=== PATIENT | male | born 1940 | race Caucasian/White ===

== ENCOUNTER 2018-04-28 15:06 | Inpatient (IN) | payer OTHER ==
--- OUTSIDE RECORDS SUMMARY | 2018-04-28 16:06 | XMS REPORT ---
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 Active knee Problem Pain, joint, knee, right M25.561 Active Assessment Primary osteoarthritis of right M17.11 Active knee Assessment Primary osteoarthritis of left knee M17.12 Active Assessment Pain, joint, knee, right M25.561 Active Medications Medication Code System Code Instructions Start End Date Status Dosage Date Carafate [facility] 96296842420 1 GM Orally Active 1 tablet on Twice a day an empty stomach losartan [facility] 45474420146 20 mg Active one tab daily Jardiance [facility] 41903710645 25 MG Oral Active TAKE 1 TABLET BY MOUTH EVERY DAY IN THE MORNING Carvedilol [facility] 14281593163 12.5 MG Oral Active TAKE 1/2 TABLET BY MOUTH TWICE DAILY Omeprazole [facility] 53902879129 40 MG Oral Active TAKE 1 CAPSULE BY MOUTH TWICE A DAY Crestor [facility] 63693333863 40 MG Orally Active 1 tablet Once a day Lasix [facility] 84466331213 20 MG Orally Active 1 tablet Once a day Results No Known Results Summary Purpose eClinicalWorks Submission
[2018-04-28] MEDS ORDERED: D50W 25 GM/50 ML SYRINGE IV PRN (16:47)
[2018-04-28] MEDS ORDERED: GLUCAGON 1 MG/VIAL IM PRN (16:47)
[2018-04-28] MEDS ORDERED: FUROSEMIDE 40 MG/4 ML VIAL IV ONE (17:10)
[2018-04-28 17:11] LABS: Absolute Lymphocytes (CBC) 0.8 K/uL (0.7-4.9); Absolute Monocytes 1.3 K/uL (0.1-1.3); Absolute Neutrophil 5.4 K/uL (1.8-8.0); Basophils % 0.4 % (0-1.3); Eosinophils % 1.2 % (0-4.4); Hematocrit 37.1 % (39.6-49.0); Lymphocytes % 10.3 % (15.3-44.8); MCH 34.5 pg (27.0-35.0); MCV 99.3 fL (80-100); Monocytes % 16.8 % (3.3-12.3); RBC Red Blood Cell Count 3.74 M/uL (4.33-5.43)
[2018-04-28 17:38] LABS: Albumin 2.4 g/dL (3.4-5.0); Bilirubin Total 2.9 mg/dL (0.2-1.0); Magnesium 2.2 mg/dL (1.8-2.4); Phosphorus 2.5 mg/dL (2.5-4.9); Potassium 3.3 mmol/L (3.5-5.1); Protein, Total 7.2 g/dL (6.4-8.2); Thyroid Stimulating Hormone 1.59 uIU/mL (0.360-3.740)
--- NOTE | 2018-04-28 18:00 | RAD REPORT ---
EXAM DESCRIPTION: Markus Caruso (2 Views)04/28/2018 5:42 pm CLINICAL HISTORY: Cough COMPARISON: November 2017 FINDINGS: A small to moderate left pleural effusion is present with left basilar atelectasis. The right lung appears clear The heart is normal size IMPRESSION: Small to moderate left pleural effusion
[2018-04-28 18:37] LABS: Anisocytosis 1+; Blood Morphology Comment NOTED (NOT SEEN); Platelet Estimate DECR; Urine White Blood Cell Casts OK
[2018-04-28] MEDS ORDERED: POTASSIUM CL SA 10 MEQ TAB PO ONE (18:50)
[2018-04-28 19:01] LABS: Urine Appearance CLOUDY; Urine Blood NEGATIVE (NEG); Urine Color ORANGE; Urine Glucose NEGATIVE (NEG); Urine Protein NEGATIVE (NEG); Urine Specific Gravity 1.025 (1.005-1.030)
[2018-04-28 19:13] LABS: Urine Bilirubin 1+ (NEG); Urine Microscopic Reflex ORDER UMIC
[2018-04-28 19:29] LABS: Urine Bacteria 20-50 /HPF (NONE SEEN); Urine Culture Reflex Order REFLEXED; Urine Mucus 3+ /HPF (NONE SEEN); Urine RBC <5 /HPF (NONE SEEN)
[2018-04-28] MEDS: INSULIN -REGULAR HUMAN 50 UNIT/0.5 ML ML SQ SCH (21:00)
[2018-04-28] MEDS ORDERED: POTASS/SODIUM PHOSPHATE 1 PKT POWD.PACK PO ONE (21:00)
[2018-04-28] MEDS ORDERED: CEFTRIAXONE 1 GM/NS 50 ML 1 GM/50 ML BAG IV SCH (21:00)
[2018-04-28] MEDS: CEFTRIAXONE/SWI 1gm 1 GM/10 ML SYR IVP SCH (21:24)
[2018-04-28] MEDS: SPIRONOLACTONE 25 MG TABLET PO SCH (21:26)
--- NOTE | 2018-04-29 04:25 | HP ---
Date of Admission: 04/28/2018 Chief Complaint: Cough, congestion and swelling. History Of Present Illness: Mr. Vega is a 77-year-old pleasant male patient who has history of cirrhosis of liver, has seen Dr. Powers for that in the past, recently went out of country to [facility] on a vacation. The patient got sick 3 days ago with cough, congestion and redness of his eyes w ith some discharge from eyes and matting of his eyelids in the morning time. He is coughing up some yellowish-colored mucus with this problem. He has had some bloating type of feeling lately. He came home last night and came to see me today with his complaints. When I saw him, I noted that his abdo men appeared to be distended and had bilateral leg swelling. Upon further review of office record, i t was noted that the patient has gained 20 pounds since his last visit at office which was on 2017. He denies any shortness of breath. He takes his medications regularly as he reports. After he was evaluated he was admitted to the hospital for further evaluation and management of these problems. Review of Systems: Respiratory: As mentioned above. Eyes: As mentioned above. GI: As mentioned above. All other systems reviewed and negative. Social History: Negative for smoking. Use of alcohol in the past. Now, he rarely drinks alcohol. Past Medical History: Type 2 diabetes mellitus, mixed hyperlipidemia, hypertension, thrombocytopenia , cirrhosis of liver, pancreatic cyst, benign prostatic hypertrophy. Past Surgical History: Cholecystectomy and removal of lipoma and basal cell carcinoma from back. Allergies: TO MUCINEX DM, VICODIN, BACTRIM, AND LISINOPRIL. LISINOPRIL CAUSING FLUSHING, BACTRIM CA USING HYPERACTIVITY, VICODIN MADE HIM FEEL WEIRD AND WIRED UP AND NAUSEA, MUCINEX CAUSED SWELLING OF HIS TONGUE. Family History: Significant for abdominal aortic aneurysm. Medications: Aspirin 81 mg p.o. daily, carvedilol 12.5 mg 2 times a day, Crestor 10 mg p.o. daily, f luticasone nasal spray 1 spray 2 times a day in each nostril, furosemide 20 mg takes 2 tablets in the morning and 1 tablet at noon time, Jardiance 25 mg p.o. daily, losartan 50 mg p.o. 2 times a day, Ne xium 40 mg p.o. daily, omeprazole 40 mg p.o. 2 times a day, spironolactone 25 mg p.o. 2 times a day. Physical Examination: Vital Signs: Vital signs today at office, height 72 inches, weight 234 pounds, blood pressure 138/69 , pulse 84, respiratory rate 15, temperature 98.7. General: Awake, alert, oriented, not in distress. HEENT: Head atraumatic, normocephalic. Both eyes show erythematous conjunctivae worse in the right eye than the left eye. Mouth, no thrush or edema noted. Ears/Nose, no mass, lesion, discharge noted . Neck: Supple. No JVD, lymph nodes, bruit, thyromegaly noted. Lungs: Bilateral good equal air entry. Clear to auscultation. No rhonchi. No rales. Heart: Normal heart sounds, no murmur or gallop. Abdomen: Appears distended. No guarding, rigidity, tenderness. No hepatosplenomegaly or bruit, and the patient has large amount of ascites present. Extremities: Bilateral leg edema grade 3 involving both thighs and both lower legs. Skin: No rash, ulcer, cellulitis. Lymphatics: No lymph node enlargement in neck, supraclavicular, infraclavicular region. Neuro: No focal neurological deficit. Chest: Unremarkable. External Genitalia: Deferred. Rectal: Deferred. Laboratory Data: Labs pending. Impression: 1.Cirrhosis of liver. 2.Rule out pneumonia. 3.Type 2 diabetes mellitus. 4.Mixed hyperlipidemia. 5.Hypertension. 6.Thrombocytopenia. 7.Acute conjunctivitis, bilateral. Plan: Admit the patient to hospital for further evaluation and management of this problem. The [facility] is appropriate for inpatient and is expected to spend 2 midnights in hospital. We will go ahead and continue home medications per order. We will get routine blood work done. We will follow up on those results. We will also consult Dr. Powers from [facility]. The patient will need paracentesis. He never had paracentesis done before. We will go ahead and get echocardiogram done to evaluate le ft ventricular ejection fraction and continue spironolactone 25 mg 2 times a day and start him on Las ix 40 mg IV daily. Electrolytes will be monitored. We will start him on IV antibiotics ceftriaxone. Follow up on chest x-ray results. Details and plan of treatment discussed with him. We will go ah ead and start him on antibiotic eyedrops, Vigamox. I will see him tomorrow for followup. TOMMY/HAM Voice ID: [id number]
[2018-04-29 06:10] LABS: Magnesium 2.1 mg/dL (1.8-2.4); Phosphorus 2.8 mg/dL (2.5-4.9); Potassium 3.8 mmol/L (3.5-5.1)
[2018-04-29] MEDS ORDERED: POTASSIUM 25 MEQ EFFERV TAB PO ONE (06:13)
[2018-04-29] MEDS: INSULIN -REGULAR HUMAN 50 UNIT/0.5 ML ML SQ SCH ×4 (07:30→21:00)
[2018-04-29] MEDS: MOXIFLOXACIN HCL 0.5% 3ML OPTH OPTH SCH ×4 (09:00→21:26)
[2018-04-29] MEDS ORDERED: HOME MED 1 EA UNK (Omeprazole [Prilosec] 40 MG) PO SCH (09:00)
[2018-04-29] MEDS ORDERED: CARVEDILOL 6.25 MG PO SCH (09:00)
[2018-04-29] MEDS ORDERED: FUROSEMIDE 40 MG/4 ML VIAL IV SCH (09:00)
[2018-04-29] MEDS: ENOXAPARIN 40 MG/0.4 ML SQ SCH (09:58)
[2018-04-29] MEDS: CEFTRIAXONE/SWI 1gm 1 GM/10 ML SYR IVP SCH ×2 (09:58→21:26)
[2018-04-29] MEDS: SPIRONOLACTONE 25 MG TABLET PO SCH ×2 (09:59→21:25)
[2018-04-29] MEDS: FUROSEMIDE 40 MG TABLET PO SCH ×2 (10:00→17:36)
--- NOTE | 2018-04-29 10:17 | RAD REPORT ---
EXAM DESCRIPTION: CT - Thorax Wo Con - 04/29/2018 8:51 am CLINICAL HISTORY: Pleural effusion, cough and congestion, bilateral leg swelling COMPARISON: Chest exam April 28, CT abdomen December 16 TECHNIQUE: Axial 5 mm thick images of the chest were obtained without IV contrast. All CT scans are performed using dose optimization technique as appropriate and may include automated exposure control or mA/KV adjustment according to patient size. FINDINGS: No suspicious mass of the lung parenchyma and no infiltrate seen. A few small granulomas a re present. Moderate left pleural effusion is present with partial atelectasis of the left lower lobe . No left lower lobe endobronchial lesion and no evidence for an obstructive mass at the hilum. No ri ght-sided pleural effusion. No pleural based mass. No pneumothorax. No abnormal mediastinal or hilar masses or lymphadenopathy seen. No gross aortic or pulmonary artery finding suspected. Assessment is limited in the absence of IV contrast. No cardiomegaly or pericardi al effusion. No chest wall mass or abnormal axillary lymphadenopathy. Bilateral gynecomastia changes are present. Limited upper abdomen imaging shows advanced cirrhotic liver changes. Patient has a large volume of a scites. The ascites and remainder the abdomen are not fully assessed on the CT chest study. IMPRESSION: Moderate size left pleural effusion with partial atelectasis left lower lobe. No focal infiltrate seen. No perihilar mass, lymphadenopathy or endobronchial lesion. Limited upper abdomen imaging again notes advanced liver cirrhosis with large volume of ascites. Abdo men is incompletely assessed.
--- NOTE | 2018-04-29 10:20 | RAD REPORT ---
EXAM DESCRIPTION: US - Abdomen Exam Complete - 04/29/2018 9:29 am CLINICAL HISTORY: Ascites, abdominal pain COMPARISON: CT chest same date, abdomen CT December 16 FINDINGS: Gallbladder is absent. Common bile duct is normal with no common duct stone identified. Li abbey is grossly abnormal with diffusely coarsened and increased echogenicity as well as pronounced cap sular nodularity. A focal liver lesion is not identifiable. Doppler evaluation shows no reversal of p ortal flow. Spleen is 13 cm in maximum dimension. No focal splenic abnormality. The pancreas is too o bscured for assessment. No hydronephrosis or suspicious mass in either kidney. Aorta and IVC show no suspicious findings. Moderately large volume of ascites present. When comparing the ultrasound and current CT chest study with November imaging, ascites has increased. IMPRESSION: Advanced cirrhosis of the liver without a focal liver lesion identifiable. Moderately large volume of ascites. Volume has increased since the November CT imaging. Pancreas is too obscured for assessment.
--- NOTE | 2018-04-29 10:21 | RAD REPORT ---
EXAM DESCRIPTION: US - Extrem Venous W Compress Isaias - 04/29/2018 9:29 am CLINICAL HISTORY: Bilateral lower extremity edema, leg pain COMPARISON: None. TECHNIQUE: Real-time sonographic evaluation of the bilateral lower extremity common femoral, superfi cial femoral, popliteal and posterior tibial veins was performed. FINDINGS: Normal compressibility, flow augmentation, phasic flow and spontaneous flow are identified in the left and right lower extremity common femoral, superficial femoral, popliteal and posterior t ibial veins. No intraluminal filling defects seen. IMPRESSION: No DVT in either lower extremity.
--- NOTE | 2018-04-29 13:31 | PN ---
Date of Progress Note: 04/29/2018 Subjective: The patient was seen this morning for followup. He was sitting at bedside. No new comp laints or problems reported. His leg swelling is slightly better compared to yesterday. Objective: Vital signs: Reviewed. HEENT: Unremarkable. Lungs: Clear to auscultation. No rhonchi. No rales. Heart: Sounds normal. Abdomen: Soft. Presence of ascites. No guarding, rigidity, or tenderness. Extremities: Bilateral leg edema, slightly better today than yesterday. Laboratory Data: Sodium 139, potassium 3.8, chloride 106, bicarb 26, BUN 15, creatinine 1, glucose 1 33. Hemoglobin A1c 5.6 yesterday. Magnesium 2.1 and phosphorus 2.8 today. Chest x-ray shows pleura l effusion. Impression: 1.Cirrhosis of liver with ascites. 2.Pleural effusion. 3.Rule out pneumonia. 4.Acute conjunctivitis. 5.Type 2 diabetes mellitus. 6.Hypertension. Plan: We will go ahead and do venous Doppler of both lower extremities today to rule out DVT. Josi robson Lovenox for DVT prophylaxis. We will also go ahead and follow up on echocardiogram, which will b e done today. GI consultation is pending and we will get abdominal ultrasound done today. CAT scan of the chest was ordered without contrast today. Lasix will be continued at 40 mg IV every 12 hours per order, and we will go ahead and continue spironolactone. Home medications will be continue d per order. TOMMY/MODL Voice ID: [id number] Report ID: [id number]
[2018-04-29] MEDS ORDERED: ALBUMIN HUMAN 25% 300 ML IV SCH (18:00)
[2018-04-29] MEDS ORDERED: ROSUVASTATIN PO SCH (21:00)
[2018-04-30 07:11] LABS: Potassium 3.1 mmol/L (3.5-5.1)
[2018-04-30] MEDS ORDERED: POTASSIUM CL SA 10 MEQ TAB PO ONE ×2 (07:15→14:54)
[2018-04-30] MEDS: INSULIN -REGULAR HUMAN 50 UNIT/0.5 ML ML SQ SCH ×4 (07:30→20:25)
[2018-04-30] MEDS: FUROSEMIDE 40 MG TABLET PO SCH ×2 (09:50→16:39)
[2018-04-30] MEDS: SPIRONOLACTONE 25 MG TABLET PO SCH ×2 (09:50→20:25)
[2018-04-30] MEDS: MOXIFLOXACIN HCL 0.5% 3ML OPTH OPTH SCH ×3 (09:51→20:25)
[2018-04-30] MEDS: CEFTRIAXONE/SWI 1gm 1 GM/10 ML SYR IVP SCH ×2 (09:51→20:25)
[2018-04-30] MEDS: ENOXAPARIN 40 MG/0.4 ML SQ SCH (09:51)
--- NOTE | 2018-04-30 14:58 | P.PN ---
Subjective Date of Service: 04/30/18 Chief Complaint: Ascites, cirrhosis, left pleural effusion, LLE, volume overload Subjective: Improving (Slowly feeling better with ongoing diuresis on Lasix and Aldactone, after increased volume somewhat prior (as per ) and especially during recent trip to [place] where he reduced his diuretic [place] Review of Systems 10-point ROS is otherwise unremarkable General: Weakness (Slowly improving. ) Cardiovascular: Edema Physical Examination - Vital Signs Temperature: 97.3 F Blood Pressure: 130/72 Pulse: 88 Respirations: 18 Pulse Ox (%): 93 - Physical Exam General: Alert, In no apparent distress, Oriented x3, Cooperative HEENT: Atraumatic, Normocephalic, PERRLA, Other (right eye with conjunctivitis / red on therapy ), EOMI Neck: Supple Cardiovascular: Normal pulses Gastrointestinal: No tenderness, No rebound, No guarding, Ascites Neurological: Normal speech, Normal strength at 5/5 x4 extr - Studies Laboratory Data (last 24 hrs) 04/30/18 13:57: Potassium 3.6 04/30/18 06:41: Sodium 138, Potassium 3.1 L, BUN 16, Creatinine 1.00, Glucose 98 Microbiology Data (last 24 hrs): 04/29/18 06:50 Sputum Gram Stain - Final Assessment And Plan - Current Problems (Diagnosis) (1) Ascites Current Visit: Yes Status: Acute (2) Cirrhosis of liver Onset Date: 08/16/17 Current Visit: No Status: Acute (3) Diabetes mellitus, type II Onset Date: 08/16/17 Current Visit: No Status: Acute - Plan REC: 1) increase Aldactone from 25 to 50 mg po bid (K at 3.0 & 3.6, with Cr 1.0 ) 2) elevated LEs above heart level when lying down 3) check wt qd 4) consider 2 liter fluid restriction / day 5) U/S guided paracentesis for Wednesday (not available on weekend) 6) await ongoing cardiac evaluation for CHF contributing to increase LLE ( especially since h/o diabetes) -> echocardiogram done yesterday and pending
[2018-04-30] MEDS ORDERED: SPIRONOLACTONE 25 MG TABLET PO ONE (14:59)
--- NOTE | 2018-05-01 02:18 | PN ---
Date of Progress Note: 04/30/2018 Subjective: The patient was seen this evening for followup. No new complaints or problems reported by patient. No nausea or vomiting. Objective: Vital Signs: Reviewed. HEENT: Unremarkable except some redness of right eye, which is much better than before. Redness of the left eye is resolved. Lungs: Bilateral good equal air entry. Clear to auscultation. No rhonchi. No rales. Heart: Heart sounds normal. Abdomen: Soft. Bowel sounds normal. No guarding, rigidity. Presence of ascites with distended abd omen, unchanged. Extremities: Bilateral leg edema, unchanged from yesterday. Laboratory Data: Sodium 138, potassium 3.1, chloride 105, bicarb 27, BUN 16, creatinine 1, glucose 9 8. Repeat potassium after correction was 3.6 this afternoon. Impression: 1.Cirrhosis of liver with ascites. 2.Acute bronchitis. 3.Pleural effusion. 4.Hypokalemia. 5.Hypertension. 6.Diabetes mellitus, type 2. Plan: We will continue current medications. Continue current diuretic therapy with Lasix and spiron olactone. Continue antibiotic, ceftriaxone, and we will continue current DVT prophylaxis. Replace e lectrolyte per protocol. I will see him tomorrow for followup. We will continue to follow up with [facility] physician, Dr. Powers, who is planning to do paracentesis on Wednesday. We will repeat blood work tomorrow morning. TOMMY/MODL Voice ID: [id number] Report ID: [id number]
[2018-05-01 06:00] LABS: Absolute Lymphocytes (CBC) 0.6 K/uL (0.7-4.9); Absolute Monocytes 0.7 K/uL (0.1-1.3); Absolute Neutrophil 3.5 K/uL (1.8-8.0); Basophils % 0.6 % (0-1.3); Eosinophils % 4.1 % (0-4.4); Hematocrit 34.9 % (39.6-49.0); Lymphocytes % 11.4 % (15.3-44.8); MCH 35.7 pg (27.0-35.0); MCV 100.6 fL (80-100); MPV 9.3 fL (7.6-11.3); RBC Red Blood Cell Count 3.47 M/uL (4.33-5.43)
[2018-05-01 06:03] LABS: Protime INR 1.39
[2018-05-01 06:26] LABS: Potassium 3.3 mmol/L (3.5-5.1)
[2018-05-01] MEDS ORDERED: POTASSIUM CL SA 10 MEQ TAB PO ONE (06:30)
[2018-05-01] MEDS: INSULIN -REGULAR HUMAN 50 UNIT/0.5 ML ML SQ SCH ×4 (07:30→21:00)
[2018-05-01] MEDS: SPIRONOLACTONE 25 MG TABLET PO SCH (09:18)
[2018-05-01] MEDS: MOXIFLOXACIN HCL 0.5% 3ML OPTH OPTH SCH ×3 (09:18→20:42)
[2018-05-01] MEDS: ENOXAPARIN 40 MG/0.4 ML SQ SCH (09:18)
[2018-05-01] MEDS: FUROSEMIDE 40 MG TABLET PO SCH ×2 (09:18→16:43)
[2018-05-01] MEDS: CEFTRIAXONE/SWI 1gm 1 GM/10 ML SYR IVP SCH ×2 (10:21→20:41)
--- NOTE | 2018-05-01 12:20 | P.PN ---
Subjective Date of Service: 05/01/18 Chief Complaint: Ascites, cirrhosis, left pleural effusion, LLE, volume overload Subjective: Tolerating diet (Tolerating 2000 ADA diet, though with ice cream, chips, and breaded baked chicken for lunch. His weight has increased by 1 lbs overnight despite increase in Aldactone from 25 to 50 mg po bid. & his K is still low at 3.3 today, even with potassium given last night.) Review of Systems General: Weakness, Malaise Cardiovascular: Edema Gastrointestinal: Hematochezia (he states excessive wiping of hemorrhoids) Neurological: Weakness Physical Examination - Vital Signs Temperature: 97.3 F Blood Pressure: 164/77 Pulse: 82 Respirations: 18 Pulse Ox (%): 93 - Physical Exam General: Alert, In no apparent distress, Oriented x3, Cooperative HEENT: Atraumatic, Normocephalic, PERRLA, Other (right eye conjunctivitis slowly improving on therapy ), EOMI Neck: Supple Respiratory: Diminished (in bases) Cardiovascular: Normal pulses Gastrointestinal: No rebound, No guarding, Ascites Neurological: Normal speech, Normal strength at 5/5 x4 extr - Studies Laboratory Data (last 24 hrs) 05/01/18 04:52: PT 16.4 H, INR 1.39, APTT 32.2 05/01/18 04:52: WBC 5.0 D, Hgb 12.4 L, Hct 34.9 L, Plt Count 107 L 05/01/18 04:52: Sodium 139, Potassium 3.3 L, BUN 16, Creatinine 1.00, Glucose 153 H, Magnesium 2.0 04/30/18 13:57: Potassium 3.6 Microbiology Data (last 24 hrs): 04/29/18 06:50 Sputum Gram Stain - Final 04/29/18 06:50 Sputum Culture & Sensitivity - Final 04/27/18 18:30 Clean Catch Urine [place] Count - Final >100,000 CFU/ML. 04/27/18 18:30 Clean Catch Urine - Final Assessment And Plan - Current Problems (Diagnosis) (1) Ascites Current Visit: Yes Status: Acute (2) Cirrhosis of liver Onset Date: 08/16/17 Current Visit: No Status: Acute (3) Diabetes mellitus, type II Onset Date: 08/16/17 Current Visit: No Status: Acute - Plan REC: 1) increase Aldactone from 50 to 100 mg po bid (K at 3.3, with Cr 1.0) 2) elevated LEs above heart level when lying down 3) check wt qd 4) consider 2 liter fluid restriction / day 5) U/S guided paracentesis tomorrow with fluid studies and IV albumin (not available on weekend) 6) await ongoing cardiac evaluation for CHF contributing to increase LLE ( especially since h/o diabetes) -> echocardiogram done yesterday and pending
--- NOTE | 2018-05-01 12:57 | PN ---
Date of Progress Note: 05/01/2018 Subjective: The patient was seen this morning for followup . He was sitting in chair, not in distre ss. Denied any new complaints. No diarrhea. No nausea, vomiting. Continues to have significant le g swelling and ascites problem has some cough, which is dry. Objective: Vital Signs: Reviewed. HEENT: Unremarkable. Lungs: Clear to auscultation. No rhonchi. No rales. Heart: Sounds normal. Abdomen: Soft. Bowel sounds normal. No guarding, rigidity, tenderness noted. Presence of ascites with distended abdomen present, unchanged. Extremities: Leg edema bilateral legs, slightly worse today than yesterday. Laboratory Data: White count 5, hemoglobin 12.4, platelets 107. Sodium 139, potassium 3.3, chloride 104, bicarb 25, BUN 16, creatinine 1, glucose 153, magnesium 2. Impression: 1.Cirrhosis of liver with ascites. 2.Hypokalemia. 3.Thrombocytopenia. 4.Acute bronchitis. 5.Acute conjunctivitis. 6.Hypertension. Plan: We will go ahead and continue current diuretic therapy. Replace electrolytes per protocol. T he patient is on DVT prophylaxis with Lovenox. We will continue that. We will continue to follow wi th Dr. Powers. Continue current eyedrops for conjunctivitis, which seems to be improving well with e yedrops. Continue ceftriaxone for acute bronchitis problem as well. I did talk to patient about not to drink excessive amount of liquids, and as per my discussion with him, he is not drinking more colette n a 1000 cc per day and we did talk about keeping his fluid intake under 1000 cc per day. We will continue current diuretic therapy. Dr. Powers is pl anning to do paracentesis tomorrow. TOMMY/MODL Voice ID: [id number] Report ID: [id number]
[2018-05-01] MEDS: SPIRONOLACTONE 100 MG TAB PO SCH (20:41)
[2018-05-02 06:14] LABS: Potassium 3.8 mmol/L (3.5-5.1)
[2018-05-02] MEDS ORDERED: KCL 20 MEQ/100 mL IVPB 20 MEQ/100 ML BAG IV SCH (07:00)
[2018-05-02] MEDS: INSULIN -REGULAR HUMAN 50 UNIT/0.5 ML ML SQ SCH ×4 (07:30→21:00)
--- NOTE | 2018-05-02 07:33 | ECHO ---
HEIGHT: 6 ft 0 in WEIGHT: 231 lb 3.2 oz DATE OF STUDY: 04/29/[address]: Clark Barrera MD 2-DIMENSIONAL: YES M.MODE: YES DOPPLER: YES COLOR FLOW: YES TDS: YES PORTABLE: NO DEFINITY: NO BUBBLE STUDY: NO DIAGNOSIS: LEG EDEMA CARDIAC HISTORY: CATHERIZATION: NO SURGERY: NO PROSTHETIC VALVE: NO PACEMAKER: NO MEASUREMENTS (cm) DIASTOLIC (NORMALS) SYSTOLIC (NORMALS) IVSd 1.1 (0.6-1.2) LA Diam (1.9-4.0) LVEF 65% LVIDd 4.8 (3.5-5.7) LVIDs 3.1 (2.0-3.5) %FS 35% LVPWd 1.2 (0.6-1.2) Ao Diam 2.9 (2.0-3.7) 2 DIMENSIONAL ASSESSMENT: RIGHT ATRIUM: NORMAL LEFT ATRIUM: NORMAL RIGHT VENTRICLE: NORMAL LEFT VENTRICLE: NORMAL TRICUSPID VALVE: NORMAL MITRAL VALVE: NORMAL PULMONIC VALVE: NORMAL AORTIC VALVE: SCLEROSIS PERICARDIAL EFFUSION: NONE AORTIC ROOT: NORMAL LEFT VENTRICULAR WALL MOTION: NORMAL DOPPLER/COLOR FLOW: NORMAL COMMENTS: AORTIC SCLEROSIS. NORMAL LEFT VENTRICULAR SIZE AND FUNCTION. NO WALL MOTION ABNORMALITY. TECHNOLOGIST: Mike URENA
[2018-05-02] MEDS ORDERED: NA CHLORIDE 0.9% 50 ML ONE (07:59)
[2018-05-02] MEDS: FUROSEMIDE 40 MG TABLET PO SCH ×2 (09:00→17:05)
[2018-05-02] MEDS: SPIRONOLACTONE 100 MG TAB PO SCH ×2 (09:00→21:41)
[2018-05-02] MEDS: ENOXAPARIN 40 MG/0.4 ML SQ SCH (09:00)
[2018-05-02] MEDS: MOXIFLOXACIN HCL 0.5% 3ML OPTH OPTH SCH ×3 (09:33→21:42)
[2018-05-02] MEDS: CEFTRIAXONE/SWI 1gm 1 GM/10 ML SYR IVP SCH ×2 (09:33→21:41)
--- NOTE | 2018-05-02 11:17 | RAD REPORT ---
EXAM DESCRIPTION: US - Paracentesis Proc Guidance - 05/02/2018 11:05 am CLINICAL HISTORY: Ascites COMPARISON: None. TECHNIQUE: The patient presents for ultrasound-guided paracentesis. The procedure, risks and altern atives were discussed with the patient in detail. Oral and written consent were obtained. Time out p rocedure was performed. The patient had no contraindicated allergy or medication history. Patient wa s off Lovenox therapy greater than 12 hours. Preliminary sonographic evaluation identified right lower access site. The skin and deeper tissues w ere anesthetized with 1 percent lidocaine. Under direct sonographic visualization, a paracentesis ca theter was advanced into the peritoneal cavity. Approximately 20 milliliters of ascites retained for requested laboratory studies. Large volume drainage was initiated. Approximately 7.5 liters of ascite s removed. At the conclusion of the procedure, catheter was withdrawn and a bandage placed at the puncture site. Postprocedure care and precaution instructions were given to the patient. Patient was transferred [facility] the floor for continued care. Albumin therapy orders were provided by the referring physician. IMPRESSION: Ultrasound-guided paracentesis as detailed.
[2018-05-02 11:20] VITALS: O2SAT 95
[2018-05-02] MEDS ORDERED: ALBUMIN HUMAN 25% 100 ML IV SCH (12:00)
[2018-05-02] MEDS ORDERED: SPIRONOLACTONE 25 MG TABLET PO ONE (13:00)
--- NOTE | 2018-05-02 20:58 | PN ---
Date of Progress Note: 05/02/2018 Subjective: The patient was seen this morning for followup. No new complaints or problems reported by patient, lying in bed, not in distress. Objective: Vital Signs: Reviewed. HEENT: Examination unremarkable. Lungs: Clear to auscultation. Heart: Sounds normal. Abdomen: Soft. Bowel sounds normal. Presence of distention with ascites unchanged. Extremities: Leg edema unchanged from yesterday. Laboratory Data: Sodium 140, potassium 3.8, chloride 104, bicarb 29, BUN 15, creatinine 0.90, glucos e 92. Impression: 1.Cirrhosis of liver with ascites. 2.Acute bronchitis. 3.Pleural effusion. 4.Hypertension. 5.Type 2 diabetes mellitus. 6.Acute conjunctivitis. Plan: The patient's conjunctivitis problem is doing much better. We will continue current eyedrops. Continue current ceftriaxone for bronchitis problem. The patient will have paracentesis with Dr. Alka agrawal today and I will see him tomorrow for followup. We will continue current diuretic therapy. Po ssible discharge to go home in next day or two days depending on his condition. TOMMY/MODL Voice ID: [id number] Report ID: [id number]
[2018-05-02 21:34] LABS: Body Fluid Source PERITONEAL; Color of fluid Yellow (COLORLESS)
[2018-05-02 21:35] LABS: Appearance CLEAR (CLEAR); Body Fluid WBC 59 /mm^3
[2018-05-03 05:42] LABS: Absolute Lymphocytes (CBC) 0.6 K/uL (0.7-4.9); Absolute Monocytes 0.7 K/uL (0.1-1.3); Absolute Neutrophil 3.8 K/uL (1.8-8.0); Basophils % 0.4 % (0-1.3); Eosinophils % 3.2 % (0-4.4); Hematocrit 34.7 % (39.6-49.0); MCH 34.8 pg (27.0-35.0); MCV 100.8 fL (80-100); Monocytes % 13.8 % (3.3-12.3); RBC Red Blood Cell Count 3.45 M/uL (4.33-5.43)
[2018-05-03 05:56] VITALS: BMI 29.7
[2018-05-03 05:57] LABS: BUN Blood Urea Nitrogen 15 mg/dL (7-18); Bicarbonate 30 mmol/L (21-32); Glucose Level 86 mg/dL (74-106); Magnesium 1.9 mg/dL (1.8-2.4); Phosphorus 2.5 mg/dL (2.5-4.9); Potassium 3.6 mmol/L (3.5-5.1); Sodium Level 140 mmol/L (136-145)
[2018-05-03] MEDS ORDERED: POTASSIUM 25 MEQ EFFERV TAB PO ONE (06:11)
[2018-05-03 06:23] LABS: Blood Morphology Comment NOT SEEN (NOT SEEN); Platelet Estimate ADEQ; Urine White Blood Cell Casts OK
[2018-05-03] MEDS: INSULIN -REGULAR HUMAN 50 UNIT/0.5 ML ML SQ SCH (07:30)
[2018-05-03 09:49] VITALS: BP 133/59; TEMP 98.1
--- NOTE | 2018-05-03 12:35 | P.PN ---
Subjective Date of Service: 05/03/18 Chief Complaint: Ascites, cirrhosis, left pleural effusion, LLE, volume overload Subjective: Improving (Feels much better after 7.5 liters of fluid removed on paracentesis yesterday. His wt came down from 231 to 218 lbs.) Review of Systems 10-point ROS is otherwise unremarkable General: Malaise (improved) Physical Examination - Vital Signs Temperature: 98.1 F Blood Pressure: 133/59 Pulse: 71 Respirations: 20 Pulse Ox (%): 95 - Physical Exam General: Alert, In no apparent distress, Oriented x3, Cooperative HEENT: Atraumatic, Normocephalic, PERRLA Neck: Supple Respiratory: Normal air movement Cardiovascular: Normal pulses, Edema (in LEs 3+) Gastrointestinal: Normal bowel sounds, Soft and benign (ascites ), No tenderness , No rebound, No guarding Neurological: Normal speech, Normal strength at 5/5 x4 extr - Studies Laboratory Data (last 24 hrs) 05/03/18 05:25: WBC 5.4, Hgb 12.0 L, Hct 34.7 L, Plt Count 95 L 05/03/18 05:25: Sodium 140, Potassium 3.6, BUN 15, Creatinine 0.80, Glucose 86, Phosphorus 2.5, Magnesium 1.9 Microbiology Data (last 24 hrs): 05/02/18 10:20 Body Fluid - Ascites Fluid Gram Stain - Final Assessment And Plan - Current Problems (Diagnosis) (1) Ascites Status: Acute (2) Cirrhosis of liver Onset Date: 08/16/17 Status: Acute (3) Diabetes mellitus, type II Onset Date: 08/16/17 Status: Acute - Plan REC: 1) continue Aldactone 100 mg po bid (K at 3.6, with Cr 0.8) and Lasix 40 mg po bid 2) elevated LEs above heart level when lying down 3) check wt qd 4) consider 2 liter fluid restriction / day 5) await ongoing cardiac evaluation for CHF contributing to increase LLE ( especially since h/o diabetes) -> echocardiogram done yesterday and pending 6) GI clinic f/u next week
--- NOTE | 2018-05-04 05:12 | DS ---
Date of Discharge: 05/03/2018 Disposition: Discharged to go home. Physical Examination: HEENT: Unremarkable. Lungs: Clear to auscultation. Heart: Sounds normal. Abdomen: Soft. Bowel sounds normal. No guarding, rigidity, tenderness, or distention. Extremities: Bilateral grade-2 pedal edema in lower half of both legs. Overall, that is better than before. Discharge Medications And Instructions: 1.Continue all prior home medications except stop carvedilol and stop amlodipine. 2.Increase dose of spironolactone to 100 mg p.o. twice a day and increase dose of furosemide to 40 m g p.o. twice a day. 3.Follow up with Dr. Powers next week and follow up at my office a week after next. 4.The patient was instructed by me today when I saw him to limit his fluid intake to 1000 cc per day and to go ahead and eat low salt diet. Hospital Course: This is a 77-year-old male patient who was admitted to the hospital with cough, con gestion, and swelling. Please see dictated H and P for more information. After the patient was eval uated at office, he was admitted to the hospital with significant edema of both lower extremities and large amount of ascites with abdominal distention. After he was evaluated at the office, decision w as made to admit him to the hospital. Further evaluation revealed routine labs and abdominal ultraso und which showed large amount of ascites with advanced cirrhosis liver changes. Chest x-ray had show n pleural effusion. No definite evidence of pneumonia. The patient had symptoms of bronchitis. He was treated with IV antibiotic which was ceftriaxone. He also had conjunctivitis in both eyes. The right eye was worse than the left eye, and Vigamox eye drops were used for treatment, and he was impr chase significantly. His conjunctivitis changes have resolved. Dr. Powers from GI service was consul steven. The patient had a paracentesis done yesterday, and 7.5 L of fluid was removed. He feels a lot better. He has lost about 12 to 13 pounds with the paracentesis. This morning, he was feeling fine. His leg swelling has improved significantly. He still has leg swelling, but this is something we c an try to manage it on outpatient basis with oral diuretic therapy. On outpatient basis, he was taki ng spironolactone 25 mg twice a day; and over period of this hospitalization, Dr. Powers has increase d dose to 100 mg twice a day. He did receive IV Lasix 40 mg twice a day during this hospitalization. Electrolytes and blood count were monitored. Today, the patient was discharged to go home in sta e condition with above-mentioned medications and instructions. 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 2.Acute bronchitis. 3.Acute conjunctivitis, bilateral. 4.Type 2 diabetes mellitus. 5.Hyperlipidemia, mixed. 6.Hypertension. 7.Thrombocytopenia. 8.Anemia. 9.Hypokalemia. Laboratory Data: Labs done during this hospitalization; initial white count 7.6, hemoglobin 12.9, an d platelets 128. Last platelets 95 today with WBC 5.4 and hemoglobin 12. His last sodium today 140, potassium 3.6, chloride 104, bicarb 30, BUN 15, creatinine 0.80, glucose 86, and magnesium 1.9. TOMMY/MODL Voice ID: [id number] Report ID: [id number]
== END 2018-05-03 10:22 | disposition home or self-care (01) | DRG 433 ==
LOC: 2ND 16:03
PROVIDERS: ADMIT Internal Medicine; ATTEND Internal Medicine
PROC: 0W9G3ZZ Drainage of Peritoneal Cavity, Percutaneous Approach (ICD-10-PCS; principal; 2018-05-02)
DX: K70.31 Alcoholic cirrhosis of liver with ascites (principal); J90 Pleural effusion, not elsewhere classified; K92.1 Melena; J98.11 Atelectasis; F10.11 Alcohol abuse, in remission; E78.2 Mixed hyperlipidemia; N40.0 Benign prostatic hyperplasia without lower urinary tract symptoms; Z85.828 Personal history of other malignant neoplasm of skin; Z88.8 Allergy status to other drugs, medicaments and biological substances; H10.33 Unspecified acute conjunctivitis, bilateral; D69.6 Thrombocytopenia, unspecified; E11.9 Type 2 diabetes mellitus without complications; I10 Essential (primary) hypertension; J20.9 Acute bronchitis, unspecified; E87.6 Hypokalemia
CPT/HCPCS: 36415; 49083; 71046; 71250; 76700; 80048; 80053; 81003; 81015; 82962; 83036; 83735; 84100; 84132; 84145; 84443; 85025; 85610; 85730; 87070; 87086; 87088; 87205; 89050; 93306; 93970; J0696; J1650; J1940; P9047

== ENCOUNTER 2018-07-07 08:57 | Day surgery (SDC) | payer OTHER ==
--- OUTSIDE RECORDS SUMMARY | 2018-07-07 09:01 | XMS REPORT ---
[...] Start End Date Status Dosage Date Carafate [facility] 75771331025 1 GM Orally Active 1 tablet on Twice a day an empty stomach losartan [facility] 31814430772 20 mg Active one tab daily Jardiance [facility] 55671894086 25 MG Oral Active TAKE 1 TABLET BY MOUTH EVERY DAY IN THE MORNING Carvedilol [facility] 86378218324 12.5 MG Oral Active TAKE 1/2 TABLET BY MOUTH TWICE DAILY Omeprazole [facility] 86171778836 40 MG Oral Active TAKE 1 CAPSULE BY MOUTH TWICE A DAY Crestor [facility] 94587465190 40 MG Orally Active 1 tablet Once a day Lasix [facility] 46483129665 20 MG Orally Active 1 tablet Once a day Results No Known Results Summary Purpose eClinicalWorks Submission
[2018-07-07 09:58] LABS: MPV 9.3 fL (7.6-11.3)
[2018-07-07 10:05] LABS: Protime INR 1.28
[2018-07-07 10:10] VITALS: BMI 29.5
[2018-07-07 11:12] LABS: Platelet Estimate DECR
[2018-07-07] MEDS ORDERED: ALBUMIN HUMAN 25% 100 ML IV SCH (12:15)
--- NOTE | 2018-07-07 12:17 | RAD REPORT ---
EXAM DESCRIPTION: US - Paracentesis Proc Guidance - 07/07/2018 11:35 am CLINICAL HISTORY: Ascites COMPARISON: Paracentesis April 2018 TECHNIQUE: The patient presents for ultrasound-guided paracentesis. The procedure, risks and altern atives were discussed with the patient in detail. Oral and written consent were obtained. Time out p rocedure was performed. The patient had no contraindicated allergy or medication history. PT, INR va lues within acceptable limits. Preliminary sonographic evaluation identified access site. The skin and deeper tissues were anesthe tized with 1 percent lidocaine. Under direct sonographic visualization, a paracentesis catheter was advanced into the peritoneal cavity. Large volume drainage was initiated. Approximately 10 liters of ascites removed. At the conclusion of the procedure, catheter was withdrawn and a bandage placed at the puncture site. Postprocedure care and precaution instructions were given to the patient. Patient was transferred t o same-day surgery for post paracentesis monitoring and albumin infusion. IMPRESSION: Ultrasound-guided paracentesis as detailed.
[2018-07-07] MEDS ORDERED: ALBUMIN HUMAN 25% 100 ML IV ONE (12:30)
[2018-07-07 12:40] VITALS: TEMP 97.1
[2018-07-07 13:37] VITALS: BP 111/54; O2SAT 98
== END 2018-07-07 13:25 | disposition home or self-care (01) ==
LOC: DS 08:57
PROVIDERS: ATTEND Internal Medicine
DX: K70.31 Alcoholic cirrhosis of liver with ascites (principal)
CPT/HCPCS: 36415; 49083; 85049; 85610; 85730; 96365; P9047 ×2

== ENCOUNTER 2018-08-02 06:25 | Day surgery (SDC) | payer OTHER ==
--- OUTSIDE RECORDS SUMMARY | 2018-08-02 06:29 | XMS REPORT ---
[...] Status Dosage Date Carafate [facility] 27471573257 1 GM Orally Active 1 tablet on Twice a day an empty stomach losartan [facility] 27543473557 20 mg Active one tab daily Jardiance [facility] 16333071731 25 MG Oral Active TAKE 1 TABLET BY MOUTH EVERY DAY IN THE MORNING Carvedilol [facility] 59674536958 12.5 MG Oral Active TAKE 1/2 TABLET BY MOUTH TWICE DAILY Omeprazole [facility] 82722534965 40 MG Oral Active TAKE 1 CAPSULE BY MOUTH TWICE A DAY Crestor [facility] 16159027573 40 MG Orally Active 1 tablet Once a day Lasix [facility] 40858655068 20 MG Orally Active 1 tablet Once a day Results No Known Results Summary Purpose eClinicalWorks Submission
--- OUTSIDE RECORDS SUMMARY | 2018-08-02 06:29 | XMS REPORT | Clinical Summary ---
:1940 Author Organization [facility] Address [address] [place] [address] Care Team Providers Name Role Phone Unavailable Primary Care Provider Unavailable Allergies Not on File Medications Not on file Active Problems Not on file Social History Tobacco Use Types Packs/Day Years Used Date Never Assessed Sex Assigned at Date Recorded Not on file Job Start Date Occupation Industry Not on file Not on file Not on file Travel History Travel Start Travel End No recent travel history available. Last Filed Vital Signs Not on file Plan of Treatment Date Type Specialty Care Team Description 08/11/2018 Office Visit Hepatology Hoang Moreno MD [address] [facility] [address] [place], [place] [id number] Results Not on fileafter 08/01/2017 Insurance Payer Benefit Plan / Subscriber ID Type Phone Address Group [employer] - MEDICARE A[employer] MEDICARE O xxxxxxxx [phone] [address] [place] [place] [address]
[2018-08-02] MEDS ORDERED: NA CHLORIDE 0.9% 1,000 ML ONE (06:45)
[2018-08-02] MEDS ORDERED: SIMETHICONE 40 MG/ 0.6 ML ONE (07:05)
[2018-08-02] MEDS ORDERED: LIDOCAINE 1% MPF 5 ML VIAL ONE (07:51)
[2018-08-02] MEDS ORDERED: PROPOFOL 200 MG/20 ML VIAL IV ONE (07:51)
--- NOTE | 2018-08-02 08:15 | ENDO RPT ---
[address], [address] EGD PROCEDURE REPORT EXAM DATE: 08/02/2018 PATIENT NAME: Clifford Vega MR#: [id number] BIRTHDATE: 1940 ATTENDING: Tayo Powers Dr STATUS: outpatient DATA ENTRY REPRESENTATIVE: Monica Chauhan RN and Shyanne Deleon RN INDICATIONS: The patient is a 77 yr old Male here for an EGD due to surveillance of esophageal varices PROCEDURE PERFORMED: EGD with banding MEDICATIONS: Per Anesthesia. TOPICAL ANESTHETIC: none CONSENT: The patient understands the risks and benefits of the procedure and understands that these risks include, but are not limited to: sedation, allergic reaction, infection, perforation and/or bleeding. Alternative means of evaluation and treatment include, among others: physical exam, x-rays, and/or surgical intervention. The patient elects to proceed with this endoscopic procedure. DESCRIPTION OF PROCEDURE: During intra-op preparation period all mechanical medical equipment was checked for proper function. Hand hygiene and appropriate measures for infection prevention was taken. Procedure, possible complications, and alternatives including but not limited to the possibility of bleeding, perforation, tear, infection, sepsis, need for surgery, need for blood transfusion, and anesthesia related complications were explained to the patient. After the risks, benefits and alternatives of the procedure were thoroughly explained, Informed consent was verified, confirmed and timeout was successfully executed by the treatment team. The patient was placed in the left lateral position. The patient was anesthetized with topical anesthesia. Through the anesthetized oropharyngeal area, the scope was passed without any difficulty. The [id number] ([id number]) endoscope was introduced through the mouth and advanced to the second portion of the duodenum. Retroflexed views revealed a moderate sized hiatal hernia. The gastroscope was then slowly withdrawn and removed. Grade II varices were found in the lower esophagus. Esophageal banding was performed. A moderate sized hiatal hernia was found Mild gastritis was found in the body and the antrum of the stomach. Nodular mucosa was found in the bulb of the duodenum. ADVERSE EVENTS: There were no complications. IMPRESSIONS: 1. Two columns of grade II varices in the lower esophagus, s/p banding X2 2. Moderate sized hiatal hernia 3. Mild gastritis in the body and the antrum of the stomach 4. Nodular mucosa in the bulb of the duodenum RECOMMENDATIONS: acid suppression therapy REPEAT EXAM: Return in 1 month(s) for EGD. Tayo Powers Dr eSigned: Tayo Powers Dr 08/02/2018 8:14 AM cc: Clark Barrera CPT CODES: ICD9 CODES: PATIENT NAME: Silvia Clifford BautistaWojciech MR#: [id number]
[2018-08-02 12:57] VITALS: BP 99/51; TEMP 98.5; O2SAT 94
== END 2018-08-02 08:30 | disposition home or self-care (01) ==
LOC: OR 06:25
PROVIDERS: ATTEND Internal Medicine Gastroenterology
PROC: 06L38CZ Occlusion of Esophageal Vein with Extraluminal Device, Via Natural or Artificial Opening Endoscopic (ICD-10-PCS; principal; 2018-08-02 07:30)
DX: I85.10 Secondary esophageal varices without bleeding (principal); K75.81 Nonalcoholic steatohepatitis (NASH); K29.70 Gastritis, unspecified, without bleeding; K44.9 Diaphragmatic hernia without obstruction or gangrene; K76.6 Portal hypertension; K31.89 Other diseases of stomach and duodenum; K21.9 Gastro-esophageal reflux disease without esophagitis; I10 Essential (primary) hypertension; Z79.899 Other long term (current) drug therapy
CPT/HCPCS: 43244; 82962; J2704; J7030

== ENCOUNTER → 2018-08-05 | Day surgery (SDC) | payer OTHER ==
[~2018-08-05] MED LIST: ALBUMIN HUMAN 25% 100 ML IV SCH
--- OUTSIDE RECORDS SUMMARY | 2018-08-05 09:53 | XMS REPORT ---
[...] Start End Date Status Dosage Date Carafate [facility] 21083652389 1 GM Orally Active 1 tablet on Twice a day an empty stomach losartan [facility] 75851194887 20 mg Active one tab daily Jardiance [facility] 66294338692 25 MG Oral Active TAKE 1 TABLET BY MOUTH EVERY DAY IN THE MORNING Carvedilol [facility] 21033849755 12.5 MG Oral Active TAKE 1/2 TABLET BY MOUTH TWICE DAILY Omeprazole [facility] 01978603955 40 MG Oral Active TAKE 1 CAPSULE BY MOUTH TWICE A DAY Crestor [facility] 63499673800 40 MG Orally Active 1 tablet Once a day Lasix [facility] 15459105921 20 MG Orally Active 1 tablet Once a day Results No Known Results Summary Purpose eClinicalWorks Submission
--- OUTSIDE RECORDS SUMMARY | 2018-08-05 09:53 | XMS REPORT | Clinical Summary ---
:1940 Author Organization [facility] Address [address] [place] [address] Care Team Providers Name Role Phone Unavailable Primary Care Provider Unavailable Allergies Not on File Medications Not on file Active Problems Not on file Encounters Date Type Specialty Care Team Description 08/05/2018 Telephone Hepatology Amy Rebollar MA Rec Cd (1) after 08/04/2017 Social History Tobacco Use Types Packs/Day Years [...] Office Visit Hepatology Hoang Moreno MD [address] [address] Results Not on fileafter 08/04/2017 Insurance Payer Benefit Plan / Subscriber ID Type Phone Address Group [employer] - MEDICARE A[employer] MEDICARE O xxxxxxxx [phone] [address] [place] [address]
[2018-08-05 10:36] VITALS: BP 110/65; TEMP 98; O2SAT 98
[2018-08-05 10:40] LABS: Protime INR 1.4
--- NOTE | 2018-08-05 12:21 | RAD REPORT ---
EXAM DESCRIPTION: US - Paracentesis Proc Guidance - 08/05/2018 11:34 am CLINICAL HISTORY: Ascites COMPARISON: Multiple prior paracentesis procedures TECHNIQUE: The patient presents for ultrasound-guided paracentesis. The procedure, risks and altern atives were discussed with the patient in detail. Oral and written consent were obtained. Time out p rocedure was performed. The patient had no contraindicated allergy or medication history. PT, INR va lues within acceptable limits. Preliminary sonographic evaluation identified right lower quadrant access site. The skin and deeper tissues were anesthetized with 1 percent lidocaine. Under direct sonographic visualization, a parace ntesis catheter was advanced into the peritoneal cavity. Large volume drainage was initiated. Approx imately 8 liters of ascites removed. At the conclusion of the procedure, catheter was withdrawn and a bandage placed at the puncture site. Postprocedure care and precaution instructions were given to the patient. Patient was transferred [facility] to same-day surgery for post paracentesis monitoring and albumin infusion per the referring physi darrell's protocol. IMPRESSION: Ultrasound-guided paracentesis as detailed.
[2018-08-05 15:35] LABS: Appearance SLT. TURBID (CLEAR); Body Fluid Source PERITONEAL; Body Fluid WBC 93 /mm^3; Color of fluid Yellow (COLORLESS)
== END ==
LOC: DS 09:51
PROVIDERS: ATTEND Internal Medicine Gastroenterology
DX: R18.8 Other ascites (principal); R93.3 Abnormal findings on diagnostic imaging of other parts of digestive tract; K74.69 Other cirrhosis of liver
CPT/HCPCS: 36415; 49083; 85610; 85730; 87070; 88108; 88305; 89050; 96365; P9047

== ENCOUNTER 2018-08-09 17:27 | Inpatient (IN) | payer OTHER ==
--- OUTSIDE RECORDS SUMMARY | 2018-08-09 17:29 | XMS REPORT ---
[...] Start End Date Status Dosage Date Carafate [facility] 46918893323 1 GM Orally Active 1 tablet on Twice a day an empty stomach losartan [facility] 13071339897 20 mg Active one tab daily Jardiance [facility] 61091957579 25 MG Oral Active TAKE 1 TABLET BY MOUTH EVERY DAY IN THE MORNING Carvedilol [facility] 98341374294 12.5 MG Oral Active TAKE 1/2 TABLET BY MOUTH TWICE DAILY Omeprazole [facility] 58093661618 40 MG Oral Active TAKE 1 CAPSULE BY MOUTH TWICE A DAY Crestor [facility] 64347577448 40 MG Orally Active 1 tablet Once a day Lasix [facility] 73390775172 20 MG Orally Active 1 tablet Once a day Results No Known Results Summary Purpose eClinicalWorks Submission
--- OUTSIDE RECORDS SUMMARY | 2018-08-09 17:29 | XMS REPORT | Clinical Summary ---
:1940 Author Organization [facility] Address [address] [place] [address] Care Team Providers Name Role Phone Unavailable Primary Care Provider Unavailable Allergies Not on File Medications Not on file Active Problems Not on file Encounters Date Type Specialty Care Team Description 08/05/2018 Telephone Hepatology Amy Rebollar MA Rec Cd (1) after 08/08/2017 Social History Tobacco Use Types Packs/Day Years [...] Office Visit Hepatology Hoang Moreno MD [address] [address] Results Not on fileafter 08/08/2017 Insurance Payer Benefit Plan / Subscriber ID Type Phone Address Group [employer] - MEDICARE A[employer] MEDICARE O xxxxxxxx [phone] [address] [place] [address]
[2018-08-09 17:50] LABS: Absolute Lymphocytes (CBC) 0.5 K/uL (0.7-4.9); Absolute Neutrophil 5.9 K/uL (1.8-8.0); Eosinophils % 1.9 % (0-4.4); Hematocrit 36.3 % (39.6-49.0); Lymphocytes % 7.2 % (15.3-44.8); MPV 9.1 fL (7.6-11.3); Monocytes % 13.3 % (3.3-12.3); RBC Red Blood Cell Count 3.65 M/uL (4.33-5.43)
--- NOTE | 2018-08-09 17:54 | RAD REPORT ---
EXAM DESCRIPTION: CT - Ct Stroke Brain Wo Cont - 08/09/2018 5:45 pm CLINICAL HISTORY: Confusion/alteration of awareness COMPARISON: None. TECHNIQUE: Computed axial tomography of the head was obtained. IV contrast was not requested. All CT scans are performed using dose optimization technique as appropriate and may include automated exposure control or mA/KV adjustment according to patient size. FINDINGS: An intracranial bleed is not seen . The ventricles are normal in caliber. No extra-axial fluid collection is noted. Fluid within the sinuses/ mastoids is not seen. IMPRESSION: No acute intracranial abnormality is seen. If patient's symptoms persist MRI of the bra in would be recommended. Dr Denis of the emergency room was notified at 5:49 p.m. August 09, 2018
[2018-08-09] MEDS ORDERED: FOLIC ACID 1 MG in NA CHLORIDE 0.9% 50 ML IV ONE (18:00)
[2018-08-09] MEDS ORDERED: ONDANSETRON 4 MG/2 ML VIAL ONE (18:07)
[2018-08-09] MEDS ORDERED: NA CHLORIDE 0.9% 500 ML ONE (18:07)
[2018-08-09 18:11] LABS: ALT/SGPT 32 U/L (12-78); AST/SGOT 50 U/L (15-37); Alkaline Phosphatase 145 U/L (45-117); BUN Blood Urea Nitrogen 21 mg/dL (7-18); Bicarbonate 24 mmol/L (21-32); Bilirubin Direct 0.8 mg/dL (0-0.2); Bilirubin Total 2.1 mg/dL (0.2-1.0); Glucose Level 149 mg/dL (74-106); Lipase 314 U/L (73-393); Magnesium 2.2 mg/dL (1.8-2.4); NT PRO-BNP 184 pg/mL (<450); Potassium 4.1 mmol/L (3.5-5.1); Protein, Total 7.5 g/dL (6.4-8.2); Sodium Level 139 mmol/L (136-145); Troponin (Emerg Dept Use Only) < 0.02 ng/mL (0.0-0.045)
[2018-08-09 18:18] LABS: Protime INR 1.36
[2018-08-09 18:23] LABS: Blood Morphology Comment NOT SEEN (NOT SEEN); Platelet Estimate DECR; Urine White Blood Cell Casts OK
--- NOTE | 2018-08-09 18:39 | RAD REPORT ---
EXAM DESCRIPTION: USCarotid Artery Bilateral08/09/2018 6:25 pm CLINICAL HISTORY: Syncope COMPARISON: None FINDINGS: The velocity of the right internal carotid artery equals 116 cm/sec. The right ICA/CCA rat io 1.5 The velocity of the left internal carotid artery equals 138 cm/sec. The left ICA/CCA ratio 1.7 3 Mild plaque is present within the carotid arteries. The vertebral arteries demonstrate antegrade flow IMPRESSION: Mild plaque within the carotid arteries without evidence of a hemodynamically significan t stenosis NASCET criteria used. Mild 0-49% stenosis Moderate 50-69% stenosis Severe 70-99% stenosis
--- NOTE | 2018-08-09 18:49 | RAD REPORT ---
EXAM DESCRIPTION: Markus Single View08/09/2018 6:41 pm CLINICAL HISTORY: cough COMPARISON: April 2018 FINDINGS: The lungs appear clear of acute infiltrate. The heart is normal size IMPRESSION: No acute abnormalities displayed
--- NOTE | 2018-08-09 19:03 | EKG ---
Test Date: 2018-08-09 Test Time: 17:57:06 Block Machine Operator: JV MEASUREMENT RESULTS: Intervals: Rate: 91 RI: 158 QRSD: 82 QT: 376 QTc: 462 Dresser: P: 31 RI: 158 QRS: 1 T: 3 INTERPRETIVE STATEMENTS: Sinus rhythm with premature atrial complexes Cannot rule out Anterior infarct, age undetermined Abnormal ECG Compared to ECG 11/05/2016 09:13:03 Atrial premature complex(es) now present Myocardial infarct finding now present Sinus bradycardia no longer present Ventricular premature complex(es) no longer present Electronically Signed On 08-09-18 19:02:32 MANAGER COSTING by [employer]
--- NOTE | 2018-08-09 19:25 | EDPHYS ---
Physician Documentation [facility] Name: Clifford Vega Age: 77 yrs Sex: Male : 1940 Arrival Date: 08/09/2018 Time: 17:29 Bed 3 Private MD: ED Physician Julio C Rajan HPI: 08/09 17:40 This 77 yrs old Male presents to ER via Unassigned with complaints of Altered shahab Mental Status. 17:40 The patient presents with confusion, decreased mental status, trouble concentrating. shahab Onset: The symptoms/episode began/occurred this morning. Possible causes: unknown. Associated signs and symptoms: Pertinent positives: confusion, lightheadedness, nausea. Current symptoms: In the emergency department the patient's symptoms have improved, mildly. Patient's baseline: Neuro: alert and fully oriented. The patient has not experienced similar symptoms in the past. Historical: - Allergies: 17:53 Sulfa (Sulfonamide Antibiotics); ss 17:53 Codeine; ss 17:53 Aspirin; ss - PMHx: 18:05 Cirrhosis; ss - Immunization history:: Adult Immunizations up to date. - Family history:: not pertinent. - Social history:: Smoking status: Patient/guardian denies using tobacco. - Ebola Screening: : Patient denies exposure to infectious person Patient denies travel to an Ebola-affected area in the 21 days before illness onset. ROS: 17:40 Constitutional: Negative for fever, chills, and weight loss, Eyes: Negative for injury, shahab pain, redness, and discharge, ENT: Negative for injury, pain, and discharge, Neck: Negative for injury, pain, and swelling, Cardiovascular: Negative for chest pain, palpitations, and edema, Respiratory: Negative for shortness of breath, cough, wheezing, and pleuritic chest pain, Back: Negative for injury and pain, : Negative for injury, bleeding, discharge, and swelling, MS/Extremity: Negative for injury and deformity, Skin: Negative for injury, rash, and discoloration, Psych: Negative for depression, anxiety, suicide ideation, homicidal ideation, and hallucinations, Allergy/Immunology: Negative for hives, rash, and allergies, Endocrine: Negative for neck swelling, polydipsia, polyuria, polyphagia, and marked weight changes, Hematologic/Lymphatic: Negative for swollen nodes, abnormal bleeding, and unusual bruising. 17:40 Abdomen/GI: Positive for nausea. 17:40 Neuro: Positive for altered mental status, weakness. Exam: 17:40 Constitutional: This is a well developed, well nourished patient who is awake, alert, shahab and in no acute distress. Head/Face: Normocephalic, atraumatic. Eyes: Pupils equal round and reactive to light, extra-ocular motions intact. Lids and lashes normal. Conjunctiva and sclera are non-icteric and not injected. Cornea within normal limits. Periorbital areas with no swelling, redness, or edema. ENT: Nares patent. No nasal discharge, no septal abnormalities noted. Tympanic membranes are normal and external auditory canals are clear. Oropharynx with no redness, swelling, or masses, exudates, or evidence of obstruction, uvula midline. Mucous membranes moist. Neck: Trachea midline, no thyromegaly or masses palpated, and no cervical lymphadenopathy. Supple, full range of motion without nuchal rigidity, or vertebral point tenderness. No Meningismus. Chest/axilla: Normal chest wall appearance and motion. Nontender with no deformity. No lesions are appreciated. Cardiovascular: Regular rate and rhythm with a normal S1 and S2. No gallops, murmurs, or rubs. Normal PMI, no JVD. No pulse deficits. Respiratory: Lungs have equal breath sounds bilaterally, clear to auscultation and percussion. No rales, rhonchi or wheezes noted. No increased work of breathing, no retractions or nasal flaring. Abdomen/GI: Soft, non-tender, with normal bowel sounds. No distension or tympany. No guarding or rebound. No evidence of tenderness throughout. Back: No spinal tenderness. No costovertebral tenderness. Full range of motion. Male : Normal genitalia with no discharge or lesions. Skin: Warm, dry with normal turgor. Normal color with no rashes, no lesions, and no evidence of cellulitis. MS/ Extremity: Pulses equal, no cyanosis. Neurovascular intact. Full, normal range of motion. Psych: Awake, alert, with orientation to person, place and time. Behavior, mood, and affect are within normal limits. 17:40 Neuro: Orientation: to person, place, time, Not oriented to situation, Mentation: slow to respond, Memory: unable to test, Cranial nerves: grossly normal, is grossly normal based on the patient's age, no acute changes, Cerebellar function: unable to test, Motor: moves all fours, Gait: not tested. seizure activity, is not displayed by the patient. Vital Signs: 17:28 BP 159 / 83; Pulse 92; Resp 16; Temp 97.6(TE); Pulse Ox 98% on R/A; Pain 0/10; ss 21:28 BP 151 / 81; Pulse 84; Resp 15 S; Pulse Ox 95% on R/A; bb NIH Stroke Scale Scores: 17:30 NIHSS Score: 0 ss 20:08 NIHSS Score: 0 shahab MDM: 17:31 Patient medically screened. [facility] 17:43 Data reviewed: vital signs, nurses notes, lab test result(s), EKG, radiologic studies, [facility] CT scan, MRI, plain films. 08/09 17:39 Order name: Basic Metabolic Panel; Complete Time: 18:55 [facility] 08/09 17:39 Order name: CBC with Diff; Complete Time: 18:55 [facility] 08/09 17:39 Order name: LFT's; Complete Time: 18:55 [facility] 08/09 17:39 Order name: Magnesium; Complete Time: 18:55 [facility] 08/09 17:39 Order name: NT PRO-BNP; Complete Time: 18:55 [facility] 08/09 17:39 Order name: PT-INR; Complete Time: 18:55 [facility] 08/09 17:39 Order name: Troponin (emerg Dept Use Only); Complete Time: 18:55 [facility] 08/09 17:39 Order name: Lipase; Complete Time: 18:55 [facility] 08/09 17:39 Order name: AMMONIA; Complete Time: 18:55 [facility] 08/09 17:39 Order name: Blood Culture Adult (2) [facility] 08/09 17:39 Order name: Urine Culture [facility] 08/09 17:55 Order name: CBC Smear Scan; Complete Time: 18:55 [facility] 08/09 18:58 Order name: Glucose, Ancillary Testing; Complete Time: 19:02 [facility] 08/09 19:50 Order name: Basic Metabolic Panel [facility] 08/09 17:33 Order name: CT Stroke Brain w/o Contrast; Complete Time: 18:55 08/09 17:39 Order name: XRAY Chest (1 view); Complete Time: 18:55 [facility] 08/09 17:39 Order name: US Carotid Artery Bilateral; Complete Time: 18:55 [facility] 08/09 18:09 Order name: MRI - Brain Wo Cont bd 08/09 19:50 Order name: Basic Metabolic Panel [facility] 08/09 19:50 Order name: CBC with Automated Diff [facility] 08/09 19:50 Order name: CBC with Automated Diff [facility] 08/09 19:50 Order name: Troponin I [facility] 08/09 19:50 Order name: Troponin I [facility] 08/09 19:50 Order name: Troponin I [facility] 08/09 19:51 Order name: Chest Single View [facility] 08/09 19:51 Order name: Chest Single View [facility] 08/09 17:39 Order name: EKG; Complete Time: 17:41 [facility] 08/09 17:39 Order name: Cardiac monitoring; Complete Time: 18:07 [facility] 08/09 17:39 Order name: EKG - Nurse/Tech; Complete Time: 18:08 [facility] 08/09 17:39 Order name: IV Saline Lock; Complete Time: 18:08 [facility] 08/09 17:39 Order name: Labs collected and sent; Complete Time: 18:08 [facility] 08/09 17:39 Order name: O2 Per Protocol; Complete Time: 18:08 [facility] 08/09 17:39 Order name: O2 Sat Monitoring; Complete Time: 18:08 [facility] 08/09 18:08 Order name: Swallow Screen; Complete Time: 21:37 08/09 19:41 Order name: CONS Physician Consult [facility] 08/09 19:50 Order name: Consistent Carb (ADA) [address] [facility] 08/09 19:50 Order name: EKG Electrocardiogram [facility] 08/09 19:50 Order name: EKG Electrocardiogram [facility] 08/09 19:50 Order name: EKG Electrocardiogram [facility] 08/09 19:50 Order name: EKG Electrocardiogram [facility] Administered Medications: 17:53 CANCELLED (Duplicate Order): Rocephin - (cefTRIAXone) 1 grams IVPB once over 30 mins; dm5 (mix in 50 mL NS) 17:58 Drug: NS 0.9% 500 ml Route: IV; Rate: bolus; Site: right wrist; dm5 21:43 Follow up: IV Status: Completed infusion ak1 18:00 Drug: Zofran 4 mg Route: IVP; Site: right wrist; dm5 18:18 Drug: foLIC Acid 1 mg Route: IVPB; Site: right forearm; ss 19:00 Follow up: IV Status: Completed infusion aa1 19:55 Drug: Ativan 0.5 mg Route: IVP; Site: right hand; ak1 20:52 Follow up: Response: No adverse reaction; Marked relief of symptoms aa1 19:56 Drug: Ativan 0.5 mg Route: IVP; Site: right hand; ak1 20:53 Follow up: Response: No adverse reaction; Marked relief of symptoms aa1 20:52 Drug: NS 0.9% 1000 ml Route: IV; Rate: 125 ml/hr; Site: right forearm; bb 21:29 Follow up: IV Status: Infusion continued upon admission bb 20:53 Drug: Rocephin 1 grams Route: IV; Rate: 1 calculated rate; Site: right forearm; bb 21:00 Follow up: IV Status: Completed infusion; IV Intake: 10ml bb 21:43 Not Given (Patient Refused; pt refuses to drink anything): Lactulose 30 grams 45 ml PO ak1 once Point of Care Testing: Blood Glucose: 17:28 Blood Glucose: 150 mg/dL; ss Ranges: Critical Glucose Levels:Adult <50 mg/dl or >400 mg/dl <40 mg/dl or >180 mg/dl Disposition: 08/09/18 19:25 Hospitalization ordered by Clark Barrera for Inpatient Admission. Preliminary diagnosis are Altered mental status, unspecified, Nausea, Weakness, Encephalopathy, unspecified, Unspecified kidney failure - insufficency. - Bed requested for Telemetry/MedSurg (Inpatient). - Status is Inpatient Admission. ak1 - Condition is Fair. - Problem is new. - Symptoms have improved. UTI on Admission? No NIH Stroke Scale - NIH Stroke Score Date: 08/09/2018 Time: 17:30 Total Score = 0 1a. Level of Consciousness (LOC) - 0(Alert) 1b. Level of Consciousness (LOC) (Year \T\ Age) - 0(Both) 1c. LOC Commands (Open \T\ Closes Eyes/Counter Dish Carrier) - 0(Both) 2. Best Gaze (Lateral Gaze Paresis) - 0(Normal) 3. Visual Field Loss - 0(No visual loss) 4. Facial Palsy - 0(Normal) 5a. Left Arm: Motor (10-second hold) - 0(No drift) 5b. Right Arm: Motor (10-second hold) - 0(No drift) 6a. Left Leg: Motor (5-second hold - always test supine) - 0(No drift) 6b. Right Leg: Motor (5-second hold - always test supine) - 0(No drift) 7. Limb Ataxia (finger/nose \T\ heel/rios - test with eyes open) - 0(Absent) 8. Sensory Loss (pinprick arms/legs/face) - 0(Normal) 9. Best Language: Aphasia (description/naming/reading) - 0(No aphasia) 10. Dysarthria (speech clarity - read or repeat words) - 0(Normal) 11. Extinction and Inattention (visual/tactile/auditory/spatial/personal) - 0(No abnormality) Initials: NIH Stroke Scale - NIH Stroke Score Date: 08/09/2018 Time: 20:08 Total Score = 0 1a. Level of Consciousness (LOC) - 0(Alert) 1b. Level of Consciousness (LOC) (Year \T\ Age) - 0(Both) 1c. LOC Commands (Open \T\ Closes Eyes/Counter Dish Carrier) - 0(Both) 2. Best Gaze (Lateral Gaze Paresis) - 0(Normal) 3. Visual Field Loss - 0(No visual loss) 4. Facial Palsy - 0(Normal) 5a. Left Arm: Motor (10-second hold) - 0(No drift) 5b. Right Arm: Motor (10-second hold) - 0(No drift) 6a. Left Leg: Motor (5-second hold - always test supine) - 0(No drift) 6b. Right Leg: Motor (5-second hold - always test supine) - 0(No drift) 7. Limb Ataxia (finger/nose \T\ heel/rios - test with eyes open) - 0(Absent) 8. Sensory Loss (pinprick arms/legs/face) - 0(Normal) 9. Best Language: Aphasia (description/naming/reading) - 0(No aphasia) 10. Dysarthria (speech clarity - read or repeat words) - 0(Normal) 11. Extinction and Inattention (visual/tactile/auditory/spatial/personal) - 0(No abnormality) Initials: shahab Signatures: Dispatcher [employer] Gay Charlton RN RN dm5 Johnson, SEGUNDO Truong RN, Corey, MD MD cha Ballard, Brenda, RN RN Syeda Davis RN RN Nellie Perez RN RN ak1 Jewell Segura RN aa1 Corrections: (The following items were deleted from the chart) 17:53 17:39 Rocephin - (cefTRIAXone) 1 grams IVPB once over 30 mins; (mix in 50 mL dm5 NS) ordered. [facility] 19:31 19:25 Hospitalization Ordered by Clark Barrera MD for Inpatient Admission. Preliminary diagnosis is Altered mental status, unspecified; Nausea; Weakness; Encephalopathy, unspecified. Bed requested for Telemetry/MedSurg (Inpatient). Status is Inpatient Admission. Condition is Fair. Problem is new. Symptoms have improved. UTI on Admission? No. [facility] 19:43 19:31 08/09/2018 19:25 Hospitalization Ordered by Clark Barrera MD for Inpatient Admission. Preliminary diagnosis is Altered mental status, unspecified; Nausea; Weakness; Encephalopathy, unspecified. Bed requested for Telemetry/MedSurg (Inpatient). Status is Inpatient Admission. Condition is Fair. Problem is new. Symptoms have improved. UTI on Admission? No. 20:09 19:43 08/09/2018 19:25 Hospitalization Ordered by Clark Barrera MD for Inpatient [facility] Admission. Preliminary diagnosis is Altered mental status, unspecified; Nausea; Weakness; Encephalopathy, unspecified. Bed requested for Telemetry/MedSurg (Inpatient). Status is Inpatient Admission. Condition is Fair. Problem is new. Symptoms have improved. UTI on Admission? No. 21:57 20:09 08/09/2018 19:25 Hospitalization Ordered by Clark Barrera MD for Inpatient [facility] Admission. Preliminary diagnosis is Altered mental status, unspecified; Nausea; Weakness; Encephalopathy, unspecified; Unspecified kidney failure - insufficency. Bed requested for Telemetry/MedSurg (Inpatient). Status is Inpatient Admission. Condition is Fair. Problem is new. Symptoms have improved. UTI on Admission? No. shahab
--- NOTE | 2018-08-09 19:25 | ER ---
Nurse's Notes [facility] Name: Clifford Vega Age: 77 yrs Sex: Male : 1940 Arrival Date: 08/09/2018 Time: 17:29 Bed 3 Private MD: Diagnosis: Altered mental status, unspecified;Nausea;Weakness;Encephalopathy, unspecified;Unspecified kidney failure-insufficency Presentation: 08/09 17:28 Presenting complaint: states: Sudden onset of confusion that began 1 hour prior to ss arrival. Pt c/o nausea and generally not feeling well. reports that the nausea has been an ongoing issue since patient has been battling cirrhosis. Recent paracentesis was performed 5 days ago and 8 L was drained. 17:28 Note Skin tear noted to L hand. states, "He must have done that while he was ss getting in the truck.". 17:30 Transition of care: patient was not received from another setting of care. Onset of ss symptoms was August 09, 2018. Risk Assessment: Do you want to hurt yourself or someone else? Patient reports no desire to harm self or others. Initial Sepsis Screen: Does the patient meet any 2 criteria? No. Patient's initial sepsis screen is negative. Does the patient have a suspected source of infection? No. Patient's initial sepsis screen is negative. Care prior to arrival: None. 17:30 Method Of Arrival: Ambulatory ss 17:40 Acuity: VALE 2 ss Historical: - Allergies: 17:53 Sulfa (Sulfonamide Antibiotics); ss 17:53 Codeine; ss 17:53 Aspirin; ss - PMHx: 18:05 Cirrhosis; ss - Immunization history:: Adult Immunizations up to date. - Family history:: not pertinent. - Social history:: Smoking status: Patient/guardian denies using tobacco. - Ebola Screening: : Patient denies exposure to infectious person Patient denies travel to an Ebola-affected area in the 21 days before illness onset. Screenin:01 Abuse screen: Denies threats or abuse. Denies injuries from another. Nutritional ss screening: No deficits noted. Tuberculosis screening: Never had TB. Fall Risk No fall in past 12 months (0 pts). Secondary diagnosis (15 points) AMS. IV access (20 points). Ambulatory Aid- None/Bed Rest/Nurse Assist (0 pts). Gait- Normal/Bed Rest/Wheelchair (0 pts) Mental Status- Oriented to own ability (0 pts). 21:37 The patient has not been NPO before screening. The patient is not alert, or is unable bb to follow commands. The patient failed the bedside swallow screening. The patient will be kept NPO until cleared by Speech Therapy or Physician. Assessment: 17:30 General: Appears comfortable, Behavior is calm, cooperative, Denies fever, feeling ill, ss fatigue, chills. Pain: Denies pain. Neuro: Level of Consciousness is awake, alert, obeys commands, Oriented to person, situation. Neuro: Reports Pt reports general malaise. states that patient seemed to be feeling well this morning as they went together to get manicures and pedicures. Approximately 1 hour prior to arrival to ED. reports that patient was acting odd, asking for things he typically wouldn't ask for. . Cardiovascular: Capillary refill < 3 seconds is brisk in bilateral fingers. Respiratory: Airway is patent Respiratory effort is even, unlabored, Respiratory pattern is regular, symmetrical. GI: Abdomen is non-distended, Reports nausea. Derm: Skin is pink, warm \\T\\ dry. Injury Description: skin tear noted to L hand, no active bleeding noted at this time. reports that this may have occurred while they were getting patient into the vehicle for transportation to ED. 17:48 Reassessment: Back from CT VIA stretcher. PT c/o mild nausea. hearing aids and shoes ss given to at bedside. Labs have been sent. Awaiting results. 18:40 Reassessment: Patient appears in no apparent distress at this time. Patient and/or sg family updated on plan of care and expected duration. Pain level reassessed. Patient is alert, oriented x 3, equal unlabored respirations, skin warm/dry/pink. 19:50 Reassessment: pt refusing to lay for MRI. pt requesting medications to help with ak1 nausea. Dr. Rajan notified. Medications taken down to MRI. pt continues to be uncooperative in MRI even after medications, Dr. Rajan notified and stated to hold the MRI until tomorrow when pt may be more cooperative. 21:49 Reassessment: Patient appears in no apparent distress at this time. pt and family ak1 informed of admission status and wait for bed assignment. pt refused to drink lactulose and refused to drink water for swallow study. Vital Signs: 17:28 BP 159 / 83; Pulse 92; Resp 16; Temp 97.6(TE); Pulse Ox 98% on R/A; Pain 0/10; ss 21:28 BP 151 / 81; Pulse 84; Resp 15 S; Pulse Ox 95% on R/A; bb NIH Stroke Scale Scores: 17:30 NIHSS Score: 0 ss 20:08 NIHSS Score: 0 shahab ED Course: 17:28 Arm band placed on right wrist. ss 17:29 Patient arrived in ED. dm5 17:31 Julio C Rajan MD is Attending Physician. shahab 17:32 Inserted saline lock: 20 gauge in right forearm, using aseptic technique. Blood ss collected. Patient maintains SpO2 saturation greater than 95% on room air. 17:40 Triage completed. ss 17:47 CT Stroke Brain w/o Contrast In Process Unspecified. EDMS 18:01 Patient has correct armband on for positive identification. Bed in low position. Call ss light in reach. monitoring coordinator on. Pulse ox on. NIBP on. 18:02 EKG done, by robotic weld technician. reviewed by Julio C Rajan MD. sm3 18:28 US Carotid Artery Bilateral In Process Unspecified. EDMS 18:45 XRAY Chest (1 view) In Process Unspecified. EDMS 19:06 Patient moved to MRI via stretcher. ka 19:18 MRI - Brain Wo Cont In Process Unspecified. EDMS 19:23 Clark Barrera MD is Hospitalizing Provider. shahab 20:15 Patient moved back from MRI. ka 21:29 No provider procedures requiring assistance completed. Patient admitted, IV remains in bb place. Administered Medications: 17:53 CANCELLED (Duplicate Order): Rocephin - (cefTRIAXone) 1 grams IVPB once over 30 mins; dm5 (mix in 50 mL NS) 17:58 Drug: NS 0.9% 500 ml Route: IV; Rate: bolus; Site: right wrist; dm5 21:43 Follow up: IV Status: Completed infusion ak1 18:00 Drug: Zofran 4 mg Route: IVP; Site: right wrist; dm5 18:18 Drug: foLIC Acid 1 mg Route: IVPB; Site: right forearm; ss 19:00 Follow up: IV Status: Completed infusion aa1 19:55 Drug: Ativan 0.5 mg Route: IVP; Site: right hand; ak1 20:52 Follow up: Response: No adverse reaction; Marked relief of symptoms aa1 19:56 Drug: Ativan 0.5 mg Route: IVP; Site: right hand; ak1 20:53 Follow up: Response: No adverse reaction; Marked relief of symptoms aa1 20:52 Drug: NS 0.9% 1000 ml Route: IV; Rate: 125 ml/hr; Site: right forearm; bb 21:29 Follow up: IV Status: Infusion continued upon admission bb 20:53 Drug: Rocephin 1 grams Route: IV; Rate: 1 calculated rate; Site: right forearm; bb 21:00 Follow up: IV Status: Completed infusion; IV Intake: 10ml bb 21:43 Not Given (Patient Refused; pt refuses to drink anything): Lactulose 30 grams 45 ml PO ak1 once Point of Care Testing: Blood Glucose: 17:28 Blood Glucose: 150 mg/dL; ss Ranges: Intake: 21:00 IV: 10ml; Total: 10ml. bb Outcome: 19:25 Decision to Hospitalize by Provider. shahab 21:28 Admitted to Tele accompanied by tech, family with patient, via stretcher, room 209, bb with chart, Report called to Marisel RAYMOND 21:28 Condition: stable 21:28 Instructed on the need for admit. 21:57 Patient left the ED. ak1 NIH Stroke Scale - NIH Stroke Score Date: 08/09/2018 Time: 17:30 Total Score = 0 1a. Level of Consciousness (LOC) - 0(Alert) 1b. Level of Consciousness (LOC) (Year \\T\\ Age) - 0(Both) 1c. LOC Commands (Open \\T\\ Closes Eyes/Syrup Mixer) - 0(Both) 2. Best Gaze (Lateral Gaze Paresis) - 0(Normal) 3. Visual Field Loss - 0(No visual loss) 4. Facial Palsy - 0(Normal) 5a. Left Arm: Motor (10-second hold) - 0(No drift) 5b. Right Arm: Motor (10-second hold) - 0(No drift) 6a. Left Leg: Motor (5-second hold - always test supine) - 0(No drift) 6b. Right Leg: Motor (5-second hold - always test supine) - 0(No drift) 7. Limb Ataxia (finger/nose \\T\\ heel/rios - test with eyes open) - 0(Absent) 8. Sensory Loss (pinprick arms/legs/face) - 0(Normal) 9. Best Language: Aphasia (description/naming/reading) - 0(No aphasia) 10. Dysarthria (speech clarity - read or repeat words) - 0(Normal) 11. Extinction and Inattention (visual/tactile/auditory/spatial/personal) - 0(No abnormality) Initials: NIH Stroke Scale - NIH Stroke Score Date: 08/09/2018 Time: 20:08 Total Score = 0 1a. Level of Consciousness (LOC) - 0(Alert) 1b. Level of Consciousness (LOC) (Year \\T\\ Age) - 0(Both) 1c. LOC Commands (Open \\T\\ Closes Eyes/Syrup Mixer) - 0(Both) 2. Best Gaze (Lateral Gaze Paresis) - 0(Normal) 3. Visual Field Loss - 0(No visual loss) 4. Facial Palsy - 0(Normal) 5a. Left Arm: Motor (10-second hold) - 0(No drift) 5b. Right Arm: Motor (10-second hold) - 0(No drift) 6a. Left Leg: Motor (5-second hold - always test supine) - 0(No drift) 6b. Right Leg: Motor (5-second hold - always test supine) - 0(No drift) 7. Limb Ataxia (finger/nose \\T\\ heel/rios - test with eyes open) - 0(Absent) 8. Sensory Loss (pinprick arms/legs/face) - 0(Normal) 9. Best Language: Aphasia (description/naming/reading) - 0(No aphasia) 10. Dysarthria (speech clarity - read or repeat words) - 0(Normal) 11. Extinction and Inattention (visual/tactile/auditory/spatial/personal) - 0(No abnormality) Initials: shahab Signatures: Dispatcher [employer] Gay Charlton RN RN dm5 Bradley Fenton RN RN sg Kern, Alissa, RN RN aa1 Julio C Rajan MD MD cha Ballard, Brenda, RN RN bb Smirch, Shelby, RN RN ss Krenek, Amber RN RN ak1 Alyssa Bazan Shakira 3 Corrections: (The following items were deleted from the chart) 18:01 17:30 Presenting complaint: states: Sudden onset of confusion that began 1 ss hour prior to arrival. Pt c/o nausea and generally not feeling well. reports that the nausea has been an ongoing issue since patient has been battling cirrhosis. Recent paracentesis was performed 5 days ago and 8 L was drained. ss
[2018-08-09] MEDS ORDERED: ACETAMINOPHEN 500 MG TAB PO PRN (19:40)
[2018-08-09] MEDS ORDERED: LORazepam 2 MG/ML VIAL ONE (19:58)
[2018-08-09] MEDS ORDERED: CEFTRIAXONE/SWI 1gm 1 GM/10 ML SYR ONE (20:33)
[2018-08-09] MEDS ORDERED: NA CHLORIDE 0.9% 1,000 ML ONE (20:33)
[2018-08-09] MEDS ORDERED: LACTULOSE 20 GM/30 ML UCUP ONE (20:42)
[2018-08-09] MEDS: LACTULOSE 20 GM/30 ML UCUP PO SCH (23:01)
[2018-08-09] MEDS: NA CHLORIDE 0.9% 1,000 ML IV SCH (23:29)
[2018-08-09] MEDS: FAMOTIDINE 20 MG/2 ML VIAL IV SCH (23:29)
[2018-08-09] MEDS: ONDANSETRON 4 MG/2 ML VIAL IV PRN (23:30)
[2018-08-10 00:16] VITALS: BMI 25.7
[2018-08-10] MEDS: LACTULOSE 20 GM/30 ML UCUP PO SCH ×3 (06:02→17:42)
[2018-08-10] MEDS: NA CHLORIDE 0.9% 1,000 ML IV SCH (06:13)
[2018-08-10 06:27] LABS: Absolute Lymphocytes (CBC) 0.6 K/uL (0.7-4.9); Absolute Monocytes 0.7 K/uL (0.1-1.3); Absolute Neutrophil 4.2 K/uL (1.8-8.0); Eosinophils % 3.4 % (0-4.4); Hematocrit 32.8 % (39.6-49.0); MPV 9.1 fL (7.6-11.3); Monocytes % 12.7 % (3.3-12.3); RBC Red Blood Cell Count 3.27 M/uL (4.33-5.43)
[2018-08-10 06:38] LABS: Potassium 3.9 mmol/L (3.5-5.1)
[2018-08-10] MEDS ORDERED: GLUCAGON 1 MG/VIAL IM PRN (06:57)
[2018-08-10] MEDS ORDERED: D50W 25 GM/50 ML SYRINGE IV PRN (06:57)
[2018-08-10] MEDS: INSULIN -REGULAR HUMAN 50 UNIT/0.5 ML ML SQ SCH ×4 (07:30→21:00)
[2018-08-10] MEDS: FAMOTIDINE 20 MG/2 ML VIAL IV SCH ×2 (08:36→20:59)
--- NOTE | 2018-08-10 08:57 | RAD REPORT ---
EXAM DESCRIPTION: Markus Single View08/10/2018 6:45 am CLINICAL HISTORY: Chest pain COMPARISON: August 09 FINDINGS: Small left pleural effusion with left basilar atelectasis Right lung appears clear of acute infiltrate Heart is normal size IMPRESSION: Small left pleural effusion with left basilar atelectasis
[2018-08-10] MEDS: Rifaximin 550 MG Tab PO SCH ×2 (09:00→20:58)
--- NOTE | 2018-08-10 11:41 | EKG ---
Test Date: 2018-08-10 Test Time: 07:43:23 Special Delivery Worker: JUAN MEASUREMENT RESULTS: Intervals: Rate: 70 OR: 160 QRSD: 90 QT: 432 QTc: 466 [place]: P: 51 OR: 160 QRS: 12 T: 21 INTERPRETIVE STATEMENTS: Normal sinus rhythm Normal ECG Compared to ECG 08/09/2018 17:57:06 Atrial premature complex(es) no longer present Electronically Signed On 08-10-18 11:39:58 TYPE PHOTOGRAPHY SUPERVISOR by Pedro Pablo Alicea
[2018-08-10] MEDS ORDERED: Levofloxacin500mg IV 500 MG/100 ML BAG IV SCH (20:00)
[2018-08-10] MEDS: FUROSEMIDE 40 MG TABLET PO SCH (20:58)
[2018-08-10] MEDS: SPIRONOLACTONE 100 MG TAB PO SCH (20:58)
[2018-08-11] MEDS: LACTULOSE 20 GM/30 ML UCUP PO SCH ×6 (00:01→17:04)
[2018-08-11] MEDS: ONDANSETRON 4 MG/2 ML VIAL IV PRN ×3 (04:54→13:19)
--- NOTE | 2018-08-11 05:42 | HP ---
Date of Admission: 08/10/2018 Chief Complaint: Confusion. History Of Present Illness: A 77-year-old male patient with history of cirrhosis of liver, who is un erica care of Dr. Powers for this problem and Dr. Powers recently has referred him to see liver special ist in [place], Dr. Moreno. His initial appointment to see Dr. Moreno was today but yesterday his condition deteriorated. Since he woke up yesterday morning he had some nausea and some generaliz ed weakness but later on in the daytime around 4 to 5 p.m., he started to have some confusion problem . With that, he was brought into the emergency room and after he was evaluated in the ER, he was adm itted to the hospital with hepatic encephalopathy. His ammonia level was elevated and he was started on lactulose. CAT scan of the head done in the emergency room was negative for any stroke and he di d not have any focal neurological deficit. This morning when I saw him, his and daughter were p resent at bedside and his mental status is still altered but overall much better than yesterday. Allergies: TO HYDROCODONE CAUSING SIDE EFFECT OF NAUSEA AND FEELING WIRED UP. LISINOPRIL CAUSING FL USHING TYPE OF SIDE EFFECT AND SULFA CAUSING HYPERACTIVITY TYPE OF PROBLEM. Medications: Aspirin 81 mg daily, carvedilol 12.5 mg 2 times a day, Crestor 10 mg daily, furosemide 40 mg 2 times a day, Jardiance 25 mg p.o. daily, losartan 50 mg p.o. 2 times a day, Nexium 40 mg p.o. daily and spironolactone 100 mg p.o. 2 times a day. Review of Systems: VOLUNTEER COORDINATOR, as mentioned above. All other systems reviewed and negative. Past Medical History: Significant for hypertension, hyperlipidemia, type 2 diabetes mellitus, cirrho sis of liver with ascites and he had paracentesis done 3 times in last 3 months. Past medical histor y also significant for pancreatic cyst, benign prostatic hypertrophy, and thrombocytopenia. Past Surgical History: Cholecystectomy and removal of lipoma and basal cell carcinoma from the back. Family History: Significant for abdominal aortic aneurysm. Social History: Negative for smoking. Prior history of alcohol use, not lately. Physical Examination: Vital Signs: When he first came in temperature 97.6, pulse 92, respiratory rate 16, blood pressure 1 59/83, oxygen saturation 98%, height 6 feet, weight 190 pounds. General: Awake, alert, oriented, not in distress. HEENT: Head atraumatic, normocephalic. Conjunctivae nonerythematous. Sclerae white. Mouth, no thr ush or edema noted. Ears/Nose, no mass, lesion, discharge noted. Neck: Supple. No JVD, lymph nodes, bruit, thyromegaly noted. Lungs: Bilateral good equal air entry. Clear to auscultation. No rhonchi. No rales. Heart: Normal heart sounds, no murmur or gallop. Abdomen: Soft, bowel sounds normal. No guarding, rigidity, tenderness, mass, hepatosplenomegaly, dis tention, or bruit noted. Extremities: Trace edema both lower extremities. Skin: No rash, ulcer, cellulitis. Lymphatics: No lymph node enlargement in neck, supraclavicular, infraclavicular region. Neuro: The patient is awake and alert but not completely oriented. Follows simple commands and ther e are no focal neurological deficits. Chest: Unremarkable. External Genitalia: Deferred. Rectal: Deferred. Labs: CAT scan of the brain: No acute intracranial changes noted. Chest x-ray: No acute intrathor acic changes. Electrocardiogram: Normal sinus rhythm. No acute ST-T changes. Carotid Doppler show s mild plaquing of carotid arteries without evidence of any hemodynamically significant stenotic lesi on. Yesterday white count 7.6, hemoglobin 12.5, platelets 149, INR 1.36. This morning white count 5 .8, hemoglobin 11.3, platelets 113. This morning sodium 141, potassium 3.9, chloride 110, bicarb 23, BUN 21, creatinine 1.37, glucose 86. Ammonia level this morning was 72. Yesterday, ammonia level w as 139 when he came into emergency room with BUN 21, creatinine 1.53, glucose 149, total bilirubin 2. 1, direct bilirubin 0.8, SGOT 50, SGPT 32, alkaline phosphatase 145, lipase 314. Impression: 1.Hepatic encephalopathy. 2.Altered mental status secondary to above. 3.Thrombocytopenia. 4.Renal insufficiency, acute. 5.Cirrhosis of liver. 6.Hypertension. 7.Hyperlipidemia. 8.Type 2 diabetes mellitus. 9.Benign prostatic hypertrophy. Plan: Admit the patient to hospital for further evaluation and management of this problem. The patie nt is appropriate for inpatient and is expected to spend 2 midnights in hospital. We will go ahead a nd have Physical Therapy help ambulate the patient. Fall precaution was ordered. Home medications w ill be continued per order. Diabetes will be managed with sliding scale. We will consult Dr. Powers from [facility]. Lactulose was started. We will continue that and we will start him on rifaximin 5 50 mg 2 times a day. The patient's family will reschedule his appointment with Dr. Moreno. His o ne of the blood cultures was reported as positive for gram-positive cocci in cluster. We hope that t his is false positive skin contaminant but until we get the final report back, we will start him on e mpiric antibiotic ceftriaxone per order. We will repeat blood work tomorrow. I will see him tomorro w morning for followup. I have advised the patient's that from now on, he should be on lactulos e on a regular basis and he should have at least 2 loose bowel movements every day and depending on h is bowel movement, the decisions would be made on a day-to-day basis about how to titrate the dose of lactulose and this was discussed with family this morning. TOMMY/MODL Voice ID: [id number]
[2018-08-11 06:17] LABS: Magnesium 2.1 mg/dL (1.8-2.4); Potassium 3.7 mmol/L (3.5-5.1)
[2018-08-11 06:19] LABS: Absolute Lymphocytes (CBC) 0.6 K/uL (0.7-4.9); Absolute Monocytes 0.9 K/uL (0.1-1.3); Absolute Neutrophil 5.2 K/uL (1.8-8.0); Basophils % 0.4 % (0-1.3); Eosinophils % 2.3 % (0-4.4); Lymphocytes % 8.3 % (15.3-44.8); MPV 9.5 fL (7.6-11.3); Monocytes % 12.8 % (3.3-12.3); RBC Red Blood Cell Count 3.68 M/uL (4.33-5.43)
[2018-08-11] MEDS: INSULIN -REGULAR HUMAN 50 UNIT/0.5 ML ML SQ SCH ×4 (07:30→21:00)
[2018-08-11] MEDS: Rifaximin 550 MG Tab PO SCH ×2 (08:30→17:03)
[2018-08-11] MEDS: SPIRONOLACTONE 100 MG TAB PO SCH ×2 (09:00→21:26)
[2018-08-11] MEDS: FUROSEMIDE 40 MG TABLET PO SCH ×2 (09:00→21:27)
[2018-08-11] MEDS ORDERED: CEFTRIAXONE 1 GM/NS 50 ML 1 GM/50 ML BAG IV SCH (09:00)
[2018-08-11] MEDS ORDERED: ONDANSETRON 4 MG/2 ML VIAL IV ONE (10:30)
[2018-08-11] MEDS: CEFTRIAXONE/SWI 1gm 1 GM/10 ML SYR IV SCH ×2 (10:42→21:27)
[2018-08-11] MEDS: FAMOTIDINE 20 MG/2 ML VIAL IV SCH ×2 (10:42→21:27)
--- NOTE | 2018-08-12 00:54 | PN ---
Date of Progress Note: 08/11/2018 Subjective: The patient was seen this morning for followup. His mental status has improved signific antly compared to yesterday. He reported one episode of nausea and vomiting during nighttime and upo n further questioning to the patient and nursing staff, it appears that he got lactulose and rifaximi n on empty stomach and there is a very good possibility that these medications resulted in nausea and vomiting episode last night. No new complaints or problems reported by him this morning. Objective: Vital Signs: Reviewed. HEENT: Unremarkable. Lungs: Clear to auscultation. Heart: Sounds normal. Abdomen: Soft. Bowel sounds normal. No guarding, rigidity, tenderness, or distention. Extremities: Trace leg edema. Laboratory Data: White count 6.8, hemoglobin 12.7, platelets 141. Sodium 140, potassium 3.7, chlori de 108, bicarb 22, BUN 20, creatinine 1.53, glucose 116, magnesium 2.1. Ammonia level 52. Impression: 1.Hepatic encephalopathy. 2.Cirrhosis of liver. 3.Chronic kidney disease, stage 3. 4.Hypertension. 5.Diabetes mellitus. 6.Generalized weakness. 7.Anemia. 8.Thrombocytopenia. Plan: We will go ahead and continue lactulose, but reduce dose to 3 times a day with meal. Continue rifaximin twice a day with meal. Continue ceftriaxone which was prescribed yesterday evening when b lood culture was reported positive. We will continue this empiric antibiotic until we get final repo rt on the blood culture. This could be skin contaminant, but we will not know until we get the final report. Details were discussed with the patient and the patient's . Physical Therapy to help a mbulate the patient. I will see him tomorrow for followup. Depending on his condition, we will deci de if he is steady for discharge next day or in 2 days. TOMMY/MODL Voice ID: [id number] Report ID: [id number]
[2018-08-12 05:16] LABS: Absolute Lymphocytes (CBC) 0.7 K/uL (0.7-4.9); Absolute Monocytes 1.2 K/uL (0.1-1.3); Basophils % 0.6 % (0-1.3); Eosinophils % 1.8 % (0-4.4); Hematocrit 33.8 % (39.6-49.0); Lymphocytes % 8.8 % (15.3-44.8); MPV 9.2 fL (7.6-11.3); Monocytes % 14.8 % (3.3-12.3)
[2018-08-12 05:39] LABS: Albumin 2.5 g/dL (3.4-5.0); Bilirubin Total 1.9 mg/dL (0.2-1.0); Potassium 3.8 mmol/L (3.5-5.1); Protein, Total 6.6 g/dL (6.4-8.2)
[2018-08-12] MEDS: INSULIN -REGULAR HUMAN 50 UNIT/0.5 ML ML SQ SCH ×4 (07:30→21:00)
[2018-08-12] MEDS: LACTULOSE 20 GM/30 ML UCUP PO SCH ×3 (09:07→17:10)
[2018-08-12] MEDS: Rifaximin 550 MG Tab PO SCH ×2 (09:07→17:07)
[2018-08-12] MEDS: SPIRONOLACTONE 100 MG TAB PO SCH ×2 (09:07→21:01)
[2018-08-12] MEDS: FUROSEMIDE 40 MG TABLET PO SCH ×2 (09:08→21:00)
[2018-08-12] MEDS: FAMOTIDINE 20 MG/2 ML VIAL IV SCH ×2 (10:06→21:00)
--- NOTE | 2018-08-12 22:02 | PN ---
Date of Progress Note: 08/12/2018 Subjective: The patient was seen this morning for followup, lying in bed, not in any distress. He w as awake, alert, oriented. His mental status is back to his normal self, and he appears to be back t o his normal self. and daughter were present at bedside. Yesterday, he did not ambulate at all . Physical Therapy did work with him, but only thing he did with Physical Therapy was to get out of bed to stand, but no ambulation. I have encouraged him to try to ambulate today. An order was writt en for Physical Therapy to try to ambulate him 2 to 3 times today if possible. The patient reports t hat every time he tried to take lactulose, he unfortunately had really bad nausea, vomiting. He is a ble to tolerate rifaximin very well, but lactulose, he is not able to take it at all because it is ve ry sweet as he describes. No abdominal pain. Yesterday, he did not eat anything for breakfast or michelle nch because of this nausea and vomiting related to lactulose, but he did have a little bit of food in take at dinnertime. Objective: Vital Signs: Reviewed. HEENT: Unremarkable. Lungs: Clear to auscultation. Heart: Sounds normal. Abdomen: Soft. Bowel sounds normal. No guarding, rigidity, tenderness, or distention. Extremities: No leg edema. Laboratory Data: White count 8, hemoglobin 11.8, platelets 135. Sodium 141, potassium 3.8, chloride 108, bicarb 24, BUN 25, creatinine 1.49, glucose 108. Impression: 1.Hepatic encephalopathy. 2.Generalized weakness. 3.Cirrhosis of liver with ascites. 4.Type 2 diabetes mellitus. 5.Hypertension. Plan: We will continue current medications. Continue current diuretic therapy. Continue rifaximin. I have also discussed with him about trying lower dose of lactulose and try to dilute it with water if possible and see if he can tolerate that, and instead of 30 g 3 times a day, I have changed order to 10 g 3 times a day, and nursing staff to dilute this lactulose if okay with the pharmacist and se e if the patient can tolerate that. Ambulation was encouraged, and I will see him tomorrow for apple ariza. His blood culture came back skin contaminant, so antibiotic was discontinued this morning. TOMMY/MODL Voice ID: [id number] Report ID: [id number]
[2018-08-13 04:28] VITALS: TEMP 97.9
[2018-08-13] MEDS: INSULIN -REGULAR HUMAN 50 UNIT/0.5 ML ML SQ SCH (07:30)
--- NOTE | 2018-08-13 08:58 | P.PN ---
Subjective Date of Service: 08/13/18 Subjective: Improving (Feels much better and is oriented X3 this morning. is concerned about the fall risk with compromised strength and would like him considered for rehab with extended physical therapy before return home.) Review of Systems 10-point ROS is otherwise unremarkable General: Weakness (in extremities ) Physical Examination - Vital Signs Temperature: 97.9 F Blood Pressure: 142/66 Pulse: 83 Respirations: 18 Pulse Ox (%): 96 - Physical Exam General: Alert, In no apparent distress, Oriented x3, Cooperative HEENT: Atraumatic, Normocephalic, PERRLA, EOMI Neck: Supple Respiratory: Diminished (in bases) Cardiovascular: Normal pulses Gastrointestinal: Soft and benign, No tenderness, No rebound, No guarding, Ascites Neurological: Normal speech Assessment And Plan - Current Problems (Diagnosis) (1) Hepatic encephalopathy Current Visit: Yes Status: Acute Comment: Improved. A, OX3. (2) Altered mental status Current Visit: Yes Status: Acute (3) Ascites Current Visit: No Status: Acute (4) Cirrhosis of liver Onset Date: 08/16/17 Current Visit: No Status: Acute (5) Esophageal varices Onset Date: 08/16/17 Current Visit: No Status: Acute (6) Hyperlipidemia, mixed Onset Date: 08/16/17 Current Visit: No Status: Acute (7) Hypertension Onset Date: 08/16/17 Current Visit: No Status: Acute (8) Thrombocytopenia Onset Date: 08/16/17 Current Visit: No Status: Acute - Plan REC: 1) continue Lactulose and Xifaxan 2) continue Lasix and Aldactone 3) discontinue soda (states helps him to belch) e.g. Gingerale 4) consider rehab for needed continue physical therapy to decrease fall risk at home
[2018-08-13] MEDS: LACTULOSE 20 GM/30 ML UCUP PO SCH (09:06)
[2018-08-13] MEDS: Rifaximin 550 MG Tab PO SCH (09:06)
[2018-08-13] MEDS: FUROSEMIDE 40 MG TABLET PO SCH (09:07)
[2018-08-13] MEDS: FAMOTIDINE 20 MG/2 ML VIAL IV SCH (09:07)
[2018-08-13] MEDS: SPIRONOLACTONE 100 MG TAB PO SCH (09:07)
[2018-08-13 09:15] VITALS: BP 129/62
[2018-08-13 09:49] VITALS: O2SAT 94
--- NOTE | 2018-08-13 15:23 | DS ---
Date of Discharge: 08/13/2018 Disposition: Discharged to go home. Instructions/medication: 1. Continue all prior home medication except stop Jardiance. 2. Start lactulose 10 g by mouth 4 times a day and rifaximin 550 mg twice a day. 3. Follow up at my office during week of August 22, 2018. Physical Examination: HEENT: Unremarkable. Lungs: Clear to auscultation. Heart: Sounds normal. Abdomen: Soft. Bowel sounds normal. No guarding, rigidity, tenderness, or distention. Extremities: No leg edema. Laboratory Data: Labs done during this hospitalization, upon admission, white count 7.6, hemoglobin 12.5, platelets 149. Today, white count 8, hemoglobin 11.8, platelets 135. Today, sodium 141, potassium 3.8, chloride 108, bicarb 24 , BUN 25, creatinine 1.49, glucose 108, magnesium 2. SGOT 47, SGPT 28, alkaline phosphatase 115. Ammonia level when he came in was 139, and last ammonia level yesterday was 52. Hospital Course: This is a 77-year-old white pleasant male patient with history of cirrhosis of liver, came into emergency room with complaints of confusion. Please see dictated H and P for more information. After the patient was evaluated in the emergency room, he was admitted to the hospital with hepatic encephalopathy. His CAT scan of the brain was negative for any acute changes. Chest x-ray, negative for any acute changes. After he came into the ER, he was started on lactulose and rifaximin. Home medications were continued. GI consultation was obtained from Dr. Powers. Overall, his condition improved, ammonia level came down, and his mental status improved and he is back to his normal self. Physical Therapy was consulted yesterday. He started ambulating very well and ambulated several times. Overall, his condition has improved significantly. Medically, he is stable for discharge. He has an appointment to see Dr. Moreno on August 22, 2018, and he will come see me for followup that particular week. He had trouble taking lactulose and he found it extremely sweet to the extent that he was having nausea, vomiting after taking lactulose 30 g 3-4 times a day as ordered, so as of yesterday, we reduced the dose to 10 g and decided to dilute lactulose, and he is able to tolerate that very well, so we will continue 10 g 4 times a day. I did advise the patient and his that our goal is to have at least 2-3 loose to watery stools every day and they were advised how to titrate the dose of lactulose accordingly. Final Diagnoses: 1. Hepatic encephalopathy. 2. Altered mental status secondary to above. 3. Thrombocytopenia. 4. Acute renal insufficiency. 5. Cirrhosis of liver with ascites. 6. Hypertension. 7. Hyperlipidemia. 8. Type 2 diabetes mellitus. 9. Benign prostatic hypertrophy. 10. Generalized weakness, improving. TOMMY/MODL Voice ID: [id number] Report ID: [id number] MTDD
== END 2018-08-13 11:26 | disposition home or self-care (01) | DRG 442 ==
LOC: ER 17:27 → ERHOLD 19:48 → 2ND 21:28
PROVIDERS: ADMIT Internal Medicine; ATTEND Internal Medicine
DX: K72.90 Hepatic failure, unspecified without coma (principal); R18.8 Other ascites; I85.10 Secondary esophageal varices without bleeding; K74.60 Unspecified cirrhosis of liver; D69.6 Thrombocytopenia, unspecified; E78.2 Mixed hyperlipidemia; E11.22 Type 2 diabetes mellitus with diabetic chronic kidney disease; I12.9 Hypertensive chronic kidney disease with stage 1 through stage 4 chronic kidney disease, or unspecified chronic kidney disease; N18.3 Chronic kidney disease, stage 3 (moderate); D64.9 Anemia, unspecified; I65.23 Occlusion and stenosis of bilateral carotid arteries; N40.0 Benign prostatic hyperplasia without lower urinary tract symptoms; R11.2 Nausea with vomiting, unspecified; R53.1 Weakness; Z79.82 Long term (current) use of aspirin; Z79.84 Long term (current) use of oral hypoglycemic drugs; Z79.899 Other long term (current) drug therapy; N28.9 Disorder of kidney and ureter, unspecified
CPT/HCPCS: 36415; 70450; 71045; 80048; 80053; 80076; 82140; 82962; 83690; 83735; 83880; 84484; 85025; 85610; 87040; 87205; 93005; 93880; 97116; 97162; 99285; J0696; J2405; J7030

== ENCOUNTER 2018-08-29 13:30 | Emergency (ER) | payer OTHER ==
--- OUTSIDE RECORDS SUMMARY | 2018-08-29 13:33 | XMS REPORT ---
[...] Dosage Date Carafate [facility] [id number] 1 GM Orally Active 1 tablet on Twice a day an empty stomach losartan [facility] [id number] 20 mg Active one tab daily Jardiance [facility] [id number] 25 MG Oral Active TAKE 1 TABLET BY MOUTH EVERY DAY IN THE MORNING Carvedilol [facility] [id number] 12.5 MG Oral Active TAKE 1/2 TABLET BY MOUTH TWICE DAILY Omeprazole [facility] [id number] 40 MG Oral Active TAKE 1 CAPSULE BY MOUTH TWICE A DAY Crestor [facility] 47426307411 40 MG Orally Active 1 tablet Once a day Lasix [facility] [id number] 20 MG Orally Active 1 tablet Once a day Results No Known Results Summary Purpose eClinicalWorks Submission
--- OUTSIDE RECORDS SUMMARY | 2018-08-29 13:33 | XMS REPORT ---
:1940 [facility] Address [address] [place] [address] Care Team Providers Name Role Phone TEODORO DAVENPORT Unavailable Unavailable Problems This patient has no known problems. Allergies, Adverse Reactions, Alerts This patient has no known allergies or adverse reactions. Medications This patient has no known medications. Results Test Description Test Time Test Comments Text Results Atomic Results Result Comments MR, ABDOMEN, 2018-08-29 Referring: FINAL REPORT PATIENT ID: WITH 09:28:00 Tayo Mckenzie [id number] TECHNIQUE: MRI of the T 3 liver and abdomen WITHOUT and WITH pancreas intravenous contrast. INDICATION: protocolNeed T 3 cirrhosis and pancreas mass, liver and pancreas liver and pancreas protocol. protocol, to COMPARISON: Outside facility CT follow US from 04/29/2018. Outside facility paracentesis MRI from 08/16/2017. FINDINGS: LOWER THORAX: Small to moderate left-sided pleural effusion. LIVER: The liver is shrunken and nodular. An arterial enhancing focus in segment VIII measures 0.5 cm on arterial phase image 76. No washout or pseudocapsule formation.BILIARY: Prior cholecystectomy. No biliary ductal dilatation or filling defect.SPLEEN: 13.8 cm splenomegaly.PANCREAS: No focal masses or ductal dilatation. A cystic lesion in the pancreatic head measures 0.9 cm on series 201 image 18, previously 1.7 cm. A cystic lesion in the uncinate process measures 1.1 cm on series 1 image 13. This is likely unchanged from the prior MRI 08/16/2017. ADRENALS: No adrenal nodules.KIDNEYS/URETERS: No hydronephrosis or solid mass lesions. PERITONEUM/RETROPERITONEUM: Large volume ascites.LYMPH NODES: No lymphadenopathy.VESSELS: A periumbilical vein is recanalized. GI TRACT: No distention or wall thickening. Mild diverticulosis of the left colon. BONES AND SOFT TISSUES: Bilateral gynecomastia. IMPRESSION: Evaluation was suboptimal due to the large amount of ascites. Consider future evaluation with CT since the patient has a limit on the amount of ascites which can be removed during paracentesis. 1.No suspicious focal hepatic lesions. A single arterial enhancing focus measured 0.5 cm in segment VIII without washout or pseudocapsule formation. A follow-up CT is recommended in six months. 2.Cirrhosis with sequelae of portal hypertension including large volume ascites, splenomegaly, and a recanalized periumbilical vein. 3.The cystic lesion in the pancreatic head has decreased in size. This makes a pseudocyst the most likely diagnosis. 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 Close attention on follow-up imaging is recommended. Signed: Roberto Morin MDReport Verified Date/Time: 08/29/2018 09:28:45 Reading Location: [address] Radiology Reading Room FLUID CELL COUNT WITH DIFFERENTIAL 2018-08-26 19:43:00 Test Item Value Reference Range Comments APPEARANCE FLUID (BEAKER) (test divm=220) Clear Clear COLOR FLUID (BEAKER) (test hlmb=131) Yellow Colorless, Straw RBC FLUID (BEAKER) (test fcin=083) 110 /cu mm <=1 ADJUSTED WBC FLUID (BEAKER) (test hyno=7332) 53 /cu mm <=5 LINING CELLS (BEAKER) (test ufbg=0160) 0 /cu mm <=1 NEUTROPHILS FLUID (BEAKER) (test rsvc=2014) 3 % LYMPHS FLUID (BEAKER) (test hltw=886) 28 % MONO/MACROPHAGE FLUID (BEAKER) (test oymk=556) 69 % EOSINOPHILS FLUID (BEAKER) (test duad=720) 0 % BASO FLUID (BEAKER) (test affg=773) 0 % CONTAINER BODY FLUID (BEAKER) (test jjlq=6218) EDTA Tube PROTEIN, BODY [id number] 16:56:00 Test Item Value Reference Range Comments PROTEIN FLUID (BEAKER) (test zriv=607) 0.9 g/dL Absence of reference range indicates that normals have not been defined.Assay performance has not been validated for this type of specimen.ALBUMIN, BODY [id number] 16:56:00 Test Item Value Reference Range Comments ALBUMIN FLUID (BEAKER) (test ayan=999) 0.4 gm/dL Reference Range: No Normals Assay performance has not been validated for this type of specimen.U/S, [id number] 16:30:00Referring: Dr. Tayo Mak paracentesis prior to MRI T 3 imagingSend ascitic fluid for cell count and differential If Cr > 1.5, do not remove more than 3.5L of ascitic fluid. If > 3L removed, please administer 200 mL of albumin 25% (50 grams) IV x 1US paracentesis prior to MRI T 3 imagingSend ascitic fluid for cell count and differential If Cr > 1.5, do not remove more than 3.5L of ascitic fluid. If & gt; 3L removed, please administer 200 mL of albumin 25% (50 grams) IV x 1Reason for Exam:->ascites, send fluid for total protein, albumin, cytology large volume, cell count and diff.FINAL REPORT PROCEDURE: Ultrasound-guided paracentesis. INDICATION: 77-year-old man with ascites. DESCRIPTION: After obtaining informed written consent, ultrasound scan of the abdomen identified ascites in the right lower quadrant. The overlying skin was prepped and draped in the usual, sterile fashion and local 1% lidocaine anesthesia was administered. A 5 German catheter was advanced into the peritoneal cavity and 3500 cc of serous fluid was removed. The catheter was removedwithout immediate complication. Samples were sent for analysis. IMPRESSION:Uncomplicated ultrasound-guided paracentesis with 3500 cc fluid removed. Signed: Mercedez Licona MDReport Verified Date/Time:08/26/2018 16:30: 44 Reading Location: [address] Ultrasound Reading Room [id number] 15:10:00 Test Item Value Reference Range Comments POC-CREATININE (BEAKER) 1.9 mg/dL 0.6-1.3 TESTED [address] (test tcjh=2925) [facility] [id number] POC-EGFR (BEAKER) (test 35 mL/min/1.73M2 etuk=7647) HEPATITIS B SURFACE [id number] 18:59:00 Test Item Value Reference Range Comments HEPATITIS B SURFACE ANTIBODY (BEAKER) (test < mIU/mL <8.0 bsws=124) HEPATITIS A ANTIBODY, [id number] 18:59:00 Test Item Value Reference Range Comments HEPATITIS A IGG ANTIBODY (BEAKER) (test yhil=3628) Reactive Nonreactive ALPHA FETOPROTEIN (AFP), TUMOR [id number] 18:59:00 Test Item Value Reference Range Comments ALPHA-FETOPROTEIN (BEAKER) (test ppnx=3392) < ng/mL <10.0 HEPATITIS B CORE ANTIBODY, [id number] 18:56:00 Test Item Value Reference Range Comments HEPATITIS B CORE TOTAL ANTIBODY (BEAKER) (test Nonreactive Nonreactive bxox=218) HEPATITIS B SURFACE [id number] 18:55:00 Test Item Value Reference Range Comments HEPATITIS B SURFACE ANTIGEN (2) (BEAKER) (test Nonreactive Nonreactive skxv=3403) HEPATITIS C [id number] 18:44:00 Test Item Value Reference Range Comments HEPATITIS C ANTIBODY (BEAKER) (test uaks=615) Nonreactive Nonreactive BASIC METABOLIC [id number] 17:09:00 Test Item Value Reference Range Comments SODIUM (BEAKER) (test 133 meq/L 136-145 xsrb=402) POTASSIUM (BEAKER) (test 4.3 meq/L 3.5-5.1 gluj=321) CHLORIDE (BEAKER) (test 101 meq/L 98-107 ftsk=949) CO2 (BEAKER) (test 21 meq/L 22-29 lobs=881) BLOOD UREA NITROGEN 41 mg/dL 7-21 (BEAKER) (test vito=047) CREATININE (BEAKER) (test 2.18 mg/dL 0.57-1.25 pzzj=316) GLUCOSE RANDOM (BEAKER) 101 mg/dL 70-105 (test ndix=622) CALCIUM (BEAKER) (test 9.0 mg/dL 8.4-10.2 cxvb=027) EGFR (BEAKER) (test 29 mL/min/1.73 sq m ESTIMATED GFR IS NOT ytyy=9212) ACCURATE CREATININE CLEARANCE IN PREDICTING GLOMERULAR FILTRATION RATE. ESTIMATED GFR IS NOT APPLICABLE FOR DIALYSIS PATIENTS. Specimen slightly ictericHEPATIC FUNCTION [id number] 17:07:00 Test Item Value Reference Range Comments TOTAL PROTEIN (BEAKER) (test lvwx=273) 7.3 gm/dL 6.0-8.3 ALBUMIN (BEAKER) (test wvws=2075) 2.7 g/dL 3.5-5.0 BILIRUBIN TOTAL (BEAKER) (test lyvx=788) 2.5 mg/dL 0.2-1.2 BILIRUBIN DIRECT (BEAKER) (test kywa=812) 1.2 mg/dL 0.1-0.5 ALKALINE PHOSPHATASE (BEAKER) (test dckv=059) 120 U/L 40-150 AST (SGOT) (BEAKER) (test wwef=959) 53 U/L 5-34 ALT (SGPT) (BEAKER) (test vjvq=942) 29 U/L 6-55 Specimen slightly [id number] 16:52:00 Test Item Value Reference Range Comments PARTIAL THROMBOPLASTIN TIME (BEAKER) (test 37.9 seconds 22.5-36.0 wmop=051) PROTHROMBIN [id number] 16:51:00 Test Item Value Reference Range Comments PROTIME (BEAKER) (test coer=880) 16.5 seconds 11.7-14.7 INR (BEAKER) (test blfi=934) 1.3 <=5.9 RECOMMENDED COUMADIN/WARFARIN INR THERAPY RANGESSTANDARD DOSE: 2.0 - 3.0 Includes: PROPHYLAXIS forvenous thrombosis, systemic embolization; TREATMENT for venous thrombosis and/or pulmonary embolus.HIGH RISK: Target INR is 2.5-3.5 for patients with mechanical heart valves.CBC W/PLT COUNT & AUTO [id number] 16:43:00 Test Item Value Reference Range Comments WHITE BLOOD CELL COUNT (BEAKER) (test dvaw=353) 5.9 K/ L 3.5-10.5 RED BLOOD CELL COUNT (BEAKER) (test caii=194) 3.48 M/ L 4.63-6.08 HEMOGLOBIN (BEAKER) (test rmit=959) 11.9 GM/DL 13.7-17.5 HEMATOCRIT (BEAKER) (test nsju=075) 35.4 % 40.1-51.0 MEAN CORPUSCULAR VOLUME (BEAKER) (test kwyo=935) 101.7 fL 79.0-92.2 MEAN CORPUSCULAR HEMOGLOBIN (BEAKER) (test 34.2 pg 25.7-32.2 ovkc=804) MEAN CORPUSCULAR HEMOGLOBIN CONC (BEAKER) (test 33.6 GM/DL 32.3-36.5 qubk=268) RED CELL DISTRIBUTION WIDTH (BEAKER) (test 15.4 % 11.6-14.4 jcdi=894) PLATELET COUNT (BEAKER) (test vger=060) 138 K/CU MM 150-450 MEAN PLATELET VOLUME (BEAKER) (test iaih=768) 11.6 fL 9.4-12.4 NUCLEATED RED BLOOD CELLS (BEAKER) (test 0 /100 WBC 0-0 sswe=561) NEUTROPHILS RELATIVE PERCENT (BEAKER) (test 71 % megp=384) LYMPHOCYTES RELATIVE PERCENT (BEAKER) (test 11 % nswd=703) MONOCYTES RELATIVE PERCENT (BEAKER) (test 16 % xksj=825) EOSINOPHILS RELATIVE PERCENT (BEAKER) (test 2 % yzjv=968) BASOPHILS RELATIVE PERCENT (BEAKER) (test 0 % icqv=710) NEUTROPHILS ABSOLUTE COUNT (BEAKER) (test 4.18 K/ L 1.78-5.38 fdkp=904) LYMPHOCYTES ABSOLUTE COUNT (BEAKER) (test 0.62 K/ L 1.32-3.57 uxhm=921) MONOCYTES ABSOLUTE COUNT (BEAKER) (test 0.95 K/ L 0.30-0.82 eqjn=099) EOSINOPHILS ABSOLUTE COUNT (BEAKER) (test 0.10 K/ L 0.04-0.54 ktkc=201) BASOPHILS ABSOLUTE COUNT (BEAKER) (test 0.02 K/ L 0.01-0.08 khjk=706) IMMATURE GRANULOCYTES-RELATIVE PERCENT (BEAKER) 0 % 0-1 (test lmzi=6912)
--- OUTSIDE RECORDS SUMMARY | 2018-08-29 13:33 | XMS REPORT | Clinical Summary ---
:1940 Author Organization [facility] Address [address] [place] [address] Care Team Providers Name Role Phone Clark Barrera MD Primary Care Provider Allergies Active Allergy Reactions Severity Noted Date Comments Aspirin Anaphylaxis, Other High 08/12/2017 (See Comments) Hydrocodone Rash Low 08/13/2017 Sulfa (Sulfonamide 08/22/2018 Anxiousness,nervousn Antibiotics) ess Sulfamethoxazole-Trimeth Anxiety Low 04/04/2018 oprim Medications Medication Sig Dispensed Refills Start Date End Date Status empagliflozin TAKE 1 TABLET 0 08/12/2017 Suspended (JARDIANCE) 25 mg BY MOUTH EVERY tablet DAY IN THE MORNING furosemide (LASIX) 20 1 tablet twice 0 Suspended MG tablet daily losartan (COZAAR) 50 Take 50 mg by 3 06/05/2018 Suspended MG tablet mouth 2 (two) times daily. sucralfate (CARAFATE) 10 ml as needed 0 Suspended 100 mg/mL suspension omeprazole (PRILOSEC) TWICE DAILY 0 08/17/2017 Suspended 40 MG capsule spironolactone Take 25 mg by 0 Suspended (ALDACTONE) 25 MG mouth 2 (two) tablet times daily. rosuvastatin (CRESTOR) Take 10 mg by 3 06/08/2018 Suspended 10 MG tablet mouth daily. lactulose (CHRONULAC) TAKE 15 ML BY 6 08/13/2018 Suspended 10 gram/15 mL solution BY MOUTH 4 TIMES EVERY DAY XIFAXAN 550 mg Tab Take 1 tablet 3 08/13/2018 Suspended by mouth 2 (two) times daily. Active Problems Problem Noted Date Other cirrhosis of liver 08/22/2018 Last Assessment & Plan: Cirrhosis is diagnosed based on clinical complications and lab findings. Risk factors for fatty liver disease including DM and hyperlipidemia. A comprehensive work was not found and will be completed today. Cirrhosis education was completed. Cirrhosis is decompensated with development of ascites and varices. High risk for progression of cirrhosis and portal hypertension.. Cirrhosis education was completed today with literature provided. Na MELD score is 16 which carries a high risk of life threatening complications related to cirrhosis over the next 2 years. Screening for malignant neoplasm 08/22/2018 Last Assessment & Plan: Cirrhosis, regardless of etiology, is a risk factor for development of hepatocellular carcinoma. The annual incidence of HCC varies from 1.5-7%. Thus, we recommend surveillance for HCC be performed usin g contrast MRI or CT imaging and alphafetoprotein every 6 months. Immunity status testing 08/22/2018 Last Assessment & Plan: Serological tests will be completed to determine the presence of immunity to hepatitis A and B. If the patient does not have adequate immunity, we would recommend administration of appropriate vaccinati on as per CDC guidelines by the primary care provider. Portal hypertension 08/22/2018 Last Assessment & Plan: Portal hypertension is evidenced by esophageal varices and ascites. High risk for progression of the portal hypertension over time. Other ascites 08/22/2018 Last Assessment & Plan: Ascites requiring paracentesis. Currently on diuretic therapy but continues to require US guided paracentesis. 2000 mg sodium restriction discussed. We will update labs to determine if the diuretics could be adjusted. We need a full assessment of the fluid with cell count with diff, total protein, albumin sent with the next paracentesis. Renal function and electrolytes appear to be preserved by last testing but warrants updated labs today. Hepatic encephalopathy 08/22/2018 Last Assessment & Plan: Counseling done today on the adjustment of the lactulose to achieve 3-4 bowel movements per day. No driving or operating machinery is deemed safe once treatment for encephalopathy is initiated. Metabolic syndrome 08/22/2018 Last Assessment & Plan: Risk factors for metabolic syndrome include hyperlipidemia, DM and hypertension. Metabolic syndrome raises the risk for fatty liver disease. Control of the risk factors is critical to improving fatty liver disease. Type 2 diabetes mellitus without complication, without long-term current 08/22 use of insulin Last Assessment & Plan: DM which is poorly controlled is a risk factor for fatty liver. Recent HGA1C shows good control of the DM with diet and oral medications. There are no contraindications at this time to continuing the current therapy. Other hyperlipidemia 08/22/2018 Last Assessment & Plan: Hyperlipidemia is a risk factor for metabolic syndrome and fatty liver disease. There are no contraindications to the use of statin therapy if deemed appropriate. Diet modification and exercise recommended at this time. Pancreatic mass 08/22/2018 Pre-procedure lab exam 08/22/2018 Encounters Date Type Specialty Care Team Description 08/26/2018 Hospital Encounter Radiology Hoang Moreno Other cirrhosis of liver MD Enzo 08/22/2018 Office Visit Hepatology Hoang Moreno Other cirrhosis of liver (Primary Dx); MD Enzo Screening for malignant neoplasm; Immunity status testing; Portal hypertension ; Other ascites; Hepatic encephalopathy ; Metabolic syndrome; Type 2 diabetes mellitus without complication, without long-term current use of insulin ; Other hyperlipidemia; Pancreatic mass; Pre-procedure lab exam 08/05/2018 Telephone Hepatology Ottoniel Rebollar Cd (1) MADELINE Reyes after 08/28/2017 Family History Medical History Relation Name Comments Aneurysm Brother Heart disease Father No Known Problem Sister Relation Name Status Comments Brother Father Mother Sister Social History Tobacco Use Types Packs/Day Years Used Date Never Smoker Smokeless Tobacco: Never Used Alcohol Use Drinks/Week oz/Week Comments No quit Alcohol Habits Answer Date Recorded How often do you have a drink containing alcohol? Never 08/22/2018 How many drinks containing alcohol do you have on a typical Not asked day when you are drinking? How often do you have six or more drinks on one occasion? Not asked Sex Assigned at Date Recorded Not on file Job Start Date Occupation Industry Not on file Not on file Not on file Travel History Travel Start Travel End No recent travel history available. Last Filed Vital Signs Vital Sign Reading Time Taken Blood Pressure 120/53 08/26/2018 4:53 PM [facility] Pulse 72 08/26/2018 4:53 PM [facility] Temperature 36.4 C (97.6 F) 08/26/2018 4:53 PM [facility] Respiratory Rate 18 08/26/2018 4:53 PM [facility] Oxygen Saturation 100% 08/26/2018 4:53 PM [facility] Inhaled Oxygen Concentration - - Weight 92.3 kg (203 lb 6.4 oz) 08/22/2018 12:45 PM [facility] Height 180.3 cm (5' 11") 08/22/2018 12:45 PM [facility] Body Mass Index 28.37 08/22/2018 12:45 PM [facility] Plan of Treatment Date Type Specialty Care Team Description 09/27/2018 Office Visit Hepatology Hoang Moreno MD [address] [facility] [address] [place] [address] Procedures The patient is currently admitted. The information in this section might not be complete until the patient is discharged. Procedure Name Priority Date/Time Associated Comments Diagnosis MR ABDOMEN Routine 08/26/2018 8:23 Other cirrhosis of Results for this WITH/WITHOUT IV PM [facility] liver procedure are in CONTRAST the results section. US PARACENTESIS Routine 08/26/2018 4:04 Other ascites Results for this PM [facility] procedure are in the results section. ALBUMIN, BODY FLUID Routine 08/26/2018 3:49 Results for this PM [facility] procedure are in the results section. PROTEIN, BODY FLUID Routine 08/26/2018 3:49 Results for this PM [facility] procedure are in the results section. BODY FLUID CELL COUNT Routine 08/26/2018 3:49 Results for this WITH DIFFERENTIAL PM [facility] procedure are in the results section. POCT-CREATININE Routine 08/26/2018 2:56 Results for this PM [facility] procedure are in the results section. CBC W/PLT COUNT & Routine 08/22/2018 3:27 Other cirrhosis of Results for this AUTO DIFFERENTIAL PM [facility] liver procedure are in the results section. HEPATITIS C ANTIBODY Routine 08/22/2018 3:27 Other cirrhosis of Results for this PM [facility] liver procedure are in the results section. CBC W/PLT COUNT & Routine 08/22/2018 3:27 Other cirrhosis of Results for this AUTO DIFFERENTIAL PM [facility] liver procedure are in the results section. HEPATIC FUNCTION Routine 08/22/2018 3:27 Other cirrhosis of Results for this PANEL PM [facility] liver procedure are in the results section. BASIC METABOLIC PANEL Routine 08/22/2018 3:27 Other cirrhosis of Results for this (7) PM [facility] liver procedure are in the results section. APTT Routine 08/22/2018 3:26 Pre-procedure lab Results for this PM [facility] exam procedure are in the results section. HEPATITIS B SURFACE Routine 08/22/2018 3:26 Other cirrhosis of Results for this ANTIGEN PM [facility] liver procedure are in the results section. HEPATITIS B SURFACE Routine 08/22/2018 3:26 Other cirrhosis of Results for this ANTIBODY PM [facility] liver procedure are in the results section. HEPATITIS B CORE Routine 08/22/2018 3:26 Other cirrhosis of Results for this ANTIBODY, TOTAL PM [facility] liver procedure are in the results section. HEPATITIS A ANTIBODY, Routine 08/22/2018 3:26 Other cirrhosis of Results for this IGG PM [facility] liver procedure are in the results section. ALPHA FETOPROTEIN Routine 08/22/2018 3:26 Other cirrhosis of Results for this (AFP), TUMOR MARKER PM [facility] liver procedure are in the results section. PROTHROMBIN TIME/INR Routine 08/22/2018 3:26 Other cirrhosis of Results for this PM [facility] liver procedure are in the results section. after 08/28/2017 Results MR abdomen with/without IV contrast (08/26/2018 8:23 PM [facility]) Narrative Performed At FINAL REPORT [facility] TECHNIQUE: MRI of the abdomen WITHOUT and WITH intravenous contrast. INDICATION: cirrhosis and pancreas mass, liver and pancreas protocol. COMPARISON: Outside facility CT from 04/29/2018. Outside facility MRI from 08/16/2017. FINDINGS: LOWER THORAX: Small to moderate left-sided pleural effusion. LIVER: The liver is shrunken and nodular. An arterial enhancing focus in segment VIII measures 0.5 cm on arterial phase image 76. No washout or pseudocapsule formation. BILIARY: Prior cholecystectomy. No biliary ductal dilatation or filling defect. SPLEEN: 13.8 cm splenomegaly. PANCREAS: No focal masses or ductal dilatation. A cystic lesion in the pancreatic head measures 0.9 cm on series 201 image 18, previously 1.7 cm. A cystic lesion in the uncinate process measures 1.1 cm on series 1 image 13. This is likely unchanged from the prior MRI 08/16/2017. ADRENALS: No adrenal nodules. KIDNEYS/URETERS: No hydronephrosis or solid mass lesions. PERITONEUM/RETROPERITONEUM: Large volume ascites. LYMPH NODES: No lymphadenopathy. VESSELS: A periumbilical vein is recanalized. GI TRACT: [...] follow-up imaging is recommended. Signed: Roberto Morin MD Report Verified Date/Time:08/29/2018 09:28:45 Reading Location: [address] Radiology Reading Room Procedure Note Interface, External Ris In - 08/29/2018 9:30 AM CDT FINAL REPORT TECHNIQUE: MRI of the abdomen WITHOUT and WITH intravenous contrast. INDICATION: cirrhosis and pancreas mass, liver and pancreas protocol. COMPARISON: Outside facility CT from 04/29/2018. Outside facility MRI from 08/16/2017. FINDINGS: LOWER THORAX: Small to moderate left-sided pleural effusion. LIVER: The liver is shrunken and nodular. An arterial enhancing focus in segment VIII measures 0.5 cm on arterial phase image 76. No washout or pseudocapsule formation. BILIARY: Prior cholecystectomy. No biliary ductal dilatation or filling defect. SPLEEN: 13.8 cm splenomegaly. PANCREAS: No focal masses or ductal dilatation. A cystic lesion in the pancreatic head measures 0.9 cm on series 201 image 18, previously 1.7 cm. A cystic lesion in the uncinate process measures 1.1 cm on series 1 image 13. This is likely unchanged from the prior MRI 08/16/2017. ADRENALS: No adrenal nodules. KIDNEYS/URETERS: No hydronephrosis or solid mass lesions. PERITONEUM/RETROPERITONEUM: Large volume ascites. LYMPH NODES: No lymphadenopathy. VESSELS: A periumbilical vein is recanalized. GI TRACT: [...] follow-up imaging is recommended. Signed: Roberto Morin MD Report Verified Date/Time: 08/29/2018 09:28:45 Reading Location: [address] Radiology Reading Room Performing Organization Address City/State/Zipcode Phone Number [facility] US paracentesis (08/26/2018 4:04 PM [facility]) Narrative Performed At FINAL REPORT [facility] PROCEDURE: Ultrasound-guided paracentesis. INDICATION: 77-year-old man with ascites. DESCRIPTION: After obtaining informed written consent, ultrasound scan of the abdomen identified ascites in the right lower quadrant. The overlying skin was prepped and draped in the usual, sterile fashion and local 1% lidocaine anesthesia was administered. A 5 Citizen Of [place] catheter was advanced into the peritoneal cavity and 3500 cc of serous fluid was removed. The catheter was removed without immediate complication. Samples were sent for analysis. IMPRESSION: Uncomplicated ultrasound-guided paracentesis with 3500 cc fluid removed. Signed: Mercedez Licona MD Report Verified Date/Time:08/26/2018 16:30:44 Reading Location: [facility] [id number] Ultrasound Reading Room Procedure Note Interface, External Ris In - 08/26/2018 4:33 PM [facility] FINAL REPORT PROCEDURE: Ultrasound-guided paracentesis. INDICATION: 77-year-old man with ascites. DESCRIPTION: After obtaining informed written consent, ultrasound scan of the abdomen identified ascites in the right lower quadrant. The overlying skin was prepped and draped in the usual, sterile fashion and local 1% lidocaine anesthesia was administered. A 5 Citizen Of [place] catheter was advanced into the peritoneal cavity and 3500 cc of serous fluid was removed. The catheter was removed without immediate complication. Samples were sent for analysis. IMPRESSION: Uncomplicated ultrasound-guided paracentesis with 3500 cc fluid removed. Signed: Mercedez Licona MD Report Verified Date/Time: 08/26/2018 16:30:44 Reading Location: [facility] [id number] Ultrasound Reading Room Performing Organization Address [facility] Phone Number GE RIS Body fluid cell count with differential (08/26/2018 3:49 PM [facility]) Appearance Clear Clear [facility] Color Yellow (A) Colorless, Straw [facility] RBCs 110 (H) <=1 /cu mm [facility] Adjusted WBC Count 53 (H) <=5 /cu mm [facility] Lining Cells 0 <=1 /cu mm [facility] % Segs 3 % [facility] % Lymphs 28 % [facility] % Monos 69 % [facility] % Eos 0 % [facility] % Baso 0 % [facility] Container Body Fluid EDTA Tube [facility] Specimen Body Fluid - Ascites Performing Organization Address [facility] Phone Number [address] [address] [phone] CENTER Protein, body fluid (08/26/2018 3:49 PM [facility]) Protein, Fluid 0.9 g/dL [facility] Specimen Body Fluid - Ascites Narrative Performed At Absence of reference range indicates that [facility] normals have not been defined. Assay performance has not been validated for this type of specimen. Performing Organization Address [facility] Phone Number [address] [address] C[place] Albumin, body fluid (08/26/2018 3:49 PM [facility]) Albumin, Fluid 0.4 gm/dL [facility] Specimen Body Fluid - Ascites Narrative Performed At Reference Range:No Normals [facility] Assay performance has not been validated for this type of specimen. Performing Organization Address [facility] Phone Number [address] [address] [place] POC-Creatinine (08/26/2018 2:56 PM [facility]) POC-Creatinine 1.9 (H)Comment: TESTED AT 0.6 - 1.3 mg/dL [address] [place] [address] POC-EGFR 35 mL/min/1.73M2 [facility] Specimen Blood Performing Organization Address [facility] [place] [address] [place] CBC with platelet count + automated diff (08/22/2018 3:27 PM [facility]) WBC 5.9 3.5 - 10.5 K/L [facility] RBC 3.48 (L) 4.63 - 6.08 M/L [facility] Hemoglobin 11.9 (L) 13.7 - 17.5 GM/DL [facility] Hematocrit 35.4 (L) 40.1 - 51.0 % [facility] MCV 101.7 (H) 79.0 - 92.2 fL [facility] MCH 34.2 (H) 25.7 - 32.2 pg [facility] MCHC 33.6 32.3 - 36.5 GM/DL [facility] RDW 15.4 (H) 11.6 - 14.4 % [facility] Platelets 138 (L) 150 - 450 K/CU MM [facility] MPV 11.6 9.4 - 12.4 fL [facility] nRBC 0 0 - 0 /100 WBC [facility] % Neutros 71 % [facility] % Lymphs 11 % [facility] % Monos 16 % [facility] % Eos 2 % [facility] % Baso 0 % [facility] # Neutros 4.18 1.78 - 5.38 K/L [facility] # Lymphs 0.62 (L) 1.32 - 3.57 K/L [facility] # Monos 0.95 (H) 0.30 - 0.82 K/L [facility] # Eos 0.10 0.04 - 0.54 K/L [facility] # Baso 0.02 0.01 - 0.08 K/L [facility] Immature 0 0 - 1 % [facility] Specimen Blood Performing Organization Address City/[facility]/Zipcode Phone Number [address] [address] [place] Hepatitis C antibody (08/22/2018 3:27 PM [facility]) Hepatitis C Ab NON-REACTIVE Nonreactive [facility] Specimen Blood Performing Organization Address City/[facility]/Zipcode Phone Number [address] [address] [place] Hepatic function panel (08/22/2018 3:27 PM [facility]) Protein, Total 7.3 6.0 - 8.3 gm/dL [facility] Albumin 2.7 (L) 3.5 - 5.0 g/dL [facility] Total Bilirubin 2.5 (H) 0.2 - 1.2 mg/dL [facility] Bilirubin, Direct 1.2 (H) 0.1 - 0.5 mg/dL [facility] Alkaline Phosphatase 120 40 - 150 U/L [facility] AST 53 (H) 5 - 34 U/L [facility] ALT 29 6 - 55 U/L [facility] Specimen Blood Narrative Performed At Specimen slightly icteric [facility] Performing Organization Address City/[facility]/Zipcode Phone Number [facility] [address] [place] [address] CENTER Basic Metabolic Panel (08/22/2018 3:27 PM [facility]) Sodium 133 (L) 136 - 145 meq/L [facility] Potassium 4.3 3.5 - 5.1 meq/L [facility] Chloride 101 98 - 107 meq/L [facility] CO2 21 (L) 22 - 29 meq/L [facility] BUN 41 (H) 7 - 21 mg/dL [facility] Creatinine 2.18 (H) 0.57 - 1.25 mg/dL [facility] Glucose 101 70 - 105 mg/dL [facility] Calcium 9.0 8.4 - 10.2 mg/dL [facility] EGFR 29Comment: ESTIMATED GFR IS mL/min/1.73 sq m [facility] NOT ACCURATE CREATININE [facility] CLEARANCE IN PREDICTING GLOMERULAR FILTRATION RATE. ESTIMATED GFR IS NOT APPLICABLE FOR DIALYSIS PATIENTS. Specimen Blood Narrative Performed At Specimen slightly icteric [facility] Performing Organization Address City/[facility]/Zipcode Phone Number [facility] [address] [place] [address] [place] Hepatitis A Antibody, IgG ([facility] Only) (08/22/2018 3:26 PM [facility]) Hep A IgG Reactive (A) Nonreactive [facility] Specimen Blood Performing Organization Address [facility] Phone Number [address] [address] [place] Alpha fetoprotein (AFP), tumor marker (08/22/2018 3:26 PM [facility]) Alpha-Fetoprotein <2.0 <10.0 ng/mL [facility] Specimen Blood Performing Organization Address City/[facility] Phone Number [address] [address] [place] Hepatitis B core antibody, total (08/22/2018 3:26 PM [facility]) Hep B Core Total Ab NON-REACTIVE Nonreactive [facility] Specimen Blood Performing Organization Address [facility] Phone Number [address] [address] [phone] [place] Hepatitis B surface antibody (08/22/2018 3:26 PM [facility]) Hep B S Ab <8.0 <8.0 mIU/mL [facility] Specimen Blood Performing Organization Address [facility] Phone Number [address] [address] [place] Hepatitis B surface antigen (08/22/2018 3:26 PM [facility]) hepatitis B Surface Ag NON-REACTIVE Nonreactive [facility] Specimen Blood Performing Organization Address [facility] Phone Number [address] [address] C[place] aPTT (08/22/2018 3:26 PM [facility]) PTT 37.9 (H) 22.5 - 36.0 seconds [facility] Specimen Blood Performing Organization Address [facility] Phone Number [address] [address] [place] Pro-time/INR (08/22/2018 3:26 PM [facility]) Protime 16.5 (H) 11.7 - 14.7 seconds [facility] INR 1.3 <=5.9 [facility] Specimen Blood Narrative Performed At RECOMMENDED COUMADIN/WARFARIN INR THERAPY [facility] RANGES STANDARD DOSE: 2.0 - 3.0 Includes: PROPHYLAXIS for venous thrombosis, systemic embolization; TREATMENT for venous thrombosis and/or pulmonary embolus. HIGH RISK: Target INR is 2.5-3.5 for patients with mechanical heart valves. Performing Organization Address City/State/Zipcode Phone Number [facility] [address] [place] [address] CENTER after 08/28/2017 Insurance Payer Benefit Plan / Subscriber ID Type Phone Address Group [employer] - MEDICARE A[employer] MEDICARE O xxxxxxxx [phone] [address] [place] [address]
[2018-08-29 15:57] LABS: Absolute Lymphocytes (CBC) 0.7 K/uL (0.7-4.9); Absolute Monocytes 0.8 K/uL (0.1-1.3); Absolute Neutrophil 4.4 K/uL (1.8-8.0); Basophils % 0.5 % (0-1.3); Eosinophils % 1.7 % (0-4.4); Hematocrit 34.8 % (39.6-49.0); Lymphocytes % 10.9 % (15.3-44.8); MPV 9.4 fL (7.6-11.3); Monocytes % 13.8 % (3.3-12.3); RBC Red Blood Cell Count 3.38 M/uL (4.33-5.43)
--- NOTE | 2018-08-29 16:05 | ER ---
Nurse's Notes [facility] Name: Clifford Vega Age: 77 yrs Sex: Male : 1940 Arrival Date: 08/29/2018 Time: 13:32 Bed 14 Private MD: Ce Barrera C Diagnosis: Unspecified cirrhosis of liver;Ascites;Edema, unspecified;Unspecified kidney failure Presentation: 08/29 13:49 Presenting complaint: Patient states: Pt reports noticing weeping from his R lower ss extremity, that has been intermittent for unknown time period, but getting worse. Pt has a history of lymphedema. Transition of care: patient was not received from another setting of care. Onset of symptoms is unknown. Risk Assessment: Do you want to hurt yourself or someone else? Patient reports no desire to harm self or others. Initial Sepsis Screen: Does the patient meet any 2 criteria? No. Patient's initial sepsis screen is negative. Does the patient have a suspected source of infection? No. Patient's initial sepsis screen is negative. Care prior to arrival: None. 13:49 Method Of Arrival: Wheelchair ss 13:49 Acuity: VALE 3 ss Triage Assessment: 14:58 General: Appears in no apparent distress. uncomfortable, Behavior is calm, cooperative, hj appropriate for age. Pain: Complains of pain in right leg. 14:58 EENT: No signs and/or symptoms were reported regarding the EENT system. Neuro: Level of hj Consciousness is awake, alert, obeys commands, Oriented to person, place, time, situation, Appropriate for age. Cardiovascular: Capillary refill < 3 seconds Patient's skin is warm and dry. Respiratory: Airway is patent Respiratory effort is even, unlabored, Respiratory pattern is regular, symmetrical. GI: Abdomen is noted to have ascites. : No signs and/or symptoms were reported regarding the genitourinary system. Derm: No signs and/or symptoms reported regarding the dermatologic system. Musculoskeletal: No signs and/or symptoms reported regarding the musculoskeletal system. Historical: - Allergies: 13:49 Aspirin; ss 13:49 Codeine; ss 13:49 Sulfa (Sulfonamide Antibiotics); ss - PMHx: 13:49 Cirrhosis; Diabetes - NIDDM; ss - Immunization history:: Adult Immunizations up to date. - Social history:: Smoking status: Patient/guardian denies using tobacco. - Ebola Screening: : Patient denies exposure to infectious person Patient denies travel to an Ebola-affected area in the 21 days before illness onset. - Family history:: not pertinent. Screenin:57 Abuse screen: Denies threats or abuse. Denies injuries from another. Nutritional hj screening: No deficits noted. Tuberculosis screening: No symptoms or risk factors identified. Fall Risk None identified. Assessment: 15:07 Reassessment: Patient and/or family updated on plan of care and expected duration. Pain pc1 level reassessed. Patient is alert, oriented x 3, equal unlabored respirations, skin warm/dry/pink. Patient denies pain at this time. General: Appears uncomfortable, Behavior is calm, cooperative. Derm: weeping edema to the right lower extremity. Presented with 2+ pitting edema bilaterally, Pedal pulses not located. Capillary refill <4 seconds. 15:28 Reassessment: Patient and/or family updated on plan of care and expected duration. Pain hj level reassessed. Patient is alert, oriented x 3, equal unlabored respirations, skin warm/dry/pink. 17:45 Reassessment: Dr. Rajan to talk to patient to answer questions regarding POC;. hj Vital Signs: 13:47 BP 99 / 51; Pulse 71; Resp 16; Temp 97.6(TE); Pulse Ox 99% on R/A; Weight 92.08 kg; ss Height 5 ft. 11 in. (180.34 cm); Pain 1/10; 15:41 BP 112 / 61; Pulse 71; Resp 18; Pulse Ox 100% on R/A; Pain 1/10; pc1 18:12 BP 120 / 72; Pulse 72; Resp 18; Pulse Ox 100% on R/A; hj 13:47 Body Mass Index 28.31 (92.08 kg, 180.34 cm) ED Course: 13:32 Patient arrived in ED. mr 13:33 Ce Barrera MD is Private Physician. mr 13:47 Arm band placed on right wrist. ss 13:50 Triage completed. ss 14:47 Dudley Gordillo, SEGUNDO is Primary Nurse. hj 14:48 Julio C Rajan MD is Attending Physician. [facility] 14:58 Patient has correct armband on for positive identification. Placed in gown. Bed in low hj position. Call light in reach. Side rails up X 1. Adult w/ patient. 15:40 Inserted saline lock: 20 gauge in right forearm, using aseptic technique. pc1 15:45 EKG done, by fuel cell technician. dt2 16:01 XRAY Chest (1 view) In Process Unspecified. EDMS 17:14 Ce Barrera MD is Referral Physician. shahab 18:13 No provider procedures requiring assistance completed. IV discontinued, intact, hj bleeding controlled, No redness/swelling at site. Pressure dressing applied. Administered Medications: 15:53 Drug: NS 0.9% 1000 ml Route: IV; Rate: 75 ml/hr; Site: right forearm; hj 17:46 Follow up: IV Status: Order to discontinue infusion hj 17:22 Drug: Lasix 40 mg Route: IVP; Site: right forearm; ag2 17:46 Follow up: Response: No adverse reaction hj Outcome: 16:05 ER care complete, transfer ordered by MD. shahab 17:15 Discharge ordered by MD. shahab 18:13 Discharged to home via wheelchair, with family. hj 18:13 Condition: stable 18:13 Discharge instructions given to patient, family, Instructed on discharge instructions, follow up and referral plans. Demonstrated understanding of instructions, follow-up care. 18:13 Patient left the ED. hj Signatures: Dispatcher [employer] EDPA Julio C Rajan MD MD cha Rivera, Mary mr Syeda Davis, RN Dudley Augustine RN RN hj Garcia, Athena ag2 Melvina Denise dt2 Conor Gray pc1 Corrections: (The following items were deleted from the chart) 15:48 15:28 Reassessment: Patient and/or family updated on plan of care and expected hj duration. Pain level reassessed. Patient is alert, oriented x 3, equal unlabored respirations, skin warm/dry/pink. hj
--- NOTE | 2018-08-29 16:05 | EDPHYS ---
Physician Documentation [facility] Name: Clifford Vega Age: 77 yrs Sex: Male : 1940 Arrival Date: 08/29/2018 Time: 13:32 Bed 14 Private MD: Ce Barrera C ED Physician Julio C Rajan HPI: 08/29 15:54 This 77 yrs old Male presents to ER via Wheelchair with complaints of Leg shahab Swelling. 15:54 The patient presents with pain, swelling, tenderness. The complaints affect the lateral shahab aspect of right calf, right calf, medial aspect of right calf and right rios. Context: The problem was sustained at home, ascites. Onset: The symptoms/episode began/occurred 3 day(s) ago. Modifying factors: The symptoms are alleviated by elevating leg. Associated signs and symptoms: Pertinent positives: weakness. The patient presents with abdominal distention in the upper abdomen, in the lower abdomen. Historical: - Allergies: 13:49 Aspirin; ss 13:49 Codeine; ss 13:49 Sulfa (Sulfonamide Antibiotics); ss - PMHx: 13:49 Cirrhosis; Diabetes - NIDDM; ss - Immunization history:: Adult Immunizations up to date. - Social history:: Smoking status: Patient/guardian denies using tobacco. - Ebola Screening: : Patient denies exposure to infectious person Patient denies travel to an Ebola-affected area in the 21 days before illness onset. - Family history:: not pertinent. ROS: 15:54 Constitutional: Negative for fever, chills, and weight loss, Eyes: Negative for injury, shahab pain, redness, and discharge, ENT: Negative for injury, pain, and discharge, Neck: Negative for injury, pain, and swelling, Cardiovascular: Negative for chest pain, palpitations, and edema, Respiratory: Negative for shortness of breath, cough, wheezing, and pleuritic chest pain, Back: Negative for injury and pain, : Negative for injury, bleeding, discharge, and swelling, Skin: Negative for injury, rash, and discoloration, Neuro: Negative for headache, weakness, numbness, tingling, and seizure, Psych: Negative for depression, anxiety, suicide ideation, homicidal ideation, and hallucinations, Allergy/Immunology: Negative for hives, rash, and allergies, Endocrine: Negative for neck swelling, polydipsia, polyuria, polyphagia, and marked weight changes, Hematologic/Lymphatic: Negative for swollen nodes, abnormal bleeding, and unusual bruising. 15:54 Abdomen/GI: Positive for abdominal distension. 15:54 MS/extremity: Positive for decreased range of motion, pain, swelling, tenderness, of the left leg. Exam: 15:54 Constitutional: This is a well developed, well nourished patient who is awake, alert, shahab and in no acute distress. Head/Face: Normocephalic, atraumatic. Eyes: Pupils equal round and reactive to light, extra-ocular motions intact. Lids and lashes normal. Conjunctiva and sclera are non-icteric and not injected. Cornea within normal limits. Periorbital areas with no swelling, redness, or edema. ENT: Nares patent. No nasal discharge, no septal abnormalities noted. Tympanic membranes are normal and external auditory canals are clear. Oropharynx with no redness, swelling, or masses, exudates, or evidence of obstruction, uvula midline. Mucous membranes moist. Neck: Trachea midline, no thyromegaly or masses palpated, and no cervical lymphadenopathy. Supple, full range of motion without nuchal rigidity, or vertebral point tenderness. No Meningismus. Chest/axilla: Normal chest wall appearance and motion. Nontender with no deformity. No lesions are appreciated. Cardiovascular: Regular rate and rhythm with a normal S1 and S2. No gallops, murmurs, or rubs. Normal PMI, no JVD. No pulse deficits. Respiratory: Lungs have equal breath sounds bilaterally, clear to auscultation and percussion. No rales, rhonchi or wheezes noted. No increased work of breathing, no retractions or nasal flaring. Back: No spinal tenderness. No costovertebral tenderness. Full range of motion. Male : Normal genitalia with no discharge or lesions. Neuro: Awake and alert, GCS 15, oriented to person, place, time, and situation. Cranial nerves II-XII grossly intact. Motor strength 5/5 in all extremities. Sensory grossly intact. Cerebellar exam normal. Normal gait. Psych: Awake, alert, with orientation to person, place and time. Behavior, mood, and affect are within normal limits. 15:54 Abdomen/GI: Inspection: distension, Bowel sounds: normal, Palpation: abdomen is soft and non-tender, Liver: is firm, Hernia: not appreciated. 15:54 Musculoskeletal/extremity: Extremities: noted in the right leg and left leg: swelling, ROM: full active range of motion, full passive range of motion, Pulses: Sensation intact. Compartment Syndrome exam of affected extremity: is normal. DVT Exam: no pain, no tenderness, negative Homans' sign noted on exam, no appreciated bluish discoloration, no erythema, no increased warmth, swelling. Vital Signs: 13:47 BP 99 / 51; Pulse 71; Resp 16; Temp 97.6(TE); Pulse Ox 99% on R/A; Weight 92.08 kg; ss Height 5 ft. 11 in. (180.34 cm); Pain 1/10; 15:41 BP 112 / 61; Pulse 71; Resp 18; Pulse Ox 100% on R/A; Pain 1/10; pc1 18:12 BP 120 / 72; Pulse 72; Resp 18; Pulse Ox 100% on R/A; hj 13:47 Body Mass Index 28.31 (92.08 kg, 180.34 cm) MDM: 14:48 Patient medically screened. [facility] 15:54 Data reviewed: vital signs, nurses notes, lab test result(s), EKG, radiologic studies, [facility] plain films. 08/29 15:14 Order name: Basic Metabolic Panel; Complete Time: 16:36 08/29 15:14 Order name: CBC with Diff; Complete Time: 16:36 08/29 15:14 Order name: LFT's; Complete Time: 16:36 08/29 15:14 Order name: Magnesium; Complete Time: 16:36 08/29 15:14 Order name: NT PRO-BNP; Complete Time: 16:36 08/29 15:14 Order name: PT-INR; Complete Time: 16:36 08/29 15:14 Order name: Troponin (emerg Dept Use Only); Complete Time: 16:36 08/29 15:14 Order name: XRAY Chest (1 view); Complete Time: 16:36 08/29 15:14 Order name: EKG; Complete Time: 15:16 08/29 15:53 Order name: AMMONIA; Complete Time: 16:36 [facility] 08/29 15:14 Order name: Cardiac monitoring; Complete Time: 15:14 08/29 15:14 Order name: EKG - Nurse/Tech; Complete Time: 15:34 08/29 15:14 Order name: IV Saline Lock; Complete Time: 15:44 08/29 15:14 Order name: Labs collected and sent; Complete Time: 15:44 08/29 15:14 Order name: O2 Per Protocol; Complete Time: 15:14 08/29 15:14 Order name: O2 Sat Monitoring; Complete Time: 15:15 Administered Medications: 15:53 Drug: NS 0.9% 1000 ml Route: IV; Rate: 75 ml/hr; Site: right forearm; hj 17:46 Follow up: IV Status: Order to discontinue infusion 17:22 Drug: Lasix 40 mg Route: IVP; Site: right forearm; ag2 17:46 Follow up: Response: No adverse reaction Disposition: 08/29/18 17:15 Discharged to Home. Impression: Unspecified cirrhosis of liver, Ascites, Edema, unspecified, Unspecified kidney failure. - Condition is Fair. - Discharge Instructions: Ascites, Type 2 Diabetes Mellitus, Diagnosis, Adult, Edema, Edema, [id number], Chronic Kidney Disease, Adult, Hwgw-dg-Jomd, Type 2 Diabetes Mellitus, Diagnosis, Adult, Ayzp-fj-Gxaf. - Medication Reconciliation Form, Thank You Letter, Antibiotic Education, Prescription Opioid Use form. - Follow up: Ce Barrera MD; When: 1 - 2 days; Reason: Recheck today's complaints, Continuance of care, Re-evaluation by your physician. - Problem is new. - Symptoms have improved. Signatures: Dispatcher [employer] EDJulio C Maldonado MD MD cha Smirch, Shelby, RN RN Dudley Gordillo RN RN Desire Gentile ag2 Corrections: (The following items were deleted from the chart) 17:09 16:05 08/29/2018 16:[address] [facility]. Diagnosis is shahab Abdominal tenderness; Unspecified cirrhosis of liver; Edema, unspecified. Reason for transfer: Higher level of care. Accepting physician is to [facility]. Condition is Fair. Problem is new. Symptoms have improved. [facility] 18:13 17:15 08/29/2018 17:15 Discharged to Home. Impression: Unspecified cirrhosis of liver; Ascites; Edema, unspecified; Unspecified kidney failure. Condition is Fair. Forms are Medication Reconciliation Form, Thank You Letter, Antibiotic Education, Prescription Opioid Use. Follow up: A Barrera; When: 1 - 2 days; Reason: Recheck today's complaints, Continuance of care, Re-evaluation by your physician. Problem is new. Symptoms have improved. shahab
[2018-08-29] MEDS ORDERED: NA CHLORIDE 0.9% 1,000 ML ONE (16:06)
[2018-08-29 16:07] LABS: Protime INR 1.34
--- NOTE | 2018-08-29 16:09 | RAD REPORT ---
EXAM DESCRIPTION: RAD - Chest Single View - 08/29/2018 4:01 pm CLINICAL HISTORY: Leg pain, cough, preop examination COMPARISON: August 10, 2018 TECHNIQUE: AP portable chest image was obtained 1550 hours . FINDINGS: Lung volumes are low but similar to the comparison. No focal right lung field finding. Haz y opacification is present at the left lung base partially obscuring the left hemidiaphragm. Trachea is midline. Heart and vasculature are normal. No measurable pleural effusion and no pneumothorax. No acute bony abnormality seen. No acute aortic findings suspected. IMPRESSION: Atelectasis and/ or infiltrate left lung base.
[2018-08-29 16:12] LABS: ALT/SGPT 35 U/L (12-78); AST/SGOT 54 U/L (15-37); Albumin 2.7 g/dL (3.4-5.0); Alkaline Phosphatase 136 U/L (45-117); BUN Blood Urea Nitrogen 33 mg/dL (7-18); Bicarbonate 23 mmol/L (21-32); Bilirubin Direct 0.7 mg/dL (0-0.2); Bilirubin Total 1.8 mg/dL (0.2-1.0); Glucose Level 101 mg/dL (74-106); Magnesium 2.1 mg/dL (1.8-2.4); NT PRO-BNP 158 pg/mL (<450); Potassium 4.4 mmol/L (3.5-5.1); Protein, Total 7.3 g/dL (6.4-8.2); Sodium Level 136 mmol/L (136-145); Troponin (Emerg Dept Use Only) < 0.02 ng/mL (0.0-0.045)
[2018-08-29] MEDS ORDERED: FUROSEMIDE 20 MG/ 2ML VIAL ONE (17:26)
[2018-08-29 19:03] VITALS: TEMP 97.6
[2018-08-29 19:05] VITALS: O2SAT 100
[2018-08-29 19:06] VITALS: BP 120/72
--- NOTE | 2018-09-01 10:24 | EKG ---
Test Date: 2018-08-29 Test Time: 15:32:04 Mathematical Physicist: LISA MEASUREMENT RESULTS: Intervals: Rate: 72 MI: 162 QRSD: 82 QT: 404 QTc: 442 [place]: P: 72 MI: 162 QRS: 41 T: 42 INTERPRETIVE STATEMENTS: Sinus rhythm with occasional premature ventricular complexes Otherwise normal ECG Compared to ECG 08/10/2018 07:43:23 Ventricular premature complex(es) now present Electronically Signed On 08-29-18 16:20:25 CDT by Pedro Pablo Alicea
== END 2018-08-29 18:13 | disposition home or self-care (01) ==
LOC: ER 13:30
DX: K74.60 Unspecified cirrhosis of liver (principal); R18.8 Other ascites; R60.9 Edema, unspecified; N19 Unspecified kidney failure; E11.9 Type 2 diabetes mellitus without complications; Z88.6 Allergy status to analgesic agent; Z88.5 Allergy status to narcotic agent; Z88.2 Allergy status to sulfonamides
CPT/HCPCS: 96361; 93005; 85025; 80048; 36415; 82140; 83735; 85610; 80076; 84484; 83880; 71045; 96374; 99284; J1940; J7030

== ENCOUNTER → 2018-09-08 | Day surgery (SDC) | payer OTHER ==
[~2018-09-08] MED LIST changes: +ALBUMIN HUMAN 25% 100 ML IV ONE; -ALBUMIN HUMAN 25% 100 ML IV SCH; +ALBUMIN HUMAN 25% 200 ML IV ONE
--- OUTSIDE RECORDS SUMMARY | 2018-09-08 09:32 | XMS REPORT ---
:1940 [facility] Address [address] [place] [address] Dr. Murguia [address] [place] [address] Care Team Providers Name Role Phone TEODORO DAVENPORT Unavailable Unavailable Problems This patient has no known problems. Allergies, Adverse Reactions, Alerts This patient has no known allergies or adverse reactions. Medications This patient has no known medications. Results Test Description Test Time Test Comments Text Results Atomic Results Result Comments CYTOLOGY 2018-08-30 Medical Cytology Report 19:01:00 Case: [id number] Authorizing Provider: Teodoro Davenport MD Collected: 08/26/2018 1513 Ordering Location: [facility] Radiology Main Received: 08/29/2018 0917 Pathologist: Shena Valencia MD Specimen: Peritoneal Fluid PERITONEAL FLUID (CYTOSPINS AND CELL BLOCK): - RARE ATYPICAL CELLS PRESENT Signing Pathologist Direct Phone Line: [phone] signed by Shena Valencia MD on 08/30/2018 at 7:01 [id number], [id number], cirrhosis PERITONEAL FLUIDPrepared 4 cytospins from 1100 ml yellow fluidCollected: [id number]: [id number] [facility], Department of Pathology, [address] [place] [address], [facility], [facility], [address] [place] [address], [facility], [facility] of [facility]ology, [address] [place] [address], MR, ABDOMEN, 2018-08-29 Referring: FINAL REPORT PATIENT ID: WITH 09:28:00 Tayo Mckenzie [id number] TECHNIQUE: MRI of the T 3 liver and abdomen WITHOUT and WITH pancreas intravenous contrast. protocolNeed T 3 INDICATION: cirrhosis and liver and pancreas pancreas mass, liver and protocol, to follow pancreas protocol. COMPARISON: US paracentesis Outside facility CT from 04/29/2018. Outside facility [...] MDReport Verified Date/Time: 08/29/2018 09:28:45 Reading Location: [address] Radiology Reading Room FLUID CELL COUNT WITH DIFFERENTIAL 2018-08-26 19:43:00 Test Item Value Reference Range Comments APPEARANCE FLUID (BEAKER) (test hrct=792) Clear Clear COLOR FLUID (BEAKER) (test myqw=703) Yellow Colorless, Straw RBC FLUID (BEAKER) (test jbag=487) 110 /cu mm <=1 ADJUSTED WBC FLUID (BEAKER) (test haen=0990) 53 /cu mm <=5 LINING CELLS (BEAKER) (test fcqy=9038) 0 /cu mm <=1 NEUTROPHILS FLUID (BEAKER) (test opmv=4219) 3 % LYMPHS FLUID (BEAKER) (test ifnx=894) 28 % MONO/MACROPHAGE FLUID (BEAKER) (test fnga=230) 69 % EOSINOPHILS FLUID (BEAKER) (test wxoc=995) 0 % BASO FLUID (BEAKER) (test igno=036) 0 % CONTAINER BODY FLUID (BEAKER) (test zuax=1489) EDTA Tube PROTEIN, BODY [id number] 16:56:00 Test Item Value Reference Range Comments PROTEIN FLUID (BEAKER) (test avuj=605) 0.9 g/dL Absence of reference range indicates that normals have not been defined.Assay performance has not been validated for this type of specimen.ALBUMIN, BODY [id number] 16:56:00 Test Item Value Reference Range Comments ALBUMIN FLUID (BEAKER) (test pycl=674) 0.4 gm/dL Reference Range: No Normals Assay performance has not been validated for this type of specimen.U/S, [id number] 16:30:00Referring: Dr. Tayo Mak paracentesis prior to [...] 1% lidocaine anesthesia was administered. A 5 Urdu catheter was advanced into the peritoneal cavity and 3500 cc of serous fluid was removed. The catheter was removedwithout immediate complication. Samples were sent for analysis. IMPRESSION:Uncomplicated ultrasound-guided paracentesis with 3500 cc fluid removed. Signed: Mercedez Liconaeport Verified Date/Time:08/26/2018 16:30: 44 Reading Location: [address] Ultrasound Reading Room [id number] 15:10:00 Test Item Value Reference Range Comments POC-CREATININE (BEAKER) 1.9 mg/dL 0.6-1.3 TESTED [address] (test eppt=4977) [facility] [id number] POC-EGFR (BEAKER) (test 35 mL/min/1.73M2 vmjy=0094) HEPATITIS B SURFACE [id number] 18:59:00 Test Item Value Reference Range Comments HEPATITIS B SURFACE ANTIBODY (BEAKER) (test < mIU/mL <8.0 dctj=323) HEPATITIS A ANTIBODY, [id number] 18:59:00 Test Item Value Reference Range Comments HEPATITIS A IGG ANTIBODY (BEAKER) (test zjou=1295) Reactive Nonreactive ALPHA FETOPROTEIN (AFP), TUMOR [id number] 18:59:00 Test Item Value Reference Range Comments ALPHA-FETOPROTEIN (BEAKER) (test mgla=4066) < ng/mL <10.0 HEPATITIS B CORE ANTIBODY, [id number] 18:56:00 Test Item Value Reference Range Comments HEPATITIS B CORE TOTAL ANTIBODY (BEAKER) (test Nonreactive Nonreactive oaee=480) HEPATITIS B SURFACE [id number] 18:55:00 Test Item Value Reference Range Comments HEPATITIS B SURFACE ANTIGEN (2) (BEAKER) (test Nonreactive Nonreactive tlwo=2455) HEPATITIS C [id number] 18:44:00 Test Item Value Reference Range Comments HEPATITIS C ANTIBODY (BEAKER) (test shib=707) Nonreactive Nonreactive BASIC METABOLIC [id number] 17:09:00 Test Item Value Reference Range Comments SODIUM (BEAKER) (test 133 meq/L 136-145 sodx=262) POTASSIUM (BEAKER) (test 4.3 meq/L 3.5-5.1 tspr=486) CHLORIDE (BEAKER) (test 101 meq/L 98-107 anxl=610) CO2 (BEAKER) (test 21 meq/L 22-29 xbdg=832) BLOOD UREA NITROGEN 41 mg/dL 7-21 (BEAKER) (test zulv=659) CREATININE (BEAKER) (test 2.18 mg/dL 0.57-1.25 dahb=828) GLUCOSE RANDOM (BEAKER) 101 mg/dL 70-105 (test zfok=212) CALCIUM (BEAKER) (test 9.0 mg/dL 8.4-10.2 twoc=569) EGFR (BEAKER) (test 29 mL/min/1.73 sq m ESTIMATED GFR IS NOT xtuv=1470) ACCURATE CREATININE CLEARANCE IN PREDICTING GLOMERULAR FILTRATION RATE. ESTIMATED GFR IS NOT APPLICABLE FOR DIALYSIS PATIENTS. Specimen slightly ictericHEPATIC FUNCTION [id number] 17:07:00 Test Item Value Reference Range Comments TOTAL PROTEIN (BEAKER) (test utcf=217) 7.3 gm/dL 6.0-8.3 ALBUMIN (BEAKER) (test vbon=8771) 2.7 g/dL 3.5-5.0 BILIRUBIN TOTAL (BEAKER) (test gkjo=912) 2.5 mg/dL 0.2-1.2 BILIRUBIN DIRECT (BEAKER) (test yorc=810) 1.2 mg/dL 0.1-0.5 ALKALINE PHOSPHATASE (BEAKER) (test zizr=722) 120 U/L 40-150 AST (SGOT) (BEAKER) (test ppyd=111) 53 U/L 5-34 ALT (SGPT) (BEAKER) (test ayze=990) 29 U/L 6-55 Specimen slightly [id number] 16:52:00 Test Item Value Reference Range Comments PARTIAL THROMBOPLASTIN TIME (BEAKER) (test 37.9 seconds 22.5-36.0 ssyq=477) PROTHROMBIN [id number] 16:51:00 Test Item Value Reference Range Comments PROTIME (BEAKER) (test iigg=596) 16.5 seconds 11.7-14.7 INR (BEAKER) (test nzxg=040) 1.3 <=5.9 RECOMMENDED COUMADIN/WARFARIN INR THERAPY RANGESSTANDARD DOSE: 2.0 - 3.0 Includes: PROPHYLAXIS forvenous thrombosis, systemic embolization; TREATMENT for venous thrombosis and/or pulmonary embolus.HIGH RISK: Target INR is 2.5-3.5 for patients with mechanical heart valves.CBC W/PLT COUNT & AUTO [id number] 16:43:00 Test Item Value Reference Range Comments WHITE BLOOD CELL COUNT (BEAKER) (test etxe=393) 5.9 K/ L 3.5-10.5 RED BLOOD CELL COUNT (BEAKER) (test byvz=513) 3.48 M/ L 4.63-6.08 HEMOGLOBIN (BEAKER) (test boxg=186) 11.9 GM/DL 13.7-17.5 HEMATOCRIT (BEAKER) (test apjd=942) 35.4 % 40.1-51.0 MEAN CORPUSCULAR VOLUME (BEAKER) (test awga=358) 101.7 fL 79.0-92.2 MEAN CORPUSCULAR HEMOGLOBIN (BEAKER) (test 34.2 pg 25.7-32.2 paze=031) MEAN CORPUSCULAR HEMOGLOBIN CONC (BEAKER) (test 33.6 GM/DL 32.3-36.5 gcyj=072) RED CELL DISTRIBUTION WIDTH (BEAKER) (test 15.4 % 11.6-14.4 gwoa=902) PLATELET COUNT (BEAKER) (test fdkj=428) 138 K/CU MM 150-450 MEAN PLATELET VOLUME (BEAKER) (test hnve=966) 11.6 fL 9.4-12.4 NUCLEATED RED BLOOD CELLS (BEAKER) (test 0 /100 WBC 0-0 wwpk=568) NEUTROPHILS RELATIVE PERCENT (BEAKER) (test 71 % bryb=345) LYMPHOCYTES RELATIVE PERCENT (BEAKER) (test 11 % chxk=462) MONOCYTES RELATIVE PERCENT (BEAKER) (test 16 % sver=130) EOSINOPHILS RELATIVE PERCENT (BEAKER) (test 2 % ijio=854) BASOPHILS RELATIVE PERCENT (BEAKER) (test 0 % bpil=037) NEUTROPHILS ABSOLUTE COUNT (BEAKER) (test 4.18 K/ L 1.78-5.38 stqi=652) LYMPHOCYTES ABSOLUTE COUNT (BEAKER) (test 0.62 K/ L 1.32-3.57 kcwb=399) MONOCYTES ABSOLUTE COUNT (BEAKER) (test 0.95 K/ L 0.30-0.82 aupc=448) EOSINOPHILS ABSOLUTE COUNT (BEAKER) (test 0.10 K/ L 0.04-0.54 esmx=418) BASOPHILS ABSOLUTE COUNT (BEAKER) (test 0.02 K/ L 0.01-0.08 qoxv=120) IMMATURE GRANULOCYTES-RELATIVE PERCENT (BEAKER) 0 % 0-1 (test odpc=7939)
--- OUTSIDE RECORDS SUMMARY | 2018-09-08 09:32 | XMS REPORT | Clinical Summary ---
:1940 Author Organization [facility] Address [address] [place] [address] Care Team Providers Name Role Phone Clark Barrera MD Primary Care Provider Allergies Active Allergy Reactions Severity Noted Date Comments Aspirin Anaphylaxis, Other High 08/12/2017 (See Comments) Hydrocodone Rash Low 08/13/2017 Sulfa (Sulfonamide 08/22/2018 Anxiousness,nervousn Antibiotics) ess Sulfamethoxazole-Trimeth Anxiety Low 04/04/2018 oprim Medications Medication Sig Dispensed Refills Start Date End Date Status empagliflozin TAKE 1 TABLET BY 0 08/12/2017 Active (JARDIANCE) 25 mg tablet MOUTH EVERY DAY IN THE MORNING furosemide (LASIX) 20 MG 1 tablet twice 0 Active tablet daily losartan (COZAAR) 50 MG Take 50 mg by 3 06/05/2018 Active tablet mouth 2 (two) times daily. sucralfate (CARAFATE) 10 ml as needed 0 Active 100 mg/mL suspension omeprazole (PRILOSEC) 40 TWICE DAILY 0 08/17/2017 Active MG capsule spironolactone Take 25 mg by 0 Active (ALDACTONE) 25 MG tablet mouth 2 (two) times daily. rosuvastatin (CRESTOR) Take 10 mg by 3 06/08/2018 Active 10 MG tablet mouth daily. lactulose (CHRONULAC) 10 TAKE 15 ML BY BY 6 08/13/2018 Active gram/15 mL solution MOUTH 4 TIMES EVERY DAY XIFAXAN 550 mg Tab Take 1 tablet by 3 08/13/2018 Active mouth 2 (two) times daily. Active Problems [...] Ottoniel Rebollar Cd (1) MADELINE Reyes after 09/07/2017 Family History Medical History Relation Name Comments [...] Taken Blood Pressure 120/53 08/26/2018 4:53 PM DOOR CLAMP OPERATOR Pulse 72 08/26/2018 4:53 PM DOOR CLAMP OPERATOR Temperature 36.4 C (97.6 F) 08/26/2018 4:53 PM DOOR CLAMP OPERATOR Respiratory Rate 18 08/26/2018 4:53 PM DOOR CLAMP OPERATOR Oxygen Saturation 100% 08/26/2018 4:53 PM DOOR CLAMP OPERATOR Inhaled Oxygen Concentration - - Weight 92.3 kg (203 lb 6.4 oz) 08/22/2018 12:45 PM DOOR CLAMP OPERATOR Height 180.3 cm (5' 11") 08/22/2018 12:45 PM DOOR CLAMP OPERATOR Body Mass Index 28.37 08/22/2018 12:45 PM DOOR CLAMP OPERATOR Plan of Treatment Date Type Specialty Care Team Description 09/27/2018 Office Visit Hepatology Hoang Moreno MD [address] [facility] [address] [place] [address] Procedures Procedure Name Priority Date/Time Associated Comments Diagnosis MR ABDOMEN Routine 08/26/2018 8:23 Other cirrhosis of Results for this WITH/WITHOUT IV PM DOOR CLAMP OPERATOR liver procedure are in CONTRAST the results section. US PARACENTESIS Routine 08/26/2018 4:04 Other ascites Results for this PM DOOR CLAMP OPERATOR procedure are in the results section. ALBUMIN, BODY FLUID Routine 08/26/2018 3:49 Results for this PM DOOR CLAMP OPERATOR procedure are in the results section. PROTEIN, BODY FLUID Routine 08/26/2018 3:49 Results for this PM DOOR CLAMP OPERATOR procedure are in the results section. BODY FLUID CELL COUNT Routine 08/26/2018 3:49 Results for this WITH DIFFERENTIAL PM DOOR CLAMP OPERATOR procedure are in the results section. CYTOLOGY AP Routine 08/26/2018 3:13 Results for this PM DOOR CLAMP OPERATOR procedure are in the results section. POCT-CREATININE Routine 08/26/2018 2:56 Results for this PM DOOR CLAMP OPERATOR procedure are in the results section. CBC W/PLT COUNT & Routine 08/22/2018 3:27 Other cirrhosis of Results for this AUTO DIFFERENTIAL PM DOOR CLAMP OPERATOR liver procedure are in the results section. HEPATITIS C ANTIBODY Routine 08/22/2018 3:27 Other cirrhosis of Results for this PM DOOR CLAMP OPERATOR liver procedure are in the results section. CBC W/PLT COUNT & Routine 08/22/2018 3:27 Other cirrhosis of Results for this AUTO DIFFERENTIAL PM DOOR CLAMP OPERATOR liver procedure are in the results section. HEPATIC FUNCTION Routine 08/22/2018 3:27 Other cirrhosis of Results for this PANEL PM DOOR CLAMP OPERATOR liver procedure are in the results section. BASIC METABOLIC PANEL Routine 08/22/2018 3:27 Other cirrhosis of Results for this (7) PM DOOR CLAMP OPERATOR liver procedure are in the results section. APTT Routine 08/22/2018 3:26 Pre-procedure lab Results for this PM DOOR CLAMP OPERATOR exam procedure are in the results section. HEPATITIS B SURFACE Routine 08/22/2018 3:26 Other cirrhosis of Results for this ANTIGEN PM DOOR CLAMP OPERATOR liver procedure are in the results section. HEPATITIS B SURFACE Routine 08/22/2018 3:26 Other cirrhosis of Results for this ANTIBODY PM DOOR CLAMP OPERATOR liver procedure are in the results section. HEPATITIS B CORE Routine 08/22/2018 3:26 Other cirrhosis of Results for this ANTIBODY, TOTAL PM DOOR CLAMP OPERATOR liver procedure are in the results section. HEPATITIS A ANTIBODY, Routine 08/22/2018 3:26 Other cirrhosis of Results for this IGG PM DOOR CLAMP OPERATOR liver procedure are in the results section. ALPHA FETOPROTEIN Routine 08/22/2018 3:26 Other cirrhosis of Results for this (AFP), TUMOR MARKER PM DOOR CLAMP OPERATOR liver procedure are in the results section. PROTHROMBIN TIME/INR Routine 08/22/2018 3:26 Other cirrhosis of Results for this PM DOOR CLAMP OPERATOR liver procedure are in the results section. after 09/07/2017 Results MR abdomen with/without IV contrast (08/26/2018 8:23 PM DOOR CLAMP OPERATOR) Narrative Performed At FINAL REPORT [employer] ([employer]) [facility] TECHNIQUE: MRI of the abdomen WITHOUT and [...] MD Report Verified Date/Time:08/29/2018 09:28:45 Reading Location: [address] Radiology Reading Room Procedure Note Interface, [...] Report Verified Date/Time: 08/29/2018 09:28:45 Reading Location: [address] Radiology Reading Room Performing Organization Address City/State/Zipcode Phone Number [employer] US paracentesis (08/26/2018 4:04 PM DOOR CLAMP OPERATOR) Narrative Performed At FINAL REPORT [employer] PROCEDURE: Ultrasound-guided paracentesis. INDICATION: 77-year-old man with ascites. DESCRIPTION: After obtaining informed written consent, ultrasound scan of the abdomen identified ascites in the right lower quadrant. The overlying skin was prepped and draped in the usual, sterile fashion and local 1% lidocaine anesthesia was administered. A 5 Ivorian catheter was advanced into the peritoneal cavity and 3500 cc of serous fluid was removed. The catheter was removed without immediate complication. Samples were sent for analysis. IMPRESSION: Uncomplicated ultrasound-guided paracentesis with 3500 cc fluid removed. Signed: Mercedez Licona MD Report Verified Date/Time:08/26/2018 16:30:44 Reading Location: [facility] [id number] Ultrasound Reading Room Procedure Note Interface, External Ris In - 08/26/2018 4:33 PM DOOR CLAMP OPERATOR FINAL REPORT PROCEDURE: Ultrasound-guided paracentesis. INDICATION: 77-year-old man with ascites. DESCRIPTION: After obtaining informed written consent, ultrasound scan of the abdomen identified ascites in the right lower quadrant. The overlying skin was prepped and draped in the usual, sterile fashion and local 1% lidocaine anesthesia was administered. A 5 Ivorian catheter was advanced into the peritoneal cavity and 3500 cc of serous fluid was removed. The catheter was removed without immediate complication. Samples were sent for analysis. IMPRESSION: Uncomplicated ultrasound-guided paracentesis with 3500 cc fluid removed. Signed: Mercedez Licona MD Report Verified Date/Time: 08/26/2018 16:30:44 Reading Location: [facility] [id number] Ultrasound Reading Room Performing Organization Address City/[facility] Phone Number [employer] Body fluid cell count with differential (08/26/2018 3:49 PM DOOR CLAMP OPERATOR) Appearance Clear Clear [facility] Color Yellow (A) Colorless, Straw [facility] RBCs 110 (H) <=1 /cu mm [facility] Adjusted WBC Count 53 (H) <=5 /cu mm [facility] Lining Cells 0 <=1 /cu mm [facility] % Segs 3 % [facility] % Lymphs 28 % [facility] % Monos 69 % [facility] % Eos 0 % [facility] % Baso 0 % [facility] Container Body Fluid EDTA Tube [facility] Specimen Body Fluid - Ascites Performing Organization Address [facility] Phone Number [address] [address] C[place] Protein, body fluid (08/26/2018 3:49 PM DOOR CLAMP OPERATOR) Protein, Fluid 0.9 g/dL [facility] Specimen Body Fluid - Ascites Narrative Performed At Absence of reference range indicates that [facility] normals have not been defined. Assay performance has not been validated for this type of specimen. Performing Organization Address [facility] Phone Number [address] [address] [phone] CENTER Albumin, body fluid (08/26/2018 3:49 PM DOOR CLAMP OPERATOR) Albumin, Fluid 0.4 gm/dL [facility] Specimen Body Fluid - Ascites Narrative Performed At Reference Range:No Normals [facility] Assay performance has not been validated for this type of specimen. Performing Organization Address City/State/Zipcode Phone Number [address] [phone] CENTER Cytology (08/26/2018 3:13 PM DOOR CLAMP OPERATOR) Case Report Medical Cytology Report Case: [id number] [facility] Authorizing Provider:Hoang Moreno MDCollected: 08/26/2018 [facility] Ordering Location: [facility] Radiology Main Received: 08/29/2018 0917 Pathologist: Shena Valencia MD Specimen:Peritoneal Fluid DIAGNOSIS PERITONEAL FLUID (CYTOSPINS AND CELL BLOCK): [facility] - RARE ATYPICAL CELLS PRESENT [facility] Signing Pathologist Direct Phone Line: [phone] CPT Code(s) 27576, 60492 [facility] CLINICAL DATA Ascites, cirrhosis [facility] SPECIMEN SOURCE PERITONEAL FLUID [facility] GROSS DESCRIPTION Prepared 4 cytospins from 1100 ml yellow fluid [facility] Collected: [id number] [facility] Received: [id number] STATEMENT OF ADEQUACY Satisfactory [facility] Gross assessment was [facility] performed at [place], Department [facility], [address] [place] [address], Technical component was [facility] performed at [place], Department [facility], [address] [place] [phone], Professional component was [facility] performed at [place], Department of [facility] Pathology, [address] [place] [address], Specimen Body Fluid - Peritoneal Fluid Narrative Performed At Performing Organization Address City/State/Zipcode Phone Number [address] [address] [place] POC-Creatinine (08/26/2018 2:56 PM DOOR CLAMP OPERATOR) POC-Creatinine 1.9 (H)Comment: TESTED AT 0.6 - 1.3 mg/dL [facility] [address] [place] [address] [place] [address] POC-EGFR 35 mL/min/1.73M2 [facility] Specimen Blood Performing Organization Address City/[facility]/Zipcode Phone Number [address] [address] [place] CBC with platelet count + automated diff (08/22/2018 3:27 PM DOOR CLAMP OPERATOR) WBC 5.9 3.5 - 10.5 K/L [facility] RBC 3.48 (L) 4.63 - 6.08 M/L [facility] Hemoglobin 11.9 (L) 13.7 - 17.5 GM/DL [facility] Hematocrit 35.4 (L) 40.1 - 51.0 % [facility] MCV 101.7 (H) 79.0 - 92.2 fL [facility] MCH 34.2 (H) 25.7 - 32.2 pg [facility] MCHC 33.6 32.3 - 36.5 GM/DL [facility] RDW 15.4 (H) 11.6 - 14.4 % [facility] Platelets 138 (L) 150 - 450 K/CU MM [facility] MPV 11.6 9.4 - 12.4 fL [facility] nRBC 0 0 - 0 /100 WBC [facility] % Neutros 71 % [facility] % Lymphs 11 % [facility] % Monos 16 % [facility] % Eos 2 % [facility] % Baso 0 % [facility] # Neutros 4.18 1.78 - 5.38 K/L [facility] # Lymphs 0.62 (L) 1.32 - 3.57 K/L [facility] # Monos 0.95 (H) 0.30 - 0.82 K/L [facility] # Eos 0.10 0.04 - 0.54 K/L [facility] # Baso 0.02 0.01 - 0.08 K/L [facility] Immature 0 0 - 1 % [facility] Specimen Blood Performing Organization Address City/State/Zipcode Phone Number [address] [address] [place] Hepatitis C antibody (08/22/2018 3:27 PM DOOR CLAMP OPERATOR) Hepatitis C Ab NON-REACTIVE Nonreactive [facility] Specimen Blood Performing Organization Address City/[facility]/Zipcode Phone Number [address] [address] [place] Hepatic function panel (08/22/2018 3:27 PM DOOR CLAMP OPERATOR) Protein, Total 7.3 6.0 - 8.3 gm/dL [facility] Albumin 2.7 (L) 3.5 - 5.0 g/dL [facility] Total Bilirubin 2.5 (H) 0.2 - 1.2 mg/dL [facility] Bilirubin, Direct 1.2 (H) 0.1 - 0.5 mg/dL [facility] Alkaline Phosphatase 120 40 - 150 U/L [facility] AST 53 (H) 5 - 34 U/L [facility] ALT 29 6 - 55 U/L [facility] Specimen Blood Narrative Performed At Specimen slightly icteric [facility] Performing Organization Address City/State/Zipcode Phone Number [facility] [address] [place] [address] CENTER Basic Metabolic Panel (08/22/2018 3:27 PM DOOR CLAMP OPERATOR) Sodium 133 (L) 136 - 145 meq/L [facility] Potassium 4.3 3.5 - 5.1 meq/L [facility] Chloride 101 98 - 107 meq/L [facility] CO2 21 (L) 22 - 29 meq/L [facility] BUN 41 (H) 7 - 21 mg/dL [facility] Creatinine 2.18 (H) 0.57 - 1.25 mg/dL [facility] Glucose 101 70 - 105 mg/dL [facility] Calcium 9.0 8.4 - 10.2 mg/dL [facility] EGFR 29Comment: ESTIMATED GFR IS mL/min/1.73 sq m [facility] NOT ACCURATE CREATININE [facility] CLEARANCE IN PREDICTING GLOMERULAR FILTRATION RATE. ESTIMATED GFR IS NOT APPLICABLE FOR DIALYSIS PATIENTS. Specimen Blood Narrative Performed At Specimen slightly icteric [facility] Performing Organization Address City/[facility]/Zipcode Phone Number [place] [phone] [place] [address] [phone] [place] Hepatitis A Antibody, IgG ([facility] Only) (08/22/2018 3:26 PM DOOR CLAMP OPERATOR) Hep A IgG Reactive (A) Nonreactive [facility] Specimen Blood Performing Organization Address City/State/Zipcode Phone Number [facility] [address] [place] [address] [phone] [place] Alpha fetoprotein (AFP), tumor marker (08/22/2018 3:26 PM DOOR CLAMP OPERATOR) Alpha-Fetoprotein <2.0 <10.0 ng/mL [facility] Specimen Blood Performing Organization Address City/[facility] Phone Number [address] [address] [phone] [place] Hepatitis B core antibody, total (08/22/2018 3:26 PM DOOR CLAMP OPERATOR) Hep B Core Total Ab NON-REACTIVE Nonreactive [facility] Specimen Blood Performing Organization Address [facility] Phone Number [address] [address] [phone] [place] Hepatitis B surface antibody (08/22/2018 3:26 PM DOOR CLAMP OPERATOR) Hep B S Ab <8.0 <8.0 mIU/mL [facility] Specimen Blood Performing Organization Address City/[facility] Phone Number [address] [address] [phone] [place] Hepatitis B surface antigen (08/22/2018 3:26 PM DOOR CLAMP OPERATOR) hepatitis B Surface Ag NON-REACTIVE Nonreactive [facility] Specimen Blood Performing Organization Address City/[facility] Phone Number [address] [address] [phone] [place] aPTT (08/22/2018 3:26 PM DOOR CLAMP OPERATOR) PTT 37.9 (H) 22.5 - 36.0 seconds [facility] Specimen Blood Performing Organization Address City/[facility] Phone Number [address] [address] [place] Pro-time/INR (08/22/2018 3:26 PM DOOR CLAMP OPERATOR) Protime 16.5 (H) 11.7 - 14.7 seconds [facility] INR 1.3 <=5.9 [facility] Specimen Blood Narrative Performed At RECOMMENDED COUMADIN/WARFARIN INR THERAPY [facility] RANGES STANDARD DOSE: 2.0 - 3.0 Includes: PROPHYLAXIS for venous thrombosis, systemic embolization; TREATMENT for venous thrombosis and/or pulmonary embolus. HIGH RISK: Target INR is 2.5-3.5 for patients with mechanical heart valves. Performing Organization Address City/State/Zipcode Phone Number [facility] [address] [place] [address] CENTER after 09/07/2017 Insurance Payer Benefit Plan / Subscriber ID Type Phone Address Group [employer] - MEDICARE [employer] MEDICARE O xxxxxxxx [phone] [address] [place] [address]
--- OUTSIDE RECORDS SUMMARY | 2018-09-08 09:33 | XMS REPORT ---
[...] Start End Date Status Dosage Date Carafate [facility] 02396120570 1 GM Orally Active 1 tablet on Twice a day an empty stomach losartan [facility] 86302519103 20 mg Active one tab daily Jardiance [facility] 15380371553 25 MG Oral Active TAKE 1 TABLET BY MOUTH EVERY DAY IN THE MORNING Carvedilol [facility] 51301366150 12.5 MG Oral Active TAKE 1/2 TABLET BY MOUTH TWICE DAILY Omeprazole [facility] 98905285449 40 MG Oral Active TAKE 1 CAPSULE BY MOUTH TWICE A DAY Crestor [facility] 70096323294 40 MG Orally Active 1 tablet Once a day Lasix [facility] 36429208206 20 MG Orally Active 1 tablet Once a day Results No Known Results Summary Purpose [employer]ClinicalWorks Submission
[2018-09-08 10:02] VITALS: BMI 27.8
--- NOTE | 2018-09-08 10:36 | RAD REPORT ---
EXAM DESCRIPTION: US - Paracentesis Proc Guidance - 09/08/2018 10:17 am CLINICAL HISTORY: ASCITES Ascites COMPARISON: Paracentesis Proc Guidance dated 08/05/2018 FINDINGS: Informed consent was obtained and time-out was performed. Patient's abdomen was prepped and draped in the usual sterile fashion. 1% lidocaine was used for loca l anesthetic purposes. A small skin incision was made in the RLQ. A paracentesis catheter was guided into the peroneal cavit y under sonographic guidance. A small amount of fluid was sent for requested lab studies. A large volume paracentesis was performed . The patient tolerated the procedure well. Patient was administered IV albumin per protocol following the procedure. IMPRESSION: Successful ultrasound-guided paracentesis.
[2018-09-08 11:46] VITALS: O2SAT 100
[2018-09-08 12:33] VITALS: BP 109/68; TEMP 97.3
== END ==
LOC: DS 09:28
PROVIDERS: ATTEND Internal Medicine
DX: K74.69 Other cirrhosis of liver (principal); R18.8 Other ascites; R93.3 Abnormal findings on diagnostic imaging of other parts of digestive tract
CPT/HCPCS: 96365; 49083; P9047 ×2

== ENCOUNTER → 2018-10-18 | Day surgery (SDC) | payer OTHER ==
[~2018-10-18] MED LIST changes: -ALBUMIN HUMAN 25% 100 ML IV ONE
--- OUTSIDE RECORDS SUMMARY | 2018-10-18 09:26 | XMS REPORT | Clinical Summary ---
:1940 Author Organization [facility] Address [address] [place] [address] Care Team Providers Name Role Phone Clark [...] Active 100 mg/mL suspension omeprazole (PRILOSEC) 40 DAILY 0 08/17/2017 Active MG capsule spironolactone Take 25 mg by 0 Active (ALDACTONE) 25 MG tablet mouth 2 (two) times daily. rosuvastatin (CRESTOR) Take 50 mg by 3 06/08/2018 Active 10 MG tablet mouth daily . lactulose (CHRONULAC) 10 TAKE 15 ML BY [...] Encounters Date Type Specialty Care Team Description 10/05/2018 Abstract Hepatology Jocelyne Boone 09/28/2018 Abstract Hepatology Sana Harrington MA 09/27/2018 Office Visit Hepatology Hoang Moreno, Other cirrhosis of liver (Primary Dx); Portal hypertension ; Hepatic encephalopathy ; Type 2 diabetes mellitus without complication, without long-term current use of insulin ; Screening for malignant neoplasm; Immunity status testing; Other ascites; Metabolic syndrome; Pancreatic mass 08/26/2018 Hospital Encounter Radiology Hoang Moreno, Other cirrhosis of liver 08/22/2018 Office Visit Hepatology Hoang Moreno, Other cirrhosis of liver (Primary Dx); Screening for malignant neoplasm; Immunity status testing; Portal hypertension ; Other ascites; Hepatic encephalopathy ; Metabolic syndrome; Type 2 diabetes mellitus without complication, without long-term current use of insulin ; Other hyperlipidemia; Pancreatic mass; Pre-procedure lab exam 08/05/2018 Telephone Hepatology Ottoniel Rebollar Cd (1) MADELINE Reyes after 10/17/2017 Family History Medical History Relation Name Comments [...] Vital Sign Reading Time Taken Blood Pressure 113/66 09/27/2018 2:53 PM CDT Pulse 83 09/27/2018 2:53 PM CDT Temperature 36.9 C (98.4 F) 09/27/2018 2:53 PM CDT Respiratory Rate 18 09/27/2018 2:53 PM CDT Oxygen Saturation 99% 09/27/2018 2:53 PM CDT Inhaled Oxygen Concentration - - Weight 86.2 kg (190 lb) 09/27/2018 2:53 PM CDT Height 175.3 cm (5' 9") 09/27/2018 2:53 PM CDT Body Mass Index 28.06 09/27/2018 2:53 PM CDT Plan of Treatment Date Type Specialty Care Team Description 01/18/2019 Office Visit Hepatology Resource, [facility] 01/18/2019 Orders Only Transplant Hepatology Procedures Procedure Name Priority Date/Time Associated Comments Diagnosis CBC W/PLT COUNT & Routine 09/27/2018 5:05 Other cirrhosis of Results for this AUTO DIFFERENTIAL PM CDT liver procedure are in the results section. PROTHROMBIN TIME/INR Routine 09/27/2018 5:05 Other cirrhosis of Results for this PM CDT liver procedure are in the results section. CBC W/PLT COUNT & Routine 09/27/2018 5:05 Other cirrhosis of Results for this AUTO DIFFERENTIAL PM CDT liver procedure are in the results section. HEPATIC FUNCTION Routine 09/27/2018 5:05 Other cirrhosis of Results for this PANEL PM CDT liver procedure are in the results section. BASIC METABOLIC PANEL Routine 09/27/2018 5:05 Other cirrhosis of Results for this (7) PM CDT liver procedure are in the results section. MR ABDOMEN Routine 08/26/2018 8:23 Other cirrhosis of Results for this WITH/WITHOUT IV PM JALOUSIE INSTALLER liver procedure are in CONTRAST the results section. US PARACENTESIS Routine 08/26/2018 4:04 Other ascites Results for this PM [employer]E [employer] procedure are in the results section. ALBUMIN, BODY FLUID Routine 08/26/2018 3:49 Results for this PM [employer] procedure are in the results section. PROTEIN, BODY FLUID Routine 08/26/2018 3:49 Results for this PM [employer] procedure are in the results section. BODY FLUID CELL COUNT Routine 08/26/2018 3:49 Results for this WITH DIFFERENTIAL PM [employer]E INST[employer]ER procedure are in the results section. CYTOLOGY AP Routine 08/26/2018 3:13 Results for this PM [employer] procedure are in the results section. POCT-CREATININE Routine 08/26/2018 2:56 Results for this PM [employer] procedure are in the results section. CBC W/PLT COUNT & Routine 08/22/2018 3:27 Other cirrhosis of Results for this AUTO DIFFERENTIAL PM [employer] liver procedure are in the results section. HEPATITIS C ANTIBODY Routine 08/22/2018 3:27 Other cirrhosis of Results for this PM [employer] liver procedure are in the results section. CBC W/PLT COUNT & Routine 08/22/2018 3:27 Other cirrhosis of Results for this AUTO DIFFERENTIAL PM [employer] liver procedure are in the results section. HEPATIC FUNCTION Routine 08/22/2018 3:27 Other cirrhosis of Results for this PANEL PM [employer] liver procedure are in the results section. BASIC METABOLIC PANEL Routine 08/22/2018 3:27 Other cirrhosis of Results for this (7) PM [employer] liver procedure are in the results section. APTT Routine 08/22/2018 3:26 Pre-procedure lab Results for this PM [employer]E INSTALLER exam procedure are in the results section. HEPATITIS B SURFACE Routine 08/22/2018 3:26 Other cirrhosis of Results for this ANTIGEN PM [employer] liver procedure are in the results section. HEPATITIS B SURFACE Routine 08/22/2018 3:26 Other cirrhosis of Results for this ANTIBODY PM [employer] liver procedure are in the results section. HEPATITIS B CORE Routine 08/22/2018 3:26 Other cirrhosis of Results for this ANTIBODY, TOTAL PM [employer] liver procedure are in the results section. HEPATITIS A ANTIBODY, Routine 08/22/2018 3:26 Other cirrhosis of Results for this IGG PM [employer]ER liver procedure are in the results section. ALPHA FETOPROTEIN Routine 08/22/2018 3:26 Other cirrhosis of Results for this (AFP), TUMOR MARKER PM [employer]E IN[employer]ALLER liver procedure are in the results section. PROTHROMBIN TIME/INR Routine 08/22/2018 3:26 Other cirrhosis of Results for this PM [employer] liver procedure are in the results section. after 10/17/2017 Results CBC with platelet count + automated diff (09/27/2018 5:05 PM CDT)Only the most recent of2 resultswithin the time period is included. WBC 6.5 3.5 - 10.5 K/L [facility] RBC 3.08 (L) 4.63 - 6.08 M/L [facility] Hemoglobin 10.5 (L) 13.7 - 17.5 GM/DL [facility] Hematocrit 30.9 (L) 40.1 - 51.0 % [facility] MCV 100.3 (H) 79.0 - 92.2 fL [facility] MCH 34.1 (H) 25.7 - 32.2 pg [facility] MCHC 34.0 32.3 - 36.5 GM/DL [facility] RDW 14.6 (H) 11.6 - 14.4 % [facility] Platelets 127 (L) 150 - 450 K/CU MM [facility] MPV 11.4 9.4 - 12.4 fL [facility] nRBC 0 0 - 0 /100 WBC [facility] % Neutros 73 % [facility] % Lymphs 9 % [facility] % Monos 14 % [facility] % Eos 4 % [facility] % Baso 0 % [facility] # Neutros 4.71 1.78 - 5.38 K/L [facility] # Lymphs 0.57 (L) 1.32 - 3.57 K/L [facility] # Monos 0.88 (H) 0.30 - 0.82 K/L [facility] # Eos 0.23 0.04 - 0.54 K/L [facility] # Baso 0.02 0.01 - 0.08 K/L [facility] Immature 1 0 - 1 % [facility] Specimen Blood Performing Organization Address City/State/Zipcode Phone Number [facility] [address] [place] [address] CENTER Pro-time/INR (09/27/2018 5:05 PM CDT)Only the most recent of2 resultswithin the time period is included. Protime 17.8 (H) 11.7 - 14.7 seconds [facility] INR 1.5 <=5.9 [facility] Specimen Blood Narrative Performed At RECOMMENDED COUMADIN/WARFARIN INR THERAPY [facility] RANGES STANDARD DOSE: 2.0 - 3.0 Includes: PROPHYLAXIS for venous thrombosis, systemic embolization; TREATMENT for venous thrombosis and/or pulmonary embolus. HIGH RISK: Target INR is 2.5-3.5 for patients with mechanical heart valves. Performing Organization Address [facility]/[employer] Phone Number [address] [address] [place] Hepatic function panel (09/27/2018 5:05 PM CDT)Only the most recent of2 resultswithin the time period is included. Protein, Total 7.3 6.0 - 8.3 gm/dL [facility] Albumin 2.8 (L) 3.5 - 5.0 g/dL [facility] Total Bilirubin 1.8 (H) 0.2 - 1.2 mg/dL [facility] Bilirubin, Direct 1.0 (H) 0.1 - 0.5 mg/dL [facility] Alkaline Phosphatase 147 40 - 150 U/L [facility] AST 39 (H) 5 - 34 U/L [facility] ALT 28 6 - 55 U/L [facility] Specimen Blood Narrative Performed At Specimen slightly icteric [facility] Performing Organization Address City/[facility]/Zipcode Phone Number [address] [address] CENTER Basic Metabolic Panel (09/27/2018 5:05 PM CDT)Only the most recent of2 resultswithin the time period is included. Sodium 135 (L) 136 - 145 meq/L [facility] Potassium 5.3 (H) 3.5 - 5.1 meq/L [facility] Chloride 107 98 - 107 meq/L [facility] CO2 20 (L) 22 - 29 meq/L [facility] BUN 21 7 - 21 mg/dL [facility] Creatinine 1.48 (H) 0.57 - 1.25 mg/dL [facility] Glucose 107 (H) 70 - 105 mg/dL [facility] Calcium 9.3 8.4 - 10.2 mg/dL [facility] EGFR 46Comment: ESTIMATED GFR IS mL/min/1.73 sq m [facility] NOT ACCURATE CREATININE [facility] CLEARANCE IN PREDICTING GLOMERULAR FILTRATION RATE. ESTIMATED GFR IS NOT APPLICABLE FOR DIALYSIS PATIENTS. Specimen Blood Narrative Performed At Specimen slightly icteric [facility] Performing Organization Address City/State/Zipcode Phone Number [facility] [address] [place] [address] CENTER MR abdomen with/without IV contrast (08/26/2018 8:23 PM [employer]E INSTALLER) Specimen Narrative Performed At FINAL REPORT [employer] TECHNIQUE: MRI of the abdomen WITHOUT and [...] MD Report Verified Date/Time:08/29/2018 09:28:45 Reading Location: [address] Radiology Reading Room Procedure Note Interface, [...] Report Verified Date/Time: 08/29/2018 09:28:45 Reading Location: [address] Radiology Reading Room Performing Organization Address City/State/Zipcode Phone Number [employer] US paracentesis (08/26/2018 4:04 PM J[employer]OUSIE INSTALLER) Specimen Narrative Performed At FINAL REPORT [employer] PROCEDURE: Ultrasound-guided paracentesis. INDICATION: 77-year-old man with ascites. DESCRIPTION: After obtaining informed written consent, ultrasound scan of the abdomen identified ascites in the right lower quadrant. The overlying skin was prepped and draped in the usual, sterile fashion and local 1% lidocaine anesthesia was administered. A 5 Israeli catheter was advanced into the peritoneal cavity and 3500 cc of serous fluid was removed. The catheter was removed without immediate complication. Samples were sent for analysis. IMPRESSION: Uncomplicated ultrasound-guided paracentesis with 3500 cc fluid removed. Signed: Mercedez Licona MD Report Verified Date/Time:08/26/2018 16:30:44 Reading Location: [address] Ultrasound Reading Room Procedure Note Interface, External Ris In - 08/26/2018 4:33 PM [employer]SIE INSTALLER FINAL REPORT PROCEDURE: Ultrasound-guided paracentesis. INDICATION: 77-year-old man with ascites. DESCRIPTION: After obtaining informed written consent, ultrasound scan of the abdomen identified ascites in the right lower quadrant. The overlying skin was prepped and draped in the usual, sterile fashion and local 1% lidocaine anesthesia was administered. A 5 Israeli catheter was advanced into the peritoneal cavity and 3500 cc of serous fluid was removed. The catheter was removed without immediate complication. Samples were sent for analysis. IMPRESSION: Uncomplicated ultrasound-guided paracentesis with 3500 cc fluid removed. Signed: Mercedez Licona MD Report Verified Date/Time: 08/26/2018 16:30:44 Reading Location: [facility] [id number] Ultrasound Reading Room Performing Organization Address City/State/Zipcode Phone Number [facility] Body fluid cell count with differential (08/26/2018 3:49 PM J[employer]E INSTALLER) Appearance Clear Clear [facility] Color Yellow (A) Colorless, Straw [facility] RBCs 110 (H) <=1 /cu mm [facility] Adjusted WBC Count 53 (H) <=5 /cu mm [facility] Lining Cells 0 <=1 /cu mm [facility] % Segs 3 % [facility] % Lymphs 28 % [facility] % Monos 69 % [facility] % Eos 0 % [facility] % Baso 0 % [facility] Container Body Fluid EDTA Tube [facility] Specimen Body Fluid Performing Organization Address City/State/Zipcode Phone Number [facility] [address] [place] [address] [phone] CENTER Protein, body fluid (08/26/2018 3:49 PM J[employer]OUSIE INSTALLER) Protein, Fluid 0.9 g/dL [facility] Specimen Body Fluid Narrative Performed At Absence of reference range indicates that [facility] normals have not been defined. Assay performance has not been validated for this type of specimen. Performing Organization Address [facility]/[employer] Phone Number [address] [address] [phone] [place] Albumin, body fluid (08/26/2018 3:49 PM J[employer]OUSIE INSTALLER) Albumin, Fluid 0.4 gm/dL [facility] Specimen Body Fluid Narrative Performed At Reference Range:No Normals [facility] Assay performance has not been validated for this type of specimen. Performing Organization Address [facility] Phone Number [address] [address] [place] Cytology (08/26/2018 3:13 PM J[employer]OUSIE INSTALLER) Case Report Medical Cytology Report Case: [id number] [facility] Authorizing Provider:Hoang Moreno MDCollected: 08/26/[address] [place] [address] Ordering Location: [facility] Radiology Main Received: 08/29/2018 0917 Pathologist: Shena Valencia MD Specimen:Peritoneal Fluid DIAGNOSIS PERITONEAL FLUID (CYTOSPINS AND CELL BLOCK): [facility] Signing Pathologist Direct Phone Line: [phone] CPT Code(s) 00584, 84392 [facility] CLINICAL DATA Ascites, cirrhosis [facility] SPECIMEN SOURCE PERITONEAL FLUID [facility] GROSS DESCRIPTION Prepared 4 cytospins from 1100 ml yellow fluid [facility] Collected: [id number] [facility] Received: [id number] STATEMENT OF ADEQUACY Satisfactory [facility] Gross assessment was [facility] performed at [facility] [place], Department of [facility] Pathology, [address] [place] [id number], Technical component was [facility] performed at [facility] [place], Department [facility] Pathology, [address] [place] [address], Professional component was [facility] performed at [facility] [place], [facility] Pathology, [address] [place] [address], Specimen Body Fluid Narrative Performed At Performing Organization Address [facility]/[employer] Phone Number [address] [address] [phone] [place] POC-Creatinine (08/26/2018 2:56 PM JALOUSIE INSTALLER) POC-Creatinine 1.9 (H)Comment: TESTED AT 0.6 - 1.3 mg/dL [facility] [address] [place] [address] [place] [address] POC-EGFR 35 mL/min/1.73M2 [facility] Specimen Blood Performing Organization Address [facility]/[employer] Phone Number [address] [address] [place] Hepatitis C antibody (08/22/2018 3:27 PM J[employer]E INSTALLER) Hepatitis C Ab NON-REACTIVE Nonreactive [facility] Specimen Blood Performing Organization Address [facility]/Zipcode Phone Number [address] [address] [phone] [place] Hepatitis A Antibody, IgG ([facility] Only) (08/22/2018 3:26 PM J[employer]OUSIE INSTALLER) Hep A IgG Reactive (A) Nonreactive [facility] Specimen Blood Performing Organization Address [facility]/[employer] Phone Number [address] [address] [phone] [place] Alpha fetoprotein (AFP), tumor marker (08/22/2018 3:26 PM J[employer]E INSTALLER) Alpha-Fetoprotein <2.0 <10.0 ng/mL [facility] Specimen Blood Performing Organization Address City/[facility]/[employer] Phone Number [address] [address] [phone] [place] Hepatitis B core antibody, total (08/22/2018 3:26 PM JALOUSIE INSTALLER) Hep B Core Total Ab NON-REACTIVE Nonreactive [facility] Specimen Blood Performing Organization Address City/[facility]/[employer] Phone Number [address] [address] [place] Hepatitis B surface antibody (08/22/2018 3:26 PM JALOUSIE INSTALLER) Hep B S Ab <8.0 <8.0 mIU/mL [facility] Specimen Blood Performing Organization Address City/[facility]/[employer] Phone Number [address] [address] [place] Hepatitis B surface antigen (08/22/2018 3:26 PM JALOUSIE INSTALLER) hepatitis B Surface Ag NON-REACTIVE Nonreactive [facility] Specimen Blood Performing Organization Address City/[facility]/[employer] Phone Number [address] [address] CENTER aPTT (08/22/2018 3:26 PM JALOUSIE INSTALLER) PTT 37.9 (H) 22.5 - 36.0 seconds [facility] Specimen Blood Performing Organization Address City/[facility]/Zipcode Phone Number [address] [address] [phone] CENTER after 10/17/2017 Insurance Payer Benefit Plan / Subscriber ID Type Phone Address Group [employer] - MEDICARE [employer] MEDICARE HMO xxxxxxxx [phone] [address] [employer] POS PPO JAMIN LOFTON [phone]
--- OUTSIDE RECORDS SUMMARY | 2018-10-18 09:26 | XMS REPORT ---
[...] End Date Status Dosage Date Carafate [facility] 78045086896 1 GM Orally Active 1 tablet on Twice a day an empty stomach losartan [facility] 85180282108 20 mg Active one tab daily Jardiance [facility] 93650169337 25 MG Oral Active TAKE 1 TABLET BY MOUTH EVERY DAY IN THE MORNING Carvedilol [facility] 81721895025 12.5 MG Oral Active TAKE 1/2 TABLET BY MOUTH TWICE DAILY Omeprazole [facility] 43961905111 40 MG Oral Active TAKE 1 CAPSULE BY MOUTH TWICE A DAY Crestor [facility] 99424346494 40 MG Orally Active 1 tablet Once a day Lasix [facility] 73011684068 20 MG Orally Active 1 tablet Once a day Results No Known Results Summary Purpose eClinicalWorks Submission
--- OUTSIDE RECORDS SUMMARY | 2018-10-18 09:26 | XMS REPORT ---
:1940 [facility] Organization [facility] Address [address] [place] [address] [address] [place] [address] Care Team Providers Name Role Phone TEODORO DAVENPORT Unavailable Unavailable Problems This patient has no known problems. Allergies, Adverse Reactions, Alerts This patient has no known allergies or adverse reactions. Medications This patient has no known medications. Results Test Description Test Time Test Comments Text Results Atomic Results Result Comments BASIC METABOLIC PANEL 2018-09-27 18:29:00 Test Item Value Reference Range Comments SODIUM (BEAKER) (test 135 meq/L 136-145 mtoq=068) POTASSIUM (BEAKER) (test 5.3 meq/L 3.5-5.1 enaq=136) CHLORIDE (BEAKER) (test 107 meq/L 98-107 vzhh=370) CO2 (BEAKER) (test brzo=603) 20 meq/L 22-29 BLOOD UREA NITROGEN (BEAKER) 21 mg/dL 7-21 (test fzsz=349) CREATININE (BEAKER) (test 1.48 mg/dL 0.57-1.25 issm=294) GLUCOSE RANDOM (BEAKER) 107 mg/dL 70-105 (test qicm=819) CALCIUM (BEAKER) (test 9.3 mg/dL 8.4-10.2 alen=437) EGFR (BEAKER) (test 46 mL/min/1.73 sq m ESTIMATED GFR IS NOT idcv=3815) ACCURATE CREATININE CLEARANCE IN PREDICTING GLOMERULAR FILTRATION RATE. ESTIMATED GFR IS NOT APPLICABLE FOR DIALYSIS PATIENTS. Specimen slightly ictericHEPATIC FUNCTION [id number] 18:29:00 Test Item Value Reference Range Comments TOTAL PROTEIN (BEAKER) (test dlds=440) 7.3 gm/dL 6.0-8.3 ALBUMIN (BEAKER) (test eelg=1467) 2.8 g/dL 3.5-5.0 BILIRUBIN TOTAL (BEAKER) (test qatl=147) 1.8 mg/dL 0.2-1.2 BILIRUBIN DIRECT (BEAKER) (test zuqj=259) 1.0 mg/dL 0.1-0.5 ALKALINE PHOSPHATASE (BEAKER) (test aqaw=988) 147 U/L 40-150 AST (SGOT) (BEAKER) (test ozoa=909) 39 U/L 5-34 ALT (SGPT) (BEAKER) (test hbry=389) 28 U/L 6-55 Specimen slightly ictericPROTHROMBIN [id number] 18:06:00 Test Item Value Reference Range Comments PROTIME (BEAKER) (test csry=070) 17.8 seconds 11.7-14.7 INR (BEAKER) (test yrlx=142) 1.5 <=5.9 RECOMMENDED COUMADIN/WARFARIN INR THERAPY RANGESSTANDARD DOSE: 2.0 - 3.0 Includes: PROPHYLAXIS forvenous thrombosis, systemic embolization; TREATMENT for venous thrombosis and/or pulmonary embolus.HIGH RISK: Target INR is 2.5-3.5 for patients with mechanical heart valves.CBC W/PLT COUNT & AUTO [id number] 18:00:00 Test Item Value Reference Range Comments WHITE BLOOD CELL COUNT (BEAKER) (test zskl=404) 6.5 K/ L 3.5-10.5 RED BLOOD CELL COUNT (BEAKER) (test uwwv=540) 3.08 M/ L 4.63-6.08 HEMOGLOBIN (BEAKER) (test vupr=993) 10.5 GM/DL 13.7-17.5 HEMATOCRIT (BEAKER) (test ohll=298) 30.9 % 40.1-51.0 MEAN CORPUSCULAR VOLUME (BEAKER) (test fjlf=627) 100.3 fL 79.0-92.2 MEAN CORPUSCULAR HEMOGLOBIN (BEAKER) (test 34.1 pg 25.7-32.2 qeni=506) MEAN CORPUSCULAR HEMOGLOBIN CONC (BEAKER) (test 34.0 GM/DL 32.3-36.5 blbx=136) RED CELL DISTRIBUTION WIDTH (BEAKER) (test 14.6 % 11.6-14.4 zvun=771) PLATELET COUNT (BEAKER) (test hpfn=550) 127 K/CU MM 150-450 MEAN PLATELET VOLUME (BEAKER) (test blke=352) 11.4 fL 9.4-12.4 NUCLEATED RED BLOOD CELLS (BEAKER) (test 0 /100 WBC 0-0 iffq=604) NEUTROPHILS RELATIVE PERCENT (BEAKER) (test 73 % ysgr=685) LYMPHOCYTES RELATIVE PERCENT (BEAKER) (test 9 % ybez=747) MONOCYTES RELATIVE PERCENT (BEAKER) (test 14 % njmi=173) EOSINOPHILS RELATIVE PERCENT (BEAKER) (test 4 % udtz=784) BASOPHILS RELATIVE PERCENT (BEAKER) (test 0 % eovy=138) NEUTROPHILS ABSOLUTE COUNT (BEAKER) (test 4.71 K/ L 1.78-5.38 hwgk=503) LYMPHOCYTES ABSOLUTE COUNT (BEAKER) (test 0.57 K/ L 1.32-3.57 vjla=380) MONOCYTES ABSOLUTE COUNT (BEAKER) (test 0.88 K/ L 0.30-0.82 djbi=664) EOSINOPHILS ABSOLUTE COUNT (BEAKER) (test 0.23 K/ L 0.04-0.54 dejr=346) BASOPHILS ABSOLUTE COUNT (BEAKER) (test 0.02 K/ L 0.01-0.08 fyqa=806) IMMATURE GRANULOCYTES-RELATIVE PERCENT (BEAKER) 1 % 0-1 (test zhyj=3623) [id number] 19:01:00Medical Cytology Report Case: [id number] Authorizing Provider: Teodoro Davenport MD Collected: 08/26/2018 1513 Ordering Location: [facility] Radiology Main Received: 08/29/2018 0917 Pathologist: Shena Valencia MD Specimen: Peritoneal Fluid PERITONEAL FLUID (CYTOSPINS AND CELL BLOCK): - RARE ATYPICAL CELLS PRESENT Signing Pathologist Direct Phone Line: [phone] signed by Shena Valencia MD on 08/30/2018 at 7:01 [id number], [id number], cirrhosis PERITONEAL FLUIDPrepared 4 cytospins from 1100 ml yellow fluidCollected: [id number]: [id number] [facility], Department of Pathology, [address] [place] [id number] , [facility], Department of [facility], [address] [place] [address], [facility], Departmentof Pathology, [address] [place] [address], BL, ABDOMEN, [id number] 09:28:00Referring: Dr. Tayo wolfeNeed T 3 liver and pancreas protocolNeed T 3 liver and pancreas protocol, to follow US paracentesisFINAL REPORT TECHNIQUE: MRI of the abdomen WITHOUT and WITH intravenous contrast. INDICATION: cirrhosis and pancreas mass, liver and pancreas protocol. COMPARISON: Outside facility CT from 04/29/2018. Outside facility MRI from 08/16/2017. FINDINGS: LOWER THORAX: Small to moderateleft-sided pleural effusion. LIVER: The liver is shrunken [...] nodules.KIDNEYS/URETERS: No hydronephrosis or solid mass lesions. PERITONEUM/ RETROPERITONEUM: Large volume ascites.LYMPH NODES: No lymphadenopathy.VESSELS: A periumbilical vein is recanalized. GI TRACT:No distention or wall thickening. 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 Closeattention on follow-up imaging is recommended. Signed: Roberto Morin MDReport Verified Date/Time: 08/29/2018 09:28:45 Reading Location: [address] Radiology Reading Room BODY FLUID CELL COUNT WITH [id number] 19:43:00 Test Item Value Reference Range Comments APPEARANCE FLUID (BEAKER) (test cnjj=247) Clear Clear COLOR FLUID (BEAKER) (test vyif=673) Yellow Colorless, Straw RBC FLUID (BEAKER) (test skvc=809) 110 /cu mm <=1 ADJUSTED WBC FLUID (BEAKER) (test mcbt=1395) 53 /cu mm <=5 LINING CELLS (BEAKER) (test hqno=1898) 0 /cu mm <=1 NEUTROPHILS FLUID (BEAKER) (test spml=8154) 3 % LYMPHS FLUID (BEAKER) (test wngy=146) 28 % MONO/MACROPHAGE FLUID (BEAKER) (test yfhr=412) 69 % EOSINOPHILS FLUID (BEAKER) (test amze=388) 0 % BASO FLUID (BEAKER) (test twwb=840) 0 % CONTAINER BODY FLUID (BEAKER) (test xvpw=6507) EDTA Tube PROTEIN, BODY [id number] 16:56:00 Test Item Value Reference Range Comments PROTEIN FLUID (BEAKER) (test ebyi=213) 0.9 g/dL Absence of reference range indicates that normals have not been defined.Assay performance has not been validated for this type of specimen.ALBUMIN, BODY [id number] 16:56:00 Test Item Value Reference Range Comments ALBUMIN FLUID (BEAKER) (test vdkx=076) 0.4 gm/dL Reference Range: No Normals Assay performance has not been validated for this type of specimen.U/S, [id number] 16:30:00Referring: Dr. Tayo Mak paracentesis prior to [...] 1% lidocaine anesthesia was administered. A 5 Romanian catheter was advanced into the peritoneal cavity and 3500 cc of serous fluid was removed. The catheter was removedwithout immediate complication. Samples were sent for analysis. IMPRESSION:Uncomplicated ultrasound-guided paracentesis with 3500 cc fluid removed. Signed: Mercedez Licona MDReport Verified Date/Time:08/26/2018 16:30: 44 Reading Location: [address] Ultrasound Reading Room [id number] 15:10:00 Test Item Value Reference Range Comments POC-CREATININE (BEAKER) 1.9 mg/dL 0.6-1.3 TESTED [address] (test grmu=3822) [facility] [address] POC-EGFR (BEAKER) (test 35 mL/min/1.73M2 jzby=5786) HEPATITIS B SURFACE [id number] 18:59:00 Test Item Value Reference Range Comments HEPATITIS B SURFACE ANTIBODY (BEAKER) (test < mIU/mL <8.0 vhmf=569) HEPATITIS A ANTIBODY, [id number] 18:59:00 Test Item Value Reference Range Comments HEPATITIS A IGG ANTIBODY (BEAKER) (test qiqv=5231) Reactive Nonreactive ALPHA FETOPROTEIN (AFP), TUMOR [id number] 18:59:00 Test Item Value Reference Range Comments ALPHA-FETOPROTEIN (BEAKER) (test rjco=6604) < ng/mL <10.0 HEPATITIS B CORE ANTIBODY, [id number] 18:56:00 Test Item Value Reference Range Comments HEPATITIS B CORE TOTAL ANTIBODY (BEAKER) (test Nonreactive Nonreactive vfhc=997) HEPATITIS B SURFACE [id number] 18:55:00 Test Item Value Reference Range Comments HEPATITIS B SURFACE ANTIGEN (2) (BEAKER) (test Nonreactive Nonreactive dpyk=6055) HEPATITIS C [id number] 18:44:00 Test Item Value Reference Range Comments HEPATITIS C ANTIBODY (BEAKER) (test czmg=201) Nonreactive Nonreactive BASIC METABOLIC [id number] 17:09:00 Test Item Value Reference Range Comments SODIUM (BEAKER) (test 133 meq/L 136-145 bekq=471) POTASSIUM (BEAKER) (test 4.3 meq/L 3.5-5.1 gnlx=312) CHLORIDE (BEAKER) (test 101 meq/L 98-107 dhbw=109) CO2 (BEAKER) (test 21 meq/L 22-29 ssud=657) BLOOD UREA NITROGEN 41 mg/dL 7-21 (BEAKER) (test btsw=550) CREATININE (BEAKER) (test 2.18 mg/dL 0.57-1.25 edgq=835) GLUCOSE RANDOM (BEAKER) 101 mg/dL 70-105 (test xisf=972) CALCIUM (BEAKER) (test 9.0 mg/dL 8.4-10.2 ntdb=799) EGFR (BEAKER) (test 29 mL/min/1.73 sq m ESTIMATED GFR IS NOT lvcm=6860) ACCURATE CREATININE CLEARANCE IN PREDICTING GLOMERULAR FILTRATION RATE. ESTIMATED GFR IS NOT APPLICABLE FOR DIALYSIS PATIENTS. Specimen slightly ictericHEPATIC FUNCTION [id number] 17:07:00 Test Item Value Reference Range Comments TOTAL PROTEIN (BEAKER) (test vgso=063) 7.3 gm/dL 6.0-8.3 ALBUMIN (BEAKER) (test xyns=5442) 2.7 g/dL 3.5-5.0 BILIRUBIN TOTAL (BEAKER) (test klgx=097) 2.5 mg/dL 0.2-1.2 BILIRUBIN DIRECT (BEAKER) (test ydcr=087) 1.2 mg/dL 0.1-0.5 ALKALINE PHOSPHATASE (BEAKER) (test ihsa=630) 120 U/L 40-150 AST (SGOT) (BEAKER) (test csge=991) 53 U/L 5-34 ALT (SGPT) (BEAKER) (test avic=633) 29 U/L 6-55 Specimen slightly [id number] 16:52:00 Test Item Value Reference Range Comments PARTIAL THROMBOPLASTIN TIME (BEAKER) (test 37.9 seconds 22.5-36.0 rrym=385) PROTHROMBIN [id number] 16:51:00 Test Item Value Reference Range Comments PROTIME (BEAKER) (test rsso=595) 16.5 seconds 11.7-14.7 INR (BEAKER) (test mhyr=743) 1.3 <=5.9 RECOMMENDED COUMADIN/WARFARIN INR THERAPY RANGESSTANDARD DOSE: 2.0 - 3.0 Includes: PROPHYLAXIS forvenous thrombosis, systemic embolization; TREATMENT for venous thrombosis and/or pulmonary embolus.HIGH RISK: Target INR is 2.5-3.5 for patients with mechanical heart valves.CBC W/PLT COUNT & AUTO [id number] 16:43:00 Test Item Value Reference Range Comments WHITE BLOOD CELL COUNT (BEAKER) (test vqnr=814) 5.9 K/ L 3.5-10.5 RED BLOOD CELL COUNT (BEAKER) (test zepi=298) 3.48 M/ L 4.63-6.08 HEMOGLOBIN (BEAKER) (test ayox=528) 11.9 GM/DL 13.7-17.5 HEMATOCRIT (BEAKER) (test tfgk=505) 35.4 % 40.1-51.0 MEAN CORPUSCULAR VOLUME (BEAKER) (test hwln=714) 101.7 fL 79.0-92.2 MEAN CORPUSCULAR HEMOGLOBIN (BEAKER) (test 34.2 pg 25.7-32.2 gvgt=599) MEAN CORPUSCULAR HEMOGLOBIN CONC (BEAKER) (test 33.6 GM/DL 32.3-36.5 kklh=423) RED CELL DISTRIBUTION WIDTH (BEAKER) (test 15.4 % 11.6-14.4 mqkm=411) PLATELET COUNT (BEAKER) (test uxrf=548) 138 K/CU MM 150-450 MEAN PLATELET VOLUME (BEAKER) (test cypv=763) 11.6 fL 9.4-12.4 NUCLEATED RED BLOOD CELLS (BEAKER) (test 0 /100 WBC 0-0 jxze=208) NEUTROPHILS RELATIVE PERCENT (BEAKER) (test 71 % tzlf=989) LYMPHOCYTES RELATIVE PERCENT (BEAKER) (test 11 % bbrv=335) MONOCYTES RELATIVE PERCENT (BEAKER) (test 16 % snpk=406) EOSINOPHILS RELATIVE PERCENT (BEAKER) (test 2 % lhve=537) BASOPHILS RELATIVE PERCENT (BEAKER) (test 0 % xcwz=059) NEUTROPHILS ABSOLUTE COUNT (BEAKER) (test 4.18 K/ L 1.78-5.38 xtbw=000) LYMPHOCYTES ABSOLUTE COUNT (BEAKER) (test 0.62 K/ L 1.32-3.57 whzj=905) MONOCYTES ABSOLUTE COUNT (BEAKER) (test 0.95 K/ L 0.30-0.82 tcjm=821) EOSINOPHILS ABSOLUTE COUNT (BEAKER) (test 0.10 K/ L 0.04-0.54 uhlu=329) BASOPHILS ABSOLUTE COUNT (BEAKER) (test 0.02 K/ L 0.01-0.08 rsro=700) IMMATURE GRANULOCYTES-RELATIVE PERCENT (BEAKER) 0 % 0-1 (test ecdg=9923)
[2018-10-18 09:58] VITALS: BMI 26.6
--- NOTE | 2018-10-18 12:14 | RAD REPORT ---
EXAM DESCRIPTION: US - Paracentesis Proc Guidance - 10/18/2018 11:23 am CLINICAL HISTORY: Ascites COMPARISON: Multiple prior paracentesis procedures TECHNIQUE: The patient presents for ultrasound-guided paracentesis. The procedure, risks and altern atives were discussed with the patient in detail. Oral and written consent were obtained. Time out p rocedure was performed. The patient had no contraindicated allergy or medication history. PT, INR va lues within acceptable limits. Preliminary sonographic evaluation identified right lower access site. The skin and deeper tissues w ere anesthetized with 1 percent lidocaine. Under direct sonographic visualization, a paracentesis ca theter was advanced into the peritoneal cavity. Large volume drainage was initiated. Approximately 1 1 liters of ascites removed. At the conclusion of the procedure, catheter was withdrawn and a bandage placed at the puncture site. Patient was transferred back to same-day surgery for post paracentesis monitoring and albumin infusi on. IMPRESSION: Ultrasound-guided paracentesis as detailed. Approximately 11 liters of ascites removed.
[2018-10-18 15:37] VITALS: BP 93/46
[2018-10-18 15:39] VITALS: TEMP 97.1; O2SAT 99
== END ==
LOC: DS 09:22
PROVIDERS: ATTEND Internal Medicine
DX: K70.31 Alcoholic cirrhosis of liver with ascites (principal)
CPT/HCPCS: 96365; 49083; P9047

== ENCOUNTER → 2018-11-08 | Day surgery (SDC) | payer OTHER ==
--- OUTSIDE RECORDS SUMMARY | 2018-11-08 07:36 | XMS REPORT | Clinical Summary ---
:1940 Author Organization [facility] Address [address] [place] [address] Care Team Providers Name Role Phone Clark [...] Ottoniel Rebollar Cd (1) MADELINE Reyes after 11/07/2017 Family History Medical History Relation Name Comments [...] Team Description 01/18/2019 Office Visit Hepatology Resource, [facility] Hep[facility]ology [facility] B 01/18/2019 Orders Only Transplant [...] of Results for this WITH/WITHOUT IV PM MEDICAL SALES REPRESENTATIVE liver procedure are in CONTRAST the results section. US PARACENTESIS Routine 08/26/2018 4:04 Other ascites Results for this PM MEDICAL SALES REPRESENTATIVE procedure are in the results section. ALBUMIN, BODY FLUID Routine 08/26/2018 3:49 Results for this PM MEDICAL SALES REPRESENTATIVE procedure are in the results section. PROTEIN, BODY FLUID Routine 08/26/2018 3:49 Results for this PM MEDICAL SALES REPRESENTATIVE procedure are in the results section. BODY FLUID CELL COUNT Routine 08/26/2018 3:49 Results for this WITH DIFFERENTIAL PM MEDICAL SALES REPRESENTATIVE procedure are in the results section. CYTOLOGY AP Routine 08/26/2018 3:13 Results for this PM MEDICAL SALES REPRESENTATIVE procedure are in the results section. POCT-CREATININE Routine 08/26/2018 2:56 Results for this PM MEDICAL SALES REPRESENTATIVE procedure are in the results section. CBC W/PLT COUNT & Routine 08/22/2018 3:27 Other cirrhosis of Results for this AUTO DIFFERENTIAL PM MEDICAL SALES REPRESENTATIVE liver procedure are in the results section. HEPATITIS C ANTIBODY Routine 08/22/2018 3:27 Other cirrhosis of Results for this PM MEDICAL SALES REPRESENTATIVE liver procedure are in the results section. CBC W/PLT COUNT & Routine 08/22/2018 3:27 Other cirrhosis of Results for this AUTO DIFFERENTIAL PM MEDICAL SALES REPRESENTATIVE liver procedure are in the results section. HEPATIC FUNCTION Routine 08/22/2018 3:27 Other cirrhosis of Results for this PANEL PM MEDICAL SALES REPRESENTATIVE liver procedure are in the results section. BASIC METABOLIC PANEL Routine 08/22/2018 3:27 Other cirrhosis of Results for this (7) PM MEDICAL SALES REPRESENTATIVE liver procedure are in the results section. APTT Routine 08/22/2018 3:26 Pre-procedure lab Results for this PM MEDICAL SALES REPRESENTATIVE exam procedure are in the results section. HEPATITIS B SURFACE Routine 08/22/2018 3:26 Other cirrhosis of Results for this ANTIGEN PM MEDICAL SALES REPRESENTATIVE liver procedure are in the results section. HEPATITIS B SURFACE Routine 08/22/2018 3:26 Other cirrhosis of Results for this ANTIBODY PM MEDICAL SALES REPRESENTATIVE liver procedure are in the results section. HEPATITIS B CORE Routine 08/22/2018 3:26 Other cirrhosis of Results for this ANTIBODY, TOTAL PM MEDICAL SALES REPRESENTATIVE liver procedure are in the results section. HEPATITIS A ANTIBODY, Routine 08/22/2018 3:26 Other cirrhosis of Results for this IGG PM MEDICAL SALES REPRESENTATIVE liver procedure are in the results section. ALPHA FETOPROTEIN Routine 08/22/2018 3:26 Other cirrhosis of Results for this (AFP), TUMOR MARKER PM MEDICAL SALES REPRESENTATIVE liver procedure are in the results section. PROTHROMBIN TIME/INR Routine 08/22/2018 3:26 Other cirrhosis of Results for this PM MEDICAL SALES REPRESENTATIVE liver procedure are in the results section. after 11/07/2017 Results CBC with platelet count + automated diff (09/27/2018 5:05 PM CDT)Only the most recent of2 resultswithin the time period is included. WBC 6.5 3.5 - 10.5 K/L [facility] RBC 3.08 (L) 4.63 - 6.08 M/L [facility] Hemoglobin 10.5 (L) 13.7 - 17.5 GM/DL [facility] Hematocrit 30.9 (L) 40.1 - 51.0 % [facility] MCV 100.3 (H) 79.0 - 92.2 fL [facility] MCH 34.1 (H) 25.7 - 32.2 pg [facility] MCHC 34.0 32.3 - 36.5 GM/DL [facility] RDW 14.6 (H) 11.6 - 14.4 % [facility] Platelets 127 (L) 150 - 450 K/CU MM [facility] MPV 11.4 9.4 - 12.4 fL [facility] nRBC 0 0 - 0 /100 WBC [facility] % Neutros 73 % [facility] % Lymphs 9 % [facility] % Monos 14 % [facility] % Eos 4 % [facility] % Baso 0 % [facility] # Neutros 4.71 1.78 - 5.38 K/L [facility] # Lymphs 0.57 (L) 1.32 - 3.57 K/L [facility] # Monos 0.88 (H) 0.30 - 0.82 K/L [facility] # Eos 0.23 0.04 - 0.54 K/L [facility] # Baso 0.02 0.01 - 0.08 K/L [facility] Immature 1 0 - 1 % [facility] Specimen Blood Performing Organization Address City/State/Zipcode Phone Number [facility] [address] [place] [address] CENTER Pro-time/INR (09/27/2018 5:05 PM CDT)Only the most recent of2 resultswithin the time period is included. Protime 17.8 (H) 11.7 - 14.7 seconds [facility] INR 1.5 <=5.9 [facility] Specimen Blood Narrative Performed At RECOMMENDED COUMADIN/WARFARIN INR THERAPY [facility] RANGES STANDARD DOSE: 2.0 - 3.0 Includes: PROPHYLAXIS for venous thrombosis, systemic embolization; TREATMENT for venous thrombosis and/or pulmonary embolus. HIGH RISK: Target INR is 2.5-3.5 for patients with mechanical heart valves. Performing Organization Address [facility] Phone Number [address] [address] [place] Hepatic function panel (09/27/2018 5:05 PM CDT)Only the most recent of2 resultswithin the time period is included. Protein, Total 7.3 6.0 - 8.3 gm/dL [facility] Albumin 2.8 (L) 3.5 - 5.0 g/dL [facility] Total Bilirubin 1.8 (H) 0.2 - 1.2 mg/dL [facility] Bilirubin, Direct 1.0 (H) 0.1 - 0.5 mg/dL [facility] Alkaline Phosphatase 147 40 - 150 U/L [facility] AST 39 (H) 5 - 34 U/L [facility] ALT 28 6 - 55 U/L [facility] Specimen Blood Narrative Performed At Specimen slightly icteric [facility] Performing Organization Address City/[facility]/Zipcode Phone Number [address] [address] CENTER Basic Metabolic Panel (09/27/2018 5:05 PM CDT)Only the most recent of2 resultswithin the time period is included. Sodium 135 (L) 136 - 145 meq/L [facility] Potassium 5.3 (H) 3.5 - 5.1 meq/L [facility] Chloride 107 98 - 107 meq/L [facility] CO2 20 (L) 22 - 29 meq/L [facility] BUN 21 7 - 21 mg/dL [facility] Creatinine 1.48 (H) 0.57 - 1.25 mg/dL [facility] Glucose 107 (H) 70 - 105 mg/dL [facility] Calcium 9.3 8.4 - 10.2 mg/dL [facility] EGFR 46Comment: ESTIMATED GFR IS mL/min/1.73 sq m [facility] NOT ACCURATE CREATININE [facility] CLEARANCE IN PREDICTING GLOMERULAR FILTRATION RATE. ESTIMATED GFR IS NOT APPLICABLE FOR DIALYSIS PATIENTS. Specimen Blood Narrative Performed At Specimen slightly icteric [facility] Performing Organization Address City/State/Zipcode Phone Number [facility] [address] [place] [address] [phone] CENTER MR abdomen with/without IV contrast (08/26/2018 8:23 PM MEDICAL SALES REPRESENTATIVE) Specimen Narrative Performed At FINAL REPORT [email or web address] TECHNIQUE: MRI of the abdomen WITHOUT and [...] MD Report Verified Date/Time:08/29/2018 09:28:45 Reading Location: [address] Radiology Reading Room Procedure Note Interface, [...] Report Verified Date/Time: 08/29/2018 09:28:45 Reading Location: [address] Radiology Reading Room Performing Organization Address City/State/Zipcode Phone Number [employer] US paracentesis (08/26/2018 4:04 PM MEDICAL SALES REPRESENTATIVE) Specimen Narrative Performed At FINAL REPORT [employer] PROCEDURE: Ultrasound-guided paracentesis. INDICATION: 77-year-old man with ascites. DESCRIPTION: After obtaining informed written consent, ultrasound scan of the abdomen identified ascites in the right lower quadrant. The overlying skin was prepped and draped in the usual, sterile fashion and local 1% lidocaine anesthesia was administered. A 5 Slovenian catheter was advanced into the peritoneal cavity and 3500 cc of serous fluid was removed. The catheter was removed without immediate complication. Samples were sent for analysis. IMPRESSION: Uncomplicated ultrasound-guided paracentesis with 3500 cc fluid removed. Signed: Mercedez Licona MD Report Verified Date/Time:08/26/2018 16:30:44 Reading Location: [address] Ultrasound Reading Room Procedure Note Interface, External Ris In - 08/26/2018 4:33 PM MEDICAL SALES REPRESENTATIVE FINAL REPORT PROCEDURE: Ultrasound-guided paracentesis. INDICATION: 77-year-old man with ascites. DESCRIPTION: After obtaining informed written consent, ultrasound scan of the abdomen identified ascites in the right lower quadrant. The overlying skin was prepped and draped in the usual, sterile fashion and local 1% lidocaine anesthesia was administered. A 5 Slovenian catheter was advanced into the peritoneal cavity and 3500 cc of serous fluid was removed. The catheter was removed without immediate complication. Samples were sent for analysis. IMPRESSION: Uncomplicated ultrasound-guided paracentesis with 3500 cc fluid removed. Signed: Mercedez Licona MD Report Verified Date/Time: 08/26/2018 16:30:44 Reading Location: [facility] [id number] Ultrasound Reading Room Performing Organization Address City/State/Zipcode Phone Number [facility] Body fluid cell count with differential (08/26/2018 3:49 PM MEDICAL SALES REPRESENTATIVE) Appearance Clear Clear [facility] Color Yellow (A) Colorless, Straw [facility] RBCs 110 (H) <=1 /cu mm [facility] Adjusted WBC Count 53 (H) <=5 /cu mm [facility] Lining Cells 0 <=1 /cu mm [facility] % Segs 3 % [facility] % Lymphs 28 % [facility] % Monos 69 % [facility] % Eos 0 % [facility] % Baso 0 % [facility] Container Body Fluid EDTA Tube [facility] Specimen Body Fluid Performing Organization Address City/State/Zipcode Phone Number [facility] [address] [place] [address] CENTER Protein, body fluid (08/26/2018 3:49 PM MEDICAL SALES REPRESENTATIVE) Protein, Fluid 0.9 g/dL [facility] Specimen Body Fluid Narrative Performed At Absence of reference range indicates that [facility] normals have not been defined. Assay performance has not been validated for this type of specimen. Performing Organization Address [facility] Phone Number [address] [address] [place] Albumin, body fluid (08/26/2018 3:49 PM MEDICAL SALES REPRESENTATIVE) Albumin, Fluid 0.4 gm/dL [facility] Specimen Body Fluid Narrative Performed At Reference Range:No Normals [facility] Assay performance has not been validated for this type of specimen. Performing Organization Address [facility] Phone Number [address] [address] [phone] [place] Cytology (08/26/2018 3:13 PM MEDICAL SALES REPRESENTATIVE) Case Report Medical Cytology Report Case: [id number] [facility] Authorizing Provider:Hoang Moreno MDCollected: 08/26/[address] [place] [address] Ordering Location: [facility] Radiology Main Received: 08/29/2018 0917 Pathologist: Shena Valencia MD Specimen:Peritoneal Fluid DIAGNOSIS PERITONEAL FLUID (CYTOSPINS AND CELL BLOCK): [facility] - RARE ATYPICAL CELLS PRESENT [facility] Signing Pathologist Direct Phone Line: [phone] CPT Code(s) 86230, 05513 [facility] CLINICAL DATA Ascites, cirrhosis [facility] SPECIMEN SOURCE PERITONEAL FLUID [facility] GROSS DESCRIPTION Prepared 4 cytospins from 1100 ml yellow fluid [facility] Collected: [id number] [facility] Received: [id number] STATEMENT OF ADEQUACY Satisfactory [facility] Gross assessment was [facility] performed at [place], Department of [facility] Pathology, [address] [place] [phone], Technical component was [facility] performed at [place], Department of [facility] Pathology, [address] [place] [id number], Professional component was [facility] performed at [place], Department of [facility] Pathology, [address] [place] [phone], Specimen Body Fluid Narrative Performed At Performing Organization Address [facility] Phone Number [address] [address] [place] POC-Creatinine (08/26/2018 2:56 PM MEDICAL SALES REPRESENTATIVE) POC-Creatinine 1.9 (H)Comment: TESTED AT 0.6 - 1.3 mg/dL [facility] [address] [place] [address] [place] [address] POC-EGFR 35 mL/min/1.73M2 [facility] Specimen Blood Performing Organization Address [facility] Phone Number [address] [address] [place] Hepatitis C antibody (08/22/2018 3:27 PM MEDICAL SALES REPRESENTATIVE) Hepatitis C Ab NON-REACTIVE Nonreactive [facility] Specimen Blood Performing Organization Address [facility]/Zipcode Phone Number [address] [address] [phone] [place] Hepatitis A Antibody, IgG ([facility] Only) (08/22/2018 3:26 PM MEDICAL SALES REPRESENTATIVE) Hep A IgG Reactive (A) Nonreactive [facility] Specimen Blood Performing Organization Address [facility] Phone Number [address] [address] [phone] [place] Alpha fetoprotein (AFP), tumor marker (08/22/2018 3:26 PM MEDICAL SALES REPRESENTATIVE) Alpha-Fetoprotein <2.0 <10.0 ng/mL [facility] Specimen Blood Performing Organization Address City/[facility] Phone Number [address] [address] [phone] [place] Hepatitis B core antibody, total (08/22/2018 3:26 PM MEDICAL SALES REPRESENTATIVE) Hep B Core Total Ab NON-REACTIVE Nonreactive [facility] Specimen Blood Performing Organization Address City/[facility] Phone Number [address] [address] [phone] [place] Hepatitis B surface antibody (08/22/2018 3:26 PM MEDICAL SALES REPRESENTATIVE) Hep B S Ab <8.0 <8.0 mIU/mL [facility] Specimen Blood Performing Organization Address City/[facility] Phone Number [address] [address] [place] Hepatitis B surface antigen (08/22/2018 3:26 PM MEDICAL SALES REPRESENTATIVE) hepatitis B Surface Ag NON-REACTIVE Nonreactive [facility] Specimen Blood Performing Organization Address City/[facility] Phone Number [address] [address] CENTER aPTT (08/22/2018 3:26 PM MEDICAL SALES REPRESENTATIVE) PTT 37.9 (H) 22.5 - 36.0 seconds [facility] Specimen Blood Performing Organization Address City/[facility]/Zipcode Phone Number [address] [address] CENTER after 11/07/2017 Insurance Payer Benefit Plan / Subscriber ID Type Phone Address Group [employer] - MEDICARE AET[employer] MEDICARE HMO xxxxxxxx [phone] [address] [employer] POS PPO [place]AMIN [place] [id number]
--- OUTSIDE RECORDS SUMMARY | 2018-11-08 07:37 | XMS REPORT ---
[...] Start End Date Status Dosage Date Carafate [facility] 34472778523 1 GM Orally Active 1 tablet on Twice a day an empty stomach losartan [facility] 07272995539 20 mg Active one tab daily Jardiance [facility] 44369865517 25 MG Oral Active TAKE 1 TABLET BY MOUTH EVERY DAY IN THE MORNING Carvedilol [facility] 69596063815 12.5 MG Oral Active TAKE 1/2 TABLET BY MOUTH TWICE DAILY Omeprazole [facility] 56123878425 40 MG Oral Active TAKE 1 CAPSULE BY MOUTH TWICE A DAY Crestor [facility] 46516026039 40 MG Orally Active 1 tablet Once a day Lasix [facility] 62401012201 20 MG Orally Active 1 tablet Once a day Results No Known Results Summary Purpose [employer]ClinicalWorks Submission
--- OUTSIDE RECORDS SUMMARY | 2018-11-08 07:37 | XMS REPORT ---
:1940 [facility] Address [address] [place] [address] [address] [place] [address] Care Team Providers Name Role Phone TEODORO [...] Comments SODIUM (BEAKER) (test 135 meq/L 136-145 mpje=193) POTASSIUM (BEAKER) (test 5.3 meq/L 3.5-5.1 ghgf=837) CHLORIDE (BEAKER) (test 107 meq/L 98-107 icba=081) CO2 (BEAKER) (test drhz=643) 20 meq/L 22-29 BLOOD UREA NITROGEN (BEAKER) 21 mg/dL 7-21 (test asmn=140) CREATININE (BEAKER) (test 1.48 mg/dL 0.57-1.25 reyu=096) GLUCOSE RANDOM (BEAKER) 107 mg/dL 70-105 (test wvpl=057) CALCIUM (BEAKER) (test 9.3 mg/dL 8.4-10.2 kgyq=066) EGFR (BEAKER) (test 46 mL/min/1.73 sq m ESTIMATED GFR IS NOT oyqb=4940) ACCURATE CREATININE CLEARANCE IN PREDICTING GLOMERULAR FILTRATION RATE. ESTIMATED GFR IS NOT APPLICABLE FOR DIALYSIS PATIENTS. Specimen slightly ictericHEPATIC FUNCTION [id number] 18:29:00 Test Item Value Reference Range Comments TOTAL PROTEIN (BEAKER) (test tmdz=627) 7.3 gm/dL 6.0-8.3 ALBUMIN (BEAKER) (test xzzb=6460) 2.8 g/dL 3.5-5.0 BILIRUBIN TOTAL (BEAKER) (test wukp=657) 1.8 mg/dL 0.2-1.2 BILIRUBIN DIRECT (BEAKER) (test qnrd=389) 1.0 mg/dL 0.1-0.5 ALKALINE PHOSPHATASE (BEAKER) (test znrf=215) 147 U/L 40-150 AST (SGOT) (BEAKER) (test zqlz=257) 39 U/L 5-34 ALT (SGPT) (BEAKER) (test pwzo=300) 28 U/L 6-55 Specimen slightly ictericPROTHROMBIN [id number] 18:06:00 Test Item Value Reference Range Comments PROTIME (BEAKER) (test dntw=641) 17.8 seconds 11.7-14.7 INR (BEAKER) (test oxvg=075) 1.5 <=5.9 RECOMMENDED COUMADIN/WARFARIN INR THERAPY RANGESSTANDARD DOSE: 2.0 - 3.0 Includes: PROPHYLAXIS forvenous thrombosis, systemic embolization; TREATMENT for venous thrombosis and/or pulmonary embolus.HIGH RISK: Target INR is 2.5-3.5 for patients with mechanical heart valves.CBC W/PLT COUNT & AUTO [id number] 18:00:00 Test Item Value Reference Range Comments WHITE BLOOD CELL COUNT (BEAKER) (test qzgw=727) 6.5 K/ L 3.5-10.5 RED BLOOD CELL COUNT (BEAKER) (test bxcs=662) 3.08 M/ L 4.63-6.08 HEMOGLOBIN (BEAKER) (test bjkc=324) 10.5 GM/DL 13.7-17.5 HEMATOCRIT (BEAKER) (test dscn=537) 30.9 % 40.1-51.0 MEAN CORPUSCULAR VOLUME (BEAKER) (test vqbl=211) 100.3 fL 79.0-92.2 MEAN CORPUSCULAR HEMOGLOBIN (BEAKER) (test 34.1 pg 25.7-32.2 atmy=793) MEAN CORPUSCULAR HEMOGLOBIN CONC (BEAKER) (test 34.0 GM/DL 32.3-36.5 hetk=788) RED CELL DISTRIBUTION WIDTH (BEAKER) (test 14.6 % 11.6-14.4 qkio=447) PLATELET COUNT (BEAKER) (test aypl=277) 127 K/CU MM 150-450 MEAN PLATELET VOLUME (BEAKER) (test iuul=445) 11.4 fL 9.4-12.4 NUCLEATED RED BLOOD CELLS (BEAKER) (test 0 /100 WBC 0-0 jrdr=895) NEUTROPHILS RELATIVE PERCENT (BEAKER) (test 73 % hqrm=176) LYMPHOCYTES RELATIVE PERCENT (BEAKER) (test 9 % uksx=275) MONOCYTES RELATIVE PERCENT (BEAKER) (test 14 % snoq=538) EOSINOPHILS RELATIVE PERCENT (BEAKER) (test 4 % kytv=289) BASOPHILS RELATIVE PERCENT (BEAKER) (test 0 % sctj=983) NEUTROPHILS ABSOLUTE COUNT (BEAKER) (test 4.71 K/ L 1.78-5.38 yybq=055) LYMPHOCYTES ABSOLUTE COUNT (BEAKER) (test 0.57 K/ L 1.32-3.57 vyvt=497) MONOCYTES ABSOLUTE COUNT (BEAKER) (test 0.88 K/ L 0.30-0.82 qrfw=404) EOSINOPHILS ABSOLUTE COUNT (BEAKER) (test 0.23 K/ L 0.04-0.54 fklq=639) BASOPHILS ABSOLUTE COUNT (BEAKER) (test 0.02 K/ L 0.01-0.08 tiwk=445) IMMATURE GRANULOCYTES-RELATIVE PERCENT (BEAKER) 1 % 0-1 (test lrgh=4735) [id number] 19:01:00Medical Cytology Report Case: [id number] Authorizing Provider: Teodoro Davenport MD Collected: 08/26/2018 1513 Ordering Location: [facility] Radiology Main Received: 08/29/2018 0917 Pathologist: Shena Valencia MD Specimen: Peritoneal Fluid PERITONEAL FLUID (CYTOSPINS AND CELL BLOCK): - RARE ATYPICAL CELLS PRESENT Signing Pathologist Direct Phone Line: [phone] signed by Shena Valencia MD on 08/30/2018 at 7:01 [id number], [id number], cirrhosis PERITONEAL FLUIDPrepared 4 cytospins from 1100 ml yellow fluidCollected: [id number]: [id number] [facility], [facility] of [facility], [address] [place] [id number] , [facility], [address] [place] [address], [facility], [facility], [address] [place] [address], LY, ABDOMEN, [id number] 09:28:00Referring: Dr. Tayo wolfeNeed T 3 liver [...] MDReport Verified Date/Time: 08/29/2018 09:28:45 Reading Location: [address] Radiology Reading Room BODY FLUID CELL COUNT WITH [id number] 19:43:00 Test Item Value Reference Range Comments APPEARANCE FLUID (BEAKER) (test xwqr=510) Clear Clear COLOR FLUID (BEAKER) (test kjml=181) Yellow Colorless, Straw RBC FLUID (BEAKER) (test uubw=959) 110 /cu mm <=1 ADJUSTED WBC FLUID (BEAKER) (test jnzj=5093) 53 /cu mm <=5 LINING CELLS (BEAKER) (test yntg=0219) 0 /cu mm <=1 NEUTROPHILS FLUID (BEAKER) (test vrdc=1940) 3 % LYMPHS FLUID (BEAKER) (test sfga=614) 28 % MONO/MACROPHAGE FLUID (BEAKER) (test krjo=346) 69 % EOSINOPHILS FLUID (BEAKER) (test bgwu=381) 0 % BASO FLUID (BEAKER) (test hzpc=288) 0 % CONTAINER BODY FLUID (BEAKER) (test elqo=7561) EDTA Tube PROTEIN, BODY [id number] 16:56:00 Test Item Value Reference Range Comments PROTEIN FLUID (BEAKER) (test ssvp=464) 0.9 g/dL Absence of reference range indicates that normals have not been defined.Assay performance has not been validated for this type of specimen.ALBUMIN, BODY [id number] 16:56:00 Test Item Value Reference Range Comments ALBUMIN FLUID (BEAKER) (test zelx=278) 0.4 gm/dL Reference Range: No Normals Assay performance has not been validated for this type of specimen.U/S, [id number] 16:30:00Referring: Dr. Tayo Mak paracentesis prior to [...] 1% lidocaine anesthesia was administered. A 5 [place] catheter was advanced into the peritoneal cavity and 3500 cc of serous fluid was removed. The catheter was removedwithout immediate complication. Samples were sent for analysis. IMPRESSION:Uncomplicated ultrasound-guided paracentesis with 3500 cc fluid removed. Signed: Mercedez Licona MDReport Verified Date/Time:08/26/2018 16:30: 44 Reading Location: [address] Ultrasound Reading Room [id number] 15:10:00 Test Item Value Reference Range Comments POC-CREATININE (BEAKER) 1.9 mg/dL 0.6-1.3 [address]ED [address] (test unyk=4372) [facility] [address] POC-EGFR (BEAKER) (test 35 mL/min/1.73M2 fpte=1901) HEPATITIS B SURFACE [id number] 18:59:00 Test Item Value Reference Range Comments HEPATITIS B SURFACE ANTIBODY (BEAKER) (test < mIU/mL <8.0 lksg=736) HEPATITIS A ANTIBODY, [id number] 18:59:00 Test Item Value Reference Range Comments HEPATITIS A IGG ANTIBODY (BEAKER) (test wujr=0088) Reactive Nonreactive ALPHA FETOPROTEIN (AFP), TUMOR [id number] 18:59:00 Test Item Value Reference Range Comments ALPHA-FETOPROTEIN (BEAKER) (test iiwe=7888) < ng/mL <10.0 HEPATITIS B CORE ANTIBODY, [id number] 18:56:00 Test Item Value Reference Range Comments HEPATITIS B CORE TOTAL ANTIBODY (BEAKER) (test Nonreactive Nonreactive heya=180) HEPATITIS B SURFACE [id number] 18:55:00 Test Item Value Reference Range Comments HEPATITIS B SURFACE ANTIGEN (2) (BEAKER) (test Nonreactive Nonreactive zjix=4381) HEPATITIS C [id number] 18:44:00 Test Item Value Reference Range Comments HEPATITIS C ANTIBODY (BEAKER) (test lqvw=156) Nonreactive Nonreactive BASIC METABOLIC [id number] 17:09:00 Test Item Value Reference Range Comments SODIUM (BEAKER) (test 133 meq/L 136-145 bllj=380) POTASSIUM (BEAKER) (test 4.3 meq/L 3.5-5.1 tbwv=858) CHLORIDE (BEAKER) (test 101 meq/L 98-107 cdqm=745) CO2 (BEAKER) (test 21 meq/L 22-29 tstv=558) BLOOD UREA NITROGEN 41 mg/dL 7-21 (BEAKER) (test cnji=503) CREATININE (BEAKER) (test 2.18 mg/dL 0.57-1.25 gdhr=808) GLUCOSE RANDOM (BEAKER) 101 mg/dL 70-105 (test ekax=716) CALCIUM (BEAKER) (test 9.0 mg/dL 8.4-10.2 ahzz=559) EGFR (BEAKER) (test 29 mL/min/1.73 sq m ESTIMATED GFR IS NOT xntc=6036) ACCURATE CREATININE CLEARANCE IN PREDICTING GLOMERULAR FILTRATION RATE. ESTIMATED GFR IS NOT APPLICABLE FOR DIALYSIS PATIENTS. Specimen slightly ictericHEPATIC FUNCTION [id number] 17:07:00 Test Item Value Reference Range Comments TOTAL PROTEIN (BEAKER) (test ndnf=569) 7.3 gm/dL 6.0-8.3 ALBUMIN (BEAKER) (test kjll=9283) 2.7 g/dL 3.5-5.0 BILIRUBIN TOTAL (BEAKER) (test usrw=769) 2.5 mg/dL 0.2-1.2 BILIRUBIN DIRECT (BEAKER) (test dmcc=566) 1.2 mg/dL 0.1-0.5 ALKALINE PHOSPHATASE (BEAKER) (test fnmt=288) 120 U/L 40-150 AST (SGOT) (BEAKER) (test bisa=915) 53 U/L 5-34 ALT (SGPT) (BEAKER) (test sqzn=953) 29 U/L 6-55 Specimen slightly [id number] 16:52:00 Test Item Value Reference Range Comments PARTIAL THROMBOPLASTIN TIME (BEAKER) (test 37.9 seconds 22.5-36.0 ptri=437) PROTHROMBIN [id number] 16:51:00 Test Item Value Reference Range Comments PROTIME (BEAKER) (test hdgb=267) 16.5 seconds 11.7-14.7 INR (BEAKER) (test mwjz=043) 1.3 <=5.9 RECOMMENDED COUMADIN/WARFARIN INR THERAPY RANGESSTANDARD DOSE: 2.0 - 3.0 Includes: PROPHYLAXIS forvenous thrombosis, systemic embolization; TREATMENT for venous thrombosis and/or pulmonary embolus.HIGH RISK: Target INR is 2.5-3.5 for patients with mechanical heart valves.CBC W/PLT COUNT & AUTO [id number] 16:43:00 Test Item Value Reference Range Comments WHITE BLOOD CELL COUNT (BEAKER) (test spip=362) 5.9 K/ L 3.5-10.5 RED BLOOD CELL COUNT (BEAKER) (test fhuv=112) 3.48 M/ L 4.63-6.08 HEMOGLOBIN (BEAKER) (test dcbk=209) 11.9 GM/DL 13.7-17.5 HEMATOCRIT (BEAKER) (test aetv=001) 35.4 % 40.1-51.0 MEAN CORPUSCULAR VOLUME (BEAKER) (test iqvp=920) 101.7 fL 79.0-92.2 MEAN CORPUSCULAR HEMOGLOBIN (BEAKER) (test 34.2 pg 25.7-32.2 vlkn=794) MEAN CORPUSCULAR HEMOGLOBIN CONC (BEAKER) (test 33.6 GM/DL 32.3-36.5 xdux=812) RED CELL DISTRIBUTION WIDTH (BEAKER) (test 15.4 % 11.6-14.4 vrhg=666) PLATELET COUNT (BEAKER) (test yuoo=400) 138 K/CU MM 150-450 MEAN PLATELET VOLUME (BEAKER) (test vigd=192) 11.6 fL 9.4-12.4 NUCLEATED RED BLOOD CELLS (BEAKER) (test 0 /100 WBC 0-0 ylfi=731) NEUTROPHILS RELATIVE PERCENT (BEAKER) (test 71 % fcfg=095) LYMPHOCYTES RELATIVE PERCENT (BEAKER) (test 11 % fnxh=759) MONOCYTES RELATIVE PERCENT (BEAKER) (test 16 % fuji=017) EOSINOPHILS RELATIVE PERCENT (BEAKER) (test 2 % lxlf=155) BASOPHILS RELATIVE PERCENT (BEAKER) (test 0 % ykvz=788) NEUTROPHILS ABSOLUTE COUNT (BEAKER) (test 4.18 K/ L 1.78-5.38 kxja=114) LYMPHOCYTES ABSOLUTE COUNT (BEAKER) (test 0.62 K/ L 1.32-3.57 fitu=726) MONOCYTES ABSOLUTE COUNT (BEAKER) (test 0.95 K/ L 0.30-0.82 jejb=591) EOSINOPHILS ABSOLUTE COUNT (BEAKER) (test 0.10 K/ L 0.04-0.54 zied=223) BASOPHILS ABSOLUTE COUNT (BEAKER) (test 0.02 K/ L 0.01-0.08 vwum=982) IMMATURE GRANULOCYTES-RELATIVE PERCENT (BEAKER) 0 % 0-1 (test hikc=3176)
[2018-11-08 08:07] VITALS: TEMP 97.8
[2018-11-08 08:09] VITALS: BMI 25.9
[2018-11-08 08:09] LABS: Protime INR 1.24
--- NOTE | 2018-11-08 10:21 | RAD REPORT ---
EXAM DESCRIPTION: US - Paracentesis Proc Guidance - 11/08/2018 9:52 am CLINICAL HISTORY: ASCITES Ascites COMPARISON: Paracentesis Proc Guidance dated 10/18/2018 FINDINGS: Informed consent was obtained and time-out was performed. Patient's abdomen was prepped and draped in the usual sterile fashion. 1% lidocaine was used for loca l anesthetic purposes. A small skin incision was made. A paracentesis catheter was guided into the peroneal cavity under son ographic guidance. A large volume paracentesis was performed. The patient tolerated the procedure well. Patient was administered IV albumin per protocol following the procedure. IMPRESSION: Successful ultrasound-guided paracentesis.
[2018-11-08 11:10] VITALS: O2SAT 99
[2018-11-08 11:11] VITALS: BP 100/51
== END ==
LOC: DS 07:32
PROVIDERS: ATTEND Internal Medicine
DX: R18.8 Other ascites (principal)
CPT/HCPCS: 36415; 49083; 85610; 85730; 96365; P9047

== ENCOUNTER 2018-11-10 09:42 | Inpatient (IN) | payer OTHER ==
--- OUTSIDE RECORDS SUMMARY | 2018-11-10 09:46 | XMS REPORT | Clinical Summary ---
:1940 Author Organization [facility] Address [address] [place] [address] Care Team Providers Name Role Phone Clark [...] Ottoniel Rebollar Cd (1) MADELINE Reyes after 11/09/2017 Family History Medical History Relation Name Comments [...] Team Description 01/18/2019 Office Visit Hepatology Resource, [facility] Hep[facility] B 01/18/2019 Orders Only [...] of Results for this WITH/WITHOUT IV PM [employer] liver procedure are in CONTRAST the results section. US PARACENTESIS Routine 08/26/2018 4:04 Other ascites Results for this PM [employer] procedure are in the results section. ALBUMIN, BODY FLUID Routine 08/26/2018 3:49 Results for this PM [employer] procedure are in the results section. PROTEIN, BODY FLUID Routine 08/26/2018 3:49 Results for this PM [employer] procedure are in the results section. BODY FLUID CELL COUNT Routine 08/26/2018 3:49 Results for this WITH DIFFERENTIAL PM [employer] procedure are in the results section. CYTOLOGY AP Routine 08/26/2018 3:13 Results for this PM [employer] procedure are in the results section. POCT-CREATININE Routine 08/26/2018 2:56 Results for this PM [employer] procedure are in the results section. CBC W/PLT COUNT & Routine 08/22/2018 3:27 Other cirrhosis of Results for this AUTO DIFFERENTIAL PM [employer] liver procedure are in the results section. HEPATITIS C ANTIBODY Routine 08/22/2018 3:27 Other cirrhosis of Results for this PM [employer] liver procedure are in the results section. CBC W/PLT COUNT & Routine 08/22/2018 3:27 Other cirrhosis of Results for this AUTO DIFFERENTIAL PM [employer] liver procedure are in the results section. HEPATIC FUNCTION Routine 08/22/2018 3:27 Other cirrhosis of Results for this PANEL PM [employer] liver procedure are in the results section. BASIC METABOLIC PANEL Routine 08/22/2018 3:27 Other cirrhosis of Results for this (7) PM [employer] liver procedure are in the results section. APTT Routine 08/22/2018 3:26 Pre-procedure lab Results for this PM [employer] exam procedure are in the results section. HEPATITIS B SURFACE Routine 08/22/2018 3:26 Other cirrhosis of Results for this ANTIGEN PM [employer] liver procedure are in the results section. HEPATITIS B SURFACE Routine 08/22/2018 3:26 Other cirrhosis of Results for this ANTIBODY PM [employer] liver procedure are in the results section. HEPATITIS B CORE Routine 08/22/2018 3:26 Other cirrhosis of Results for this ANTIBODY, TOTAL PM [employer] liver procedure are in the results section. HEPATITIS A ANTIBODY, Routine 08/22/2018 3:26 Other cirrhosis of Results for this IGG PM [employer] liver procedure are in the results section. ALPHA FETOPROTEIN Routine 08/22/2018 3:26 Other cirrhosis of Results for this (AFP), TUMOR MARKER PM [employer] liver procedure are in the results section. PROTHROMBIN TIME/INR Routine 08/22/2018 3:26 Other cirrhosis of Results for this PM [employer] liver procedure are in the results section. after 11/09/2017 Results CBC with platelet count + automated diff (09/27/2018 5:05 PM CDT)Only the most recent of2 resultswithin the time period is included. WBC 6.5 3.5 - 10.5 K/L [facility] RBC 3.08 (L) 4.63 - 6.08 M/L [facility] Hemoglobin 10.5 (L) 13.7 - 17.5 GM/DL [facility] Hematocrit 30.9 (L) 40.1 - 51.0 % [facility] MCV 100.3 (H) 79.0 - 92.2 fL [facility] MCH 34.1 (H) 25.7 - 32.2 pg [facility] MCHC 34.0 32.3 - 36.5 GM/DL [facility] RDW 14.6 (H) 11.6 - 14.4 % [facility] Platelets 127 (L) 150 - 450 K/CU MM [facility] MPV 11.4 9.4 - 12.4 fL [facility] nRBC 0 0 - 0 /100 WBC [facility] % Neutros 73 % [facility] % Lymphs 9 % [facility] % Monos 14 % [facility] % Eos 4 % [facility] % Baso 0 % [facility] # Neutros 4.71 1.78 - 5.38 K/L [facility] # Lymphs 0.57 (L) 1.32 - 3.57 K/L [facility] # Monos 0.88 (H) 0.30 - 0.82 K/L [facility] # Eos 0.23 0.04 - 0.54 K/L [facility] # Baso 0.02 0.01 - 0.08 K/L [facility] Immature 1 0 - 1 % [facility] Specimen Blood Performing Organization Address City/State/Zipcode Phone Number [facility] [address] [place] [address] [phone] CENTER Pro-time/INR (09/27/2018 5:05 PM CDT)Only the most recent of2 resultswithin the time period is included. Protime 17.8 (H) 11.7 - 14.7 seconds [facility] INR 1.5 <=5.9 [facility] Specimen Blood Narrative Performed At RECOMMENDED COUMADIN/WARFARIN INR THERAPY [facility] RANGES STANDARD DOSE: 2.0 - 3.0 Includes: PROPHYLAXIS for venous thrombosis, systemic embolization; TREATMENT for venous thrombosis and/or pulmonary embolus. HIGH RISK: Target INR is 2.5-3.5 for patients with mechanical heart valves. Performing Organization Address [facility] Cent[facility]ode Phone Number [address] [address] [place] Hepatic function panel (09/27/2018 5:05 PM CDT)Only the most recent of2 resultswithin the time period is included. Protein, Total 7.3 6.0 - 8.3 gm/dL [facility] Albumin 2.8 (L) 3.5 - 5.0 g/dL [facility] Total Bilirubin 1.8 (H) 0.2 - 1.2 mg/dL [facility] Bilirubin, Direct 1.0 (H) 0.1 - 0.5 mg/dL [facility] Alkaline Phosphatase 147 40 - 150 U/L [facility] AST 39 (H) 5 - 34 U/L [facility] ALT 28 6 - 55 U/L [facility] Specimen Blood Narrative Performed At Specimen slightly icteric [facility] Performing Organization Address City/[facility]/Zipcode Phone Number [address] [address] CENTER Basic Metabolic Panel (09/27/2018 5:05 PM CDT)Only the most recent of2 resultswithin the time period is included. Sodium 135 (L) 136 - 145 meq/L [facility] Potassium 5.3 (H) 3.5 - 5.1 meq/L [facility] Chloride 107 98 - 107 meq/L [facility] CO2 20 (L) 22 - 29 meq/L [facility] BUN 21 7 - 21 mg/dL [facility] Creatinine 1.48 (H) 0.57 - 1.25 mg/dL [facility] Glucose 107 (H) 70 - 105 mg/dL [facility] Calcium 9.3 8.4 - 10.2 mg/dL [facility] EGFR 46Comment: ESTIMATED GFR IS mL/min/1.73 sq m [facility] NOT ACCURATE CREATININE [facility] CLEARANCE IN PREDICTING GLOMERULAR FILTRATION RATE. ESTIMATED GFR IS NOT APPLICABLE FOR DIALYSIS PATIENTS. Specimen Blood Narrative Performed At Specimen slightly icteric [facility] Performing Organization Address City/State/Zipcode Phone Number [facility] [address] [place] [address] CENTER MR abdomen with/without IV contrast (08/26/2018 8:23 PM [employer]) Specimen Narrative Performed At FINAL REPORT [employer] TECHNIQUE: MRI of the abdomen WITHOUT and [...] MD Report Verified Date/Time:08/29/2018 09:28:45 Reading Location: [address] Radiology Reading Room Procedure Note Interface, [...] Report Verified Date/Time: 08/29/2018 09:28:45 Reading Location: [address] Radiology Reading Room Performing Organization Address City/State/Zipcode Phone Number [facility] US paracentesis (08/26/2018 4:04 PM [employer]) Specimen Narrative Performed At FINAL REPORT [employer] PROCEDURE: Ultrasound-guided paracentesis. INDICATION: 77-year-old man with ascites. DESCRIPTION: After obtaining informed written consent, ultrasound scan of the abdomen identified ascites in the right lower quadrant. The overlying skin was prepped and draped in the usual, sterile fashion and local 1% lidocaine anesthesia was administered. A 5 Singaporean catheter was advanced into the peritoneal cavity and 3500 cc of serous fluid was removed. The catheter was removed without immediate complication. Samples were sent for analysis. IMPRESSION: Uncomplicated ultrasound-guided paracentesis with 3500 cc fluid removed. Signed: Mercedez Licona MD Report Verified Date/Time:08/26/2018 16:30:44 Reading Location: [address] Ultrasound Reading Room Procedure Note Interface, External Ris In - 08/26/2018 4:33 PM [employer] FINAL REPORT PROCEDURE: Ultrasound-guided paracentesis. INDICATION: 77-year-old man with ascites. DESCRIPTION: After obtaining informed written consent, ultrasound scan of the abdomen identified ascites in the right lower quadrant. The overlying skin was prepped and draped in the usual, sterile fashion and local 1% lidocaine anesthesia was administered. A 5 Singaporean catheter was advanced into the peritoneal cavity and 3500 cc of serous fluid was removed. The catheter was removed without immediate complication. Samples were sent for analysis. IMPRESSION: Uncomplicated ultrasound-guided paracentesis with 3500 cc fluid removed. Signed: Mercedez Licona MD Report Verified Date/Time: 08/26/2018 16:30:44 Reading Location: [facility] [id number] Ultrasound Reading Room Performing Organization Address City/State/Zipcode Phone Number [facility] Body fluid cell count with differential (08/26/2018 3:49 PM [employer]) Appearance Clear Clear [facility] Color Yellow (A) Colorless, Straw [facility] RBCs 110 (H) <=1 /cu mm [facility] Adjusted WBC Count 53 (H) <=5 /cu mm [facility] Lining Cells 0 <=1 /cu mm [facility] % Segs 3 % [facility] % Lymphs 28 % [facility] % Monos 69 % [facility] % Eos 0 % [facility] % Baso 0 % [facility] Container Body Fluid EDTA Tube [facility] Specimen Body Fluid Performing Organization Address City/State/Zipcode Phone Number [facility] [address] [place] [address] [phone] CENTER Protein, body fluid (08/26/2018 3:49 PM [employer]ACH[employer]) Protein, Fluid 0.9 g/dL [facility] Specimen Body Fluid Narrative Performed At Absence of reference range indicates that [facility] normals have not been defined. Assay performance has not been validated for this type of specimen. Performing Organization Address [facility] Centercoms Phone Number [address] [address] [place] Albumin, body fluid (08/26/2018 3:49 PM [employer]ACH[employer]) Albumin, Fluid 0.4 gm/dL [facility] Specimen Body Fluid Narrative Performed At Reference Range:No Normals [facility] Assay performance has not been validated for this type of specimen. Performing Organization Address [facility] Phone Number [address] [address] [phone] [place] Cytology (08/26/2018 3:13 PM [employer]) Case Report Medical Cytology Report Case: [id number] [facility] Authorizing Provider:Hoang Moreno MDCollected: 08/26/[address] [place] [address] Ordering Location: [facility] Radiology Main Received: 08/29/2018 0917 Pathologist: Shena Valencia MD Specimen:Peritoneal Fluid DIAGNOSIS PERITONEAL FLUID (CYTOSPINS AND CELL BLOCK): [facility] - RARE ATYPICAL CELLS PRESENT [facility] Signing Pathologist Direct Phone Line: [phone] CPT Code(s) 75616, 9[address]33 [facility] CLINICAL DATA Ascites, cirrhosis [facility] SPECIMEN SOURCE PERITONEAL FLUID [facility] GROSS DESCRIPTION Prepared 4 cytospins from 1100 ml yellow fluid [facility] Collected: [id number] [facility] Received: [id number] STATEMENT OF ADEQUACY Satisfactory [facility] Gross assessment was [facility] performed at [place], Department of [facility] Pathology, [address] [place] [address], Technical component was [facility] performed at [place], Department of [facility] Pathology, [address] [place] [phone], Professional component was [facility] performed at [place], Department of [facility] Pathology, [address] [place] [address], Specimen Body Fluid Narrative Performed At Performing Organization Address [facility] Centercode Phone Number [address] [address] [place] POC-Creatinine (08/26/2018 2:56 PM [employer]) POC-Creatinine 1.9 (H)Comment: TESTED AT 0.6 - 1.3 mg/dL [facility] [address] [place] [address] [place] [address] POC-EGFR 35 mL/min/1.73M2 [facility] Specimen Blood Performing Organization Address [facility] Centercode Phone Number [address] [address] [place] Hepatitis C antibody (08/22/2018 3:27 PM [employer]) Hepatitis C Ab NON-REACTIVE Nonreactive [facility] Specimen Blood Performing Organization Address [facility]/Zipcode Phone Number [address] [address] [place] Hepatitis A Antibody, IgG ([facility] Only) (08/22/2018 3:26 PM [employer]) Hep A IgG Reactive (A) Nonreactive [facility] Specimen Blood Performing Organization Address [facility] Centercode Phone Number [address] [address] [place] Alpha fetoprotein (AFP), tumor marker (08/22/2018 3:26 PM [employer]) Alpha-Fetoprotein <2.0 <10.0 ng/mL [facility] Specimen Blood Performing Organization Address City/[facility] Centercode Phone Number [address] [address] [place] Hepatitis B core antibody, total (08/22/2018 3:26 PM [employer]) Hep B Core Total Ab NON-REACTIVE Nonreactive [facility] Specimen Blood Performing Organization Address City/[facility] Centercode Phone Number [address] [address] [place] Hepatitis B surface antibody (08/22/2018 3:26 PM [employer]) Hep B S Ab <8.0 <8.0 mIU/mL [facility] Specimen Blood Performing Organization Address City/[facility] Centercode Phone Number [address] [address] [place] Hepatitis B surface antigen (08/22/2018 3:26 PM [employer]) hepatitis B Surface Ag NON-REACTIVE Nonreactive [facility] Specimen Blood Performing Organization Address City/[facility] Centercode Phone Number [address] [address] CENTER aPTT (08/22/2018 3:26 PM [employer]) PTT 37.9 (H) 22.5 - 36.0 seconds [facility] Specimen Blood Performing Organization Address City/[facility]/Zipcode Phone Number [address] [address] CENTER after 11/09/2017 Insurance Payer Benefit Plan / Subscriber ID Type Phone Address Group [employer] - MEDICARE AET[employer] MEDICARE HMO xxxxxxxx [phone] [address] [employer] POS PPO [place]AM[place] [id number]
--- OUTSIDE RECORDS SUMMARY | 2018-11-10 09:46 | XMS REPORT ---
[...] Start End Date Status Dosage Date Carafate [facility] [id number] 1 GM Orally Active 1 tablet on Twice a day an empty stomach losartan [facility] 67972905338 20 mg Active one tab daily Jardiance [facility] 71339387591 25 MG Oral Active TAKE 1 TABLET BY MOUTH EVERY DAY IN THE MORNING Carvedilol [facility] 99725949807 12.5 MG Oral Active TAKE 1/2 TABLET BY MOUTH TWICE DAILY Omeprazole [facility] 99224404573 40 MG Oral Active TAKE 1 CAPSULE BY MOUTH TWICE A DAY Crestor [facility] 12540050593 40 MG Orally Active 1 tablet Once a day Lasix [facility] 04991297194 20 MG Orally Active 1 tablet Once a day Results No Known Results Summary Purpose eClinicalWorks Submission
--- OUTSIDE RECORDS SUMMARY | 2018-11-10 09:46 | XMS REPORT ---
:1940 [facility] Address [address] [place] [address] Care Team Providers Name Role Phone TEODORO [...] Comments SODIUM (BEAKER) (test 135 meq/L 136-145 wpgs=991) POTASSIUM (BEAKER) (test 5.3 meq/L 3.5-5.1 xnkg=783) CHLORIDE (BEAKER) (test 107 meq/L 98-107 bpqa=719) CO2 (BEAKER) (test noas=071) 20 meq/L 22-29 BLOOD UREA NITROGEN (BEAKER) 21 mg/dL 7-21 (test ryev=184) CREATININE (BEAKER) (test 1.48 mg/dL 0.57-1.25 nrzy=775) GLUCOSE RANDOM (BEAKER) 107 mg/dL 70-105 (test wnkg=682) CALCIUM (BEAKER) (test 9.3 mg/dL 8.4-10.2 yaql=379) EGFR (BEAKER) (test 46 mL/min/1.73 sq m ESTIMATED GFR IS NOT vajp=2161) ACCURATE CREATININE CLEARANCE IN PREDICTING GLOMERULAR FILTRATION RATE. ESTIMATED GFR IS NOT APPLICABLE FOR DIALYSIS PATIENTS. Specimen slightly ictericHEPATIC FUNCTION [id number] 18:29:00 Test Item Value Reference Range Comments TOTAL PROTEIN (BEAKER) (test eriw=306) 7.3 gm/dL 6.0-8.3 ALBUMIN (BEAKER) (test qstq=9272) 2.8 g/dL 3.5-5.0 BILIRUBIN TOTAL (BEAKER) (test ikyq=650) 1.8 mg/dL 0.2-1.2 BILIRUBIN DIRECT (BEAKER) (test qjeh=452) 1.0 mg/dL 0.1-0.5 ALKALINE PHOSPHATASE (BEAKER) (test yewb=665) 147 U/L 40-150 AST (SGOT) (BEAKER) (test ldfe=383) 39 U/L 5-34 ALT (SGPT) (BEAKER) (test tjtk=168) 28 U/L 6-55 Specimen slightly ictericPROTHROMBIN [id number] 18:06:00 Test Item Value Reference Range Comments PROTIME (BEAKER) (test jquh=410) 17.8 seconds 11.7-14.7 INR (BEAKER) (test plab=587) 1.5 <=5.9 RECOMMENDED COUMADIN/WARFARIN INR THERAPY RANGESSTANDARD DOSE: 2.0 - 3.0 Includes: PROPHYLAXIS forvenous thrombosis, systemic embolization; TREATMENT for venous thrombosis and/or pulmonary embolus.HIGH RISK: Target INR is 2.5-3.5 for patients with mechanical heart valves.CBC W/PLT COUNT & AUTO [id number] 18:00:00 Test Item Value Reference Range Comments WHITE BLOOD CELL COUNT (BEAKER) (test tyye=289) 6.5 K/ L 3.5-10.5 RED BLOOD CELL COUNT (BEAKER) (test halv=779) 3.08 M/ L 4.63-6.08 HEMOGLOBIN (BEAKER) (test vdsl=175) 10.5 GM/DL 13.7-17.5 HEMATOCRIT (BEAKER) (test igcp=648) 30.9 % 40.1-51.0 MEAN CORPUSCULAR VOLUME (BEAKER) (test yigk=680) 100.3 fL 79.0-92.2 MEAN CORPUSCULAR HEMOGLOBIN (BEAKER) (test 34.1 pg 25.7-32.2 jpop=569) MEAN CORPUSCULAR HEMOGLOBIN CONC (BEAKER) (test 34.0 GM/DL 32.3-36.5 ymcy=956) RED CELL DISTRIBUTION WIDTH (BEAKER) (test 14.6 % 11.6-14.4 fdci=734) PLATELET COUNT (BEAKER) (test szwg=436) 127 K/CU MM 150-450 MEAN PLATELET VOLUME (BEAKER) (test zptv=478) 11.4 fL 9.4-12.4 NUCLEATED RED BLOOD CELLS (BEAKER) (test 0 /100 WBC 0-0 cxkq=659) NEUTROPHILS RELATIVE PERCENT (BEAKER) (test 73 % wtwt=299) LYMPHOCYTES RELATIVE PERCENT (BEAKER) (test 9 % yiwr=604) MONOCYTES RELATIVE PERCENT (BEAKER) (test 14 % kpou=028) EOSINOPHILS RELATIVE PERCENT (BEAKER) (test 4 % pacw=238) BASOPHILS RELATIVE PERCENT (BEAKER) (test 0 % lncr=542) NEUTROPHILS ABSOLUTE COUNT (BEAKER) (test 4.71 K/ L 1.78-5.38 tleu=476) LYMPHOCYTES ABSOLUTE COUNT (BEAKER) (test 0.57 K/ L 1.32-3.57 oitc=017) MONOCYTES ABSOLUTE COUNT (BEAKER) (test 0.88 K/ L 0.30-0.82 ijfr=963) EOSINOPHILS ABSOLUTE COUNT (BEAKER) (test 0.23 K/ L 0.04-0.54 nubi=151) BASOPHILS ABSOLUTE COUNT (BEAKER) (test 0.02 K/ L 0.01-0.08 expk=670) IMMATURE GRANULOCYTES-RELATIVE PERCENT (BEAKER) 1 % 0-1 (test khbw=8698) [id number] 19:01:00Medical Cytology Report Case: [id number] Authorizing Provider: Teodoro Davenport MD Collected: 08/26/2018 1513 Ordering Location: [facility] Radiology Main Received: 08/29/2018 0917 Pathologist: Shena Valencia MD Specimen: Peritoneal Fluid PERITONEAL FLUID (CYTOSPINS AND CELL BLOCK): - RARE ATYPICAL CELLS PRESENT Signing Pathologist Direct Phone Line: [phone] signed by Shena Valencia MD on 08/30/2018 at 7:01 [id number], [id number], cirrhosis PERITONEAL FLUIDPrepared 4 cytospins from 1100 ml yellow fluidCollected: [id number]: [id number] [facility], Department of Pathology, [address] [place] [address], [place] [address] , [facility], [facility] of [facility]ology, [address] [place] [address], [facility]dc[facility], Departmentof Pathology, [address] [place] [address], QP, ABDOMEN, [id number] 09:28:00Referring: Dr. Tayo wolfeNeed T 3 liver [...] MDReport Verified Date/Time: 08/29/2018 09:28:45 Reading Location: [address] Radiology Reading Room BODY FLUID CELL COUNT WITH [id number] 19:43:00 Test Item Value Reference Range Comments APPEARANCE FLUID (BEAKER) (test jzup=372) Clear Clear COLOR FLUID (BEAKER) (test bedg=643) Yellow Colorless, Straw RBC FLUID (BEAKER) (test jsew=462) 110 /cu mm <=1 ADJUSTED WBC FLUID (BEAKER) (test vfgp=4028) 53 /cu mm <=5 LINING CELLS (BEAKER) (test bjen=4465) 0 /cu mm <=1 NEUTROPHILS FLUID (BEAKER) (test fxhi=4163) 3 % LYMPHS FLUID (BEAKER) (test odwm=643) 28 % MONO/MACROPHAGE FLUID (BEAKER) (test mhid=203) 69 % EOSINOPHILS FLUID (BEAKER) (test hesk=303) 0 % BASO FLUID (BEAKER) (test lkcz=034) 0 % CONTAINER BODY FLUID (BEAKER) (test xvnj=7912) EDTA Tube PROTEIN, BODY [id number] 16:56:00 Test Item Value Reference Range Comments PROTEIN FLUID (BEAKER) (test gxfb=289) 0.9 g/dL Absence of reference range indicates that normals have not been defined.Assay performance has not been validated for this type of specimen.ALBUMIN, BODY [id number] 16:56:00 Test Item Value Reference Range Comments ALBUMIN FLUID (BEAKER) (test leer=797) 0.4 gm/dL Reference Range: No Normals Assay performance has not been validated for this type of specimen.U/S, [id number] 16:30:00Referring: Dr. Tayo Mak paracentesis prior to [...] 1% lidocaine anesthesia was administered. A 5 Nepali catheter was advanced into the peritoneal cavity and 3500 cc of serous fluid was removed. The catheter was removedwithout immediate complication. Samples were sent for analysis. IMPRESSION:Uncomplicated ultrasound-guided paracentesis with 3500 cc fluid removed. Signed: Mercedez Licona MDReport Verified Date/Time:08/26/2018 16:30: 44 Reading Location: [address] Ultrasound Reading Room [id number] 15:10:00 Test Item Value Reference Range Comments POC-CREATININE (InstaJobAKER) 1.9 mg/dL 0.6-1.[address] (test pnxm=8418) [facility] [address] POC-EGFR (BEAKER) (test 35 mL/min/1.73M2 mrfp=6937) HEPATITIS B SURFACE [id number] 18:59:00 Test Item Value Reference Range Comments HEPATITIS B SURFACE ANTIBODY (BEAKER) (test < mIU/mL <8.0 doxh=447) HEPATITIS A ANTIBODY, [id number] 18:59:00 Test Item Value Reference Range Comments HEPATITIS A IGG ANTIBODY (BEAKER) (test cieq=1205) Reactive Nonreactive ALPHA FETOPROTEIN (AFP), TUMOR [id number] 18:59:00 Test Item Value Reference Range Comments ALPHA-FETOPROTEIN (BEAKER) (test hmbr=6996) < ng/mL <10.0 HEPATITIS B CORE ANTIBODY, [id number] 18:56:00 Test Item Value Reference Range Comments HEPATITIS B CORE TOTAL ANTIBODY (BEAKER) (test Nonreactive Nonreactive vigs=261) HEPATITIS B SURFACE [id number] 18:55:00 Test Item Value Reference Range Comments HEPATITIS B SURFACE ANTIGEN (2) (BEAKER) (test Nonreactive Nonreactive hbwo=9568) HEPATITIS C [id number] 18:44:00 Test Item Value Reference Range Comments HEPATITIS C ANTIBODY (BEAKER) (test wwqo=242) Nonreactive Nonreactive BASIC METABOLIC [id number] 17:09:00 Test Item Value Reference Range Comments SODIUM (BEAKER) (test 133 meq/L 136-145 vsjy=918) POTASSIUM (BEAKER) (test 4.3 meq/L 3.5-5.1 xbju=671) CHLORIDE (BEAKER) (test 101 meq/L 98-107 gets=688) CO2 (BEAKER) (test 21 meq/L 22-29 kxsu=192) BLOOD UREA NITROGEN 41 mg/dL 7-21 (BEAKER) (test eisz=363) CREATININE (BEAKER) (test 2.18 mg/dL 0.57-1.25 htec=366) GLUCOSE RANDOM (BEAKER) 101 mg/dL 70-105 (test qhgf=849) CALCIUM (BEAKER) (test 9.0 mg/dL 8.4-10.2 prug=405) EGFR (BEAKER) (test 29 mL/min/1.73 sq m ESTIMATED GFR IS NOT agrt=8162) ACCURATE CREATININE CLEARANCE IN PREDICTING GLOMERULAR FILTRATION RATE. ESTIMATED GFR IS NOT APPLICABLE FOR DIALYSIS PATIENTS. Specimen slightly ictericHEPATIC FUNCTION [id number] 17:07:00 Test Item Value Reference Range Comments TOTAL PROTEIN (BEAKER) (test qjwo=162) 7.3 gm/dL 6.0-8.3 ALBUMIN (BEAKER) (test demq=7541) 2.7 g/dL 3.5-5.0 BILIRUBIN TOTAL (BEAKER) (test yoyn=995) 2.5 mg/dL 0.2-1.2 BILIRUBIN DIRECT (BEAKER) (test pslm=141) 1.2 mg/dL 0.1-0.5 ALKALINE PHOSPHATASE (BEAKER) (test zidj=511) 120 U/L 40-150 AST (SGOT) (BEAKER) (test ytfx=708) 53 U/L 5-34 ALT (SGPT) (BEAKER) (test ubuj=538) 29 U/L 6-55 Specimen slightly [id number] 16:52:00 Test Item Value Reference Range Comments PARTIAL THROMBOPLASTIN TIME (BEAKER) (test 37.9 seconds 22.5-36.0 xfrt=981) PROTHROMBIN [id number] 16:51:00 Test Item Value Reference Range Comments PROTIME (BEAKER) (test lzup=343) 16.5 seconds 11.7-14.7 INR (BEAKER) (test tyir=437) 1.3 <=5.9 RECOMMENDED COUMADIN/WARFARIN INR THERAPY RANGESSTANDARD DOSE: 2.0 - 3.0 Includes: PROPHYLAXIS forvenous thrombosis, systemic embolization; TREATMENT for venous thrombosis and/or pulmonary embolus.HIGH RISK: Target INR is 2.5-3.5 for patients with mechanical heart valves.CBC W/PLT COUNT & AUTO [id number] 16:43:00 Test Item Value Reference Range Comments WHITE BLOOD CELL COUNT (BEAKER) (test qznj=393) 5.9 K/ L 3.5-10.5 RED BLOOD CELL COUNT (BEAKER) (test cvdz=083) 3.48 M/ L 4.63-6.08 HEMOGLOBIN (BEAKER) (test aaxv=052) 11.9 GM/DL 13.7-17.5 HEMATOCRIT (BEAKER) (test jiib=393) 35.4 % 40.1-51.0 MEAN CORPUSCULAR VOLUME (BEAKER) (test txnp=825) 101.7 fL 79.0-92.2 MEAN CORPUSCULAR HEMOGLOBIN (BEAKER) (test 34.2 pg 25.7-32.2 ehgh=317) MEAN CORPUSCULAR HEMOGLOBIN CONC (BEAKER) (test 33.6 GM/DL 32.3-36.5 udrv=657) RED CELL DISTRIBUTION WIDTH (BEAKER) (test 15.4 % 11.6-14.4 prbj=952) PLATELET COUNT (BEAKER) (test suqo=649) 138 K/CU MM 150-450 MEAN PLATELET VOLUME (BEAKER) (test qlwv=066) 11.6 fL 9.4-12.4 NUCLEATED RED BLOOD CELLS (BEAKER) (test 0 /100 WBC 0-0 qquu=952) NEUTROPHILS RELATIVE PERCENT (BEAKER) (test 71 % hepq=223) LYMPHOCYTES RELATIVE PERCENT (BEAKER) (test 11 % hlna=899) MONOCYTES RELATIVE PERCENT (BEAKER) (test 16 % nqgv=898) EOSINOPHILS RELATIVE PERCENT (BEAKER) (test 2 % wgyb=713) BASOPHILS RELATIVE PERCENT (BEAKER) (test 0 % wzfb=311) NEUTROPHILS ABSOLUTE COUNT (BEAKER) (test 4.18 K/ L 1.78-5.38 vsth=817) LYMPHOCYTES ABSOLUTE COUNT (BEAKER) (test 0.62 K/ L 1.32-3.57 besi=568) MONOCYTES ABSOLUTE COUNT (BEAKER) (test 0.95 K/ L 0.30-0.82 kndk=263) EOSINOPHILS ABSOLUTE COUNT (BEAKER) (test 0.10 K/ L 0.04-0.54 hhih=987) BASOPHILS ABSOLUTE COUNT (BEAKER) (test 0.02 K/ L 0.01-0.08 xpkt=394) IMMATURE GRANULOCYTES-RELATIVE PERCENT (BEAKER) 0 % 0-1 (test wsqr=0590)
--- NOTE | 2018-11-10 10:22 | RAD REPORT ---
EXAM DESCRIPTION: CT - Head C Spine Cap Wo Con - 11/10/2018 10:03 am CLINICAL HISTORY: Fall, head, neck, chest and abdomen pain COMPARISON: CT head July 2018 TECHNIQUE: Axial [address] head images were obtained. Axial [address] cervical spine images were obtain ed with sagittal and coronal reconstruction images reviewed. Axial 5 mm images of the chest, abdomen and pelvis were obtained. All CT scans are performed using dose optimization technique as appropriate and may include automated exposure control or mA/KV adjustment according to patient size. FINDINGS: No intracranial hemorrhage, mass or edema. No midline shift or abnormal fluid collection. Mastoid air cells and paranasal sinuses are clear. No skull fracture. Mild to moderate atrophy and c hronic ischemic changes are present. Ventricles are in proportion. Intracranial findings are similar to comparison. Arterial tree calcifications are present. Cervical bodies are normal in height. There is a very slight retrolisthesis of C5 relative to C6. No fracture or acute bone finding.Significant C5-6 and C6-7 disc space narrowing present. Mild C4-5 disc space narrowing is present. Prominent facet joint degenerative changes are present at multiple level s. Bilateral bony foraminal encroachment present at C5-6 and C6-7.No prevertebral soft tissue thicken ing or paraspinal mass.Central canal detail is inherently limited on CT imaging. No acute lung parenchymal process seen. No pulmonary contusion or pneumothorax. A small left pleural effusion is present. No mediastinal hematoma and the aorta and pulmonary arteries are unremarkable. No chest will mass or abnormal axillary finding. No displaced rib fracture or other significant bony finding. Degenerative bony changes are present. No pericardial thickening or effusion. Small nodular liver is present with no focal parenchymal lesions seen on noncontrast imaging. No sple nomegaly or focal splenic abnormality. No acute pancreatic process seen. Cholecystectomy clips are pr esent. No biliary tree dilatation. Prominent sigmoid diverticulosis is present without diverticulitis seen. Moderate stool volume presen t throughout the colon. Mobile cecum is seen. Acute bowel injury is doubtful. No free air or pneumato sis. Large volume of ascites is present. Ascites extends into the left side of the scrotum through inguina l hernia. No bulky lymphadenopathy. There is congested appearance throughout the peritoneal fat. This is more prominent along the right-side of the colon. No specific findings for a colitis. A few small lymph nodes are seen in the mesenteric fat. No urinary bladder abnormality. Disc and bony degenerative changes are present in the abdomen and pelvis. IMPRESSION: Atrophy and chronic ischemic changes similar to comparison. No acute intracranial findin g. Cervical spine degenerative changes are present as detailed. No fracture or acute finding seen. Small left pleural effusion with no pulmonary contusion, pneumothorax or other finding to indicate ac [place] traumatic source for the pleural fluid. Advanced cirrhotic liver changes with large volume of ascites. No free air in the peritoneal cavity. No acute traumatic injury to the bowel or solid abdominal visce ra is seen. There is congestion or edema in the peritoneal fat in addition to the large volume ascites. This is m ore pronounced along the right side of the colon. A specific: Injury or colitis not confirmed. Low-le renetta inflammatory change or typhlitis would be possible if there are any matching clinical findings. Patient has scattered degenerative changes of the skeleton but no acute or pathologic bone process co nfirmed. No significant CT Abdomen and Pelvis finding.
[2018-11-10 10:23] LABS: Absolute Lymphocytes (CBC) 0.5 K/uL (0.7-4.9); Basophils % 0.2 % (0-1.3); Eosinophils % 1.4 % (0-4.4); Hematocrit 38.9 % (39.6-49.0); Lymphocytes % 5.9 % (15.3-44.8); MPV 9.6 fL (7.6-11.3); Monocytes % 10.6 % (3.3-12.3); RBC Red Blood Cell Count 3.74 M/uL (4.33-5.43)
[2018-11-10 10:35] LABS: Potassium 4.9 mmol/L (3.5-5.1)
[2018-11-10] MEDS ORDERED: ONDANSETRON 4 MG/2 ML VIAL ONE (10:38)
[2018-11-10] MEDS ORDERED: METOCLOPRAMIDE 10 MG/2mL INJ ONE (11:39)
[2018-11-10 11:40] LABS: Protime INR 1.31
[2018-11-10] MEDS ORDERED: LACTULOSE 20 GM/30 ML UCUP ONE (12:54)
--- NOTE | 2018-11-10 13:01 | ER ---
Nurse's Notes [facility] Name: Clifford Vega Age: 78 yrs Sex: Male : 1940 Arrival Date: 11/10/2018 Time: 09:50 Bed 6 Private MD: Diagnosis: Encephalopathy, unspecified-Hepatic Presentation: 11/10 09:37 Acuity: VALE 2 sv 09:37 Method Of Arrival: EMS: [facility] sv 09:37 Presenting complaint: EMS states: fall injury with unknown LOC, generalized weakness, sv abrasions to bilateral elbows, n/v. BP 90/50 on arrival, NS bolus given, BP 146/67 HR-60. Paracentesis done 2 days ago and normally feels better after but did not feel better this time. Care prior to arrival: IV initiated. 20 GA, in the left wrist. Mechanism of Injury: Fall from standing position. Trauma event details: Injury occurred in the [facility] [place], Injury occurred: at home. Injury occurred: November 10, 2018. 09:40 Transition of care: patient was not received from another setting of care. Onset of sv symptoms was November 10, 2018. Risk Assessment: Do you want to hurt yourself or someone else? Patient reports no desire to harm self or others. Initial Sepsis Screen: Does the patient meet any 2 criteria? Altered Mental Status. No. Patient's initial sepsis screen is negative. Does the patient have a suspected source of infection? No. Patient's initial sepsis screen is negative. Trauma Activation: Alert Physician: ED Physician; Name: Dr Negro; Notified At: 09:43; Arrived At: 09:50 Physician: General Surgeon; Name: ; Notified At: 09:43; Arrived At: Physician: Radiology; Name: Aparna; Notified At: 09:43; Arrived At: 09:44 Physician: Respiratory; Name: ; Notified At: 09:43; Arrived At: Physician: Lab; Name: ; Notified At: 09:43; Arrived At: 09:43 Primary:Marisel, Secondary RN: Pamela, valve technician: Josette, sales clerk supervisor: Destiny sv Historical: - Allergies: 10:30 Aspirin; sv 10:30 Codeine; sv 10:30 Sulfa (Sulfonamide Antibiotics); sv 10:30 Bactrim; sv - PMHx: 10:30 Cirrhosis; Diabetes - NIDDM; Dementia; sv - Immunization history:: Adult Immunizations up to date. - Social history:: Smoking status: Patient/guardian denies using tobacco. - Ebola Screening: : No symptoms or risks identified at this time. Screenin:51 Abuse screen: Denies threats or abuse. Nutritional screening: No deficits noted. tw2 Tuberculosis screening: No symptoms or risk factors identified. Fall Risk Secondary diagnosis (15 points) impaired mobility. Primary Survey: 09:40 NO uncontrolled hemorrhage observed. A: The patient is alert. Airway: patent, No sv supplemental oxygen in use on arrival. Oral cavity: clear, Trachea midline. Breathing/Chest: Respiratory pattern: regular, Respiratory effort: spontaneous, unlabored, Chest inspection: symmetrical rise and fall of the chest. Circulation: Heart tones present. Pulses: palpable right radial artery and left radial artery. Skin color: pink, Skin temperature: warm, dry. Disability Alert. Exposure/Environment: All clothing and personal items were removed. Forensic evidence collection is not deemed to be indicated at this time. Items placed in patient belonging bag. There is no evidence of uncontrolled external bleeding. Obvious injury(ies) are noted at this time: Abrasions to bilateral elbows and bilateral knees A warming method has been applied: A warm blanket has been provided to the patient. 10:16 Reassessment Airway Airway Patent Oxygen No O2 Oral cavity Clear Trachea Midline sv Breathing/Chest Respiratory pattern Regular Respiratory effort Spontaneous Unlabored Chest inspection Symmetrical Circulation Heart rhythm Sinus tyler Heart tones Present Pulses Palpable Color [place] Temperature Warm Dry Disability Alert. Secondary Survey: 09:40 HEENT: No deficits noted. Gastrointestinal: Abdomen is noted to have ascites, sv distended, Palpation Other round, ascites noted Patient reports Nausea. : No deficits noted. No signs and/or symptoms were reported regarding the genitourinary system. Musculoskeletal: No deficits noted. No signs and/or symptoms reported regarding the musculoskeletal system. Assessment: 10:14 Reassessment: Spouse stated that she heard the pt get up around 0730 and then she found sv him laying on the ground on his side around 0830 today c/o nausea. 10:30 Reassessment: Patient appears in no apparent distress at this time. No changes from sv previously documented assessment. Patient and/or family updated on plan of care and expected duration. Pain level reassessed. 12:53 Reassessment: Patient appears in no apparent distress at this time. No changes from sv previously documented assessment. Patient and/or family updated on plan of care and expected duration. Pain level reassessed. Family remains at the bedside. 13:55 Reassessment: Patient appears in no apparent distress at this time. No changes from sv previously documented assessment. Patient and/or family updated on plan of care and expected duration. Pain level reassessed. Vital Signs: 09:42 BP 134 / 66; Pulse 53; Resp 16; Temp 96.1; Pulse Ox 99% ; Pain 0/10; sv 10:16 BP 126 / 65; Pulse 53; Resp 16; Temp 96.5(A); Pulse Ox 100% on R/A; Pain 0/10; sv 10:56 BP 119 / 71; Pulse 56; Resp 18; Pulse Ox 100% ; sv 10:58 Weight 92 kg; Height 5 ft. 11 in. (180.34 cm); sv 11:42 BP 121 / 68; Pulse 55 MON; Resp 16; Pulse Ox 100% on R/A; sv 12:30 BP 103 / 64; Pulse 71; Resp 16; Pulse Ox 99% ; sv 13:32 BP 120 / 70; Pulse 73; Resp 16; Temp 97; Pulse Ox 98% ; sv 10:58 Body Mass Index 28.29 (92.00 kg, 180.34 cm) sv 11:42 Sinus bradycardia sv [place] Coma Score: 09:40 Eye Response: spontaneous(4). Verbal Response: confused(4). Motor Response: obeys sv commands(6). Total: 14. 10:16 Eye Response: spontaneous(4). Verbal Response: confused(4). Motor Response: obeys sv commands(6). Total: 14. 13:33 Eye Response: spontaneous(4). Verbal Response: confused(4). Motor Response: obeys sv commands(6). Total: 14. Trauma Score (Adult): 09:40 Eye Response: spontaneous(1); Verbal Response: confused(1); Motor Response: obeys sv commands(2); Systolic BP: > 89 mm Hg(4); Respiratory Rate: 10 to 29 per min(4); [place] Score: 14; Trauma Score: 12 10:16 Eye Response: spontaneous(1); Verbal Response: confused(1); Motor Response: obeys sv commands(2); Systolic BP: > 89 mm Hg(4); Respiratory Rate: 10 to 29 per min(4); [place] Score: 14; Trauma Score: 12 13:33 Eye Response: spontaneous(1); Verbal Response: confused(1); Motor Response: obeys sv commands(2); Systolic BP: > 89 mm Hg(4); Respiratory Rate: 10 to 29 per min(4); [place] Score: 14; Trauma Score: 12 ED Course: 09:37 Maintain EMS IV. Dressing intact. Site clean \T\ dry. Gauge \T\ site: 20G left wrist. sv 09:40 Patient maintains SpO2 saturation greater than 95% on room air. sv 09:45 Arm band placed on. sv 09:50 Patient arrived in ED. ss 09:50 Initial lab(s) drawn, by me, sent to lab. First set of blood cultures drawn by me. sv Inserted saline lock: 20 gauge in right forearm, using aseptic technique. Blood collected. Flushed right forearm with 5 ml normal saline. 09:50 Thermoregulation: warm blanket given to patient. sv 09:50 Placed in gown. Bed in low position. Side rails up X2. shelter monitor on. Pulse ox on. tw2 NIBP on. 09:56 Milton Negro MD is Attending Physician. kdr 09:57 Marisel Banerjee, SEGUNDO is Primary Nurse. sv 10:03 CT Traumagram (Head C Spine CAP wo con) In Process Unspecified. EDMS 10:13 EKG done, by geodetic technician. reviewed by Milton Negro MD. at1 10:14 Patient moved back from CT. sv 10:18 Triage completed. sv 10:29 LAB Add On Sent. sv 10:29 Basic Metabolic Panel Sent. sv 10:30 Second set of blood cultures drawn by me, T\T\S collected, blood band applied to patient. dh3 by venipuncture 23G to right hand. 11:52 Awaiting disposition, Awaiting re-evaluation by ER provider. sv 13:00 Clark Barrera MD is Hospitalizing Provider. kdr 13:33 Awaiting bed assignment. sv 14:18 No provider procedures requiring assistance completed. Patient admitted, IV remains in sv place. intact. Administered Medications: 10:29 Drug: Zofran 4 mg Route: IVP; Site: left wrist; sv 11:20 Follow up: Response: No adverse reaction; No change in condition sv 11:28 Drug: Reglan 10 mg Route: IVP; Infused Over: 3 mins; Site: right forearm; sv 14:19 Follow up: Response: No adverse reaction; Nausea is decreased sv 12:53 Drug: Lactulose 20 grams Volume: 30 ml; Route: PO; sv 13:45 Follow up: Response: No adverse reaction; No change in condition sv Intake: 09:40 PO: 0ml; Total: 0ml. sv 10:16 PO: 0ml; Total: 0ml. sv 13:33 PO: 200ml (Water); Total: 200ml. sv Output: 09:40 Urine: 0ml; Total: 0ml. sv 10:16 Urine: 0ml; Total: 0ml. sv 13:33 Urine: 0ml; Total: 0ml. sv Outcome: 11:49 Patient's length of stay in the Emergency Department was greater than 2 hours. waiting sv for MD to review labs and radiology resultsPatient's length of stay extended due to 13:00 Decision to Hospitalize by Provider. kdr 13:54 Admitted to Tele accompanied by brittany, family with patient, via stretcher, room 431, sv with chart, Report called to Yulia RAYMOND 13:54 Condition: stable 13:54 Instructed on the need for admit. 14:18 Patient left the ED. sv Signatures: Dispatcher [employer] Marisel Case RN SEGUNDO Milton Negro MD MD kdr Smirch, Shelby, RN RN Dorothy Last, topper press operator automatic EKG Tat1 Lila Pro RN RN tw2 Josette Rodrigez 3 Corrections: (The following items were deleted from the chart) 13:54 13:32 BP 120 / 70; Pulse 73bpm; Resp 16bpm; Pulse Ox 98%; sv sv 14:19 12:00 Response: No adverse reaction sv sv
--- NOTE | 2018-11-10 13:01 | EDPHYS ---
Physician Documentation [facility] Name: Clifford Vega Age: 78 yrs Sex: Male : 1940 Arrival Date: 11/10/2018 Time: 09:50 Bed 6 Private MD: ED Physician Milton Negro HPI: 11/10 09:59 This 78 yrs old Male presents to ER via Unassigned with complaints of Fall kdr Injury. 09:59 Details of fall: The patient fell from an upright position, while standing. kdr 10:07 Onset: The symptoms/episode began/occurred suddenly, just prior to arrival. kdr 18:51 Severity of symptoms: At their worst the symptoms were mild, in the emergency kdr department the symptoms. The patient has experienced similar episodes in the past, a few times. The patient has been recently seen by a physician: On Wednesday, the patient had 11 liters drained via paracentesis. Historical: - Allergies: 10:30 Aspirin; sv 10:30 Codeine; sv 10:30 Sulfa (Sulfonamide Antibiotics); sv 10:30 Bactrim; sv - PMHx: 10:30 Cirrhosis; Diabetes - NIDDM; Dementia; sv - Immunization history:: Adult Immunizations up to date. - Social history:: Smoking status: Patient/guardian denies using tobacco. - Ebola Screening: : No symptoms or risks identified at this time. ROS: 18:51 Constitutional: Negative for fever, chills, and weight loss, Eyes: Negative for injury, kdr pain, redness, and discharge, Neck: Negative for injury, pain, and swelling, Cardiovascular: Negative for chest pain, palpitations, and edema, Respiratory: Negative for shortness of breath, cough, wheezing, and pleuritic chest pain, Back: Negative for injury and pain, : Negative for injury, bleeding, discharge, and swelling, MS/Extremity: Negative for injury and deformity, Skin: Negative for injury, rash, and discoloration, Psych: Negative for depression, anxiety, suicide ideation, homicidal ideation, and hallucinations, Allergy/Immunology: Negative for hives, rash, and allergies, Endocrine: Negative for neck swelling, polydipsia, polyuria, polyphagia, and marked weight changes, Hematologic/Lymphatic: Negative for swollen nodes, abnormal bleeding, and unusual bruising. 18:51 Abdomen/GI: Positive for nausea and vomiting. 18:51 Neuro: Positive for altered mental status, weakness, Possible LOC. Exam: 18:51 Constitutional: This is a well developed, well nourished patient who is awake, alert, kdr and in no acute distress. Head/Face: Normocephalic, atraumatic. There is apparent emesis on the right side of his face Eyes: Pupils equal round and reactive to light, extra-ocular motions intact. Lids and lashes normal. Conjunctiva and sclera are non-icteric and not injected. Cornea within normal limits. Periorbital areas with no swelling, redness, or edema. Neck: Trachea midline, no thyromegaly or masses palpated, and no cervical lymphadenopathy. Supple, full range of motion without nuchal rigidity, or vertebral point tenderness. No Meningismus. Chest/axilla: Normal chest wall appearance and motion. Nontender with no deformity. No lesions are appreciated. Cardiovascular: Regular rate and rhythm with a normal S1 and S2. No gallops, murmurs, or rubs. Normal PMI, no JVD. No pulse deficits. Respiratory: Lungs have equal breath sounds bilaterally, clear to auscultation and percussion. No rales, rhonchi or wheezes noted. No increased work of breathing, no retractions or nasal flaring. Back: No spinal tenderness. No costovertebral tenderness. Full range of motion. Skin: Warm, dry with normal turgor. Normal color with no rashes, no lesions, and no evidence of cellulitis. There are multiple skin tears to both elbows MS/ Extremity: Pulses equal, no cyanosis. Neurovascular intact. Full, normal range of motion. Neuro: Awake and alert, GCS 15, oriented to person, place, time, and situation. Cranial nerves II-XII grossly intact. Motor strength 5/5 in all extremities. Sensory grossly intact. Cerebellar exam normal. Normal gait. Psych: Awake, alert, with orientation to person, place and time. Behavior, mood, and affect are within normal limits. 18:51 Abdomen/GI: Inspection: distension, that is mild, Bowel sounds: diminished, Palpation: soft, mild abdominal tenderness, mass, is not appreciated, rebound tenderness, is not appreciated, voluntary guarding, is not appreciated, involuntary guarding, is not appreciated. Vital Signs: 09:42 BP 134 / 66; Pulse 53; Resp 16; Temp 96.1; Pulse Ox 99% ; Pain 0/10; sv 10:16 BP 126 / 65; Pulse 53; Resp 16; Temp 96.5(A); Pulse Ox 100% on R/A; Pain 0/10; sv 10:56 BP 119 / 71; Pulse 56; Resp 18; Pulse Ox 100% ; sv 10:58 Weight 92 kg; Height 5 ft. 11 in. (180.34 cm); sv 11:42 BP 121 / 68; Pulse 55 MON; Resp 16; Pulse Ox 100% on R/A; sv 12:30 BP 103 / 64; Pulse 71; Resp 16; Pulse Ox 99% ; sv 13:32 BP 120 / 70; Pulse 73; Resp 16; Temp 97; Pulse Ox 98% ; sv 10:58 Body Mass Index 28.29 (92.00 kg, 180.34 cm) sv 11:42 Sinus bradycardia sv [place] Coma Score: 09:40 Eye Response: spontaneous(4). Verbal Response: confused(4). Motor Response: obeys sv commands(6). Total: 14. 10:16 Eye Response: spontaneous(4). Verbal Response: confused(4). Motor Response: obeys sv commands(6). Total: 14. 13:33 Eye Response: spontaneous(4). Verbal Response: confused(4). Motor Response: obeys sv commands(6). Total: 14. Trauma Score (Adult): 09:40 Eye Response: spontaneous(1); Verbal Response: confused(1); Motor Response: obeys sv commands(2); Systolic BP: > 89 mm Hg(4); Respiratory Rate: 10 to 29 per min(4); [place] Score: 14; Trauma Score: 12 10:16 Eye Response: spontaneous(1); Verbal Response: confused(1); Motor Response: obeys sv commands(2); Systolic BP: > 89 mm Hg(4); Respiratory Rate: 10 to 29 per min(4); Korey Score: 14; Trauma Score: 12 13:33 Eye Response: spontaneous(1); Verbal Response: confused(1); Motor Response: obeys sv commands(2); Systolic BP: > 89 mm Hg(4); Respiratory Rate: 10 to 29 per min(4); [place] Score: 14; Trauma Score: 12 MDM: 13:00 Patient medically screened. kdr 18:51 Data reviewed: vital signs, nurses notes, lab test result(s), radiologic studies. kdr Counseling: I had a detailed discussion with the patient and/or guardian regarding: the historical points, exam findings, and any diagnostic results supporting the discharge/admit diagnosis, lab results, radiology results, the need for further work-up and treatment in the hospital. 11/10 09:50 Order name: Glucose, Ancillary Testing; Complete Time: 09:58 EDNM 11/10 09:57 Order name: Basic Metabolic Panel [facility] 11/10 09:57 Order name: CBC with Diff; Complete Time: 11:24 [facility] 11/10 09:57 Order name: Creatinine for Radiology; Complete Time: 11:24 [facility] 11/10 09:57 Order name: Type And Screen; Complete Time: 12:18 [facility] 11/10 09:57 Order name: Basic Metabolic Panel; Complete Time: 11:24 EDNM 11/10 09:57 Order name: CT Traumagram (Head C Spine CAP wo con); Complete Time: 11:24 [facility] 11/10 10:03 Order name: AMMONIA; Complete Time: 11:24 [facility] 11/10 10:03 Order name: Blood Culture Adult (2) [facility] 11/10 10:03 Order name: Procalcitonin; Complete Time: 11:24 [facility] 11/10 10:03 Order name: Lactate; Complete Time: 11:24 [facility] 11/10 10:19 Order name: LAB Add On sv 11/10 11:34 Order name: Protime (+INR); Complete Time: 12:18 [facility] 11/10 09:57 Order name: Labs collected and sent; Complete Time: 10:19 [facility] 11/10 12:55 Order name: EKG Electrocardiogram; Complete Time: 14:19 [facility] 11/10 14:16 Order name: Diet Ada 1800 [address] Antonio; Complete Time: 14:17 eb Administered Medications: 10:29 Drug: Zofran 4 mg Route: IVP; Site: left wrist; sv 11:20 Follow up: Response: No adverse reaction; No change in condition sv 11:28 Drug: Reglan 10 mg Route: IVP; Infused Over: 3 mins; Site: right forearm; sv 14:19 Follow up: Response: No adverse reaction; Nausea is decreased sv 12:53 Drug: Lactulose 20 grams Volume: 30 ml; Route: PO; sv 13:45 Follow up: Response: No adverse reaction; No change in condition sv Disposition: 11/10/18 13:00 Hospitalization ordered by Clark Barrera for Inpatient Admission. Preliminary diagnosis is Encephalopathy, unspecified - Hepatic. - Bed requested for Telemetry/MedSurg (Inpatient). - Status is Inpatient Admission. sv - Condition is Fair. - Problem is an acute exacerbation. - Symptoms have improved. UTI on Admission? No Signatures: Dispatcher [employer] EDMS Marisel Banerjee, RN RN sv Kenzie Storm RN RN dw Milton Negro MD MD [facility] Syeda Davis RN RN ss Corrections: (The following items were deleted from the chart) 13:39 13:00 Hospitalization Ordered by Clark Barrera MD for Inpatient Admission. Preliminary dw diagnosis is Encephalopathy, unspecified - Hepatic. Bed requested for Telemetry/MedSurg (Inpatient). Status is Inpatient Admission. Condition is Fair. Problem is an acute exacerbation. Symptoms have improved. UTI on Admission? No. kdr 14:18 13:39 11/10/2018 13:00 Hospitalization Ordered by Clark Barrera MD for Inpatient sv Admission. Preliminary diagnosis is Encephalopathy, unspecified - Hepatic. Bed requested for Telemetry/MedSurg (Inpatient). Status is Inpatient Admission. Condition is Fair. Problem is an acute exacerbation. Symptoms have improved. UTI on Admission? No. dw
[2018-11-10] MEDS ORDERED: ACETAMINOPHEN 500 MG TAB PO PRN (14:47)
[2018-11-10] MEDS ORDERED: D50W 25 GM/50 ML SYRINGE IV PRN (14:47)
[2018-11-10] MEDS ORDERED: GLUCAGON 1 MG/VIAL IM PRN (14:47)
[2018-11-10] MEDS: NA CHLORIDE 0.9% 1,000 ML IV SCH (15:43)
[2018-11-10] MEDS: INSULIN -REGULAR HUMAN 50 UNIT/0.5 ML ML SQ SCH ×2 (16:30→20:22)
--- NOTE | 2018-11-10 16:30 | EKG ---
Test Date: 2018-11-10 Test Time: 10:11:29 [employer] Installer Helper: JUAN MEASUREMENT RESULTS: Intervals: Rate: 52 UT: 156 QRSD: 84 QT: 498 QTc: 463 [place]: P: 90 UT: 156 QRS: 51 T: 54 INTERPRETIVE STATEMENTS: Sinus bradycardia Otherwise normal ECG Compared to ECG 08/29/2018 15:32:04 Sinus rhythm no longer present Ventricular premature complex(es) no longer present Electronically Signed On 11-10-18 16:29:32 CDT by Pedro Pablo Alicea
[2018-11-10] MEDS: LACTULOSE 20 GM/30 ML UCUP PO SCH ×2 (17:47→23:31)
[2018-11-10 17:56] LABS: Urine Appearance CLEAR; Urine Blood NEGATIVE (NEG); Urine Color ORANGE; Urine Glucose NEGATIVE (NEG); Urine Protein NEGATIVE (NEG); Urine Specific Gravity 1.025 (1.005-1.030); Urine pH 5.5 (5.0-7.0)
[2018-11-10 18:03] LABS: Urine Bilirubin NEGATIVE (NEG); Urine Microscopic Reflex ORDER UMIC
[2018-11-10 18:54] LABS: Urine Amorphous Sediment TRACE /HPF (NONE SEEN); Urine Bacteria 20-50 /HPF (NONE SEEN); Urine Culture Reflex Order REFLEXED; Urine Mucus 3+ /HPF (NONE SEEN); Urine RBC <5 /HPF (NONE SEEN)
[2018-11-11] MEDS: NA CHLORIDE 0.9% 1,000 ML IV SCH ×4 (05:12→21:03)
[2018-11-11] MEDS: LACTULOSE 20 GM/30 ML UCUP PO SCH ×3 (05:12→17:11)
--- NOTE | 2018-11-11 05:35 | HP ---
Date of Admission: 11/10/2018 Chief Complaint: Altered mental status and fall. History Of Present Illness: This is a 78-year-old male patient with cirrhosis of liver, takes his medications regularly as he says, gets paracentesis done about every 3 weeks. Last paracentesis was done 2 days ago at our hospital and 11 L of peritoneal fluid was removed. The patient was doing fine in his normal usual state of health until this morning. The patient's found him on the floor and he had altered mental status. He was brought into the emergency room , ER physician evaluated him and contacted me requesting admission to the hospital with hepatic encephalopathy and multiple skin tear involving both upper extremity and right lower extremity. It was reported from the ER physician that the patient somehow lost his balance, fell down on the floor in one part of the house some time yesterday evening, and found him this morning. This evening when I saw him, the patient is not able to provide exact details because of his altered mental status and the is not available at bedside. Review of Systems: Constitutional: Generalized weakness. 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 Dermatology: Multiple skin tear. All other systems reviewed and negative. Medications: Lactulose 30 cc which is 20 g by mouth 2 times a day, furosemide 20 mg p.o. 2 times a day, omeprazole 40 mg p.o. daily, propranolol 10 mg p.o. twice a day, spironolactone 100 mg p.o. 2 times a day, and Xifaxan 550 mg p.o. 2 times a day. 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 Past Surgical History: Cholecystectomy, removal of basal cell carcinoma and lipoma from back. Allergies: HYDROCODONE MAKES HIM FEEL WEIRD AND NAUSEATED, LISINOPRIL CAUSES FLUSHING TYPE OF SENSATION, SULFA CAUSES HYPERACTIVITY, AND MUCINEX DM CAUSES TONGUE SWELLING. Family History: Brother with abdominal aortic aneurysm. Social History: Prior history of alcohol use, not at present time. Negative for smoking. Physical Examination: Vital Signs: Temperature 96.8, pulse 69, respiratory rate 16, blood pressure 110/54, height 5 feet 11 inches, weight 170 pounds. General: The patient appears weaker than normal, somewhat confused, not in any respiratory distress. HEENT: Head atraumatic, normocephalic. Conjunctivae nonerythematous. Sclerae white. Mouth, no thrush or edema noted. Ears/Nose, no mass, lesion, discharge noted. Neck: Supple. No JVD, lymph nodes, bruit, thyromegaly noted. Lungs: Bilateral good equal air entry. Clear to auscultation. No rhonchi. No rales. Heart: Normal heart sounds, no murmur or gallop. Abdomen: Abdomen is slightly distended with presence of ascites. No guarding, rigidity, tenderness. Extremities: No leg edema. No calf tenderness. Skin: Presence of skin tear, right lateral leg and both upper extremities. Dressing present over all this skin tear area. Lymphatics: No lymph node enlargement in neck, supraclavicular, infraclavicular region. Neuro: No focal neurological deficit. Chest: Unremarkable. External Genitalia: Deferred. Rectal: Deferred. Laboratory Data: White count 8.9, hemoglobin 13.3, platelets 157. Sodium 136, potassium 4.9, chloride 106, lactic acid 3.1, procalcitonin 0.17, ammonia level 107. Per trauma protocol evidence of cerebral atrophy and ischemic changes. No acute intracranial changes, cervical spine degenerative changes, small left pleural effusion. No acute intraabdominal findings. Impression: 1. Hepatic encephalopathy. 2. 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 3. Chronic back pain. 4. Mixed hyperlipidemia. 5. Type 2 diabetes mellitus. 6. Multiple skin tears. 7. Benign prostatic hypertrophy. 8. Gastroesophageal reflux disease. Plan: We will admit the patient to hospital for further evaluation and management of this problem. The patient is appropriate for inpatient and is expected to spend 2 midnights in hospital. We will go ahead and continue home medications per order, fall precautions. Med check is in place and we will give lactulose per order. I will see him tomorrow for followup. We will consult Physical Therapy to help ambulate the patient and our plan is once the ammonia level comes down and he is medically stable, then plan to discharge him to go home with higher dose of lactulose. I will discuss with him regarding home health physical therapy, which I believe will be beneficial to him if he is willing to accept such recommendation. I will see him tomorrow for followup. TOMMY/HAM Voice ID: [id number] [id number]
[2018-11-11 06:07] LABS: Albumin 2.2 g/dL (3.4-5.0); Bilirubin Total 3.2 mg/dL (0.2-1.0); Potassium 4.6 mmol/L (3.5-5.1); Protein, Total 6.1 g/dL (6.4-8.2)
[2018-11-11 06:11] LABS: Absolute Lymphocytes (CBC) 0.7 K/uL (0.7-4.9); Basophils % 0.6 % (0-1.3); Eosinophils % 2.2 % (0-4.4); Hematocrit 33.3 % (39.6-49.0); Lymphocytes % 9.8 % (15.3-44.8); MPV 9.8 fL (7.6-11.3); Monocytes % 13.9 % (3.3-12.3); RBC Red Blood Cell Count 3.19 M/uL (4.33-5.43)
[2018-11-11] MEDS: INSULIN -REGULAR HUMAN 50 UNIT/0.5 ML ML SQ SCH ×5 (07:30→21:05)
--- NOTE | 2018-11-11 14:35 | PN ---
Date of Progress Note: 11/11/2018 Subjective: The patient was seen this morning for followup. His mental status was much better this morning compared to yesterday. and daughter were present in room. Denied any other new complai nts this morning. Objective: Vital Signs: Reviewed. HEENT: Unremarkable. Lungs: Clear to auscultation. Heart: Heart sounds normal. ABDOMEN: Soft. Bowel sounds normal. No guarding, rigidity, tenderness. Mild distention with ascit es, unchanged from yesterday. Extremities: No leg edema please make correction on abdomen soft bowel sounds normal. No guarding, rigidity, tenderness. Laboratory Data: Reviewed from this morning. Impression: 1.Cirrhosis of liver with ascites, due to alcohol. 2.Hepatic encephalopathy. 3.Type 2 diabetes mellitus. 4.Hypertension. 5.Mixed hyperlipidemia. Plan: We will go ahead and continue current medications including lactulose. Physical therapy to he lp ambulate the patient. The patient's clarified details and she informed me that the patient w as fine all day on Wednesday. He takes his own medications and paracentesis was done on Wednesday of t his week. He is prescribed to take lactulose 2 times a day and he takes his own medications, so does not know if he took his lactulose Wednesday evening and Wednesday at all, but she is concerned th at he probably missed lactulose and in any case, yesterday morning, around 7:30 or so, the patient wo ke up, but around 8:30 or so, when checked on him, he was on the floor and when EMS arrived, his blood pressure was low. He was probably on the floor for about 45 minutes or so as says, no lo nger than that. So, we are not sure if his hepatic encephalopathy is due to not taking lactulose at all or not taking adequate amount of lactulose. We will not know, but right now, we will continue cu rrent dose of lactulose. Upon discharge from the hospital, I have instructed the patient and patient' s that from now on all of his medication to be monitored, managed and administered by inste ad of relying on the patient to avoid such problem. I will see him tomorrow for followup. We will r epeat ammonia level tomorrow and then possible discharge tomorrow. The patient has not had a bowel m ovement so far since he was admitted, but he has not had much to eat in last couple of days. TOMMY/MODL Voice ID: [id number] Report ID: [id number]
[2018-11-11] MEDS: PANTOPRAZOLE 40MG TABLET PO SCH (21:02)
[2018-11-11] MEDS: PROMOD 30 ML DOSE PO SCH (21:06)
[2018-11-12] MEDS: LACTULOSE 20 GM/30 ML UCUP PO SCH ×4 (00:21→17:04)
[2018-11-12] MEDS: METOCLOPRAMIDE 10 MG/2mL INJ IV PRN ×2 (01:54→20:31)
[2018-11-12] MEDS: PANTOPRAZOLE 40MG TABLET PO SCH (05:45)
[2018-11-12] MEDS: INSULIN -REGULAR HUMAN 50 UNIT/0.5 ML ML SQ SCH ×4 (07:30→20:45)
[2018-11-12] MEDS: PROMOD 30 ML DOSE PO SCH ×2 (09:00→20:32)
[2018-11-12] MEDS: FUROSEMIDE 20 MG TABLET PO SCH (09:25)
[2018-11-12] MEDS: SPIRONOLACTONE 25 MG TABLET PO SCH ×2 (09:25→20:30)
--- NOTE | 2018-11-12 13:33 | PN ---
Date of Progress Note: 11/12/2018 Subjective: The patient was seen this morning for followup. No new complaints or problems reported by the patient. Lying in bed, not in any distress. Objective: Vital Signs: Reviewed. HEENT: Examination unremarkable. Lungs: Clear to auscultation. Heart: Sounds normal. Abdomen: Soft, bowel sounds normal. No guarding, rigidity, or tenderness. Presence of distention w ith ascites present, unchanged. Extremities: No leg edema. Laboratory Data: Ammonia level 104. Impression: 1.Hepatic encephalopathy. 2.Cirrhosis of liver with ascites, due to alcohol. 3.Thrombocytopenia. 4.Anemia. 5.Gastroesophageal reflux disease. Plan: We will go ahead and continue current proton pump inhibitor therapy for his acid reflux proble m. We will also continue lactulose per current order. The patient is having bowel movement with lac tulose. His altered mental status problem has resolved, he is back to his normal baseline, but octavio ia level has not improved. He still has significant generalized weakness and debility. Physical The rapy to help continue to work and we would like to ambulate the patient 3 to 4 times at least today w ith Physical Therapy and with the hospital staff using his walker that he has in his room. I did com municate with the patient and his who was at bedside and plan is to possibly discharge him to go home tomorrow. We will repeat blood work tomorrow including ammonia level and his MELD score is 17 on basis of yesterday's blood work results. has list of home health agencies and she will pick one particular agency of her choice and contact my office next week so we can help make arrangements for home health care and home physical therapy for him as tells me that Social Service has not arranged for her, but they have given her the list. TOMMY/MODL Voice ID: [id number] Report ID: [id number]
[2018-11-12] MEDS: XIFAXAN 550 MG TABLET PO SCH (20:32)
[2018-11-13] MEDS: LACTULOSE 20 GM/30 ML UCUP PO SCH ×2 (00:14→06:00)
[2018-11-13] MEDS: PANTOPRAZOLE 40MG TABLET PO SCH (06:30)
[2018-11-13] MEDS: INSULIN -REGULAR HUMAN 50 UNIT/0.5 ML ML SQ SCH ×4 (07:30→21:00)
[2018-11-13 08:09] LABS: Absolute Lymphocytes (CBC) 0.5 K/uL (0.7-4.9); Eosinophils % 0.1 % (0-4.4); Lymphocytes % 4.7 % (15.3-44.8); MPV 9.3 fL (7.6-11.3); Monocytes % 10.2 % (3.3-12.3); RBC Red Blood Cell Count 3.56 M/uL (4.33-5.43)
--- NOTE | 2018-11-13 08:09 | RAD REPORT ---
EXAM DESCRIPTION: RAD - Chest Single View - 11/13/2018 7:52 am CLINICAL HISTORY: Altered mental status, pneumonia COMPARISON: August 29 TECHNIQUE: AP portable chest image was obtained 0750 hours . FINDINGS: Lung volumes are low. Left base stranding is present partially obscuring the left hemidiap hragm. This atelectasis and/ or infiltrate pattern is similar to August. No significant failure or vol ume overload. Heart and vasculature are normal. No measurable pleural effusion and no pneumothorax. N o acute bony abnormality seen. No acute aortic findings suspected. IMPRESSION: Shallow inspiration exam showing infiltrate and/or atelectasis left base. Chest findings are similar to the August comparison.
[2018-11-13 08:16] LABS: Protime INR 1.35
[2018-11-13 08:31] LABS: Albumin 2.5 g/dL (3.4-5.0); Bilirubin Total 2.6 mg/dL (0.2-1.0); Magnesium 2.2 mg/dL (1.8-2.4); Potassium 4.6 mmol/L (3.5-5.1); Protein, Total 7.1 g/dL (6.4-8.2)
[2018-11-13] MEDS: SPIRONOLACTONE 25 MG TABLET PO SCH (09:00)
[2018-11-13] MEDS: PROMOD 30 ML DOSE PO SCH (09:00)
[2018-11-13] MEDS: XIFAXAN 550 MG TABLET PO SCH (09:00)
[2018-11-13] MEDS: FUROSEMIDE 20 MG TABLET PO SCH (09:00)
[2018-11-13] MEDS: ALBUTEROL 2.5 MG/3 ML NEB SOL NEB SCH ×3 (09:49→20:00)
[2018-11-13] MEDS ORDERED: PANTOPRAZOLE 40 MG INJ IVP ONE (09:56)
[2018-11-13] MEDS ORDERED: ACETAMINOPHEN 500 MG TAB FT PRN (09:56)
--- NOTE | 2018-11-13 10:39 | RAD REPORT ---
EXAM DESCRIPTION: CT - Head Brain Wo Cont - 11/13/2018 10:29 am CLINICAL HISTORY: Unresponsive, transient alteration of awareness COMPARISON: CT study August 09 TECHNIQUE: Axial 5 mm thick images of the head were obtained without IV contrast. All CT scans are performed using dose optimization technique as appropriate and may include automated exposure control or mA/KV adjustment according to patient size. FINDINGS: No intracranial hemorrhage, mass, edema or shift of mid-line structures. No acute infarcti on changes seen. Atrophy and chronic ischemic changes are present similar to comparison. Ventricles a re in proportion to volume loss. Mastoid air cells and visualized portions of the paranasal sinuses are clear. No acute bony findings. IMPRESSION: Negative non-contrast CT head examination for acute finding. Atrophy and chronic ischemic changes match comparison.
[2018-11-13] MEDS ORDERED: JEVITY 1.5 CAL LIQUID 1,000 ML BOT FT SCH (11:00)
[2018-11-13] MEDS: PIPER/TAZO/NS 3.375gm 3.375 GM/100 ML BAG IVPB SCH ×2 (11:35→17:00)
--- NOTE | 2018-11-13 12:18 | RAD REPORT ---
EXAM DESCRIPTION: RAD - Chest Single View - 11/13/2018 11:55 am CLINICAL HISTORY: Feeding tube placement COMPARISON: None. TECHNIQUE: AP portable chest image was obtained 1150 hours . FINDINGS: Feeding tube has been placed. Tip is in the proximal most stomach near the GE junction. Ti p is below the diaphragm. IMPRESSION: Tip of the feeding tube is in the proximal most stomach near the GE junction.
[2018-11-13 13:08] LABS: Urine Appearance TURBID; Urine Blood 3+ (NEG); Urine Color RED; Urine Glucose NEGATIVE (NEG); Urine Protein 2+ (NEG); Urine Specific Gravity 1.025 (1.005-1.030); Urine pH 5.5 (5.0-7.0)
--- NOTE | 2018-11-13 13:51 | RAD REPORT ---
EXAM DESCRIPTION: RAD - Chest Single View - 11/13/2018 12:57 pm CLINICAL HISTORY: Feeding tube repositioning COMPARISON: Chest/abdomen film earlier in the day TECHNIQUE: AP portable chest image was obtained 1254 hours . FINDINGS: Feeding tube has been advanced several cm. Tip of the feeding tube is now in the body of t he stomach.
[2018-11-13 14:07] LABS: Urine Bacteria 20-50 /HPF (NONE SEEN); Urine Culture Reflex Order REFLEXED; Urine Mucus 4+ /HPF (NONE SEEN); Urine RBC >50 /HPF (NONE SEEN)
[2018-11-13 14:08] LABS: Urine Amorphous Sediment 3+ /HPF (NONE SEEN)
[2018-11-13 14:09] LABS: Urine Bilirubin 2+ (NEG)
[2018-11-13] MEDS: GLUCERNA 1.2 CAL 1,000 ML BOT FT SCH (14:12)
[2018-11-13] MEDS: LACTULOSE 20 GM/30 ML UCUP FT SCH ×3 (14:19→21:00)
--- NOTE | 2018-11-13 15:03 | PN ---
Date of Progress Note: 11/13/2018 Subjective: The patient was seen this morning for followup. There was a change in his condition ear ly this morning, nurse contacted me around 6 a.m. and notified me that the patient's mental status reece d deteriorated during nighttime. He had some nausea, but no vomiting. He did take his lactulose yes terday as prescribed, and I did talk to patient's and daughter who were at bedside this morning when I saw him and the patient's informed me that all throughout the day the patient did not hav e any problem with any altered mental status. Objective: Vital signs: Reviewed. The patient remains afebrile. HEENT Examination: Unremarkable. Lungs: Clear to auscultation. Heart: Sounds normal. Abdomen: Soft. Bowel sounds normal. No guarding, rigidity. Abdomen is somewhat distended with asc ites. Extremities Exam: No leg edema. : External genitalia shows minimum edema of scrotum. CROSSCUTTER Exam: The patient has significantly altered mental status. He does not communicate, does not an swer any questions. He does respond by trying to move his arm below the bed upon painful stimuli. Laboratory Data: White count this morning 11.6, hemoglobin 12.6, platelets 153. CT scan of the head was ordered, result pending. Urinalysis was ordered, result pending, but urine h as been collected. INR 1.35. Chest x-ray shows shallow inspiration, possible infiltrate in left lung base. Ammonia level this morning was 198. Sodium 136, potassium 4.6, chloride 107, bicarb 98. BUN 28, cre atinine 1.46, total bilirubin 2.6. Glucose was 124. His MELD score today is 18, and it was 17 two d ays ago. Impression: 1.Hepatic encephalopathy. 2.Toxic encephalopathy secondary to above. 3.Pneumonia, left lower lobe. 4.Urinary retention. 5.Cirrhosis of liver with ascites, due to alcohol use. Plan: The patient's chest x-ray reviewed. I am concerned about possibility of pneumonia leading to worsening of his hepatic encephalopathy problem. The patient was doing fine; yesterday morning when I saw him, he was like his normal baseline as far as mental status is concerned, and all of a sudden now we have seen worsening of his condition and we need to keep in mind about possibility of some und erlying infection causing worsening of hepatic encephalopathy, and at this point, pneumonia is the li sagar reason. We will go ahead and start him on empiric antibiotic using Zosyn. Nurse informed me th at upon bladder scan he had approximately 620 cc of urine. So, Atkins catheter will be placed for uri nary retention problem to drain the urinary bladder and to reduce chances of any infection as well as renal function abnormality as a result of that. We will remove Atkins catheter at appropriate time. The patient's altered mental status is due to this hepatic encephalopathy problem, but we will need to rule out stroke, and I feel like it is not high on the list of possibility, but we will get a CAT scan of the head done today without contrast. All of his medications will be given through Dobhoff t ube and I did talk to patient's family regarding placement of Dobhoff tube, so that way we can use it for medication administration as well as nutritional purpose and family is agreeable to do so. Bhupendra vega was written for Dobhoff tube placement with appropriate feeding order and water through Dobhoff tub e. We will repeat blood work tomorrow. Overall, prognosis is poor and I did talk to patient's and daughter regarding advance directive and informed me in the event of cardiopulmonary arrest, the patient would not have wanted any aggressive measures like CPR defibrillation or life support an d DNR order was written in the chart per discussion with the patient's . TOMMY/MODL Voice ID: [id number] Report ID: [id number]
[2018-11-13] MEDS: SPIRONOLACTONE 25 MG TABLET FT SCH (21:00)
[2018-11-13] MEDS: RIFAXIMIN FT SCH (21:00)
[2018-11-14] MEDS: LACTULOSE 20 GM/30 ML UCUP FT SCH ×5 (00:14→21:28)
[2018-11-14] MEDS: PIPER/TAZO/NS 3.375gm 3.375 GM/100 ML BAG IVPB SCH ×3 (00:16→16:51)
[2018-11-14] MEDS: ALBUTEROL 2.5 MG/3 ML NEB SOL NEB SCH ×4 (02:00→20:00)
[2018-11-14 06:27] LABS: Absolute Lymphocytes (CBC) 0.5 K/uL (0.7-4.9); Basophils % 0.1 % (0-1.3); Hematocrit 36.1 % (39.6-49.0); MPV 9.2 fL (7.6-11.3); Monocytes % 11.4 % (3.3-12.3); RBC Red Blood Cell Count 3.44 M/uL (4.33-5.43)
[2018-11-14 06:43] LABS: Potassium 4.6 mmol/L (3.5-5.1)
[2018-11-14 06:44] LABS: Albumin 2.3 g/dL (3.4-5.0); Bilirubin Total 3.3 mg/dL (0.2-1.0); Magnesium 2.4 mg/dL (1.8-2.4); Protein, Total 7.1 g/dL (6.4-8.2)
[2018-11-14] MEDS ORDERED: NA CHLORIDE 0.9% 1,000 ML ONE (07:02)
[2018-11-14] MEDS ORDERED: SODIUM BICARB 50 MEQ/50ML VIAL ONE (07:14)
[2018-11-14] MEDS ORDERED: PROPOFOL 200 MG/20 ML VIAL IV ONE (07:22)
[2018-11-14] MEDS: INSULIN -REGULAR HUMAN 50 UNIT/0.5 ML ML SQ SCH ×4 (07:30→21:29)
[2018-11-14] MEDS ORDERED: SODIUM BICARB 50 MEQ/50ML VIAL IV ONE ×3 (08:00)
[2018-11-14 08:32] LABS: Potassium 4.6 mmol/L (3.5-5.1)
[2018-11-14 08:46] LABS: Blood Morphology Comment NOT SEEN (NOT SEEN); Platelet Estimate ADEQ; Toxic Granulation 1+; Urine White Blood Cell Casts OK
[2018-11-14] MEDS: RIFAXIMIN FT SCH ×3 (09:00→21:00)
[2018-11-14] MEDS ORDERED: FUROSEMIDE 20 MG TABLET FT SCH (09:00)
[2018-11-14] MEDS: SPIRONOLACTONE 25 MG TABLET FT SCH ×2 (09:00→21:28)
--- NOTE | 2018-11-14 10:26 | CON ---
History Of Present Illness: A 78-year-old gentleman admitted with hepatic encephalopathy. 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 I was called last night by Dr. Barrera. I was not title i instructional assistant that he had traumatic urethra from a Atkins catheter. They were attempting to drain 600 cc of urine from the bladder, only got 200 cc out and after multiple passes, they were not able to get the Atkins catheter repositioned correctly. Did have some gross hematuria at the meatus. We made him n.p.o. and see have him done in the morning, when it was safer. IV fluids were Hep-Lock. The feeding tubes were held. Review of Systems: As mentioned above. Medications: Lactulose, furosemide, omeprazole, propranolol, spironolactone, Xifaxan. 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 Past Surgical History: History of basal cell carcinoma removal, cholecystectomy , lipoma in the back. Allergies: HYDROCODONE MAKES HIM FEEL WEIRD AND NAUSEATED, LISINOPRIL CAUSES FLUSHING, SULFA CAUSES HYPERACTIVITY, MUCINEX CAUSES TONGUE SWELLING. Family History: Brother has abdominal aortic aneurysm. Social History: Positive for alcohol use, although negative at this time. Negative for smoking. Physical Examination: General Appearance: Lying in bed, not very communicative. [id number] was present in the room. Vital Signs: 97.1, pulse 108, respiratory rate 18, BP 139/61, 95% sat. HEENT: He has a Dobhoff feeding tube, and otherwise normal. Neck: Supple. Lungs: Good air entry. Heart: Normal S1, S2. Abdomen: Soft, nontender. Skin: No rashes. Neuro: No focal deficits. Chest: Unremarkable. Laboratory Data: Shows there is a new white count pending this morning, but yesterday it shows white count 11.6, H and H 12.6 and 37.0, platelet count 153. Coags, PT slightly elevated at 15.7, INR 1.35. Chemistry: New chemistry for today is still pending. Previous chemistries shows sodium 136. This was done on 11/13/2018. Sodium 136, potassium 4.6, chloride 107 carbon dioxide 19, BUN 28, creatinine 1.4, GFR 47, glucose 124, calcium 8.1, total bilirubin 2.6, AST 50. Assessment: Difficult Atkins placement , r/o Traumatic Atkins catheterization. Plan: Plan is to do cystoscopy and Atkins placement. All the general information was given, alternative risks. Informed consent was obtained by the nurse over the phone and wishes to proceed. APRIL/HAM Voice ID: [id number] Report ID: [id number] MTDD
--- NOTE | 2018-11-14 10:32 | OP ---
Surgeon: Aime Rivera MD Preoperative Diagnoses: Difficulty Atkins catheter placement and urinary retention. Postoperative Diagnoses: No strictures found. Normal Atkins placement. Procedure Performed: Cystoscopy and Atkins placement, 16-Portuguese catheter. Complications: None. Findings: Showed normal urethra. No traumatic urethra. No false passages. Minimal BPH. Very trabeculated bladder. Both orifices in their normal anatomical position. No tumors or stones seen. Indications: A pleasant 78-year-old gentleman with hepatic encephalopathy. Nurses had a very difficult time, trying 3 to 4 times to get a catheter in last night, was oriented to get anything and there was some blood at the meatus, so it was assumed he had a traumatic urethra, and was brought to the OR for cystoscopy and Atkins placement. He was given all the general information, alternatives and risks. Family members gave informed consent. Description Of Procedure: He was placed in the supine lithotomy position. I had 2 amps of bicarb due to a very low bicarbonate that came back and his chemistry this morning a stat level of 12. Two amps were given to replace that. Will need a followup bicarb check in recovery room and then after he is going to ICU. The patient was prepped and draped. The urethral meatus was kind of narrow, so we used a 17-Portuguese scope. Apparently, it could not accommodate a 21-Portuguese scope, we substitueded a 17 fr and the penile, and bulbar urethra appeared normal except for slightly reddened bulbar urethra, but no false passages, no traumatic urethra. Prostate was minimally obstructed. Bladder had 3 to 4+ trabeculation, especially on the posterior wall and anterior dome. Both orifices were seen in normal anatomical position. There were no tumors seen. We then placed 10 cc of gel in the urethra and place a regular 16 Atkins catheter that went in nice and smooth and no complications at all. Procedure was then terminated. The patient was awoken and went to recovery room in stable condition to be transferred to ICU. APRIL/HAM Voice ID: [id number] Report ID: [id number] GERARD
--- NOTE | 2018-11-14 10:37 | RAD REPORT ---
EXAM DESCRIPTION: RAD - Abdomen 1 View (KUB) - 11/14/2018 10:22 am CLINICAL HISTORY: Device placement Dobhoff tube placement FINDINGS: The tip of a Dobhoff tube lies within the mid to distal stomach
[2018-11-14] MEDS: PANTOPRAZOLE 40 MG INJ IVP SCH (11:36)
--- NOTE | 2018-11-14 14:32 | PN ---
Date of Progress Note: 11/14/2018 Subjective: The patient was seen this morning for followup and he was seen in surgery recovery room after his surgery done by Dr. Rivera this morning. Yesterday morning, when I saw the patient, he had urinary retention with approximately 620 cc of urine in his bladder as per bladder scan. Nurse was advised to put a Atkins catheter and this was probably placed around maybe 10:00 a.m. yesterday morning or so. Around 4 or 5 a.m. yesterday, the patient's nurse contacted me and informed me that, after she placed a Atkins catheter, she got approximately 200 cc of urine immediately and subsequently, she did not get any urine output for rest of the day. So with that in mind, I was concerned about either the bladder scan was wrong or a Atkins catheter was not in the right place, so I immediately talked to the charge nurse and asked the charge nurse to flush the Atkins catheter, reposition the Atkins catheter and if they do not get any urine output, then to remove Atkins catheter and try to replace it to make sure it is in proper position. Later, yesterday evening, tobacco warehouse agent contacted me to inform me that when she arrived into the patient's room, she noted that the patient had bleeding from urethral meatus and catheter was in place and she told me that catheter was not in the bladder, it was probably in the urethra, so she removed the catheter and after that, she was not able to reinsert another catheter. Every time, she tried to be insert it, she felt like it was getting blocked against something. While this attempt was done to put another catheter, the patient was lying flat in the bed and he started to have some gargling type of noise after that, so his tube feeding that he was getting through Dobbhoff tube was discontinued and the patient's head was elevated. Stat chest x-ray and KUB were done, results reviewed. Last night, I did contact Dr. Rivera. Details were discussed with him and he advised to keep the patient n.p.o. so he can take the patient to surgery this morning. Overnight, the patient's condition remained stable. This morning, the patient did go down for surgery. Prior to surgery, his bicarb level was low. On this morning blood work it was 12, so as soon as I was notified, I ordered 2 amps of bicarb to be given prior to surgery and the patient did receive that and after the surgery, his bicarb was 16 and some more bicarb was ordered. I did see him after surgery in the recovery room. Last night, I did discuss details with the patient's daughter and we were discussing possibility of either keeping him at our facility versus transferring him to [facility] and family requested for us to keep the patient here if possible. Objective: Vital Signs: The patient's vital signs in the recovery room when I was examining him, pulse 106, oxygen saturation 98%, respiratory rate 17, and blood pressure 141/70. HEENT: Unremarkable. Lungs: Clear to auscultation. No rhonchi or rales. Not using accessory muscles of respiration. Heart: heart Sounds normal. Abdomen: Soft. Bowel sounds normal. No guarding, rigidity, tenderness. Extremities: No leg edema. C PROGRAMMER: The patient has altered mental status. He does not answer any question or communicate. He was lying in bed with eyes open. Laboratory Data: This morning, white count 15.4, hemoglobin 12.4, platelets 172. Sodium 135, potassium 4.6 chloride 107, bicarb 12, BUN 43, creatinine 2.49 , glucose 141, total bilirubin 3.3. Ammonia level 132 this morning, which is better than yesterday. His urine culture from 11/11/2015 growing Enterococcus faecalis. Impression: 1. Hepatic encephalopathy. 2. Pneumonia. 3. Urinary tract infection. 4. Acute renal failure. 5. Cirrhosis of liver, with ascites due to alcohol use. 6. Type 2 diabetes mellitus. 7. Metabolic acidosis. 8. Benign prostatic hypertrophy with urinary retention. Plan: We will go ahead and transfer the patient to ICU after the surgery for close monitoring. Depending on his condition in ICU, I will decide if I can transfer him to medical floor probably tomorrow or not. His repeat bicarb after the surgery was 16, creatinine was slightly better compared to earlier this morning and I did talk to Dr. Rivera and he informed me that he did not find out any false passage or any evidence of trauma when he did the cystoscopy and he was able to place the Atkins catheter in and got approximately 200 cc of urine and it is clear yellow urine in the Atkins catheter bag. We will continue to leave the catheter in at this point and he has recommended to start medication like Flomax, but the patient is currently not able to swallow any medications by mouth and he has a tube feeding going on and we will not be able to give Flomax through that, so we will have to wait until he is able to take medications by mouth. Continue current antibiotics. Renal function was slightly better on blood test after surgery compared to earlier this morning. One more amp of bicarb will be given once he arrives to ICU and tube feeding should be started per order once he arrives to ICU with instruction to keep his head and chest elevated all the time. TOMMY/MODL Voice ID: [id number] Report ID: [id number] GERARD
[2018-11-14] MEDS ORDERED: NA CHLORIDE 0.9% 250 ML IV ONE (14:48)
[2018-11-14 17:09] LABS: Absolute Lymphocytes (CBC) 0.7 K/uL (0.7-4.9); Basophils % 0.5 % (0-1.3); Hematocrit 36.6 % (39.6-49.0); Lymphocytes % 4.3 % (15.3-44.8); Monocytes % 11.8 % (3.3-12.3); RBC Red Blood Cell Count 3.47 M/uL (4.33-5.43)
[2018-11-14 17:23] LABS: Potassium 4.4 mmol/L (3.5-5.1)
[2018-11-14] MEDS: Levofloxacin 250mg IV 250 MG/50 ML BAG IV SCH (18:56)
[2018-11-14] MEDS: SODIUM BICARB 325 MG TAB PO SCH (21:28)
[2018-11-14] MEDS: METOCLOPRAMIDE 10 MG/2mL INJ IV PRN (23:25)
[2018-11-15] MEDS: LACTULOSE 20 GM/30 ML UCUP FT SCH ×6 (00:11→20:40)
[2018-11-15] MEDS: ALBUTEROL 2.5 MG/3 ML NEB SOL NEB SCH ×4 (02:00→20:10)
[2018-11-15 06:45] VITALS: BMI 25.4
[2018-11-15] MEDS: INSULIN -REGULAR HUMAN 50 UNIT/0.5 ML ML SQ SCH ×4 (07:30→20:40)
[2018-11-15 07:31] LABS: Albumin 2.1 g/dL (3.4-5.0); Bilirubin Total 2.6 mg/dL (0.2-1.0); Magnesium 2.8 mg/dL (1.8-2.4); Potassium 4.2 mmol/L (3.5-5.1); Protein, Total 6.6 g/dL (6.4-8.2)
[2018-11-15] MEDS: D5 0.9 NS 1,000 ML IV SCH ×2 (07:36→21:20)
[2018-11-15 07:46] LABS: Absolute Lymphocytes (CBC) 0.7 K/uL (0.7-4.9); Basophils % 0.5 % (0-1.3); Eosinophils % 0.1 % (0-4.4); Hematocrit 34.5 % (39.6-49.0); Lymphocytes % 4.8 % (15.3-44.8); MPV 10.1 fL (7.6-11.3); Monocytes % 14.4 % (3.3-12.3); RBC Red Blood Cell Count 3.29 M/uL (4.33-5.43)
[2018-11-15] MEDS: RIFAXIMIN FT SCH ×2 (09:09→20:42)
[2018-11-15] MEDS: PANTOPRAZOLE 40 MG INJ IVP SCH (09:09)
[2018-11-15] MEDS: SPIRONOLACTONE 25 MG TABLET FT SCH ×2 (09:09→20:39)
[2018-11-15] MEDS: SODIUM BICARB 325 MG TAB PO SCH ×2 (09:10→20:42)
--- NOTE | 2018-11-15 10:34 | RAD REPORT ---
EXAM DESCRIPTION: RAD - Abdomen 1 View (KUB) - 11/13/2018 9:41 pm CLINICAL HISTORY: The patient is 78 years old and is Male; VOMITING CHECK FEEDING TUBE PLACEMENT TECHNIQUE: Frontal supine view of the abdomen/pelvis. COMPARISON: Chest radiograph performed the same day at 1254 hours. FINDINGS: GASTROINTESTINAL TRACT: Stool is present within the rectosigmoid colon. No dilated loops of bowel are seen. BONES/JOINTS: There are degenerative changes of the bones. TUBES, LINES AND DEVICES: The tip of the feeding tube is present within the gastric body. IMPRESSION: The tip of the feeding tube is present within the gastric body. Electronically signed by: Brittany Hansen MD 11/13/2018 10:01 PM CDT Due to temporary technical issues with the PACS/Fluency reporting system, reports are being signed by the in house radiologist as a courtesy to ensure prompt reporting. The interpreting radiologist is f ully responsible for the content of the report.
--- NOTE | 2018-11-15 10:40 | RAD REPORT ---
EXAM DESCRIPTION: RAD - Chest Single View - 11/13/2018 9:41 pm CLINICAL HISTORY: The patient is 78 years old and is Male; VOMITING TECHNIQUE: Frontal view of the chest. COMPARISON: Chest radiograph performed the same day at 1254 hours. FINDINGS: LUNGS: There are low lung volumes. Minimal left basilar opacity is present. PLEURAL SPACE: Unremarkable. No pneumothorax. HEART: Unremarkable. No cardiomegaly. MEDIASTINUM: Unremarkable. BONES/JOINTS: Unremarkable. An enteric tube is noted coursing beneath the level of the hemidiaphragm, the tip is off the field -of-view. IMPRESSION: Minimal left basilar atelectasis. Electronically signed by: Brittany Hansen MD 11/13/2018 10:00 PM CDT Due to temporary technical issues with the PACS/Fluency reporting system, reports are being signed by the in house radiologist as a courtesy to ensure prompt reporting. The interpreting radiologist is f ully responsible for the content of the report.
[2018-11-15 12:34] LABS: Urine Appearance CLOUDY; Urine Blood 3+ (NEG); Urine Color DK YELLOW; Urine Glucose NEGATIVE (NEG); Urine Protein NEGATIVE (NEG); Urine Specific Gravity 1.025 (1.005-1.030)
[2018-11-15 12:56] LABS: UR MICROALBUMIN 3.1 mg/dL (< 1.9)
[2018-11-15 13:06] LABS: Urine Bacteria 20-50 /HPF (NONE SEEN); Urine Culture Reflex Order REFLEXED; Urine RBC 20-50 /HPF (NONE SEEN)
[2018-11-15 13:33] LABS: Urine Bilirubin POSITIVE (NEG)
--- NOTE | 2018-11-15 14:12 | RAD REPORT ---
EXAM DESCRIPTION: RAD - Chest Single View - 11/15/2018 2:03 pm CLINICAL HISTORY: PICC line placement COMPARISON: November 13 chest film FINDINGS: Portable chest was obtained following placement of a left upper extremity PICC line. The c atheter tip is in the SVC atrial junction.
[2018-11-15] MEDS: Levofloxacin 250mg IV 250 MG/50 ML BAG IV SCH (18:03)
--- NOTE | 2018-11-15 22:41 | P.CNS ---
Date of Consult: 11/15/18 Reason for Consult: LUIS MANUEL Requesting Physician: Clark Barrera Chief Complaint: AMS complicated by a fall. History of Present Illness: 78 yo WM Liver disease seen and examined in the ICU. The patient is unable to provide an HPI/ ROS due to AMS. 09:59 This 78 yrs old Male presents to ER via Unassigned with complaints of Fall kdr Injury. 09:59 Details of fall: The patient fell from an upright position, while standing. kdr 10:07 Onset: The symptoms/episode began/occurred suddenly, just prior to arrival. kdr 18:51 Severity of symptoms: At their worst the symptoms were mild, in the emergency kdr department the symptoms. The patient has experienced similar episodes in the past, a few times. The patient has been recently seen by a physician: On Wednesday, the patient had 11 liters drained via paracentesis. This is a 78-year-old male patient with cirrhosis of liver, takes his medications regularly as he says, gets paracentesis done about every 3 weeks. Last paracentesis was done 2 days ago at our hospital and 11 L of peritoneal fluid was removed. The patient was doing fine in his normal usual state of health until this morning. The patient's found him on the floor and he had altered mental status. He was brought into the emergency room, ER physician evaluated him and contacted me requesting admission to the hospital with hepatic encephalopathy and multiple skin tear involving both upper extremity and right lower extremity. It was reported from the ER physician that the patient somehow lost his balance, fell down on the floor in one part of the house some time yesterday evening, and found him this morning. Allergies aspirin Allergy (Verified 11/08/18 07:40) Anaphylaxis sulfamethoxazole [From Bactrim] Allergy (Verified 11/08/18 07:40) nervous trimethoprim [From Bactrim] Allergy (Verified 11/08/18 07:40) nervous hydrocodone Adverse Reaction (Verified 11/08/18 07:40) Rash Home medications list reviewed: Yes Home Medications: Omeprazole [Prilosec] 40 mg PO DAILY 08/10/18 Spironolactone [Aldactone] 100 mg PO BID 08/10/18 Rifaximin [Xifaxan] 1 tab PO BID 09/08/18 Propranolol HCl 10 mg PO BID 10/18/18 Furosemide 20 mg PO BID 11/10/18 Ondansetron [Zofran (Odt)*] 1 tab PO Q8H PRN 11/10/18 - Past Medical/Surgical History Diabetic: Yes -: HTN -: cholesterol -: GERD -: liver cirrhosis -: varicies -: DM2 -: cyst on back -: cholecystectomy -: paracentesis - Family History Mother Medical History: Hypertension Father Medical History: Heart disease - Social History Alcohol use: Yes CD- Drugs: No Caffeine use: Yes Place of Residence: Home Review of Systems is unable to be obtained Physical Examination Temp Pulse Resp BP Pulse Ox 97.5 F 107 H 19 133/74 99 11/15/18 16:00 11/15/18 20:39 11/15/18 19:00 11/15/18 20:39 11/15/18 18:00 General: Cachectic, Unresponsive HEENT: Other (DMM) Neck: Supple Respiratory: Clear to auscultation bilaterally Cardiovascular: No edema, Regular rate/rhythm Gastrointestinal: Hypoactive, Soft and benign, No guarding, Distended Musculoskeletal: No clubbing, No contractures Integumentary: No rashes, No cyanosis Neurological: Abnormal affect Urinary: Lopez catheter External genitalia: No edema Blood work reviewed in the chart. Cr 2.88 Imagings Data: EXAM DESCRIPTION: RAD - Chest Single View - 11/13/2018 9:41 pm CLINICAL HISTORY: The patient is 78 years old and is Male; VOMITING TECHNIQUE: Frontal view of the chest. COMPARISON: Chest radiograph performed the same day at 1254 hours. FINDINGS: LUNGS: There are low lung volumes. Minimal left basilar opacity is present. PLEURAL SPACE: Unremarkable. No pneumothorax. HEART: Unremarkable. No cardiomegaly. MEDIASTINUM: Unremarkable. BONES/JOINTS: Unremarkable. An enteric tube is noted coursing beneath the level of the hemidiaphragm, the tip is off the [id number]. IMPRESSION: Minimal left basilar atelectasis. Conclusions/Impression: A/ LUIS MANUEL suspicious for HRS. Other considerations include prerenal azotemia and ATN in the setting of a high volume paracentesis. Acidosis. Urinary obstruction/ retention sp lopez placement by Dr. Rivera. BPH/ LUTS. Liver cirrhosis with ascites. Varices. Hepatic encephalopathy. Hypoalbuminemia. HTN. DM II. Anemia in chronic illness. Macrocytic. Thrombocytopenia. P/ Continue current POC and Medications. Change IVF to D5W wit bicarb. Will give IV Albumin as needed. Will consider starting Midodrine and Octreotide in the morning if no improvement. Agree with lactulose therapy. No NSAIDS. AM labs. Daily weight. Will monitor volume status closely. Thank you kindly for the consultation.
[2018-11-16] MEDS: D5W 1,000 ML with NA BICARB 8.4% 100 MEQ IV SCH ×4 (00:09→07:48)
[2018-11-16] MEDS ORDERED: D5W 1,000 ML IV ONE (00:22)
--- NOTE | 2018-11-16 00:23 | PN ---
Date of Progress Note: 11/15/2018 Subjective: The patient was seen this morning for followup. He was in ICU, lying in bed, not in dis tress. His condition was better today compared to yesterday. Ammonia level came down. Vital signs reviewed. Hemodynamically, he is stable. Intake and output records reviewed. He had episode of vom iting last night and he was getting tube feeding at 20 cc/hour. His tube feeding was discontinued th is morning when I saw him. No other complaints reported by ICU nursing staff. Objective: Vital Signs: Reviewed. HEENT: Unremarkable. Lungs: Clear to auscultation. Heart: Sounds normal. Abdomen: Soft. Bowel sounds normal. No guarding, rigidity, tenderness. Extremities: No leg edema. Laboratory Data: Reviewed. Impression: 1.Hepatic encephalopathy. 2.Pneumonia. 3.Urinary tract infection. 4.Anemia. 5.Diabetes mellitus. 6.Acute renal failure. Plan: We will go ahead and continue to hold Lasix and spironolactone per order. We will continue Le vaquin per order. White count has come down slightly today compared to yesterday. Renal function reece s slightly gotten worse today compared to yesterday. Nephrology consultation is pending. We will no t give any feeding today. Start him on IV fluid. Monitor fingerstick blood sugar with mild sliding scale. Keep the Atkins catheter in. Monitor intake, output. PICC line was placed, and we will trans tracey him out of ICU to regular room. Details were discussed with the patient and the patient's 2 daughters and at bedside in ICU this morning. TOMMY/MODL Voice ID: [id number] Report ID: [id number]
[2018-11-16] MEDS: LACTULOSE 20 GM/30 ML UCUP FT SCH ×6 (00:43→20:56)
[2018-11-16] MEDS: ALBUTEROL 2.5 MG/3 ML NEB SOL NEB SCH ×4 (01:20→21:15)
[2018-11-16 05:14] LABS: Absolute Lymphocytes (CBC) 0.6 K/uL (0.7-4.9); Basophils % 0.1 % (0-1.3); Eosinophils % 0.2 % (0-4.4); Hematocrit 33.3 % (39.6-49.0); Lymphocytes % 5.3 % (15.3-44.8); MPV 9.6 fL (7.6-11.3); Protime INR 1.64; RBC Red Blood Cell Count 3.17 M/uL (4.33-5.43)
[2018-11-16 05:15] LABS: Urine Appearance CLOUDY; Urine Bilirubin NEGATIVE (NEG); Urine Blood 2+ (NEG); Urine Color DK YELLOW; Urine Glucose NEGATIVE (NEG); Urine Protein NEGATIVE (NEG)
[2018-11-16 05:16] LABS: Monocytes % 15.8 % (3.3-12.3)
[2018-11-16 05:28] LABS: Albumin 2.1 g/dL (3.4-5.0); Bilirubin Total 2.4 mg/dL (0.2-1.0); Magnesium 2.8 mg/dL (1.8-2.4); Phosphorus 4.7 mg/dL (2.5-4.9); Potassium 3.9 mmol/L (3.5-5.1); Protein, Total 6.3 g/dL (6.4-8.2); Uric Acid 7.3 mg/dL (3.5-7.2)
[2018-11-16 05:29] LABS: Urine Culture Reflex Order REFLEXED
[2018-11-16 05:30] LABS: Urine Bacteria <20 /HPF (NONE SEEN)
--- NOTE | 2018-11-16 08:22 | RAD REPORT ---
EXAM DESCRIPTION: RAD - Chest Single View - 11/16/2018 6:20 am CLINICAL HISTORY: PICC reposition COMPARISON: Chest Single View dated 11/15/2018; Abdomen 1 View (KUB) dated 11/14/2018; Abdomen 1 View (KUB) dated 11/13/2018; Chest Single View dated 11/13/2018 FINDINGS: Portable chest was obtained following placement of a left upper extremity PICC line. The c atheter tip projects over the right atrium..
[2018-11-16] MEDS: PANTOPRAZOLE 40 MG INJ IVP SCH (08:29)
[2018-11-16] MEDS: SPIRONOLACTONE 25 MG TABLET FT SCH ×2 (08:29→20:56)
[2018-11-16] MEDS: RIFAXIMIN FT SCH ×2 (08:29→20:57)
[2018-11-16] MEDS: INSULIN -REGULAR HUMAN 50 UNIT/0.5 ML ML SQ SCH ×4 (08:30→23:08)
[2018-11-16] MEDS: SODIUM BICARB 325 MG TAB PO SCH ×2 (08:32→20:55)
[2018-11-16] MEDS: NACHLORIDE 0.45% 1,000 ML IV SCH ×2 (09:06→20:50)
[2018-11-16] MEDS: OCTREOTIDE ACETATE 100 MCG/ML SQ SCH ×2 (11:33→18:25)
[2018-11-16] MEDS: GLUCERNA 1.2 CAL 1,000 ML BOT FT SCH (11:34)
[2018-11-16] MEDS: MIDODRINE HCL 5 MG TABLET PO SCH ×2 (11:34→18:25)
[2018-11-16] MEDS: Levofloxacin 250mg IV 250 MG/50 ML BAG IV SCH (18:25)
[2018-11-17] MEDS: ALBUTEROL 2.5 MG/3 ML NEB SOL NEB SCH ×4 (01:15→20:00)
[2018-11-17] MEDS: OCTREOTIDE ACETATE 100 MCG/ML SQ SCH ×4 (01:15→18:51)
[2018-11-17] MEDS: MIDODRINE HCL 5 MG TABLET PO SCH ×3 (01:15→18:44)
[2018-11-17] MEDS: LACTULOSE 20 GM/30 ML UCUP FT SCH ×6 (01:16→21:32)
[2018-11-17] MEDS: NACHLORIDE 0.45% 1,000 ML IV SCH ×2 (04:56→16:22)
[2018-11-17] MEDS: INSULIN -REGULAR HUMAN 50 UNIT/0.5 ML ML SQ SCH ×4 (07:30→21:00)
[2018-11-17 07:41] LABS: Absolute Lymphocytes (CBC) 0.4 K/uL (0.7-4.9); Basophils % 0.1 % (0-1.3); Eosinophils % 0.7 % (0-4.4); Hematocrit 34.4 % (39.6-49.0); Lymphocytes % 4.5 % (15.3-44.8); MPV 10.1 fL (7.6-11.3); Monocytes % 16.8 % (3.3-12.3); RBC Red Blood Cell Count 3.26 M/uL (4.33-5.43)
[2018-11-17 07:56] LABS: Potassium 4.3 mmol/L (3.5-5.1)
[2018-11-17] MEDS: SODIUM BICARB 325 MG TAB PO SCH ×2 (10:15→21:32)
[2018-11-17] MEDS: FAMOTIDINE 20 MG/2 ML VIAL IV SCH ×2 (10:16→21:32)
[2018-11-17] MEDS: RIFAXIMIN FT SCH ×2 (10:17→21:32)
[2018-11-17 11:11] LABS: Blood Morphology Comment NOT SEEN (NOT SEEN); Platelet Estimate ADEQ
--- NOTE | 2018-11-17 17:31 | P.PN ---
Date of Service: 11/16/18 Vital Signs Temp Pulse Resp BP Pulse Ox 97.0 F 90 16 128/71 98 11/17/18 12:00 11/17/18 12:00 11/17/18 12:00 11/17/18 12:00 11/17/18 12:00 Medications Acetaminophen (Tylenol -Extra Strength) 500 mg FT Q6H PRN PRN Reason: temperature > 101.0 Stop: 12/10/18 14:48 Albuterol Sulfate (Proventil 0.083% Neb Soln) 2.5 mg NEB [id number] PETE Stop: 12/13/18 10:01 Last Admin: 11/17/18 14:00 Dose: Not Given Dextrose (Dextrose 50% Syringe) 12.5 gm IV PRN PRN PRN Reason: HYPOGLYCEMIA Stop: 12/10/18 14:48 Enteral Nutritional Formula (Glucerna 1.2 José Antonio) 50 ml FT CONT [facility]E Stop: 12/13/18 11:01 Last Admin: 11/16/18 11:34 Dose: 50 ml Famotidine (Pepcid) 20 mg IV BID [facility] Stop: 12/17/18 09:01 Last Admin: 11/17/18 10:16 Dose: 20 mg Glucagon (Glucagen) 1 mg IM 1X PRN PRN Reason: HYPOGLYCEMIA Stop: 12/10/18 14:48 Home Med (Rifaximin [Xifaxan]) 1 tab FT BID [facility] Stop: 12/13/18 21:01 Last Admin: 11/17/18 10:17 Dose: 1 tab Levofloxacin/Dextrose (Levaquin 250mg/50 Ml Ivpb) 250 mg in 50 mls @ 50 mls/hr IV Q24H [facility]; Protocol Stop: 12/14/18 19:01 Last Admin: 11/16/18 18:25 Dose: 50 mls Sodium Chloride (Sodium Chloride 0.45%) 1,000 mls @ 100 mls/hr IV .Q10H [facility] Stop: 12/16/18 09:01 Last Admin: 11/17/18 16:22 Dose: 1,000 mls Insulin Human Regular (Novolin -R) 0 unit SQ ACHS [facility]; Protocol Stop: 12/10/18 16:31 Last Admin: 11/17/18 13:43 Dose: 5 unit Lactulose (Cephulac) 20 gm FT Q4HR [facility] Stop: 12/13/18 13:01 Last Admin: 11/17/18 16:31 Dose: 20 gm Metoclopramide HCl (Reglan) 10 mg IV Q6H PRN PRN Reason: NAUSEA / VOMITING Stop: 12/10/18 14:48 Last Admin: 11/14/18 23:25 Dose: 10 mg Midodrine (Proamatine) 5 mg PO Q8HR [facility] Stop: 12/16/18 10:01 Last Admin: 11/17/18 10:22 Dose: 5 mg Octreotide Acetate (Sandostatin) 100 mcg SQ Q8HR [facility] Stop: 12/16/18 10:01 Last Admin: 11/17/18 10:15 Dose: 100 mcg Sodium Bicarbonate (Sodium Bicarb 325 Mg) 650 mg PO BID [facility] Stop: 12/14/18 21:01 Last Admin: 11/17/18 10:15 Dose: 650 mg Sodium Chloride (Sodium Chloride 10 Ml Inj) 10 ml IV UD PRN PRN Reason: Diluant Stop: 12/13/18 09:57 Microbiology Results 11/10/18 10:30 Blood - Blood Aerobic Blood Culture - Final No growth in 5 days. 11/10/18 10:30 Blood - Blood Anaerobic Blood Culture - Final No growth in 5 days. 11/10/18 09:50 Blood - Blood Aerobic Blood Culture - Final No growth in 5 days. 11/10/18 09:50 Blood - Blood Anaerobic Blood Culture - Final No growth in 5 days. Assessment/ Plan: Nephrology. Feeling better today with improved mental status. CPS stable without CP or SOB. No acute events overnight. +BM Vitals, medications, blood work and imaging reviewed in the chart. General: Cachectic. NAD. HEENT: MMM Neck: Supple Respiratory: Clear to auscultation bilaterally Cardiovascular: No edema, Regular rate/rhythm Gastrointestinal: Distended. NT. Musculoskeletal: No clubbing, No contractures Integumentary: No rashes, No cyanosis Neurological: Awake and alert. Urinary: Lopez catheter with dark urine. External genitalia: No edema Blood work reviewed in the chart. Cr 2.88 Imagings Data: EXAM DESCRIPTION: RAD - Chest Single View - 11/13/2018 9:41 pm CLINICAL HISTORY: The patient is 78 years old and is Male; VOMITING TECHNIQUE: Frontal view of the chest. COMPARISON: Chest radiograph performed the same day at 1254 hours. FINDINGS: LUNGS: There are low lung volumes. Minimal left basilar opacity is present. PLEURAL SPACE: Unremarkable. No pneumothorax. HEART: Unremarkable. No cardiomegaly. MEDIASTINUM: Unremarkable. BONES/JOINTS: Unremarkable. An enteric tube is noted coursing beneath the level of the hemidiaphragm, the tip is off the [id number]. IMPRESSION: Minimal left basilar atelectasis. Conclusions/Impression: A/ LUIS MANUEL suspicious for HRS. Other considerations include prerenal azotemia and ATN in the setting of a high volume paracentesis. Acidosis. Urinary obstruction/ retention sp lopez placement by Dr. Rivera. BPH/ LUTS. Liver cirrhosis with ascites. Varices. Hepatic encephalopathy. Hypoalbuminemia. HTN. DM II. Anemia in chronic illness. Macrocytic. Thrombocytopenia. Acute cystitis. Enterococcus faecalis. P/ Continue current POC and Medications. Change IVF 1/2NS. Will give IV Albumin as needed. Start Midodrine and Octreotide. Agree with lactulose therapy. No NSAIDS. AM labs. Daily weight. Will monitor volume status closely due to history of ascites.
[2018-11-17] MEDS: Levofloxacin 250mg IV 250 MG/50 ML BAG IV SCH (18:46)
--- NOTE | 2018-11-17 18:50 | P.PN ---
Date of Service: 11/17/18 Vital Signs Temp Pulse Resp BP Pulse Ox 97.0 F 99 H 16 134/60 98 11/17/18 16:00 11/17/18 16:00 11/17/18 16:00 11/17/18 16:00 11/17/18 16:00 Medications Acetaminophen (Tylenol -Extra Strength) 500 mg FT Q6H PRN PRN Reason: temperature > 101.0 Stop: 12/10/18 14:48 Albuterol Sulfate (Proventil 0.083% Neb Soln) 2.5 mg NEB [id number] [facility] Stop: 12/13/18 10:01 Last Admin: 11/17/18 14:00 Dose: Not Given Dextrose (Dextrose 50% Syringe) 12.5 gm IV PRN PRN PRN Reason: HYPOGLYCEMIA Stop: 12/10/18 14:48 Enteral Nutritional Formula (Glucerna 1.2 José Antonio) 50 ml FT CONT [facility] Stop: 12/13/18 11:01 Last Admin: 11/16/18 11:34 Dose: 50 ml Famotidine (Pepcid) 20 mg IV BID [facility] Stop: 12/17/18 09:01 Last Admin: 11/17/18 10:16 Dose: 20 mg Glucagon (Glucagen) 1 mg IM 1X PRN PRN Reason: HYPOGLYCEMIA Stop: 12/10/18 14:48 Home Med (Rifaximin [Xifaxan]) 1 tab FT BID [facility] Stop: 12/13/18 21:01 Last Admin: 11/17/18 10:17 Dose: 1 tab Levofloxacin/Dextrose (Levaquin 250mg/50 Ml Ivpb) 250 mg in 50 mls @ 50 mls/hr IV Q24H [facility]; Protocol Stop: 12/14/18 19:01 Last Admin: 11/17/18 18:46 Dose: 50 mls Sodium Chloride (Sodium Chloride 0.45%) 1,000 mls @ 100 mls/hr IV .Q10H [facility] Stop: 12/16/18 09:01 Last Admin: 11/17/18 16:22 Dose: 1,000 mls Albumin Human (Albumin 25%) 100 mls @ 100 mls/hr IV Q6H [facility] Stop: 11/18/18 13:59 Insulin Human Regular (Novolin -R) 0 unit SQ ACHS [facility]; Protocol Stop: 12/10/18 16:31 Last Admin: 11/17/18 16:30 Dose: Not Given Lactulose (Cephulac) 20 gm FT Q4HR [facility] Stop: 12/13/18 13:01 Last Admin: 11/17/18 16:31 Dose: 20 gm Metoclopramide HCl (Reglan) 10 mg IV Q6H PRN PRN Reason: NAUSEA / VOMITING Stop: 12/10/18 14:48 Last Admin: 11/14/18 23:25 Dose: 10 mg Midodrine (Proamatine) 5 mg PO Q8HR [facility] Stop: 12/16/18 10:01 Last Admin: 11/17/18 18:44 Dose: 5 mg Octreotide Acetate (Sandostatin) 200 mcg SQ Q8HR [facility] Stop: 12/17/18 19:01 Sodium Bicarbonate (Sodium Bicarb 325 Mg) 650 mg PO BID [facility] Stop: 12/14/18 21:01 Last Admin: 11/17/18 10:15 Dose: 650 mg Sodium Chloride (Sodium Chloride 10 Ml Inj) 10 ml IV UD PRN PRN Reason: Diluant Stop: 12/13/18 09:57 Microbiology Results 11/10/18 10:30 Blood - Blood Aerobic Blood Culture - Final No growth in 5 days. 11/10/18 10:30 Blood - Blood Anaerobic Blood Culture - Final No growth in 5 days. 11/10/18 09:50 Blood - Blood Aerobic Blood Culture - Final No growth in 5 days. 11/10/18 09:50 Blood - Blood Anaerobic Blood Culture - Final No growth in 5 days. Assessment/ Plan: Nephrology. Doing well with improved mental status. CPS stable without CP or SOB. No acute events overnight. +BM Vitals, medications, blood work and imaging reviewed in the chart. General: Cachectic. NAD. HEENT: MMM Neck: Supple Respiratory: Clear to auscultation bilaterally Cardiovascular: No edema, Regular rate/rhythm Gastrointestinal: Distended. NT. Musculoskeletal: No clubbing, No contractures Integumentary: No rashes, No cyanosis Neurological: Awake and alert. Urinary: Lopez catheter with dark urine. External genitalia: No edema Blood work reviewed in the chart. Cr 2.88 Imagings Data: EXAM DESCRIPTION: RAD - Chest Single View - 11/13/2018 9:41 pm CLINICAL HISTORY: The patient is 78 years old and is Male; VOMITING TECHNIQUE: Frontal view of the chest. COMPARISON: Chest radiograph performed the same day at 1254 hours. FINDINGS: LUNGS: There are low lung volumes. Minimal left basilar opacity is present. PLEURAL SPACE: Unremarkable. No pneumothorax. HEART: Unremarkable. No cardiomegaly. MEDIASTINUM: Unremarkable. BONES/JOINTS: Unremarkable. An enteric tube is noted coursing beneath the level of the hemidiaphragm, the tip is off the [id number]. IMPRESSION: Minimal left basilar atelectasis. Conclusions/Impression: A/ LUIS MANUEL suspicious for HRS. Other considerations include prerenal azotemia and ATN in the setting of a high volume paracentesis. Acidosis. Urinary obstruction/ retention sp lopez placement by Dr. Rivera. BPH/ LUTS. Liver cirrhosis with ascites. Varices. Hepatic encephalopathy. Hypoalbuminemia. HTN. DM II. Anemia in chronic illness. Macrocytic. Thrombocytopenia. Acute cystitis. Enterococcus faecalis. P/ Continue current POC and Medications. Continue IVF 1/2NS. Give IV Albumin. Continue Midodrine. Increase Octreotide. Agree with lactulose therapy. Agree with abx. No NSAIDS. AM labs. Daily weight. Will monitor volume status closely due to history of ascites.
[2018-11-17] MEDS: ALBUMIN HUMAN 25% 100 ML IV SCH (18:54)
[2018-11-18] MEDS: LACTULOSE 20 GM/30 ML UCUP FT SCH ×6 (00:09→21:23)
[2018-11-18] MEDS: ALBUMIN HUMAN 25% 100 ML IV SCH ×3 (00:09→14:01)
[2018-11-18] MEDS: MIDODRINE HCL 5 MG TABLET PO SCH ×3 (00:09→16:59)
[2018-11-18] MEDS: OCTREOTIDE ACETATE 100 MCG/ML SQ SCH ×3 (00:10→16:59)
[2018-11-18] MEDS: NACHLORIDE 0.45% 1,000 ML IV SCH ×2 (01:00→03:19)
[2018-11-18 01:13] LABS: Urine Appearance CLOUDY; Urine Bilirubin NEGATIVE (NEG); Urine Blood 3+ (NEG); Urine Color DK YELLOW; Urine Glucose NEGATIVE (NEG); Urine Protein NEGATIVE (NEG); Urine Specific Gravity 1.015 (1.005-1.030)
[2018-11-18 01:39] LABS: Urine Bacteria <20 /HPF (NONE SEEN); Urine Culture Reflex Order NOT NEEDED; Urine RBC 20-50 /HPF (NONE SEEN)
--- NOTE | 2018-11-18 01:51 | PN ---
Date of Progress Note: 11/16/2018 Subjective: The patient was seen this morning for followup. No new complaints or problems reported. Objective: Vital Signs: Reviewed. HEENT: Unremarkable. Lungs: Clear to auscultation. Heart: Sounds normal. Abdomen: Soft. Bowel sounds normal. No guarding, rigidity, tenderness, distention. Extremities: No leg edema. Labs: White count 11, hemoglobin 11.3, platelets 112. Sodium 141, potassium 3.9, chloride 107, bica rb 22, BUN 72, creatinine 2.91, glucose 140. Ammonia level 132. Impression: 1.Hepatic encephalopathy. 2.Urinary tract infection. 3.Acute renal failure. 4.Diabetes mellitus. 5.Thrombocytopenia. 6.Generalized weakness. 7.Debility. Plan: We will go ahead and transfer the patient out of ICU to regular room. See copy of transfer or erica for details. The patient has Dobhoff tube. We are not giving any feeding through that because o f his vomiting problem. We will continue IV fluid. I will see him tomorrow for followup. We will r epeat blood work tomorrow and Physical Therapy to start working with the patient. Details and plan of treatment discussed with the patient and family member that his and daughter at bedside. Arpan mckay current antibiotics. TOMMY/MODL Voice ID: [id number] Report ID: [id number]
[2018-11-18] MEDS: ALBUTEROL 2.5 MG/3 ML NEB SOL NEB SCH ×4 (02:00→19:40)
--- NOTE | 2018-11-18 02:24 | PN ---
Date of Progress Note: 11/17/2018 Subjective: The patient was seen this morning for followup. No new complaints or problems reported by patient. Lying in bed, not in any distress. He was on the medical floor. Family was with him at bedside. Objective: Vital Signs: Reviewed. HEENT: Unremarkable. Lungs: Clear to auscultation. Heart sounds: Normal. Abdomen: Soft. Bowel sounds normal. No guarding, rigidity, tenderness. Presence of ascites with d istention, and it appears that ascites has gotten worse over last few days. Extremities: No leg edema. Laboratory Data: White count 8.9, hemoglobin 11.6, platelets 98. Sodium 141, potassium 4.3, chlorid e 107, bicarb 21, BUN 78, creatinine 3.19, glucose 132, ammonia level 21. Impression: 1.Hepatic encephalopathy. 2.Urinary tract infection. 3.Acute renal failure. 4.Thrombocytopenia. 5.Cirrhosis of liver with ascites. Plan: We will go ahead and start him on clear liquid diet, if he tolerates that, then we will advanc e diet and remove his Dobhoff tube, as patient is interested in trying to eat. We will have Physical Therapy start ambulating the patient. Discontinue spironolactone. Continue other current medicatio ns, and I will see him tomorrow for followup. Details of the plan of treatment discussed with the richelle cole and family. We will request consultation from Social Service to assist with chcf fac ility placement, and I will request our Interventional Radiologist to provide therapeutic paracentesis tomorrow. TOMMY/MODL Voice ID: [id number] Report ID: [id number]
[2018-11-18 05:16] LABS: Absolute Lymphocytes (CBC) 0.4 K/uL (0.7-4.9); Basophils % 0.2 % (0-1.3); Eosinophils % 1.2 % (0-4.4); Hematocrit 28.7 % (39.6-49.0); Lymphocytes % 5.4 % (15.3-44.8); MPV 10.2 fL (7.6-11.3); Monocytes % 18.2 % (3.3-12.3); RBC Red Blood Cell Count 2.72 M/uL (4.33-5.43)
[2018-11-18 05:25] LABS: Bilirubin Total 1.8 mg/dL (0.2-1.0); Phosphorus 4.6 mg/dL (2.5-4.9); Potassium 3.5 mmol/L (3.5-5.1); Protein, Total 5.5 g/dL (6.4-8.2); Uric Acid 7.3 mg/dL (3.5-7.2)
[2018-11-18] MEDS: INSULIN -REGULAR HUMAN 50 UNIT/0.5 ML ML SQ SCH ×4 (07:30→21:25)
[2018-11-18] MEDS: FAMOTIDINE 20 MG/2 ML VIAL IV SCH ×2 (08:07→21:24)
[2018-11-18] MEDS ORDERED: POTASSIUM 25 MEQ EFFERV TAB PO ONE ×2 (08:35→18:29)
[2018-11-18] MEDS ORDERED: SODIUM CHLORIDE 1 GM TAB FT ONE (09:00)
--- NOTE | 2018-11-18 10:51 | RAD REPORT ---
EXAM DESCRIPTION: US - Paracentesis Proc Guidance - 11/18/2018 10:16 am CLINICAL HISTORY: therapeutic paracentesis Ascites COMPARISON: Paracentesis Proc Guidance dated 11/08/2018 FINDINGS: Informed consent was obtained and time-out was performed. Patient's abdomen was prepped and draped in the usual sterile fashion. 1% lidocaine was used for loca l anesthetic purposes. A small skin incision was made. A paracentesis catheter was guided into the peroneal cavity under son ographic guidance. A large volume paracentesis was performed. The patient tolerated the procedure well. Patient was administered IV albumin per protocol following the procedure. IMPRESSION: Successful ultrasound-guided paracentesis.
[2018-11-18] MEDS: SODIUM BICARB 325 MG TAB PO SCH ×2 (11:23→21:24)
[2018-11-18] MEDS: RIFAXIMIN FT SCH ×2 (11:23→21:23)
[2018-11-18] MEDS: VITAMIN D 5,000 UNIT CAP PO SCH (11:26)
--- NOTE | 2018-11-18 17:12 | PN ---
Date of Progress Note: 11/18/2018 Subjective: The patient was seen this morning for followup. He was lying in bed, not in distress, t olerating liquid diet very well and nursing staff should advance his diet as per order. He is ambula ting well with physical therapy today. He will have paracentesis done. Has diarrhea type of stool w ith lactulose. Objective: Vital Signs: Reviewed. HEENT: Unremarkable. Lungs: Clear to auscultation. No rhonchi or rales. Heart: Sounds normal. Abdomen: Soft. Bowel sounds normal. No guarding, rigidity, tenderness, distention. Extremities: No leg edema. Impression: 1.Cirrhosis of liver with ascites. 2.Hepatic encephalopathy. 3.Urinary tract infection. 4.Thrombocytopenia. 5.Acute renal failure. 6.Generalized weakness. 7.Debility. Plan: Today's lab results reviewed with the patient, his and daughter were present with him at bedside. His platelet count is steadily dropping for last 3-4 days, today it is lowest at 68,000. H is renal function has started to show improvement, yesterday creatinine was 3.19, today creatinine is 3.01. His spironolactone was discontinued yesterday because of his increase in creatinine. We will consider to restart diuretic therapy at appropriate time. Yesterday, I also discontinued his Proton ix in view of worsening renal function and he was toxic. We will have Physical Therapy continue to work with the patient and Social Service is assisting with discharge planning. TOMMY/MODL Voice ID: [id number] Report ID: [id number]
--- NOTE | 2018-11-18 18:22 | P.PN ---
Date of Service: 11/18/18 Vital Signs Temp Pulse Resp BP Pulse Ox 97.1 F 75 18 136/62 99 11/18/18 16:00 11/18/18 16:00 11/18/18 16:00 11/18/18 16:00 11/18/18 16:00 Medications Acetaminophen (Tylenol -Extra Strength) 500 mg FT Q6H PRN PRN Reason: temperature > 101.0 Stop: 12/10/18 14:48 Albuterol Sulfate (Proventil 0.083% Neb Soln) 2.5 mg NEB [id number] [facility] Stop: 12/13/18 10:01 Last Admin: 11/18/18 15:15 Dose: 2.5 mg Cholecalciferol (Vitamin D 5,000 Iu Cap) 5,000 unit PO DAILY [facility] Stop: 12/18/18 09:01 Last Admin: 11/18/18 11:26 Dose: 5,000 unit Dextrose (Dextrose 50% Syringe) 12.5 gm IV PRN PRN PRN Reason: HYPOGLYCEMIA Stop: 12/10/18 14:48 Enteral Nutritional Formula (Glucerna 1.2 José Antonio) 50 ml FT CONT [facility] Stop: 12/13/18 11:01 Last Admin: 11/16/18 11:34 Dose: 50 ml Famotidine (Pepcid) 20 mg IV BID [facility] Stop: 12/17/18 09:01 Last Admin: 11/18/18 08:07 Dose: 20 mg Glucagon (Glucagen) 1 mg IM 1X PRN PRN Reason: HYPOGLYCEMIA Stop: 12/10/18 14:48 Home Med (Rifaximin [Xifaxan]) 1 tab FT BID [facility] Stop: 12/13/18 21:01 Last Admin: 11/18/18 11:23 Dose: 1 tab Levofloxacin/Dextrose (Levaquin 250mg/50 Ml Ivpb) 250 mg in 50 mls @ 50 mls/hr IV Q24H [facility]; Protocol Stop: 12/14/18 19:01 Last Admin: 11/17/18 18:46 Dose: 50 mls Insulin Human Regular (Novolin -R) 0 unit SQ ACHS [facility]; Protocol Stop: 12/10/18 16:31 Last Admin: 11/18/18 16:58 Dose: 3 unit Lactulose (Cephulac) 20 gm FT Q4HR [facility] Stop: 12/13/18 13:01 Last Admin: 11/18/18 16:58 Dose: 20 gm Metoclopramide HCl (Reglan) 10 mg IV Q6H PRN PRN Reason: NAUSEA / VOMITING Stop: 12/10/18 14:48 Last Admin: 11/14/18 23:25 Dose: 10 mg Midodrine (Proamatine) 5 mg PO Q8HR [facility] Stop: 12/16/18 10:01 Last Admin: 11/18/18 16:59 Dose: 5 mg Nutritional Formula (Promod Liquid Protein) 30 ml PO BID [facility] Stop: 12/18/18 21:01 Octreotide Acetate (Sandostatin) 200 mcg SQ Q8HR [facility] Stop: 12/17/18 19:01 Last Admin: 11/18/18 16:59 Dose: 200 mcg Potassium Bicarbonate (K-Lyte) 25 meq PO 1X ONE Stop: 11/18/18 18:19 Sodium Bicarbonate (Sodium Bicarb 325 Mg) 650 mg PO BID [facility] Stop: 12/14/18 21:01 Last Admin: 11/18/18 11:23 Dose: 650 mg Sodium Chloride (Sodium Chloride 10 Ml Inj) 10 ml IV UD PRN PRN Reason: Diluant Stop: 12/13/18 09:57 Sodium Chloride (Nacl Tabs) 1 gm PO Q3H [facility] Stop: 11/18/18 21:31 Microbiology Results 11/10/18 10:30 Blood - Blood Aerobic Blood Culture - Final No growth in 5 days. 11/10/18 10:30 Blood - Blood Anaerobic Blood Culture - Final No growth in 5 days. 11/10/18 09:50 Blood - Blood Aerobic Blood Culture - Final No growth in 5 days. 11/10/18 09:50 Blood - Blood Anaerobic Blood Culture - Final No growth in 5 days. Assessment/ Plan: Nephrology. Feeling better. Does not like the injections. +BM CPS stable without CP or SOB. No acute events overnight. Large volume paracentesis this morning. NGT removed today. Vitals, medications, blood work and imaging reviewed in the chart. General: Cachectic. NAD. HEENT: MMM Neck: Supple Respiratory: Clear to auscultation bilaterally Cardiovascular: No edema, Regular rate/rhythm Gastrointestinal: Distended. NT. Musculoskeletal: No clubbing, No contractures Integumentary: No rashes, No cyanosis Neurological: Awake and alert. Urinary: Lopez catheter with dark urine. External genitalia: No edema Blood work reviewed in the chart. Cr 2.88 Imagings Data: EXAM DESCRIPTION: RAD - Chest Single View - 11/13/2018 9:41 pm CLINICAL HISTORY: The patient is 78 years old and is Male; VOMITING TECHNIQUE: Frontal view of the chest. COMPARISON: Chest radiograph performed the same day at 1254 hours. FINDINGS: LUNGS: There are low lung volumes. Minimal left basilar opacity is present. PLEURAL SPACE: Unremarkable. No pneumothorax. HEART: Unremarkable. No cardiomegaly. MEDIASTINUM: Unremarkable. BONES/JOINTS: Unremarkable. An enteric tube is noted coursing beneath the level of the hemidiaphragm, the tip is off the [id number]. IMPRESSION: Minimal left basilar atelectasis. Conclusions/Impression: A/ LUIS MANUEL suspicious for HRS. Other considerations include prerenal azotemia and ATN in the setting of a high volume paracentesis. Hyponatremia. Hypokalemia. Acidosis. Urinary obstruction/ retention sp lopez placement by Dr. Rivera. BPH/ LUTS. Liver cirrhosis with ascites. Varices. Hepatic encephalopathy. Hypoalbuminemia. HTN. DM II. Anemia in chronic illness. Macrocytic. Thrombocytopenia. Acute cystitis. Enterococcus faecalis. P/ Continue current POC and Medications. Discontinue IVF. Give salt tabs as ordered. Give another dose of IV Albumin. Continue Midodrine and Octreotide. Agree with lactulose therapy. Agree with abx. No NSAIDS. AM labs. Daily weight.
[2018-11-18] MEDS ORDERED: ALBUMIN HUMAN 25% 200 ML IV SCH (19:00)
[2018-11-18] MEDS: SODIUM CHLORIDE 1 GM TAB PO SCH ×2 (19:02→21:24)
[2018-11-18] MEDS: Levofloxacin 250mg IV 250 MG/50 ML BAG IV SCH (19:03)
[2018-11-18] MEDS: PROMOD 30 ML DOSE PO SCH (21:25)
[2018-11-18] MEDS ORDERED: ALBUMIN HUMAN 25% 100 ML IV ONE (22:23)
[2018-11-19] MEDS: ALBUTEROL 2.5 MG/3 ML NEB SOL NEB SCH ×4 (01:25→20:00)
[2018-11-19] MEDS: OCTREOTIDE ACETATE 100 MCG/ML SQ SCH ×3 (01:45→16:52)
[2018-11-19] MEDS: MIDODRINE HCL 5 MG TABLET PO SCH ×3 (01:45→16:51)
[2018-11-19] MEDS: LACTULOSE 20 GM/30 ML UCUP FT SCH ×6 (01:45→22:19)
[2018-11-19 05:47] LABS: Absolute Lymphocytes (CBC) 0.4 K/uL (0.7-4.9); Basophils % 0.2 % (0-1.3); Eosinophils % 0.5 % (0-4.4); Lymphocytes % 5.2 % (15.3-44.8); MPV 10.7 fL (7.6-11.3); RBC Red Blood Cell Count 2.65 M/uL (4.33-5.43)
[2018-11-19 05:57] LABS: Albumin 2.7 g/dL (3.4-5.0); Bilirubin Total 2.2 mg/dL (0.2-1.0); Magnesium 2.8 mg/dL (1.8-2.4); Potassium 3.7 mmol/L (3.5-5.1); Protein, Total 5.6 g/dL (6.4-8.2); Uric Acid 8.8 mg/dL (3.5-7.2)
[2018-11-19 06:03] LABS: Monocytes % 17.5 % (3.3-12.3)
[2018-11-19] MEDS: INSULIN -REGULAR HUMAN 50 UNIT/0.5 ML ML SQ SCH ×4 (07:30→21:00)
[2018-11-19 07:42] LABS: Urine Appearance CLOUDY; Urine Bilirubin NEGATIVE (NEG); Urine Blood 3+ (NEG); Urine Color DK YELLOW; Urine Glucose NEGATIVE (NEG); Urine Protein TRACE (NEG); Urine Specific Gravity 1.015 (1.005-1.030); Urine Urobilinogen 0.2 mg/dL (0.2-1.0)
[2018-11-19 08:03] LABS: Calcium Oxalate Crystals- Ur PRESENT (NONE SEEN); Urine Bacteria NONE SEEN /HPF (NONE SEEN); Urine Culture Reflex Order REFLEXED; Urine RBC >50 /HPF (NONE SEEN)
[2018-11-19] MEDS: VITAMIN D 5,000 UNIT CAP PO SCH (09:36)
[2018-11-19] MEDS: SODIUM BICARB 325 MG TAB PO SCH ×2 (09:36→22:19)
[2018-11-19] MEDS: RIFAXIMIN FT SCH ×2 (09:37→22:19)
[2018-11-19] MEDS: FAMOTIDINE 20 MG/2 ML VIAL IV SCH ×2 (09:38→22:20)
[2018-11-19] MEDS: PROMOD 30 ML DOSE PO SCH ×2 (10:01→22:20)
--- NOTE | 2018-11-19 12:22 | P.PN ---
Date of Service: 11/19/18 Vital Signs Temp Pulse Resp BP Pulse Ox 97.8 F 77 18 105/56 L 95 11/19/18 08:00 11/19/18 08:00 11/19/18 08:00 11/19/18 08:00 11/19/18 08:00 Medications Acetaminophen (Tylenol -Extra Strength) 500 mg FT Q6H PRN PRN Reason: temperature > 101.0 Stop: 12/10/18 14:48 Albuterol Sulfate (Proventil 0.083% Neb Soln) 2.5 mg NEB [id number] [facility] Stop: 12/13/18 10:01 Last Admin: 11/19/18 07:00 Dose: 2.5 mg Cholecalciferol (Vitamin D 5,000 Iu Cap) 5,000 unit PO DAILY [facility] Stop: 12/18/18 09:01 Last Admin: 11/19/18 09:36 Dose: 5,000 unit Dextrose (Dextrose 50% Syringe) 12.5 gm IV PRN PRN PRN Reason: HYPOGLYCEMIA Stop: 12/10/18 14:48 Enteral Nutritional Formula (Glucerna 1.2 José Antonio) 50 ml FT CONT [facility] Stop: 12/13/18 11:01 Last Admin: 11/16/18 11:34 Dose: 50 ml Famotidine (Pepcid) 20 mg IV BID [facility] Stop: 12/17/18 09:01 Last Admin: 11/19/18 09:38 Dose: 20 mg Glucagon (Glucagen) 1 mg IM 1X PRN PRN Reason: HYPOGLYCEMIA Stop: 12/10/18 14:48 Home Med (Rifaximin [Xifaxan]) 1 tab FT BID [facility] Stop: 12/13/18 21:01 Last Admin: 11/19/18 09:37 Dose: 1 tab Levofloxacin/Dextrose (Levaquin 250mg/50 Ml Ivpb) 250 mg in 50 mls @ 50 mls/hr IV Q24H [facility]; Protocol Stop: 12/14/18 19:01 Last Admin: 11/18/18 19:03 Dose: 50 mls Insulin Human Regular (Novolin -R) 0 unit SQ ACHS [facility]; Protocol Stop: 12/10/18 16:31 Last Admin: 11/19/18 11:38 Dose: 7 unit Lactulose (Cephulac) 20 gm FT Q4HR [facility] Stop: 12/13/18 13:01 Last Admin: 11/19/18 12:11 Dose: 20 gm Metoclopramide HCl (Reglan) 10 mg IV Q6H PRN PRN Reason: NAUSEA / VOMITING Stop: 12/10/18 14:48 Last Admin: 11/14/18 23:25 Dose: 10 mg Midodrine (Proamatine) 5 mg PO Q8HR [facility] Stop: 12/16/18 10:01 Last Admin: 11/19/18 09:37 Dose: 5 mg Nutritional Formula (Promod Liquid Protein) 30 ml PO BID [facility] Stop: 12/18/18 21:01 Last Admin: 11/19/18 10:01 Dose: 30 ml Octreotide Acetate (Sandostatin) 200 mcg SQ Q8HR [facility] Stop: 12/17/18 19:01 Last Admin: 11/19/18 09:38 Dose: 200 mcg Sodium Bicarbonate (Sodium Bicarb 325 Mg) 650 mg PO BID [facility] Stop: 12/14/18 21:01 Last Admin: 11/19/18 09:36 Dose: 650 mg Sodium Chloride (Sodium Chloride 10 Ml Inj) 10 ml IV UD PRN PRN Reason: Diluant Stop: 12/13/18 09:57 Microbiology Results 11/10/18 10:30 Blood - Blood Aerobic Blood Culture - Final No growth in 5 days. 11/10/18 10:30 Blood - Blood Anaerobic Blood Culture - Final No growth in 5 days. 11/10/18 09:50 Blood - Blood Aerobic Blood Culture - Final No growth in 5 days. 11/10/18 09:50 Blood - Blood Anaerobic Blood Culture - Final No growth in 5 days. Assessment/ Plan: Nephrology. +BM He is happy that the lopez catheter was removed today. CPS stable without CP or SOB. No acute events overnight. Vitals, medications, blood work and imaging reviewed in the chart. General: Cachectic. NAD. HEENT: MMM Neck: Supple Respiratory: Clear to auscultation bilaterally Cardiovascular: No edema, Regular rate/rhythm Gastrointestinal: Distended. NT. Musculoskeletal: No clubbing, No contractures Integumentary: No rashes, No cyanosis Neurological: Awake and alert. Urinary: No lopez. External genitalia: No edema Blood work reviewed in the chart. Cr 2.88 Imagings Data: EXAM DESCRIPTION: RAD - Chest Single View - 11/13/2018 9:41 pm CLINICAL HISTORY: The patient is 78 years old and is Male; VOMITING TECHNIQUE: Frontal view of the chest. COMPARISON: Chest radiograph performed the same day at 1254 hours. FINDINGS: LUNGS: There are low lung volumes. Minimal left basilar opacity is present. PLEURAL SPACE: Unremarkable. No pneumothorax. HEART: Unremarkable. No cardiomegaly. MEDIASTINUM: Unremarkable. BONES/JOINTS: Unremarkable. An enteric tube is noted coursing beneath the level of the hemidiaphragm, the tip is off the [id number]. IMPRESSION: Minimal left basilar atelectasis. Conclusions/Impression: A/ LUIS MANUEL suspicious for HRS. Other considerations include prerenal azotemia and ATN in the setting of a high volume paracentesis X2 or GN in the setting of persistent hematuria/ pyuria. Renal function may have been exacerbated by another large volume paracentesis. Hyponatremia. Hypokalemia. Acidosis. Urinary obstruction/ retention sp lopez placement by Dr. Rivera. BPH/ LUTS. Liver cirrhosis with ascites. Varices. Hepatic encephalopathy. Hypoalbuminemia. HTN. DM II. Anemia in chronic illness. Macrocytic. Thrombocytopenia. Acute cystitis. Enterococcus faecalis. P/ Continue current POC and Medications. IV Albumin as needed. Continue Midodrine and Octreotide. Send urine for cytology and eosinophil stain oli. Agree with lactulose therapy. Agree with abx. No NSAIDS. AM labs. Daily weight.
[2018-11-19] MEDS ORDERED: TAMSULOSIN 0.4 MG SR CAP PO ONE (12:46)
--- NOTE | 2018-11-19 13:00 | PN ---
Date of Progress Note: 11/19/2018 Subjective: The patient was seen this morning for followup. He was lying in bed. His was pres ent with him at bedside. Yesterday, he did ambulate with physical therapy, having bowel movement mor e like diarrhea, stool with lactulose. No vomiting. No abdominal pain. Paracentesis was done yeste rday and 11 L of fluid was removed. Intake and output records reviewed. Objective: Vital Signs: Reviewed. HEENT: Unremarkable. Lungs: Clear to auscultation. Heart: Sounds normal. Abdomen: Soft. Bowel sounds normal. Extremities: No leg edema. Laboratory Data: White count 7.2, hemoglobin 9.6, platelet count 59. Sodium 138, potassium 3.7, chl oride 106, bicarb 22, BUN 86, creatinine 3.40, glucose 110. His total bilirubin is 2.2. Impression: 1.Hepatic encephalopathy. 2.Cirrhosis of liver with ascites. 3.Urinary tract infection. 4.Benign prostatic hypertrophy with urinary retention. 5.Anemia. 6.Acute renal failure. 7.Thrombocytopenia. 8.Debility. 9.Generalized weakness. Plan: We will go ahead and continue current antibiotic Levaquin. Continue Flomax. I did communicat e with urologist Dr. Rivera, and it is okay with him for us to remove Atkins catheter, so we will try t o remove that catheter today, and Physical Therapy to continue to follow up with the patient and assi st him with ambulation, and we will continue to follow with honey producer for the acute renal failure. Yesterday renal function had shown improvement for the first time, but today it shows worsening. Details were discussed with the patient and family member. TOMMY/MODL Voice ID: [id number] Report ID: [id number]
[2018-11-19] MEDS: Levofloxacin 250mg IV 250 MG/50 ML BAG IV SCH (17:52)
[2018-11-19] MEDS: TAMSULOSIN 0.4 MG SR CAP PO SCH (22:19)
[2018-11-19] MEDS: SODIUM CHLORIDE 0.9% 10ML INJ IV PRN (22:20)
[2018-11-20] MEDS: ALBUTEROL 2.5 MG/3 ML NEB SOL NEB SCH ×4 (01:30→20:00)
[2018-11-20] MEDS: LACTULOSE 20 GM/30 ML UCUP FT SCH ×3 (01:59→08:50)
[2018-11-20] MEDS: MIDODRINE HCL 5 MG TABLET PO SCH ×3 (01:59→16:46)
[2018-11-20] MEDS: OCTREOTIDE ACETATE 100 MCG/ML SQ SCH ×3 (02:00→16:46)
[2018-11-20 05:35] LABS: Absolute Lymphocytes (CBC) 0.5 K/uL (0.7-4.9); Basophils % 0.3 % (0-1.3); Hematocrit 31.3 % (39.6-49.0); MPV 10.5 fL (7.6-11.3); Monocytes % 17.6 % (3.3-12.3); RBC Red Blood Cell Count 2.96 M/uL (4.33-5.43)
[2018-11-20 05:41] LABS: Magnesium 2.6 mg/dL (1.8-2.4); Potassium 3.5 mmol/L (3.5-5.1)
[2018-11-20] MEDS: RIFAXIMIN FT SCH ×2 (08:50→20:14)
[2018-11-20] MEDS: FAMOTIDINE 20 MG/2 ML VIAL IV SCH ×2 (08:51→20:15)
[2018-11-20] MEDS: INSULIN -REGULAR HUMAN 50 UNIT/0.5 ML ML SQ SCH ×4 (08:51→20:15)
[2018-11-20] MEDS: VITAMIN D 5,000 UNIT CAP PO SCH (08:51)
[2018-11-20] MEDS: SODIUM BICARB 325 MG TAB PO SCH ×2 (08:52→20:14)
[2018-11-20] MEDS: PROMOD 30 ML DOSE PO SCH ×2 (09:46→20:16)
[2018-11-20 10:48] LABS: Urine Appearance CLOUDY; Urine Bilirubin NEGATIVE (NEG); Urine Blood 3+ (NEG); Urine Color DK YELLOW; Urine Glucose NEGATIVE (NEG); Urine Protein 1+ (NEG); Urine Specific Gravity 1.015 (1.005-1.030); Urine Urobilinogen 0.2 mg/dL (0.2-1.0)
[2018-11-20 11:40] LABS: Urine RBC >50 /HPF (NONE SEEN)
[2018-11-20 11:41] LABS: Urine Bacteria <20 /HPF (NONE SEEN); Urine Culture Reflex Order REFLEXED
[2018-11-20 11:42] LABS: Urine Other Components LEUCINE CRYSTALS FEW (NONE SEEN)
[2018-11-20] MEDS: NA CHLORIDE 0.9% 1,000 ML IV SCH (12:01)
[2018-11-20] MEDS: LACTULOSE 20 GM/30 ML UCUP PO SCH ×2 (15:32→20:14)
[2018-11-20] MEDS: Levofloxacin 250mg IV 250 MG/50 ML BAG IV SCH (18:01)
--- NOTE | 2018-11-20 19:59 | PN ---
Date of Progress Note: 11/20/2018 Subjective: The patient was seen this morning for followup. He was lying in bed, not in distress. Has frequent diarrheal stool due to lactulose. No nausea. No vomiting. No abdominal pain. Intake and output records reviewed. Yesterday, after we remove Atkins catheter, he had urinary retention and he was not able to void for a few hours to several hours after the catheter was removed and bladder scan showed approximately 700 cc of urine, so when nurse contacted me with this information, decision was made to replace the Atkins catheter and we got approximately 500 cc of urine after Atkins catheter placement. Objective: Vital Signs: Reviewed. HEENT: Examination unremarkable. Lungs: Clear to auscultation. Heart: Sounds normal. Abdomen: Soft. Bowel sounds normal. No guarding, rigidity, tenderness, or distention. Extremities: No leg edema. Laboratory Data: White count 9.1, hemoglobin 10.8, platelets 62. Sodium 136, potassium 3.5, chlorid e 103, bicarb 21, BUN 80, creatinine 3.45, glucose 150. Ammonia level 40. Impression: 1.Acute renal failure. 2.Hepatic encephalopathy. 3.Cirrhosis of liver with ascites, due to alcohol. 4.Anemia. 5.Thrombocytopenia. 6.Urinary tract infection. 7.Generalized weakness. 8.Debility. Plan: We will go ahead and reduce the dose of lactulose from 20 g every 4 hours down to 20 g 3 times a day. The patient's renal function is deteriorating on a day-to-day basis. We will go ahead and s tart some IV fluid to see if that makes any difference considering possibility of volume depletion. Continue current antibiotic. We will continue to follow with clinical faculty and I will see him tomorro w for followup. We will repeat blood work tomorrow. Platelet count is low, but today has shown slig ht improvement compared to yesterday. Hemoglobin is stable. TOMMY/MODL Voice ID: [id number] Report ID: [id number]
[2018-11-20] MEDS: TAMSULOSIN 0.4 MG SR CAP PO SCH (20:14)
[2018-11-20] MEDS: SODIUM CHLORIDE 0.9% 10ML INJ IV PRN (20:16)
[2018-11-21] MEDS: ALBUTEROL 2.5 MG/3 ML NEB SOL NEB SCH ×4 (02:00→20:00)
[2018-11-21] MEDS: MIDODRINE HCL 5 MG TABLET PO SCH ×3 (02:53→17:19)
[2018-11-21] MEDS: OCTREOTIDE ACETATE 100 MCG/ML SQ SCH ×3 (02:53→17:12)
[2018-11-21] MEDS: NA CHLORIDE 0.9% 1,000 ML IV SCH ×2 (02:53→14:40)
[2018-11-21] MEDS: INSULIN -REGULAR HUMAN 50 UNIT/0.5 ML ML SQ SCH ×4 (07:30→20:57)
[2018-11-21] MEDS: LACTULOSE 20 GM/30 ML UCUP PO SCH ×3 (09:33→20:18)
[2018-11-21] MEDS: FAMOTIDINE 20 MG/2 ML VIAL IV SCH ×2 (09:33→20:09)
[2018-11-21] MEDS: PROMOD 30 ML DOSE PO SCH ×2 (09:34→20:17)
[2018-11-21] MEDS: SODIUM BICARB 325 MG TAB PO SCH ×3 (09:34→20:12)
[2018-11-21] MEDS: RIFAXIMIN FT SCH ×2 (09:34→20:12)
[2018-11-21] MEDS: VITAMIN D 5,000 UNIT CAP PO SCH (09:34)
[2018-11-21 10:12] LABS: Hematocrit 28.2 % (39.6-49.0); RBC Red Blood Cell Count 2.63 M/uL (4.33-5.43)
[2018-11-21 10:13] LABS: MPV 10.1 fL (7.6-11.3)
[2018-11-21 10:14] LABS: Absolute Lymphocytes (CBC) 0.3 K/uL (0.7-4.9); Basophils % 0.2 % (0-1.3); Eosinophils % 0.5 % (0-4.4); Lymphocytes % 3.3 % (15.3-44.8); Monocytes % 11.7 % (3.3-12.3)
[2018-11-21 10:39] LABS: Potassium 3.9 mmol/L (3.5-5.1)
[2018-11-21 10:40] LABS: Magnesium 2.3 mg/dL (1.8-2.4)
[2018-11-21] MEDS ORDERED: CALCIUM GLUC 10% INJ 4.65 MEQ in NA CHLORIDE 0.9% 100 ML IV ONE (11:15)
[2018-11-21 12:43] LABS: Blood Morphology Comment NOTED (NOT SEEN); Urine White Blood Cell Casts OK
[2018-11-21 12:44] LABS: Anisocytosis 1+; Macrocytosis 1+; Platelet Estimate DECR
--- NOTE | 2018-11-21 16:37 | P.PN ---
Date of Service: 11/21/18 Vital Signs Temp Pulse Resp BP Pulse Ox 97.4 F 90 18 105/51 L 98 11/21/18 12:00 11/21/18 12:00 11/21/18 12:00 11/21/18 12:00 11/21/18 12:00 Medications Acetaminophen (Tylenol -Extra Strength) 500 mg FT Q6H PRN PRN Reason: temperature > 101.0 Stop: 12/10/18 14:48 Albuterol Sulfate (Proventil 0.083% Neb Soln) 2.5 mg NEB [id number] PETE Stop: 12/13/18 10:01 Last Admin: 11/21/18 13:25 Dose: 2.5 mg Calcitriol (Rocaltrol) 0.5 mcg PO DAILY PETE Stop: 12/22/18 09:01 Cholecalciferol (Vitamin D 5,000 Iu Cap) 5,000 unit PO DAILY PETE Stop: 12/18/18 09:01 Last Admin: 11/21/18 09:34 Dose: 5,000 unit Dextrose (Dextrose 50% Syringe) 12.5 gm IV PRN PRN PRN Reason: HYPOGLYCEMIA Stop: 12/10/18 14:48 Enteral Nutritional Formula (Glucerna 1.2 José Antonio) 50 ml FT CONT PETE Stop: 12/13/18 11:01 Last Admin: 11/16/18 11:34 Dose: 50 ml Famotidine (Pepcid) 20 mg IV BID [facility]E Stop: 12/17/18 09:01 Last Admin: 11/21/18 09:33 Dose: 20 mg Glucagon (Glucagen) 1 mg IM 1X PRN PRN Reason: HYPOGLYCEMIA Stop: 12/10/18 14:48 Home Med (Rifaximin [Xifaxan]) 1 tab FT BID PETE Stop: 12/13/18 21:01 Last Admin: 11/21/18 09:34 Dose: 1 tab Levofloxacin/Dextrose (Levaquin 250mg/50 Ml Ivpb) 250 mg in 50 mls @ 50 mls/hr IV Q24H [facility]; Protocol Stop: 12/14/18 19:01 Last Admin: 11/20/18 18:01 Dose: 50 mls Sodium Chloride (Ns 1000 Ml Ivbag) 1,000 mls @ 75 mls/hr IV .[id number] [facility] Stop: 12/20/18 12:01 Last Admin: 11/21/18 14:40 Dose: Not Given Insulin Human Regular (Novolin -R) 0 unit SQ ACHS [facility]; Protocol Stop: 12/10/18 16:31 Last Admin: 11/21/18 12:24 Dose: 5 unit Lactulose (Cephulac) 20 gm PO TID [facility] Stop: 12/20/18 14:01 Last Admin: 11/21/18 13:21 Dose: 20 gm Metoclopramide HCl (Reglan) 10 mg IV Q6H PRN PRN Reason: NAUSEA / VOMITING Stop: 12/10/18 14:48 Last Admin: 11/14/18 23:25 Dose: 10 mg Midodrine (Proamatine) 10 mg PO Q8HR [facility] Stop: 12/21/18 17:01 Nutritional Formula (Promod Liquid Protein) 30 ml PO BID [facility] Stop: 12/18/18 21:01 Last Admin: 11/21/18 09:34 Dose: 30 ml Octreotide Acetate (Sandostatin) 200 mcg SQ Q8HR [facility] Stop: 12/17/18 19:01 Last Admin: 11/21/18 11:01 Dose: 200 mcg Sodium Bicarbonate (Sodium Bicarb 325 Mg) 650 mg PO QID [facility] Stop: 12/21/18 17:01 Sodium Chloride (Sodium Chloride 10 Ml Inj) 10 ml IV UD PRN PRN Reason: Diluant Stop: 12/13/18 09:57 Last Admin: 11/20/18 20:16 Dose: 10 ml Tamsulosin HCl (Flomax) 0.4 mg PO BEDTIME [facility] Stop: 12/19/18 21:01 Last Admin: 11/20/18 20:14 Dose: 0.4 mg Microbiology Results 11/10/18 10:30 Blood - Blood Aerobic Blood Culture - Final No growth in 5 days. 11/10/18 10:30 Blood - Blood Anaerobic Blood Culture - Final No growth in 5 days. 11/10/18 09:50 Blood - Blood Aerobic Blood Culture - Final No growth in 5 days. 11/10/18 09:50 Blood - Blood Anaerobic Blood Culture - Final No growth in 5 days. Assessment/ Plan: Nephrology. Doing well. CPS stable without CP or SOB. No acute events overnight. Lopez reinserted over the weekend due to obstruction. Vitals, medications, blood work and imaging reviewed in the chart. General: Cachectic. NAD. HEENT: MMM Neck: Supple Respiratory: Clear to auscultation bilaterally Cardiovascular: Hip & LE Edema trace to 1+, Regular rate/rhythm Gastrointestinal: Distended. NT. Musculoskeletal: No clubbing, No contractures Integumentary: No rashes, No cyanosis Neurological: Awake and alert. Urinary: Lopez External genitalia: No edema Blood work reviewed in the chart. Cr 2.88 Imagings Data: EXAM DESCRIPTION: RAD - Chest Single View - 11/13/2018 9:41 pm CLINICAL HISTORY: The patient is 78 years old and is Male; VOMITING TECHNIQUE: Frontal view of the chest. COMPARISON: Chest radiograph performed the same day at 1254 hours. FINDINGS: LUNGS: There are low lung volumes. Minimal left basilar opacity is present. PLEURAL SPACE: Unremarkable. No pneumothorax. HEART: Unremarkable. No cardiomegaly. MEDIASTINUM: Unremarkable. BONES/JOINTS: Unremarkable. An enteric tube is noted coursing beneath the level of the hemidiaphragm, the tip is off the [id number]. IMPRESSION: Minimal left basilar atelectasis. Conclusions/Impression: A/ LUIS MANUEL suspicious for HRS. Other considerations include prerenal azotemia and ATN in the setting of a high volume paracentesis X2 or GN in the setting of persistent hematuria/ pyuria. Renal function may have been exacerbated by second large volume paracentesis. Hyponatremia. Hypokalemia. Acidosis. Urinary obstruction/ retention sp lopez placement by Dr. Rivera. BPH/ LUTS. Liver cirrhosis with ascites. Varices. Hepatic encephalopathy. Hypoalbuminemia. HTN. DM II. Anemia in chronic illness. Macrocytic. Thrombocytopenia. Acute cystitis. Enterococcus faecalis. P/ Continue current POC and Medications. IV Albumin as needed. Hold IVF at this time. Increase Sodium Bicarb QID. Continue Octreotide. Increase Midodrine. Follow up urine cytology and eosinophil stain. Agree with lactulose therapy. Agree with abx. No NSAIDS. AM labs. Daily weight. The patient may benefit from a renal biopsy at this time due to the unclear, progressive CKD. However, he may be at a high risk for a complication.
[2018-11-21] MEDS: Levofloxacin 250mg IV 250 MG/50 ML BAG IV SCH (20:05)
[2018-11-21] MEDS: TAMSULOSIN 0.4 MG SR CAP PO SCH (20:11)
--- NOTE | 2018-11-21 22:39 | PN ---
Date of Progress Note: 11/21/2018 Subjective: The patient was seen this morning for followup. No new complaints or problems reported by the patient, lying in bed, not in any distress. Diarrhea problem is better after we reduced the d ose of lactulose. Objective: Vital Signs: Reviewed. HEENT: Unremarkable. Lungs: Clear to auscultation. No rhonchi or rales. Heart: Sounds normal. Abdomen: Soft. Bowel sounds normal. No guarding. No rigidity. Distention present with ascites. Extremities: No leg edema. Labs: Reviewed. Impression: 1.Hepatic encephalopathy, resolved. 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 3.Acute renal failure, worsening. 4.Thrombocytopenia. 5.Anemia. 6.Diabetes mellitus, type 2. Plan: We will go ahead and continue current medications. Renal function has deteriorated slightly t yomi. We are giving IV fluid which was started yesterday thinking about possibility of prerenal azot emia and we will continue that. Repeat blood work tomorrow. Details were discussed with Dr. Mccartney . If renal function continues to get worse, one of the option that he has in his mind is possibility of kidney biopsy, but at the same time, it will be a high risk procedure in somebody like him. So o bviously, we will have to talk about that with the patient and family and see what their opinion is. I will see him tomorrow for janina pizarro. TOMMY/MODL Voice ID: [id number] Report ID: [id number]
[2018-11-22] MEDS: MIDODRINE HCL 5 MG TABLET PO SCH ×3 (00:30→16:23)
[2018-11-22] MEDS: OCTREOTIDE ACETATE 100 MCG/ML SQ SCH ×3 (00:30→16:23)
[2018-11-22] MEDS: ALBUTEROL 2.5 MG/3 ML NEB SOL NEB SCH ×4 (02:00→19:26)
[2018-11-22 05:54] LABS: Absolute Lymphocytes (CBC) 0.4 K/uL (0.7-4.9); Basophils % 0.2 % (0-1.3); Eosinophils % 0.5 % (0-4.4); Hematocrit 28.3 % (39.6-49.0); Lymphocytes % 3.6 % (15.3-44.8); MPV 10.8 fL (7.6-11.3); Monocytes % 11.2 % (3.3-12.3); RBC Red Blood Cell Count 2.63 M/uL (4.33-5.43)
[2018-11-22 05:55] LABS: Albumin 2.3 g/dL (3.4-5.0); Bilirubin Total 2.2 mg/dL (0.2-1.0); Magnesium 2.6 mg/dL (1.8-2.4); Phosphorus 5.9 mg/dL (2.5-4.9); Potassium 4.3 mmol/L (3.5-5.1); Protein, Total 5.5 g/dL (6.4-8.2); Uric Acid 9.4 mg/dL (3.5-7.2)
[2018-11-22 06:04] LABS: Protime INR 1.77
[2018-11-22 06:21] LABS: Urine Appearance CLOUDY; Urine Bilirubin NEGATIVE (NEG); Urine Blood 3+ (NEG); Urine Color DK YELLOW; Urine Glucose NEGATIVE (NEG); Urine Protein NEGATIVE (NEG); Urine Specific Gravity 1.015 (1.005-1.030); Urine Urobilinogen 0.2 mg/dL (0.2-1.0)
[2018-11-22 06:36] LABS: Urine Bacteria NONE SEEN /HPF (NONE SEEN); Urine RBC >50 /HPF (NONE SEEN)
[2018-11-22 06:37] LABS: Urine Culture Reflex Order REFLEXED; Urine Yeast MANY (NONE SEEN); Urine Yeast with Hyphae PRESENT
[2018-11-22] MEDS: INSULIN -REGULAR HUMAN 50 UNIT/0.5 ML ML SQ SCH ×4 (07:30→21:00)
[2018-11-22] MEDS: PROMOD 30 ML DOSE PO SCH ×2 (09:00→20:45)
[2018-11-22] MEDS: RIFAXIMIN FT SCH ×2 (09:56→20:45)
[2018-11-22] MEDS: LACTULOSE 20 GM/30 ML UCUP PO SCH ×3 (09:56→20:44)
[2018-11-22] MEDS: CALCITROL 0.25 MCG CAP PO SCH (09:57)
[2018-11-22] MEDS: SODIUM BICARB 325 MG TAB PO SCH ×4 (09:57→20:44)
[2018-11-22] MEDS: VITAMIN D 5,000 UNIT CAP PO SCH (09:58)
[2018-11-22] MEDS: FAMOTIDINE 20 MG/2 ML VIAL IV SCH ×2 (09:58→20:44)
[2018-11-22] MEDS: Levofloxacin 250mg IV 250 MG/50 ML BAG IV SCH (16:58)
--- NOTE | 2018-11-22 20:31 | PN ---
Date of Progress Note: 11/22/2018 Subjective: The patient was seen this morning for followup. No new complaints or problems reported. He was sitting at bedside, has some nausea. and daughter were present. Objective: Vital Signs: Reviewed. HEENT Examination: Unremarkable. Lungs: Clear to auscultation. No rhonchi. No rales. Heart: Sounds normal. Abdomen: Soft. Bowel sounds normal. No guarding, rigidity, tenderness noted. Abdomen is distended with ascites unchanged. Extremities: No leg edema. Laboratory Data: White count 12.3, hemoglobin 9.7, platelets 55. Sodium 129, potassium 4.3, chlorid e 97, bicarb 18, BUN 98, creatinine 4.02, glucose 119. Ammonia level 59. INR 1.7. The patient's ME LD score today is 32. Impression: 1.Hepatic encephalopathy. 2.Cirrhosis of liver with ascites, due to alcohol use. 3.Acute renal failure. 4.Thrombocytopenia. 5.Anemia. Plan: The patient's renal function is deteriorating with his acute renal failure and underlying cirr hosis of liver. We are concerned about hepatorenal syndrome. We will continue to follow with nephro logist. Details were discussed with Dr. Mccartney. This morning, I did communicate with the patient's family and doing kidney biopsy is really high risk in his case and I am not sure if he is going to a dd any meaningful value as we are definitely concerned about hepatorenal syndrome at this point given the current clinical situation. Considering risk more than the benefit, I am actually leaning towar ds not having any renal biopsy and the patient's family understands and they agree with that also. T he patient, it appears that he will likely end up on hemodialysis considering the deterioration of th e renal function and he understands that. If he requires dialysis, he will need to have dialysis acc ess catheter placement and at that time, we will consider platelet transfusion prior to such procedur e. If platelet count starts to drop less than 30 pounds or if he starts to have any bleeding with cu rrent platelet count, we will consider platelet transfusion as well. All those details were discusse d with family. I will see him tomorrow for followup. TOMMY/MODL Voice ID: [id number] Report ID: [id number]
[2018-11-22] MEDS: TAMSULOSIN 0.4 MG SR CAP PO SCH (20:44)
--- NOTE | 2018-11-22 22:30 | P.PN ---
Date of Service: 11/22/18 Vital Signs Temp Pulse Resp BP Pulse Ox 97.3 F 77 16 115/54 L 97 11/22/18 16:00 11/22/18 16:00 11/22/18 16:00 11/22/18 16:00 11/22/18 16:00 Medications Acetaminophen (Tylenol -Extra Strength) 500 mg FT Q6H PRN PRN Reason: temperature > 101.0 Stop: 12/10/18 14:48 Albuterol Sulfate (Proventil 0.083% Neb Soln) 2.5 mg NEB [id number] [facility]E Stop: 12/13/18 10:01 Last Admin: 11/22/18 13:50 Dose: 2.5 mg Calcitriol (Rocaltrol) 0.5 mcg PO DAILY [facility] Stop: 12/22/18 09:01 Last Admin: 11/22/18 09:57 Dose: 0.5 mcg Cholecalciferol (Vitamin D 5,000 Iu Cap) 5,000 unit PO DAILY [facility] Stop: 12/18/18 09:01 Last Admin: 11/22/18 09:58 Dose: 5,000 unit Dextrose (Dextrose 50% Syringe) 12.5 gm IV PRN PRN PRN Reason: HYPOGLYCEMIA Stop: 12/10/18 14:48 Enteral Nutritional Formula (Glucerna 1.2 José Antonio) 50 ml FT CONT [facility] Stop: 12/13/18 11:01 Last Admin: 11/16/18 11:34 Dose: 50 ml Famotidine (Pepcid) 20 mg IV BID [facility] Stop: 12/17/18 09:01 Last Admin: 11/22/18 20:44 Dose: 20 mg Glucagon (Glucagen) 1 mg IM 1X PRN PRN Reason: HYPOGLYCEMIA Stop: 12/10/18 14:48 Home Med (Rifaximin [Xifaxan]) 1 tab FT BID [facility] Stop: 12/13/18 21:01 Last Admin: 11/22/18 20:45 Dose: 1 tab Levofloxacin/Dextrose (Levaquin 250mg/50 Ml Ivpb) 250 mg in 50 mls @ 50 mls/hr IV Q24H [facility]; Protocol Stop: 12/14/18 19:01 Last Admin: 11/22/18 16:58 Dose: 50 mls Insulin Human Regular (Novolin -R) 0 unit SQ ACHS [facility]; Protocol Stop: 12/10/18 16:31 Last Admin: 11/22/18 21:00 Dose: Not Given Lactulose (Cephulac) 20 gm PO TID [facility] Stop: 12/20/18 14:01 Last Admin: 11/22/18 20:44 Dose: 20 gm Metoclopramide HCl (Reglan) 10 mg IV Q6H PRN PRN Reason: NAUSEA / VOMITING Stop: 12/10/18 14:48 Last Admin: 11/14/18 23:25 Dose: 10 mg Midodrine (Proamatine) 10 mg PO Q8HR [facility] Stop: 12/21/18 17:01 Last Admin: 11/22/18 16:23 Dose: 10 mg Nutritional Formula (Promod Liquid Protein) 30 ml PO BID [facility] Stop: 12/18/18 21:01 Last Admin: 11/22/18 20:45 Dose: 30 ml Octreotide Acetate (Sandostatin) 200 mcg SQ Q8HR [facility] Stop: 12/17/18 19:01 Last Admin: 11/22/18 16:23 Dose: 200 mcg Sodium Bicarbonate (Sodium Bicarb 325 Mg) 650 mg PO QID [facility] Stop: 12/21/18 17:01 Last Admin: 11/22/18 20:44 Dose: 650 mg Sodium Chloride (Sodium Chloride 10 Ml Inj) 10 ml IV UD PRN PRN Reason: Diluant Stop: 12/13/18 09:57 Last Admin: 11/20/18 20:16 Dose: 10 ml Tamsulosin HCl (Flomax) 0.4 mg PO BEDTIME [facility] Stop: 12/19/18 21:01 Last Admin: 11/22/18 20:44 Dose: 0.4 mg Microbiology Results 11/10/18 10:30 Blood - Blood Aerobic Blood Culture - Final No growth in 5 days. 11/10/18 10:30 Blood - Blood Anaerobic Blood Culture - Final No growth in 5 days. 11/10/18 09:50 Blood - Blood Aerobic Blood Culture - Final No growth in 5 days. 11/10/18 09:50 Blood - Blood Anaerobic Blood Culture - Final No growth in 5 days. Assessment/ Plan: Nephrology. Doing well. Poor hearing. CPS stable without CP or SOB. No acute events overnight. Vitals, medications, blood work and imaging reviewed in the chart. General: Cachectic. NAD. HEENT: MMM Neck: Supple Respiratory: Clear to auscultation bilaterally Cardiovascular: Hip & LE Edema trace, Regular rate/rhythm Gastrointestinal: Distended. NT. Musculoskeletal: No clubbing, No contractures Integumentary: No rashes, No cyanosis Neurological: Awake and alert. Urinary: Lopez External genitalia: No edema Blood work reviewed in the chart. Cr 2.88 Imagings Data: EXAM DESCRIPTION: RAD - Chest Single View - 11/13/2018 9:41 pm CLINICAL HISTORY: The patient is 78 years old and is Male; VOMITING TECHNIQUE: Frontal view of the chest. COMPARISON: Chest radiograph performed the same day at 1254 hours. FINDINGS: LUNGS: There are low lung volumes. Minimal left basilar opacity is present. PLEURAL SPACE: Unremarkable. No pneumothorax. HEART: Unremarkable. No cardiomegaly. MEDIASTINUM: Unremarkable. BONES/JOINTS: Unremarkable. An enteric tube is noted coursing beneath the level of the hemidiaphragm, the tip is off the [id number]. IMPRESSION: Minimal left basilar atelectasis. Conclusions/Impression: A/ LUIS MANUEL suspicious for HRS. Other considerations include prerenal azotemia and ATN in the setting of a high volume paracentesis X2 or GN in the setting of persistent hematuria/ pyuria. Negative urine eosinophils. Renal function may have been exacerbated by second large volume paracentesis. Hyponatremia. Hypokalemia. Acidosis. Urinary obstruction/ retention sp lopez placement by Dr. Rivera. BPH/ LUTS. Liver cirrhosis with ascites. Varices. Hepatic encephalopathy. Hypoalbuminemia. HTN. DM II. Anemia in chronic illness. Macrocytic. Thrombocytopenia. Acute cystitis. Enterococcus faecalis. P/ Continue current POC and Medications. Check a renal doppler ultrasound to evaluate for possible thrombosis. IV Albumin as needed. Hold IVF at this time. Continue Octreotide and Midodrine. Agree with lactulose therapy. Agree with abx. No NSAIDS. AM labs. Daily weight. The patient may benefit from a renal biopsy at this time due to the unclear, progressive CKD. However, he may be at a high risk for a complication. May need to consider dialysis if the renal function does not improve. Case discussed with Dr. Barrera.
[2018-11-22] MEDS ORDERED: NA CHLORIDE 0.9% 1,000 ML IV SCH (23:00)
[2018-11-23] MEDS: OCTREOTIDE ACETATE 100 MCG/ML SQ SCH ×3 (00:26→16:29)
[2018-11-23] MEDS: MIDODRINE HCL 5 MG TABLET PO SCH ×3 (00:26→16:28)
[2018-11-23] MEDS ORDERED: OCTREOTIDE ACETATE 500 MCG/ML ONE (00:29)
[2018-11-23] MEDS: ALBUTEROL 2.5 MG/3 ML NEB SOL NEB SCH ×4 (00:34→20:00)
[2018-11-23 06:02] LABS: Absolute Lymphocytes (CBC) 0.5 K/uL (0.7-4.9); Basophils % 0.1 % (0-1.3); Eosinophils % 0.7 % (0-4.4); Hematocrit 28.5 % (39.6-49.0); Lymphocytes % 4.2 % (15.3-44.8); MPV 9.5 fL (7.6-11.3); Monocytes % 11.2 % (3.3-12.3); RBC Red Blood Cell Count 2.65 M/uL (4.33-5.43)
[2018-11-23 06:14] LABS: Potassium 4.5 mmol/L (3.5-5.1)
[2018-11-23 06:30] LABS: Protime INR 1.63
[2018-11-23] MEDS: INSULIN -REGULAR HUMAN 50 UNIT/0.5 ML ML SQ SCH ×4 (07:30→21:00)
[2018-11-23] MEDS: RIFAXIMIN FT SCH ×3 (08:56→21:23)
[2018-11-23] MEDS: SODIUM BICARB 325 MG TAB PO SCH ×5 (08:57→21:23)
[2018-11-23] MEDS: VITAMIN D 5,000 UNIT CAP PO SCH (08:58)
[2018-11-23] MEDS: LACTULOSE 20 GM/30 ML UCUP PO SCH ×4 (08:58→21:24)
[2018-11-23] MEDS: FAMOTIDINE 20 MG/2 ML VIAL IV SCH (08:59)
[2018-11-23] MEDS: CALCITROL 0.25 MCG CAP PO SCH (08:59)
[2018-11-23] MEDS: NA CHLORIDE 0.9% 1,000 ML IV SCH ×3 (09:00→21:16)
[2018-11-23 09:07] LABS: Anisocytosis 1+; Blood Morphology Comment NOTED (NOT SEEN); Platelet Estimate DECR
[2018-11-23] MEDS: PROMOD 30 ML DOSE PO SCH ×3 (09:14→21:24)
--- NOTE | 2018-11-23 09:15 | RAD REPORT ---
EXAM DESCRIPTION: US - ABDOMEN PELVIS SCAN US - 11/23/2018 8:33 am CLINICAL HISTORY: High blood pressure LUIS MANUEL/ CKD in the setting of liver disease. COMPARISON: No comparisons FINDINGS: The right kidney has a mildly echogenic appearance and is small in size measuring 8.5 x 4. 1 cm. The left kidney measures 11.5 x 5.5 cm. No hydronephrosis. Moderate ascites. Aortic velocity: 89 cm/second Right proximal renal artery: 207 cm/second Right mid renal artery: 277 cm/second Right distal renal artery: 360 cm/second Right renal arcuate artery resistive index: 0.7 Right renal artery / aorta ratio: 4.0 Left proximal renal artery: 137 cm/second Left mid renal artery: 75 cm/second Left distal renal artery: 86 cm/second Left renal arcuate artery resistive index: 0.8 Left renal artery/aorta ratio: 1.5 Normal waveforms demonstrated within the bilateral renal arteries. IMPRESSION: Evidence of proximal right renal artery stenosis is present. The right kidney also appears mildly echogenic, compatible with underlying medical renal disease. Moderate ascites.
[2018-11-23] MEDS: METOCLOPRAMIDE 10 MG/2mL INJ IV PRN (09:17)
[2018-11-23 10:09] LABS: Absolute Lymphocytes (CBC) 0.5 K/uL (0.7-4.9); Basophils % 0.1 % (0-1.3); Eosinophils % 0.5 % (0-4.4); Hematocrit 26.9 % (39.6-49.0); Lymphocytes % 5.1 % (15.3-44.8); MPV 10.9 fL (7.6-11.3); Monocytes % 9.3 % (3.3-12.3); RBC Red Blood Cell Count 2.53 M/uL (4.33-5.43)
[2018-11-23 10:12] LABS: Protime INR 1.78
[2018-11-23] MEDS ORDERED: PANTOPRAZOLE 40 MG INJ IVP ONE (11:04)
[2018-11-23] MEDS ORDERED: SODIUM CHLORIDE 0.9% 10ML INJ IV PRN ×2 (11:04→11:08)
[2018-11-23 12:19] LABS: Immunoglobulin A 945 mg/dL (81-463); Immunoglobulin G 1334 mg/dL (694-1618); Immunoglobulin M 158 mg/dL (48-271)
[2018-11-23] MEDS ORDERED: NA CHLORIDE 0.9% 250 ML ONE ×2 (12:22→17:07)
[2018-11-23] MEDS: TAMSULOSIN 0.4 MG SR CAP PO SCH ×2 (21:00→21:23)
[2018-11-23 22:03] LABS: Absolute Lymphocytes (CBC) 0.4 K/uL (0.7-4.9); Basophils % 0.2 % (0-1.3); Eosinophils % 0.5 % (0-4.4); Hematocrit 32.2 % (39.6-49.0); Lymphocytes % 3.3 % (15.3-44.8); MPV 8.9 fL (7.6-11.3); Monocytes % 11.8 % (3.3-12.3); RBC Red Blood Cell Count 3.15 M/uL (4.33-5.43)
--- NOTE | 2018-11-23 22:45 | P.PN ---
Date of Service: 11/23/18 Vital Signs Temp Pulse Resp BP Pulse Ox 97.8 F 77 14 124/60 98 11/23/18 20:00 11/23/18 20:00 11/23/18 20:00 11/23/18 20:00 11/23/18 20:00 Medications Acetaminophen (Tylenol -Extra Strength) 500 mg FT Q6H PRN PRN Reason: temperature > 101.0 Stop: 12/10/18 14:48 Albuterol Sulfate (Proventil 0.083% Neb Soln) 2.5 mg NEB [id number] PETE Stop: 12/13/18 10:01 Last Admin: 11/23/18 20:00 Dose: 2.5 mg Calcitriol (Rocaltrol) 0.5 mcg PO DAILY PETE Stop: 12/22/18 09:01 Last Admin: 11/23/18 08:59 Dose: 0.5 mcg Cholecalciferol (Vitamin D 5,000 Iu Cap) 5,000 unit PO DAILY PETE Stop: 12/18/18 09:01 Last Admin: 11/23/18 08:58 Dose: 5,000 unit Dextrose (Dextrose 50% Syringe) 12.5 gm IV PRN PRN PRN Reason: HYPOGLYCEMIA Stop: 12/10/18 14:48 Enteral Nutritional Formula (Glucerna 1.2 José Antonio) 50 ml FT CONT [facility] Stop: 12/13/18 11:01 Last Admin: 11/16/18 11:34 Dose: 50 ml Glucagon (Glucagen) 1 mg IM 1X PRN PRN Reason: HYPOGLYCEMIA Stop: 12/10/18 14:48 Home Med (Rifaximin [Xifaxan]) 1 tab FT BID PETE Stop: 12/13/18 21:01 Last Admin: 11/23/18 21:23 Dose: 1 tab Sodium Chloride (Ns 1000 Ml Ivbag) 1,000 mls @ 125 mls/hr IV .Q8H [facility] Stop: 12/23/18 08:01 Last Admin: 11/23/18 21:16 Dose: Not Given Insulin Human Regular (Novolin -R) 0 unit SQ ACHS [facility]; Protocol Stop: 12/10/18 16:31 Last Admin: 11/23/18 21:00 Dose: Not Given Lactulose (Cephulac) 20 gm PO TID [facility] Stop: 12/20/18 14:01 Last Admin: 11/23/18 21:24 Dose: 20 gm Metoclopramide HCl (Reglan) 10 mg IV Q6H PRN PRN Reason: NAUSEA / VOMITING Stop: 12/10/18 14:48 Last Admin: 11/23/18 09:17 Dose: 10 mg Midodrine (Proamatine) 10 mg PO Q8HR [facility] Stop: 12/21/18 17:01 Last Admin: 11/23/18 16:28 Dose: 10 mg Nutritional Formula (Promod Liquid Protein) 30 ml PO BID [facility] Stop: 12/18/18 21:01 Last Admin: 11/23/18 21:24 Dose: 30 ml Octreotide Acetate (Sandostatin) 200 mcg SQ Q8HR PETE Stop: 12/17/18 19:01 Last Admin: 11/23/18 16:29 Dose: 200 mcg Pantoprazole Sodium (Protonix Inj) 40 mg IVP DAILY [facility]; Protocol Stop: 12/24/18 09:01 Sodium Bicarbonate (Sodium Bicarb 325 Mg) 650 mg PO QID [facility] Stop: 12/21/18 17:01 Last Admin: 11/23/18 21:23 Dose: 650 mg Sodium Chloride (Sodium Chloride 10 Ml Inj) 10 ml IV UD PRN PRN Reason: Diluant Stop: 12/13/18 09:57 Last Admin: 11/20/18 20:16 Dose: 10 ml Tamsulosin HCl (Flomax) 0.4 mg PO BEDTIME [facility] Stop: 12/19/18 21:01 Last Admin: 11/23/18 21:23 Dose: 0.4 mg Microbiology Results 11/10/18 10:30 Blood - Blood Aerobic Blood Culture - Final No growth in 5 days. 11/10/18 10:30 Blood - Blood Anaerobic Blood Culture - Final No growth in 5 days. 11/10/18 09:50 Blood - Blood Aerobic Blood Culture - Final No growth in 5 days. 11/10/18 09:50 Blood - Blood Anaerobic Blood Culture - Final No growth in 5 days. Assessment/ Plan: Nephrology. Doing well. Poor hearing. CPS stable without CP or SOB. No acute events overnight. Case discussed with the family. Vitals, medications, blood work and imaging reviewed in the chart. General: Cachectic. NAD. HEENT: MMM Neck: Supple Respiratory: Clear to auscultation bilaterally Cardiovascular: Hip Edema trace, Regular rate/rhythm Gastrointestinal: Distended. NT. Musculoskeletal: No clubbing, No contractures Integumentary: No rashes, No cyanosis Neurological: Awake and alert. Urinary: Lopez External genitalia: No edema Blood work reviewed in the chart. Cr 2.88 Imagings Data: EXAM DESCRIPTION: RAD - Chest Single View - 11/13/2018 9:41 pm CLINICAL HISTORY: The patient is 78 years old and is Male; VOMITING TECHNIQUE: Frontal view of the chest. COMPARISON: Chest radiograph performed the same day at 1254 hours. FINDINGS: LUNGS: There are low lung volumes. Minimal left basilar opacity is present. PLEURAL SPACE: Unremarkable. No pneumothorax. HEART: Unremarkable. No cardiomegaly. MEDIASTINUM: Unremarkable. BONES/JOINTS: Unremarkable. An enteric tube is noted coursing beneath the level of the hemidiaphragm, the tip is off the [id number]. IMPRESSION: Minimal left basilar atelectasis. Conclusions/Impression: A/ LUIS MANUEL suspicious for HRS versus IgA nephropathy. Other considerations include prerenal azotemia and ATN in the setting of a high volume paracentesis X2 or GN in the setting of persistent hematuria/ pyuria. Negative urine eosinophils. Renal function may have been exacerbated by second large volume paracentesis. Hyponatremia. Hypokalemia. Acidosis. Urinary obstruction/ retention sp lopez placement by Dr. Rivera. BPH/ LUTS. Liver cirrhosis with ascites. Varices. Hepatic encephalopathy. Hypoalbuminemia. HTN. DM II. Anemia in chronic illness. Macrocytic. Thrombocytopenia. Acute cystitis. Enterococcus faecalis. P/ Continue current POC and Medications. IV Albumin as needed. Hold IVF at this time. Continue Octreotide and Midodrine. Agree with lactulose therapy. Agree with abx. No NSAIDS. AM labs. Daily weight. The patient may benefit from a renal biopsy at this time but the risk may be too high in the setting of liver disease. The family is considering dialysis versus hospice/ conservative care. The family will discuss their options with Dr. Barrera.
--- NOTE | 2018-11-24 00:07 | PN ---
Date of Progress Note: 11/23/2018 Subjective: The patient was seen this morning for followup. No new complaints, problems reported by him. Family was with him at bedside. He has nausea from time to time. Objective: Vital Signs: Reviewed. Intake, output records reviewed. HEENT: Unremarkable. Lungs: Clear to auscultation. Heart: Sounds normal. Abdomen: Soft. Bowel sounds normal. No guarding, rigidity, tenderness, distention. Extremities: No leg edema. Laboratory Data: White count 10.7, hemoglobin 9.8, platelets 56. Sodium 128, potassium 4.5, chlorid e 95, bicarb 18, BUN 104, creatinine 4.16, glucose 104. Impression: 1.Cirrhosis of liver with ascites, due to alcohol use. 2.Thrombocytopenia. 3.Anemia. 4.Acute renal failure. 5.Benign prostatic hypertrophy with urinary retention. Plan: This morning when I saw him, his IV fluid rate was increased and nurse was advised to contact Dr. Rivera to see if we can remove his Atkins catheter. He is on Flomax. After I saw him during the c ourse of day today, nurse reported that the patient actually had hematemesis with approximately 200 c c of blood that he vomited and she was advised to keep the patient n.p.o., contact Dr. Powers, the [employer] consultant, for consultation for this upper GI bleeding and start the patient on IV P rotonix and discontinue Pepcid. It was ordered for patient to receive 2 units of PRBC blood transfus ion. First unit of PRBC to be given as soon as possible, then 1 unit of single-donor platelet and th en second unit of PRBC blood transfusion to be given. We will obtain post-transfusion hemoglobin and repeat blood work again tomorrow, and I will see him tomorrow for followup. TOMMY/MODL Voice ID: [id number] Report ID: [id number]
[2018-11-24] MEDS: OCTREOTIDE ACETATE 100 MCG/ML SQ SCH ×3 (00:42→17:46)
[2018-11-24] MEDS: MIDODRINE HCL 5 MG TABLET PO SCH ×3 (00:42→18:47)
[2018-11-24] MEDS: ALBUTEROL 2.5 MG/3 ML NEB SOL NEB SCH ×4 (02:00→20:00)
[2018-11-24 05:22] LABS: Absolute Lymphocytes (CBC) 0.6 K/uL (0.7-4.9); Basophils % 0.4 % (0-1.3); Eosinophils % 0.6 % (0-4.4); Hematocrit 31.1 % (39.6-49.0); Lymphocytes % 5.4 % (15.3-44.8); MPV 8.9 fL (7.6-11.3); Monocytes % 11.1 % (3.3-12.3); RBC Red Blood Cell Count 3.04 M/uL (4.33-5.43)
[2018-11-24] MEDS: NA CHLORIDE 0.9% 1,000 ML IV SCH ×2 (07:09→17:45)
[2018-11-24] MEDS: INSULIN -REGULAR HUMAN 50 UNIT/0.5 ML ML SQ SCH ×4 (07:30→20:17)
[2018-11-24] MEDS: CALCITROL 0.25 MCG CAP PO SCH (09:00)
[2018-11-24] MEDS: RIFAXIMIN FT SCH ×2 (09:00→20:16)
[2018-11-24] MEDS: SODIUM BICARB 325 MG TAB PO SCH ×4 (09:00→20:29)
[2018-11-24] MEDS: VITAMIN D 5,000 UNIT CAP PO SCH (09:00)
[2018-11-24] MEDS: PROMOD 30 ML DOSE PO SCH ×2 (09:00→20:18)
[2018-11-24] MEDS: LACTULOSE 20 GM/30 ML UCUP PO SCH ×3 (09:00→20:17)
[2018-11-24] MEDS ORDERED: CEFAZOLIN/NS 1gm 1 GM/50 ML BAG IVPB SCH (09:15)
[2018-11-24] MEDS: PANTOPRAZOLE 40 MG INJ IVP SCH (09:25)
[2018-11-24] MEDS ORDERED: CEFAZOLIN/SWI 1gm 1 GM/10 ML SYR IV SCH (09:30)
[2018-11-24] MEDS ORDERED: CEFAZOLIN/SWI 1gm 0 GM/0 ML SYR ONE (10:01)
[2018-11-24] MEDS ORDERED: CEFTRIAXONE 1 GM/NS 50 ML 1 GM/50 ML BAG IV ONE (11:34)
[2018-11-24] MEDS ORDERED: CEFTRIAXONE/SWI 1gm 1 GM/10 ML SYR IV SCH (12:00)
[2018-11-24] MEDS ORDERED: LIDOCAINE 1% MPF 2 ML AMPULE ONE (13:13)
[2018-11-24] MEDS ORDERED: PROPOFOL 200 MG/20 ML VIAL IV ONE ×2 (13:13)
[2018-11-24] MEDS ORDERED: Phenylephrine HCl 10 MG/ML 1 ML VIAL ONE (13:25)
[2018-11-24] MEDS: NA CHLORIDE 0.9% 250 ML ONE (14:45)
--- NOTE | 2018-11-24 15:19 | PN ---
Subjective: The patient with a history of cirrhosis of the liver due to alcohol use, ascites, thrombocytopenia, anemia, acute renal failure due to ascites, BPH, urinary retention, who has upper GI bleed currently and has been worked up by GI, Dr. Powers. He has had 2 paracentesis already, the said 11 L each came off and the daughter 11 L came off each time. I would recommend leaving the Atkins catheter in for now at least for a month and treat him as necessary for any infections that may develop. Patient may be a hospice candidate. APRIL/HAM Voice ID: [id number] Report ID: [id number] MTDFlorina
[2018-11-24] MEDS: TAMSULOSIN 0.4 MG SR CAP PO SCH (20:17)
[2018-11-24 20:35] LABS: Protime INR 1.45
--- NOTE | 2018-11-24 23:15 | PN ---
Date of Progress Note: 11/24/2018 Subjective: The patient was seen this morning for followup. No new complaints, problems reported by the patient. He was lying in bed, not in distress. The patient's family members were present with him at bedside. After 1 episode of hematemesis yesterday, approximately about 200 cc, he has not had any further episodes of hematemesis. Objective: Vital Signs: Reviewed. HEENT: Unremarkable. Lungs: Clear to auscultation. Heart: Sounds normal. Abdomen: Soft. Bowel sounds normal. No guarding, rigidity, tenderness. Presence of distention wit h ascites. Extremities: No leg edema. Laboratory Data: White count 11.6, hemoglobin 10.8, platelets 85. Sodium 131, potassium 5, chloride 99, bicarb 17, BUN 112, creatinine of 4.21, glucose 102. Impression: 1.Upper gastrointestinal bleeding. 2.Gastroesophageal varices with bleeding. 3.Cirrhosis of liver with ascites. 4.Benign prostatic hypertrophy with urinary retention. 5.Anemia. 6.Thrombocytopenia. 7.Acute renal failure. 8.Hyponatremia. 9.Generalized weakness. 10.Debility. Plan: Details were discussed with the patient and patient's family member this morning regarding GI consultation with Dr. Powers. I did talk to Dr. Powers after I saw the patient this morning and talk ed to him before and after he did EGD procedure. He did find evidence of gastroesophageal varices wi th bleeding and he actually did banding procedure. He also informed me that the patient has very fri able mucosa in the upper GI tract and as the endoscope was passed through upper GI tract, mucosa lini ng, started oozing, so unfortunately, the patient has a very significant coagulopathy due to this cir rhosis of liver problem. After the procedure for close observation, Dr. Powers suggested to keep him in ICU. This morning when I saw him, we did talk about renal failure problem and if the patient wan steven to consider dialysis or go on hospice. The patient informed me that he wanted to try dialysis an d subsequently, Dr. Espinosa, general surgeon called and informed me that after I left the hospital this morning, the patient and family member probably had another discussion about dialysis versus hospice care and they might have different decision compared to what he told me this morning and inform ed Dr. Espinosa that they probably leaning towards hospice care instead of dialysis, so Dr. Espinosa did no t do any procedure to put any dialysis access catheter and I will communicate with the patient and fa pina tomorrow morning. Overall, prognosis is poor. TOMMY/MODL Voice ID: [id number] Report ID: [id number]
[2018-11-25] MEDS: NA CHLORIDE 0.9% 1,000 ML IV SCH
[2018-11-25] MEDS: LACTULOSE 20 GM/30 ML UCUP PO SCH ×6 (00:21→21:54)
[2018-11-25] MEDS: MIDODRINE HCL 5 MG TABLET PO SCH ×3 (00:21→16:39)
[2018-11-25] MEDS: OCTREOTIDE ACETATE 100 MCG/ML SQ SCH ×3 (00:53→16:39)
[2018-11-25] MEDS: ALBUTEROL 2.5 MG/3 ML NEB SOL NEB SCH ×4 (01:25→19:50)
[2018-11-25 06:00] LABS: Absolute Lymphocytes (CBC) 0.5 K/uL (0.7-4.9); Basophils % 0.3 % (0-1.3); Eosinophils % 0.3 % (0-4.4); Hematocrit 36.4 % (39.6-49.0); Lymphocytes % 3.8 % (15.3-44.8); MPV 9.4 fL (7.6-11.3); Monocytes % 10.1 % (3.3-12.3); RBC Red Blood Cell Count 3.66 M/uL (4.33-5.43)
[2018-11-25 06:18] LABS: Albumin 2.7 g/dL (3.4-5.0); Potassium 4.7 mmol/L (3.5-5.1); Protein, Total 6.2 g/dL (6.4-8.2)
[2018-11-25] MEDS: INSULIN -REGULAR HUMAN 50 UNIT/0.5 ML ML SQ SCH ×4 (07:30→21:00)
[2018-11-25] MEDS ORDERED: D5 0.9 NS 1,000 ML IV SCH (08:00)
[2018-11-25] MEDS: RIFAXIMIN FT SCH ×2 (08:42→21:46)
[2018-11-25] MEDS: PANTOPRAZOLE 40 MG INJ IVP SCH (08:44)
[2018-11-25] MEDS: SODIUM BICARB 325 MG TAB PO SCH ×4 (08:45→21:48)
[2018-11-25] MEDS: VITAMIN D 5,000 UNIT CAP PO SCH ×3 (08:46→11:09)
[2018-11-25] MEDS: CALCITROL 0.25 MCG CAP PO SCH (09:00)
[2018-11-25] MEDS: PROMOD 30 ML DOSE PO SCH ×2 (09:22→21:54)
[2018-11-25] MEDS: HALOPERIDOL LACT 5 MG/ML INJ IV PRN ×2 (11:09→18:29)
[2018-11-25] MEDS: CEFTRIAXONE/SWI 1gm 1 GM/10 ML SYR IV SCH (11:09)
--- NOTE | 2018-11-25 11:40 | P.PN ---
Date of Service: 11/24/18 Vital Signs Temp Pulse Resp BP Pulse Ox 97.2 F 93 H 19 124/65 98 11/25/18 04:00 11/25/18 10:00 11/25/18 10:00 11/25/18 10:00 11/25/18 10:00 Medications Acetaminophen (Tylenol -Extra Strength) 500 mg FT Q6H PRN PRN Reason: temperature > 101.0 Stop: 12/10/18 14:48 Albuterol Sulfate (Proventil 0.083% Neb Soln) 2.5 mg NEB [id number] PETE Stop: 12/13/18 10:01 Last Admin: 11/25/18 07:30 Dose: 2.5 mg Calcitriol (Rocaltrol) 0.5 mcg PO DAILY PETE Stop: 12/22/18 09:01 Last Admin: 11/25/18 09:00 Dose: Not Given Cholecalciferol (Vitamin D 5,000 Iu Cap) 5,000 unit PO DAILY PETE Stop: 12/18/18 09:01 Last Admin: 11/25/18 11:09 Dose: 5,000 unit Dextrose (Dextrose 50% Syringe) 12.5 gm IV PRN PRN PRN Reason: HYPOGLYCEMIA Stop: 12/10/18 14:48 Enteral Nutritional Formula (Glucerna 1.2 José Antonio) 50 ml FT CONT [facility]E Stop: 12/13/18 11:01 Last Admin: 11/16/18 11:34 Dose: 50 ml Glucagon (Glucagen) 1 mg IM 1X PRN PRN Reason: HYPOGLYCEMIA Stop: 12/10/18 14:48 Haloperidol Lactate (Haldol) 2 mg IV Q4H PRN PRN Reason: AGITATION Stop: 12/25/18 10:27 Last Admin: 11/25/18 11:09 Dose: 2 mg Home Med (Rifaximin [Xifaxan]) 1 tab FT BID PETE Stop: 12/13/18 21:01 Last Admin: 11/25/18 08:42 Dose: 1 tab Dextrose/Sodium Chloride (D5w Ns 1-Liter Bag) 1,000 mls @ 50 mls/hr IV .Q20H PETE Stop: 12/25/18 08:01 Last Admin: 11/25/18 08:48 Dose: 1,000 mls Ceftriaxone Sodium/Sodium Chloride (Rocephin 1 Gm/10 Ml Swi Ivp) 1 gm in 10 mls @ 600 mls/hr IV DAILY [facility] Stop: 12/25/18 10:01 Last Admin: 11/25/18 11:09 Dose: 10 mls Insulin Human Regular (Novolin -R) 0 unit SQ ACHS [facility]; Protocol Stop: 12/10/18 16:31 Last Admin: 11/25/18 07:30 Dose: Not Given Lactulose (Cephulac) 20 gm PO Q4H [facility] Last Admin: 11/25/18 08:43 Dose: 20 gm Metoclopramide HCl (Reglan) 10 mg IV Q6H PRN PRN Reason: NAUSEA / VOMITING Stop: 12/10/18 14:48 Last Admin: 11/23/18 09:17 Dose: 10 mg Midodrine (Proamatine) 10 mg PO Q8HR [facility] Stop: 12/21/18 17:01 Last Admin: 11/25/18 08:42 Dose: 10 mg Nutritional Formula (Promod Liquid Protein) 30 ml PO BID [facility] Stop: 12/18/18 21:01 Last Admin: 11/25/18 09:22 Dose: 30 ml Nystatin (Mycostatin Susp) 500,000 unit PO QID [facility] Stop: 12/25/18 13:01 Octreotide Acetate (Sandostatin) 200 mcg SQ Q8HR [facility] Stop: 12/17/18 19:01 Last Admin: 11/25/18 08:46 Dose: 200 mcg Pantoprazole Sodium (Protonix Inj) 40 mg IVP DAILY [facility]; Protocol Stop: 12/24/18 09:01 Last Admin: 11/25/18 08:44 Dose: 40 mg Sodium Bicarbonate (Sodium Bicarb 325 Mg) 650 mg PO QID [facility] Stop: 12/21/18 17:01 Last Admin: 11/25/18 08:45 Dose: 650 mg Sodium Chloride (Sodium Chloride 10 Ml Inj) 10 ml IV UD PRN PRN Reason: Diluant Stop: 12/13/18 09:57 Last Admin: 11/20/18 20:16 Dose: 10 ml Tamsulosin HCl (Flomax) 0.4 mg PO BEDTIME [facility] Stop: 12/19/18 21:01 Last Admin: 11/24/18 20:17 Dose: 0.4 mg Microbiology Results 11/10/18 10:30 Blood - Blood Aerobic Blood Culture - Final No growth in 5 days. 11/10/18 10:30 Blood - Blood Anaerobic Blood Culture - Final No growth in 5 days. 11/10/18 09:50 Blood - Blood Aerobic Blood Culture - Final No growth in 5 days. 11/10/18 09:50 Blood - Blood Anaerobic Blood Culture - Final No growth in 5 days. Assessment/ Plan: Nephrology. Moved to the ICU today due to an episode of hematemesis yesterday with a high risk of recurrent bleeding. Went to the ICU after his EGD this morning. Case discussed with the in the ICU waiting room. CPS stable without CP or SOB. No acute events overnight. Vitals, medications, blood work and imaging reviewed in the chart. General: Cachectic. NAD. HEENT: MMM Neck: Supple Respiratory: Clear to auscultation bilaterally Cardiovascular: Hip Edema 1+, Regular rate/rhythm Gastrointestinal: Distended. NT. Musculoskeletal: No clubbing, No contractures Integumentary: No rashes, No cyanosis Neurological: Awake and alert. Urinary: Lopez External genitalia: No edema Greater than 30 minutes patient care. Blood work reviewed in the chart. Cr 2.88 Imagings Data: EXAM DESCRIPTION: RAD - Chest Single View - 11/13/2018 9:41 pm CLINICAL HISTORY: The patient is 78 years old and is Male; VOMITING TECHNIQUE: Frontal view of the chest. COMPARISON: Chest radiograph performed the same day at 1254 hours. FINDINGS: LUNGS: There are low lung volumes. Minimal left basilar opacity is present. PLEURAL SPACE: Unremarkable. No pneumothorax. HEART: Unremarkable. No cardiomegaly. MEDIASTINUM: Unremarkable. BONES/JOINTS: Unremarkable. An enteric tube is noted coursing beneath the level of the hemidiaphragm, the tip is off the [id number]. IMPRESSION: Minimal left basilar atelectasis. Conclusions/Impression: A/ LUIS MANUEL suspicious for HRS versus IgA nephropathy. Other considerations include prerenal azotemia and ATN in the setting of a high volume paracentesis X2 or GN in the setting of persistent hematuria/ pyuria. Negative urine eosinophils. Renal function may have been exacerbated by second large volume paracentesis. Hyponatremia. Hypokalemia. Acidosis. Urinary obstruction/ retention sp lopez placement by Dr. Rivera. BPH/ LUTS. Liver cirrhosis with ascites. Varices. Hepatic encephalopathy. Hypoalbuminemia. HTN. DM II. Anemia in chronic illness. Macrocytic. Thrombocytopenia. Acute cystitis. Enterococcus faecalis. P/ Continue current POC and Medications. IV Albumin as needed. IVF prn. Continue Octreotide and Midodrine. Agree with lactulose therapy. Agree with abx. No NSAIDS. AM labs. Daily weight. The case was discussed with the . She is considering hospice due to the patient's overall poor prognosis. She elected not to have the HD catheter placed today.
[2018-11-25] MEDS ORDERED: EPOETIN ALFA 10,000 UNIT/ML SQ ONE (11:52)
[2018-11-25] MEDS: NYSTATIN 500,000 UNIT/5 ML UDC PO SCH ×2 (13:40→16:39)
[2018-11-25] MEDS ORDERED: FLUCONAZOLE 100 MG TAB PO ONE (15:00)
--- NOTE | 2018-11-25 16:30 | PN ---
Date of Progress Note: 11/25/2018 Subjective: The patient was seen this morning for followup. He was lying in bed, not in any distres s, but disoriented. The patient started to have increasing confusion problem yesterday afternoon, es pecially after endoscopy procedure. His ammonia level was extremely elevated last night, it was 238, and his lactulose dose was increased from a 3 times a day to every 4 hours. This morning, the octavio ia level came down to 107. The patient did not communicate with me. He was lying in bed, not in dis tress. Objective: Vital Signs: Reviewed. HEENT Examination: Unremarkable. Lungs: Clear to auscultation. Heart: Sounds normal. Abdomen: Soft. Distended with ascites, unchanged from yesterday. No tenderness. Bowel sounds norm oactive. Extremities Examination: No leg edema. Laboratory Data: Sodium 130, potassium 4.7, chloride 99, bicarb 15, BUN 118, creatinine 4.38, glucos e 79, total bilirubin 5, SGOT 187, SGPT 101, alkaline phosphatase 276. Ammonia level 107 this mornin g, yesterday it was 238. His white count 12.2, hemoglobin 12.7, platelets 73. Impression: 1.Acute renal failure. 2.Cirrhosis of liver with ascites, due to alcohol use. 3.Hepatic encephalopathy. 4.Acute liver failure. 5.Thrombocytopenia. 6.Anemia. 7.Hyponatremia. Plan: We will go ahead and continue current lactulose. The patient is able to swallow his medicatio ns, take oral medications without any difficulty, so we will continue those at this point. He is cur rently on IV fluid, we will reduce the rate of IV fluid and change IV fluid to D5 normal saline consi dering glucose level this morning 79 on the blood work and I do not anticipate him having any food in take today considering his overall condition. So, we will go ahead and give IV fluid with D5 normal saline and hopefully that will avoid any hypoglycemia problem. I had a long discussion with the solomon ent's family member, which is son-in-law, daughter and outside the ICU in the waiting room and t he patient's overall prognosis is very poor. Now, his condition is deteriorating. Acute renal failu re, which we believe is likely due to hepatorenal syndrome, it is getting worse on a day-to-day basis . Now, I am afraid that he is going into an acute liver failure with overall worsening condition and liver parameters as we can see. Rapid downhill course is unfortunately expected and with family we did talk about hospice care today. Family is agreeable to do hospice care and they have selected hos pice agency, so we will have family welfare social work professor start making arrangements. 's intention is to take hi m home with hospice, so hopefully sometime over the weekend, we might be able to discharge him to go home with hospice care. All the details and plan of treatment discussed with family member. I will see him tomorrow morning for followup. The patient does not need any ICU care and transfer order was written for patient to get to medical floor, see copy of transfer order for details. TOMMY/MODL Voice ID: [id number] Report ID: [id number]
[2018-11-25] MEDS ORDERED: NA CHLORIDE 0.9% 500 ML ONE (19:51)
[2018-11-25] MEDS ORDERED: OCTREOTIDE 500 MCG in NA CHLORIDE 0.9% 500 ML IV SCH (20:00)
[2018-11-25] MEDS ORDERED: OCTREOTIDE ACETATE 500 MCG/ML ONE (20:02)
--- NOTE | 2018-11-25 20:35 | P.PN ---
Subjective Date of Service: 11/25/18 Chief Complaint: AMS complicated by a fall. Subjective: Worsening (SOB tonight. IVFs on D5NS at 50. Started IV Octreotide with h/o 3 maroon stools today. Family decided on hospice today. Family has decided against hemodialysis.) Review of Systems 10-point ROS is otherwise unremarkable Respiratory: Shortness of Breath Neurological: Weakness, Confusion Physical Examination - Vital Signs Temperature: 97.1 F Blood Pressure: 104/55 Pulse: 91 Respirations: 20 Pulse Ox (%): 97 - Physical Exam General: Alert, Oriented x2, Confused (hepatic encephalopathy) HEENT: Atraumatic, Normocephalic, PERRLA Neck: Supple Respiratory: Diminished Cardiovascular: Normal pulses Gastrointestinal: No tenderness, No rebound, No guarding, Distended, Ascites Neurological: Normal speech, Abnormal strength Assessment And Plan - Current Problems (Diagnosis) (1) Renal failure (ARF), acute on chronic Current Visit: Yes Status: Acute Comment: Worsening, nephrology following. On Midodrine and Octreotide (2) Acute blood loss anemia Onset Date: 08/16/17 Current Visit: No Status: Acute Comment: Hgb 12 (3) Altered mental status Current Visit: No Status: Acute Comment: Hepatic encephalopathy on Lactulose & Xifaxan. (4) Ascites Current Visit: No Status: Acute Comment: S/p paracentesis 2 days ago. But ascites recurrent with abdominal distention on IVFs for renal failure and hyponatremia. (5) Cirrhosis of liver Onset Date: 08/16/17 Current Visit: No Status: Acute (6) Esophageal varices Onset Date: 08/16/17 Current Visit: No Status: Acute Comment: S/p banding of bleeding esophageal varices yesterday. (7) Hepatic encephalopathy Current Visit: No Status: Acute (8) Portal hypertensive gastropathy Current Visit: No Status: Acute (9) Thrombocytopenia Onset Date: 08/16/17 Current Visit: No Status: Acute (10) Hyponatremia Current Visit: Yes Status: Acute (11) Hematemesis Current Visit: Yes Status: Acute - Plan REC: 1) check CXR 2) discontinue IVFs overnight and check labs in AM 3) urgent repeat paracentesis in AM with IV albumin 4) discontinue IV Octreotide and increase SQ Octreotide 5) continue IV Ceftriaxone with bleeding esophageal varices 6) goal hgb 7-8 with recent bleeding esophageal varices
--- NOTE | 2018-11-25 20:58 | RAD REPORT ---
EXAM DESCRIPTION: Markus Single View11/25/2018 8:49 pm CLINICAL HISTORY: sob COMPARISON: November 16 FINDINGS: Small left pleural effusion. Opacities within left base probably represent atelectasis. Mild interstitial pulmonary edema may be present. Heart is normal size. PICC line has its tip in the superior vena cava
[2018-11-25] MEDS ORDERED: ALBUMIN HUMAN 25% 400 ML IV SCH (21:00)
[2018-11-25] MEDS: TAMSULOSIN 0.4 MG SR CAP PO SCH (21:47)
[2018-11-26] MEDS: MIDODRINE HCL 5 MG TABLET PO SCH ×3 (00:26→17:00)
[2018-11-26] MEDS: LACTULOSE 20 GM/30 ML UCUP PO SCH ×6 (00:27→21:00)
[2018-11-26] MEDS: OCTREOTIDE ACETATE 100 MCG/ML SQ SCH ×4 (00:28→18:42)
[2018-11-26] MEDS: ALBUTEROL 2.5 MG/3 ML NEB SOL NEB SCH ×4 (02:00→20:55)
[2018-11-26] MEDS: INSULIN -REGULAR HUMAN 50 UNIT/0.5 ML ML SQ SCH ×4 (07:30→21:00)
[2018-11-26] MEDS: CEFTRIAXONE/SWI 1gm 1 GM/10 ML SYR IV SCH (09:00)
[2018-11-26] MEDS ORDERED: CEFTRIAXONE 1 GM/NS 50 ML 1 GM/50 ML BAG IV SCH (09:00)
[2018-11-26] MEDS: FLUCONAZOLE 100 MG TAB PO SCH (09:33)
[2018-11-26] MEDS: PROMOD 30 ML DOSE PO SCH ×2 (09:35→21:00)
[2018-11-26] MEDS: CALCITROL 0.25 MCG CAP PO SCH (09:36)
[2018-11-26] MEDS: RIFAXIMIN FT SCH ×2 (09:36→21:00)
[2018-11-26] MEDS: PANTOPRAZOLE 40 MG INJ IVP SCH (09:36)
[2018-11-26] MEDS: SODIUM BICARB 325 MG TAB PO SCH ×4 (09:37→21:00)
[2018-11-26 15:23] LABS: Protime INR 1.71
[2018-11-26 15:31] LABS: Magnesium 2.9 mg/dL (1.8-2.4); Phosphorus 8.3 mg/dL (2.5-4.9); Potassium 4.1 mmol/L (3.5-5.1)
--- NOTE | 2018-11-26 16:22 | PN ---
Date of Progress Note: 11/26/2018 Subjective: The patient was seen this morning for followup. His family members were present at beds sarah. The patient appears lot weaker than normal. Yesterday, he started to have agitation, confusion , and Haldol was ordered for him. He did not sleep well last night. He is still able to swallow, reece s been eating and drinking when he can and when he gets hungry, and no difficulty swallowing reported so far. He has some dry cough as reported by family member and abdomen is getting increasingly dist ended. Objective: Vital Signs: Reviewed. HEENT Examination: Unremarkable. Lungs: Clear to auscultation. Heart: Sounds normal. Abdomen: Soft. Bowel sounds normal. Abdomen is distended more than before with ascites. Extremity Exam: No leg edema. Laboratory Data: There is no new blood work today. Fingerstick blood sugar readings reviewed. Impression: 1.Acute liver failure. 2.Acute renal failure. 3.Cirrhosis of liver with ascites, due to alcohol. 4.Hepatic encephalopathy. Plan: The patient's family has decided to take him to [facility] upon discharge with [facility] care. Family and marriage and family social worker is working with hospice agency. We had a long discussion with family members today. We talked about comfort care measures versus medications or any treatment colette t may prolong his sufferings and may not add anything in terms of comfort care and we talked about al l those things. All his nonessential medications will be discontinued [facility] care. We also talked about lactulose and if we discontinue la ctulose then his ammonia level will go up and along with the liver failure and increased pneumonia th e patient will be more sedated with hepatic coma, but it will not add to any discomfort and in fact, we believe that he might be more comfortable as currently he is more restless and agitated from time to time. After I talked to family and family has agreed not to continue any nonessential medication and also told me that she would agree to discontinue lactulose and comfort measures to be provid ed per hospice care orders. Considering patient has very tense ascites at least to add to his comfor t, family is requesting 1 last paracentesis to be done prior to discharge and we will request our int erventional radiologist to perform this procedure on Wednesday and after that, we will plan to discharge [facility]. Rapid decline is to be expected and this was discussed with family members and they understand it well. TOMMY/MODL Voice ID: [id number] Report ID: [id number]
--- NOTE | 2018-11-26 20:03 | P.PN ---
Subjective Date of Service: 11/26/18 Chief Complaint: AMS complicated by a fall, ascites, hep enceph, possible hepatorenal syndro Subjective: Worsening (SOB and acidemia with serum CO2 15. Low rectal temperature at ~ 96.1 as per RNs. Tolerated some po intake today. CXR -> small left pleural effusion and possible mild pulmonary edema.) Review of Systems 10-point ROS is otherwise unremarkable General: Weakness, Malaise Respiratory: Shortness of Breath Neurological: Weakness, Change in Speech, Confusion, Other (minimal speech) Physical Examination - Vital Signs Temperature: 91.0 F Blood Pressure: 71/42 Pulse: 75 Respirations: 20 Pulse Ox (%): 92 - Physical Exam General: Alert, Oriented x2, Cooperative, Disheveled, Confused, Delirious HEENT: Atraumatic, Normocephalic, PERRLA, EOMI Neck: Supple Respiratory: Diminished Cardiovascular: Normal pulses, Edema Gastrointestinal: No tenderness, No rebound, No guarding, Ascites (tense) Neurological: Abnormal speech (limited by SOB), Abnormal strength Assessment And Plan - Current Problems (Diagnosis) (1) Renal failure (ARF), acute on chronic Current Visit: Yes Status: Acute Comment: Worsening, nephrology following. On Midodrine and Octreotide (2) Acute blood loss anemia Onset Date: 08/16/17 Current Visit: No Status: Acute Comment: Hgb 12 (3) Altered mental status Current Visit: No Status: Acute Comment: Hepatic encephalopathy on Lactulose & Xifaxan. (4) Ascites Current Visit: No Status: Acute Comment: S/p paracentesis 2 days ago. But ascites recurrent with abdominal distention on IVFs for renal failure and hyponatremia. (5) Cirrhosis of liver Onset Date: 08/16/17 Current Visit: No Status: Acute (6) Esophageal varices Onset Date: 08/16/17 Current Visit: No Status: Acute Comment: S/p banding of bleeding esophageal varices yesterday. (7) Hepatic encephalopathy Current Visit: No Status: Acute (8) Portal hypertensive gastropathy Current Visit: No Status: Acute (9) Thrombocytopenia Onset Date: 08/16/17 Current Visit: No Status: Acute (10) Hyponatremia Current Visit: Yes Status: Acute (11) Hematemesis Current Visit: Yes Status: Acute - Plan REC: 1) will do paracentesis at bedside now 2) will give 100 g IV albumin 3) increase po intake as able 4) goal hgb 7-8 with recent bleeding esophageal varices
--- NOTE | 2018-11-26 20:25 | P.BOP ---
Preoperative diagnosis: Ascites Postoperative diagnosis: Ascites Primary procedure: Paracentesis (bedside) Telephone Order Clerk Room Service: RNs Estimated blood loss: minimal Specimen: ascites fluid Anesthesia: Local (Lidocained at skin site, LLQ area) Complications: None Condition: Good (11 liters removed. BP up from 74/42 to 95/60 with paracentesis and IV albumin 100 g. Temp low at 95.4F with Bear hugger started.)
[2018-11-26] MEDS: TAMSULOSIN 0.4 MG SR CAP PO SCH (21:00)
[2018-11-27] MEDS: LACTULOSE 20 GM/30 ML UCUP PO SCH ×6 (00:49→21:00)
[2018-11-27] MEDS: MIDODRINE HCL 5 MG TABLET PO SCH ×3 (00:50→17:00)
[2018-11-27] MEDS: OCTREOTIDE ACETATE 100 MCG/ML SQ SCH ×5 (01:11→23:23)
[2018-11-27] MEDS ORDERED: OCTREOTIDE ACETATE 500 MCG/ML ONE (01:22)
[2018-11-27] MEDS: ALBUTEROL 2.5 MG/3 ML NEB SOL NEB SCH ×4 (02:05→20:00)
[2018-11-27 05:51] LABS: Absolute Lymphocytes (CBC) 0.4 K/uL (0.7-4.9); Basophils % 0.2 % (0-1.3); Eosinophils % 0.2 % (0-4.4); Hematocrit 29.9 % (39.6-49.0); MPV 9.2 fL (7.6-11.3); Monocytes % 3.9 % (3.3-12.3); RBC Red Blood Cell Count 2.94 M/uL (4.33-5.43)
[2018-11-27 06:13] LABS: Magnesium 2.7 mg/dL (1.8-2.4); Phosphorus 7.5 mg/dL (2.5-4.9)
[2018-11-27 06:41] LABS: Arterial Blood Carboxyhemoglob 1.4 % (0-1.5); Blood Gas Oxyhemoglobin 93.8 % (94-97); Blood O2 Saturation 95.6 % (92-98.5)
[2018-11-27] MEDS: INSULIN -REGULAR HUMAN 50 UNIT/0.5 ML ML SQ SCH ×4 (07:30→21:00)
[2018-11-27 08:12] LABS: Anisocytosis 1+; Blood Morphology Comment NOTED (NOT SEEN); Burr Cells 1+; Platelet Estimate DECR; Toxic Granulation 1+; Urine White Blood Cell Casts OK
[2018-11-27] MEDS: FLUCONAZOLE 100 MG TAB PO SCH (08:20)
[2018-11-27] MEDS: PROMOD 30 ML DOSE PO SCH ×2 (08:21→21:00)
[2018-11-27] MEDS: PANTOPRAZOLE 40 MG INJ IVP SCH (08:21)
[2018-11-27] MEDS: CEFTRIAXONE/SWI 1gm 1 GM/10 ML SYR IV SCH (08:22)
[2018-11-27] MEDS: SODIUM BICARB 325 MG TAB PO SCH ×4 (08:22→21:00)
[2018-11-27] MEDS: RIFAXIMIN FT SCH ×2 (09:00→21:00)
[2018-11-27] MEDS: CALCITROL 0.25 MCG CAP PO SCH (09:00)
[2018-11-27] MEDS ORDERED: Ringers Lactate 1,000 ML IV SCH (11:05)
--- NOTE | 2018-11-27 11:29 | P.PN ---
Subjective Date of Service: 11/27/18 Chief Complaint: AMS complicated by a fall, ascites, hep enceph, possible hepatorenal syndro Subjective: Improving (Feels better today. But not able to eat, swallow anything and becoming dehydrated. concerned about placing DHT or NGT due to recent esophageal variceal bleed with banding; no bleeding noted since banding with EGD. Minimal urine output. He is mouth breathing on NC (was on Venti mask last night). No stool in 2 days.) Review of Systems 10-point ROS is otherwise unremarkable General: Weakness, Malaise Respiratory: Shortness of Breath (improved from last night after bedside paracentesis with 11 liters removed. ) Physical Examination - Vital Signs Temperature: 97.1 F Blood Pressure: 91/43 Pulse: 93 Respirations: 18 Pulse Ox (%): 96 - Physical Exam General: Alert, Oriented x1 (unable to communicate well, too weak), Cooperative , Disheveled, Mild distress (though improved from last night) HEENT: Atraumatic, Normocephalic, PERRLA, EOMI Neck: Supple Respiratory: Diminished Cardiovascular: Normal pulses Gastrointestinal: Soft and benign, No rebound, No guarding, Ascites (much improved after 11 liters removed last night. ) Neurological: Abnormal speech, Abnormal strength Assessment And Plan - Current Problems (Diagnosis) (1) Renal failure (ARF), acute on chronic Current Visit: Yes Status: Acute Comment: Worsening, nephrology following. On Midodrine and Octreotide (2) Acute blood loss anemia Onset Date: 08/16/17 Current Visit: No Status: Acute Comment: Hgb 12 (3) Altered mental status Current Visit: No Status: Acute Comment: Hepatic encephalopathy on Lactulose & Xifaxan. (4) Ascites Current Visit: No Status: Acute Comment: 11 liters taken off last night with much improved breathing. Though increased WBC, possible aspiration with attempts at clear liquids over past 24 hours; patient unable to swallow well with stasis of liquid in mouth and possible silent aspiration; he is on antibiotics but may need broader spectrum. (5) Cirrhosis of liver Onset Date: 08/16/17 Current Visit: No Status: Acute (6) Esophageal varices Onset Date: 08/16/17 Current Visit: No Status: Acute Comment: S/p banding of bleeding esophageal varices. (7) Hepatic encephalopathy Current Visit: No Status: Acute (8) Portal hypertensive gastropathy Current Visit: No Status: Acute (9) Thrombocytopenia Onset Date: 08/16/17 Current Visit: No Status: Acute (10) Hyponatremia Current Visit: Yes Status: Acute (11) Hematemesis Current Visit: Yes Status: Acute - Plan REC: 1) will restart IVFs, with one bag of LR and then one bag of PPN without K , Mg, Phos 2) will give IV albumin as needed 3) attempt DHT placement and then TFs (he is to be discharged tomorrow to care home facility on hospice - family plan) 4) goal hgb 7-8 with recent bleeding esophageal varices
[2018-11-27] MEDS ORDERED: CEFEPIME 1 GM/VIAL IV SCH (11:45)
[2018-11-27] MEDS ORDERED: LIPIDS IV SCH ×7 (13:00)
[2018-11-27] MEDS ORDERED: [UNRECOGNIZED DRUG - OTHER] IV SCH ×7 (13:00)
[2018-11-27] MEDS ORDERED: AMINO ACIDS 10% IV SCH ×7 (13:00)
[2018-11-27] MEDS ORDERED: DEXTROSE 50% IV SCH ×7 (13:00)
[2018-11-27] MEDS ORDERED: WATER IV SCH ×7 (13:00)
[2018-11-27] MEDS: CEFEPIME/SWI 1gm 10 ML IV SCH (13:03)
--- NOTE | 2018-11-27 13:48 | PN ---
Date of Progress Note: 11/27/2018 Subjective: The patient was seen this morning for followup. He was lying in bed, sleeping, did not communicate with me. Yesterday evening, his condition started to deteriorate. He became hypothermic and hypotensive. Dr. Powers was originally planning to do paracentesis, but when his blood pressure and temperature started to go low, he decided not to do it, but subsequently he did perform paracent esis and IV albumin was given. About 10.5 L of fluid was removed with paracentesis. Objective: Vital Signs: Reviewed. HEENT: Unremarkable. Lungs: Bilateral shallow air entry, not in distress. Heart: Sounds normal. Abdomen: Soft. Abdominal distention with ascites that he had has significantly improved after parac entesis. Bowel sounds normal. Extremities: No leg edema. Laboratory Data: White count 17.8, hemoglobin 10.1, platelets 45. Sodium 132, potassium 4, chloride 101, bicarb 13, BUN 123, creatinine 5.04. Impression: 1.Acute renal failure. 2.Acute hepatic failure. 3.Cirrhosis of liver with ascites, due to alcohol use. 4.Thrombocytopenia. 5.Anemia. 6.Hepatic encephalopathy. Plan: The patient's condition is deteriorating and I will communicate with family member. Last nigh t, I did talk to patient's daughter when his blood pressure and temperature was going down and I comm unicated with family today to see if they are interested in doing hospice care in the hospital that w ill allow them 5 days of hospice care in the hospital and this is in view of rapidly deteriorating condition, so I will discuss that option with iris white. TOMMY/MODL Voice ID: [id number] Report ID: [id number]
[2018-11-27 18:20] LABS: HBsAG Nonreactive (Nonreactive)
--- NOTE | 2018-11-27 18:42 | CON ---
Date of Consultation: 11/24/2018 Reason For Consultation: Hematemesis with anemia. History Of Present Illness: The patient is a 78-year-old white male with history of end-stage liver disease, ascites, hepatic encephalopathy, and now with possible hepatorenal syndrome. The patient reece s end-stage liver disease secondary to fatty liver disease. The patient admitted to the hospital aft er fall with possible fracture and brought in the hospital, has been in the hospital since that time for over 2 weeks now it appears, patient has hemoglobin dropped and has hematemesis event and GI cons ultation was obtained. Past Medical History: The patient has end-stage liver disease, cirrhosis thought possibly due to fat ty liver disease also with history of diabetes, hyperlipidemia, hypertension, thrombocytopenia, pancr eatic cyst, benign prostatic hypertrophy, ascites, hepatic encephalopathy, now possible hepatorenal s yndrome. Past Surgical History: Includes cholecystectomy, lipoma removal, basal cell carcinoma from the back, removed. Medications: Include aspirin, carvedilol, Crestor, fluticasone, Lasix, Jardiance, losartan, Nexium, omeprazole, spironolactone at home. Allergies: TO ASPIRIN, SULFA, BACTRIM, HYDROCODONE. Family History: Brother with abdominal aortic aneurysm and weight loss. Physical Examination: Vital Signs: The patient is 5 feet 11 inches, 200 pounds, BMI of 28 kg/m2. Vital signs included tem perature 97.2, pulse 95, respirations 20-25, blood pressure 114/78, O2 saturation 98%. General: He is an elderly male, lying in bed, somewhat confused, dishevelled with some confusion due to his hepatic encephalopathy, protuberant abdomen. Thin extremities. HEENT: Normocephalic, atraumatic. Anicteric. Pupils equal, round, and reactive to light. Extraocu lar movements were clear. Oropharynx is clear. Neck: Supple with no masses. Respirations: Diminished breath sounds, short, labored, up to 24 breaths per minute. Abdomen: Positive bowel sounds. Soft, distended with positive ascites. Positive fluid wave. Dulln ess to percussion in the flanks and somewhat in the central and the lower abdomen. Extremities: No clubbing, cyanosis. Positive 3+ lower extremity edema. Neuro: Alert, oriented x1-2, somewhat confused due to his hepatic encephalopathy. Laboratory Data: The patient has white count 11.6, hemoglobin 10.8, hematocrit 31, MCV of 102, plate let count 85, polys of 83%, lymph 5%, monocytes 11%, eosinophils 1%. Prothrombin time 20.5, INR of 1 .8. Sodium 131, potassium 5.0, chloride 99, bicarb 17, BUN of 112, creatinine of 4.2, glucose 102, c alcium 7.5. Ammonia on the 4th was 59. On the 4th, the patient had a uric acid of 9.4, calcium 7.6, phosphorus 5.9, magnesium 2.6. Total bilirubin 2.2, AST of 103, ALT of 68, alkaline phosphatase 206 , total protein 5.5, albumin of 3.3. 3+ blood, 1+ leukocyte esterase, greater than 50 rbc's, 10-20 w holger blood cells. Ultrasound of the abdomen on the , yesterday revealed proximal right renal artery stenosis is pres ent with right kidney, mildly echogenic, compatible with medical renal disease and moderate ascites n oted. Impression: 1.Hematemesis. 2.Anemia. 3.Hepatic encephalopathy. 4.Possible hepatorenal syndrome. 5.Ascites. 6.History of end-stage renal disease due to fatty liver disease with ascites, hepatic encephalopathy , possible hepatorenal syndrome, and other as per above. Recommendation: 1.Proceed with EGD. 2.PPI therapy. 3.Ceftriaxone IV and already on subcu octreotide for possible hepatorenal syndrome. IV octreotide m ight be more beneficial to help with a possible hepatorenal syndrome. MARJAN/HAM Voice ID: [id number] Report ID: [id number]
[2018-11-27] MEDS: TAMSULOSIN 0.4 MG SR CAP PO SCH (21:00)
[2018-11-28] MEDS: MIDODRINE HCL 5 MG TABLET PO SCH ×2 (00:15→09:00)
[2018-11-28] MEDS: LACTULOSE 20 GM/30 ML UCUP PO SCH ×4 (00:15→12:31)
[2018-11-28] MEDS: ALBUTEROL 2.5 MG/3 ML NEB SOL NEB SCH ×2 (01:45→08:25)
[2018-11-28] MEDS: OCTREOTIDE ACETATE 100 MCG/ML SQ SCH ×2 (06:08→11:35)
[2018-11-28] MEDS: INSULIN -REGULAR HUMAN 50 UNIT/0.5 ML ML SQ SCH ×2 (07:30→11:30)
[2018-11-28] MEDS: RIFAXIMIN FT SCH (09:00)
[2018-11-28] MEDS: PROMOD 30 ML DOSE PO SCH (09:00)
[2018-11-28] MEDS: CALCITROL 0.25 MCG CAP PO SCH (09:00)
[2018-11-28] MEDS: PANTOPRAZOLE 40 MG INJ IVP SCH (09:00)
[2018-11-28] MEDS: VITAMIN D 5,000 UNIT CAP PO SCH (09:00)
[2018-11-28] MEDS: SODIUM BICARB 325 MG TAB PO SCH ×2 (09:00→12:33)
[2018-11-28] MEDS: FLUCONAZOLE 100 MG TAB PO SCH (09:00)
[2018-11-28 09:55] VITALS: O2SAT 95
[2018-11-28] MEDS: CEFEPIME/SWI 1gm 10 ML IV SCH (12:33)
[2018-11-28 13:44] VITALS: BP 79/45; TEMP 97
--- NOTE | 2018-11-29 05:15 | DS ---
Date of Discharge: 11/28/2018 Disposition: Discharged to go to [facility] with hospice care. Physical Examination: Vital Signs: This morning, temperature 97, pulse 84, respiratory rate 20, blood pressure 89/50. HEENT: Unremarkable. Lungs: Clear to auscultation. Heart: Sounds normal. Abdomen: Soft. Bowel sounds normal. No guarding, rigidity, tenderness. Extremities: No leg edema. Laboratory Data: Initial white count on 11/10/2018 was 8.9, hemoglobin 13.3, platelets 157. Lowest platelet was yesterday and it was 45. Yesterday, white count 17.8, hemoglobin was 10.1. Last chemistry from yesterday, sodium 132, potassium 4, chloride 101, bicarb 13, BUN 123, creatinine 5.04, glucose 84. Urine culture growing Enterococcus faecalis from 11/10/2018. Blood culture remained negative. Renal arterial Doppler raising possibility of right renal artery stenosis. Hospital Course: A 78-year-old male patient admitted to the hospital with altered mental status and fall. Please see dictated H and P for more information. The patient has cirrhosis of liver with ascites due to alcohol use , lately has been requiring paracenteses about almost every 3 weeks on outpatient basis. He had evaluation done by liver specialist in [place] and after evaluation, he was told that there is nothing they can do for him in terms of any definitive treatment and supportive care was advised and overall prognosis was guarded as per his discussion with liver specialist in [place]. He was in his normal usual state of health until he fell down and had altered mental status, was brought into emergency room. After he was evaluated in the ER, he was admitted to the hospital. The patient was admitted with hepatic encephalopathy with an ammonia level of 107. He also had urinary tract infection, so empiric antibiotics were given to him. Once the final report on the culture came back, we gave him culture-specific antibiotic which was Levaquin. He was getting his diuretic medication which was spironolactone and Lasix. During this hospitalization, he had a very complicated course. At 1 point, he had urinary retention and bladder scan revealed about approximately 700 cc of urine. A Atkins catheter was placed, which showed about 200 cc of urine in the bag after that he had no urine output and later on nurse determined that his catheter probably was not in the right place and Dr. Rivera was consulted. Atkins catheter was removed. It appeared that it was probably in the urethra as nurse had informed me. Next day, Dr. Rivera did a cystoscopy and he did not identify any evidence of trauma to bladder or urethra and he was able to place catheter without any difficulty. Catheter remained in place since that time. At a later date, we did try to remove the catheter several days after that, but he ended up having urinary retention and we had to replace the catheter and catheter remained in place until today. The other problem that we started facing was worsening of renal function. He started to have increasing BUN and creatinine during this hospitalization and his diuretic therapy was discontinued. Nephrology consultation was obtained from Dr. Mccartney , and we thought about the possibility of hepatorenal syndrome. At some point, we thought about possibility of doing hemodialysis, but then meanwhile his condition started to deteriorate significantly and he was not considered a candidate for hemodialysis because of his overall very poor condition and family also decided not to pursue that and to consider hospice care. He did require paracentesis which was performed couple of times during this hospitalization and between 10 to 11 L of fluid was removed each time. The patient's ammonia level came down and his hepatic encephalopathy problem improved and then all of a sudden, he had episode of upper gastrointestinal bleeding and Dr. Powers was consulted and he did perform EGD and performed banding of his esophageal viruses. His upper GI tract mucosa lining was extremely friable and he reported that it started oozing in the area where the endoscope was touching during this procedure. The patient was given packed red cell blood transfusion and a platelet transfusion. He was kept in ICU when he had this upper GI bleed and subsequently he was transferred out of ICU to regular room. The patient did have recurrence of hepatic encephalopathy after this upper GI bleed with increase in ammonia level into 200 range. His overall prognosis is very poor, oral intake of nutrients is very minimum, and family understands rapid downhill course is to be expected and we talked about hospice care. Per family's request, we did make arrangements with help of Social Service for the patient to go to [facility] where [facility] will provide hospice care to the patient. Hospice diagnosis is cirrhosis of liver, acute liver failure, and acute renal failure. The patient' s bilirubin started to go up along with liver function test abnormality and these are all indicating acute liver failure. Final Diagnoses: 1. Acute renal failure. 2. Acute liver failure. 3. Hepatic encephalopathy. 4. Cirrhosis of liver with ascites, due to alcohol use. 5. Urinary tract infection. 6. Upper gastrointestinal bleeding. 7. Esophageal varices with bleeding. 8. Acute blood loss anemia. 9. Thrombocytopenia. 10. Type 2 diabetes mellitus. 11. Mixed hyperlipidemia. 12. Benign prostatic hypertrophy with urinary retention. 13. Gastroesophageal reflux disease. Discharge Medications And Instructions: Continue all discharge medications. The patient to be admitted to hospice care upon discharge from hospital to go to [facility] and comfort care orders as per hospice. TOMMY/MODL Voice ID: [id number] Report ID: [id number] MTDFlorina
--- NOTE | 2018-12-15 03:46 | ENDO RPT ---
[address], [address] EGD PROCEDURE REPORT EXAM DATE: 11/24/2018 PATIENT NAME: Clifford Vega MR#: [id number] BIRTHDATE: 1940 ATTENDING: Tayo Powers Dr STATUS: inpatient - [facility] PROCESS OPERATOR: Jerad Espinoza RN, Marnie Pulliam, and Nicole Goldberg RN INDICATIONS: The patient is a 78 yr old Male here for an EGD due to upper G.I. bleeding, hematemesis, anemia, cirrhosis, ascites PROCEDURE PERFORMED: EGD for control of bleeding and EGD with banding MEDICATIONS: Per Anesthesia. TOPICAL ANESTHETIC: none CONSENT: The patient understands the risks and benefits of the procedure and understands that these risks include, but are not limited to: sedation, allergic reaction, infection, perforation and/or bleeding. Alternative means of evaluation and treatment include, among others: physical exam, x-rays, and/or surgical intervention. The patient elects to proceed with this endoscopic procedure. DESCRIPTION OF PROCEDURE: During intra-op preparation period all mechanical medical equipment was checked for proper function. Hand hygiene and appropriate measures for infection prevention was taken. Procedure, possible complications, and alternatives including but not limited to the possibility of bleeding, perforation, tear, infection, sepsis, need for surgery, need for blood transfusion, and anesthesia related complications were explained to the patient. After the risks, benefits and alternatives of the procedure were thoroughly explained, Informed consent was verified, confirmed and timeout was successfully executed by the treatment team. The patient was placed in the left lateral position. The patient was anesthetized with topical anesthesia. Through the anesthetized oropharyngeal area, the scope was passed without any difficulty. The EG-[id number] ([id number]) endoscope was introduced through the mouth and advanced to the second portion of the duodenum. Retroflexed views revealed no abnormalities. The gastroscope was then slowly withdrawn and removed. Numerous small 1-2 mm white-yellow plaques were found in the total esophagus. Grade II to III varices with spurting of blood from one after abrasion with endoscope from intubating to duodenum were found in the lower esophagus. Esophageal banding was performed with control of bleeding. Portal hypertensive gastropathy was found in the total stomach. Duodenitis with Farrah's gland hyperplasia was found in the bulb of the duodenum, minor bleeding noted after abrasion with endoscope on intubation to 3rd portion of duodenum . ADVERSE EVENTS: There were no complications. IMPRESSIONS: 1. Numerous small 1-2 mm white-yellow plaques in the total esophagus -> Mary esophagitis 2. Three columns of grade II-III varices with spurting of blood from one after abrasion with endoscope from intubating to duodenum in the lower esophagus, s/p banding X2 with control of bleeding 3. Portal hypertensive gastropathy in the total stomach 4. Duodenitis with Farrah's gland hyperplasia in the bulb of the duodenum, minor bleeding noted after abrasion with endoscope on intubation to 3rd portion of duodenum RECOMMENDATIONS: 1. IV Octreotide drip 2. IV Ceftriaxone - renal dose 4. FFP now (INR 1.7) 5. Clear liquids 6. ICU monitoring 7. Diflucan therapy REPEAT EXAM: Return in 3 week(s) for EGD. Tayo Powers Dr eSigned: Tayo Powers Dr 11/24/2018 1:42 PM cc: CPT CODES: ICD9 CODES: PATIENT NAME: Clifford Vega MR#: [id number]
== END 2018-11-28 14:07 | disposition hospice, inpatient (51) | DRG 441 ==
LOC: ER 09:42 → ERHOLD 13:02 → 4TH 14:12 → 3RD-ICU 11-14 08:29 → 2ND 11-16 09:28 → 3RD-ICU 11-24 15:15 → 2ND 11-25 13:00
PROVIDERS: ADMIT Internal Medicine; ATTEND Internal Medicine
PROC: 0T9B80Z Drainage of Bladder with Drainage Device, Via Natural or Artificial Opening Endoscopic (ICD-10-PCS; principal; 2018-11-14 07:00)
PROC: 0W9G3ZZ Drainage of Peritoneal Cavity, Percutaneous Approach (ICD-10-PCS; 2018-11-18)
PROC: 30243N1 Transfusion of Nonautologous Red Blood Cells into Central Vein, Percutaneous Approach (ICD-10-PCS; 2018-11-23)
PROC: 30243R1 Transfusion of Nonautologous Platelets into Central Vein, Percutaneous Approach (ICD-10-PCS; 2018-11-23)
PROC: 06L38CZ Occlusion of Esophageal Vein with Extraluminal Device, Via Natural or Artificial Opening Endoscopic (ICD-10-PCS; 2018-11-24)
PROC: 30243K1 Transfusion of Nonautologous Frozen Plasma into Central Vein, Percutaneous Approach (ICD-10-PCS; 2018-11-24)
PROC: 0W9G3ZZ Drainage of Peritoneal Cavity, Percutaneous Approach (ICD-10-PCS; 2018-11-26)
DX: K72.00 Acute and subacute hepatic failure without coma (principal); G92 Toxic encephalopathy; I85.11 Secondary esophageal varices with bleeding; J18.9 Pneumonia, unspecified organism; K76.7 Hepatorenal syndrome; N18.4 Chronic kidney disease, stage 4 (severe); B37.81 Candidal esophagitis; K76.6 Portal hypertension; E44.0 Moderate protein-calorie malnutrition; N17.9 Acute kidney failure, unspecified; N30.00 Acute cystitis without hematuria; E87.2 Acidosis; R64 Cachexia; E87.1 Hypo-osmolality and hyponatremia; D62 Acute posthemorrhagic anemia; Z51.5 Encounter for palliative care; K70.31 Alcoholic cirrhosis of liver with ascites; F10.10 Alcohol abuse, uncomplicated; I12.9 Hypertensive chronic kidney disease with stage 1 through stage 4 chronic kidney disease, or unspecified chronic kidney disease; E11.22 Type 2 diabetes mellitus with diabetic chronic kidney disease; K31.89 Other diseases of stomach and duodenum; K29.80 Duodenitis without bleeding; D63.8 Anemia in other chronic diseases classified elsewhere; G89.29 Other chronic pain; M54.9 Dorsalgia, unspecified; E78.2 Mixed hyperlipidemia; S51.012A Laceration without foreign body of left elbow, initial encounter; S51.011A Laceration without foreign body of right elbow, initial encounter; S81.811A Laceration without foreign body, right lower leg, initial encounter; B95.2 Enterococcus as the cause of diseases classified elsewhere; D69.59 Other secondary thrombocytopenia; N40.1 Benign prostatic hyperplasia with lower urinary tract symptoms; R33.8 Other retention of urine; K21.0 Gastro-esophageal reflux disease with esophagitis; E88.09 Other disorders of plasma-protein metabolism, not elsewhere classified; E87.6 Hypokalemia; R53.81 Other malaise; W19.XXXA Unspecified fall, initial encounter; Y92.019 Unspecified place in single-family (private) house as the place of occurrence of the external cause; Z68.24 Body mass index [BMI] 24.0-24.9, adult; Z88.5 Allergy status to narcotic agent; Z88.2 Allergy status to sulfonamides
CPT/HCPCS: 36415; 36430; 49083; 70450; 71045; 71250; 72125; 74018; 80048; 80053; 80076; 81001; 81003; 81015; 82043; 82088; 82140; 82533; 82570; 82784; 82805; 82962; 83605; 83690; 83735; 84100; 84145; 84244; 84300; 84550; 85025; 85610; 85730; 86160; 86317; 86704; 86803; 86850; 86900; 86901; 87040; 87077; 87086; 87088; 87186; 87340; 88108; 93005; 93975; 94640; 96365; 97110; 97116; 97162; 97530; 99285; C9113; J0610; J0690; J0692; J0696; J0885; J1630; J2001; J2354; J2370; J2405; J2543; J2704; J2765; J7030; P9016; P9035; P9047; P9059